=== PATIENT | female | born 1945 | race Caucasian/White ===

== ENCOUNTER 2016-10-15 19:12 | Emergency (ER) | payer MEDICARE, OTHER ==
[2016-10-15 19:29] VITALS: BMI 30.9
[2016-10-15 19:41] LABS: BASOPHIL 0.3 % (0-2.0); EOSINOPHIL 3.5 % (0-4.5); MCHC 33.8 g/dl (32.0-36.0); MEAN CELL VOLUME 85.9 fl (80-96); MEAN PLT VOLUME 9.6 fl (7.5-11.1); NEUTROPHILS 71.2 % (42.8-82.8); PLATELET COUNT 111 K/MM3 (134-434); RDW 13.4 % (11.6-15.6); WHITE BLOOD COUNT 5.4 K/mm3 (4.0-10.0)
[2016-10-15 19:54] LABS: INR 1.05 (0.82-1.09); PROTHROMBIN TIME (PATIENT) 11.6 SEC (9.98-11.88)
[2016-10-15 20:04] LABS: BILIRUBIN,TOTAL 1.1 mg/dL (0.2-1.0); COCKROFT - GAULT 59.585; CREATININE 1.1 mg/dL (0.55-1.02); TOT PROT 6.5 g/dl (6.4-8.2)
[2016-10-15 20:20] LABS: TROPONIN I < 0.02 ng/ml (0.00-0.05)
--- NOTE | 2016-10-15 20:36 | PDOC ---
History of Present Illness - General History Source: Patient Exam Limitations: No Limitations - History of Present Illness Initial Comments: 10/15/16 20:36 The patient is a 71 year old female, BIBA from [facility] with a significant past medical history of Alzheimer's, DM, HTN, hypercholesterolemia, and Parkinsons Disease , who presents to the emergency department s/p mechanical fall occurring today. The patient reports falling while using her walker while in the dining philippe. The fall was unwitnessed by [facility] staff and was found with abrasions on her right forehead by [facility] staff. The patients finger stick was noted to be 45 after her fall, noted by [facility] staff to be hypoglycemic. She denies any LOC. She denies any complaints of pain. She denies recent fevers, chills, headache or dizziness. She denies recent nausea, vomit, diarrhea or constipation. She denies recent dysuria, frequency, urgency or hematuria. She denies recent chest pain or shortness of breath. Allergies: NKA Past surgical history: Appendectomy. Cholecystectomy. Social history: Nonsmoker. Denies EtOH use and recreational drug use. Primary Care Physician: <Dominic Corona - Last Filed: 10/15/16 20:36> <Bea Ramos - Last Filed: 10/15/16 21:15> - General Chief Complaint: Injury Stated Complaint: FALL Time Seen by Provider: 10/15/16 19:14 Past History <Dominic Corona - Last Filed: 10/15/16 20:36> - Past Medical History Anemia: Yes Asthma: No Cancer: Yes (breast nodule benign, CERVIX) Cardiac Disorders: Yes (ID, STENTS - cardac and LLE) 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) COPD: Yes (COPD , CHRONIC BRONCHITIS) CHF: No Dementia: No Diabetes: Yes GI Disorders: Yes (H/O COLON POLYPS,CHRONIC PANCREATITIS -STONES) Disorders: Yes (H/O UTI) HTN: Yes (DX 2002) Hypercholesterolemia: Yes (DX 2002) Liver Disease: No Suicide Attempt (Hx): No Seizures: No Thyroid Disease: No - Surgical History Abdominal Surgery: Yes (EXPLORATORY LAP-1970) Appendectomy: Yes ( CHILD) Cardiac Surgery: Yes (STENTS-2007,BALLOON LLE) Cholecystectomy: Yes (1971 DURING EXPLORATORY LAP) Lung Surgery: No Neurologic Surgery: No Orthopedic Surgery: No - Immunization History Immunization Up to Date: No - Psycho/Social/Smoking Cessation Hx Anxiety: No Suicidal Ideation: No Smoking Status: No Smoking History: Never smoked Have you smoked in the past 12 months: No Number of Cigarettes Smoked Daily: 0 Hx Alcohol Use: No Drug/Substance Use Hx: No Substance Use Type: None Hx Substance Use Treatment: No <Bea Ramos - Last Filed: 10/15/16 21:15> - Past Medical History Allergies/Adverse Reactions: Allergies Allergy/AdvReac Type Severity Reaction Status Date / Time No Known Allergies Allergy Verified 01/29/16 21:46 Home Medications: Ambulatory Orders Alendronate Sodium [Binosto] 70 mg PO WEEKLY 11/08/15 Aspirin [ASA -] 81 mg PO DAILY 11/08/15 Atorvastatin Ca [Lipitor] 20 mg PO HS 11/08/15 Metformin HCl [Glucophage -] 500 mg PO BID 11/08/15 Metoprolol Succinate [Toprol Xl] 50 mg PO DAILY 11/08/15 Ranitidine [Zantac -] 150 mg PO DAILY 11/08/15 Acetaminophen [Tylenol .Regular Strength -] 650 mg PO Q6H PRN #0 tablet Glimepiride [Glimepiride -] 1 mg PO DAILY@0700 tablet 11/12/15 Heparin - 5,000 unit SQ BID vial 11/12/15 Insulin Sliding Scale [Novolog Vial Sliding Scale -] 1 vial SQ ACHS units 11/11 Losartan Potassium [Cozaar -] 50 mg PO DAILY #0 tablet 11/12/15 Quetiapine Fumarate [Seroquel -] 12.5 mg PO DAILY tablet 11/12/15 Quetiapine Fumarate [Seroquel -] 25 mg PO HS tablet 11/12/15 Rivastigmine Tartrate [Exelon (Nf) -] 1.5 mg PO BID capsule 11/12/15 Escitalopram Oxalate [Lexapro -] 10 mg PO DAILY 10/15/16 Furosemide 20 mg PO DAILY 10/15/16 Insulin Glargine,Hum.rec.anlog [Lantus (nf)] 0 units SQ HS 10/15/16 Insulin Lispro [Humalog] 100 unit SQ ASDIR 10/15/16 Lactulose [Cephulac -] 10 gm PO DAILY 10/15/16 Levothyroxine [Synthroid -] 25 mcg PO DAILY@0700 10/15/16 Review of Systems - Review of Systems Able to Perform ROS?: Yes Comments:: 10/15/16 20:36 CONSTITUTIONAL: Absent: fever, chills, diaphoresis, generalized weakness, malaise, loss of appetite HEENT: Absent: rhinorrhea, nasal congestion, throat pain, throat swelling, difficulty swallowing, mouth swelling, ear pain, eye pain, visual Changes CARDIOVASCULAR: Absent: chest pain, syncope, palpitations, irregular heart rate, lightheadedness , peripheral edema RESPIRATORY: Absent: cough, shortness of breath, dyspnea with exertion, orthopnea, wheezing, stridor, hemoptysis GASTROINTESTINAL: Absent: abdominal pain, abdominal distension, nausea, vomiting, diarrhea, constipation, melena, hematochezia GENITOURINARY: Absent: dysuria, frequency, urgency, hesitancy, hematuria, flank pain, genital pain MUSCULOSKELETAL: Absent: myalgia, arthralgia, joint swelling SKIN: Absent: rash, itching, pallor HEMATOLOGIC/IMMUNOLOGIC: Absent: easy bleeding, easy bruising, lymphadenopathy, frequent infections ENDOCRINE: Absent: unexplained weight gain, unexplained weight loss, heat intolerance, cold intolerance NEUROLOGIC: Absent: headache, focal weakness or paresthesias, dizziness, unsteady gait, seizure, mental status changes, bladder or bowel incontinence PSYCHIATRIC: Absent: anxiety, depression, suicidal or homicidal ideation, hallucinations. <Dominic Corona - Last Filed: 10/15/16 20:36> *Physical Exam - Vital Signs Last Vital Signs Temp Pulse Resp BP Pulse Ox 97.9 F 66 20 125/100 99 10/15/16 19:19 10/15/16 19:19 10/15/16 19:19 10/15/16 19:19 10/15/16 19:19 - Physical Exam Comments: 10/15/16 20:37 GENERAL: Well developed, well nourished. Awake and alert and answering simple directions. HEENT: 4cm Hematoma right forehead with abrasion. PERRLA, EOMI. No conjunctival pallor. Sclera are non-icteric. Moist mucous membranes. Oropharynx is clear. NECK: Supple. Full ROM. No JVD. Carotid pulses 2+ and symmetric, without bruits. No thyromegaly. No lymphadenopathy. CARDIOVASCULAR: Regular rate and rhythm. No murmurs, rubs, or gallops. Distal pulses are 2+ and symmetric. PULMONARY: No evidence of respiratory distress. Lungs clear to auscultation bilaterally. No wheezing, rales or rhonchi. ABDOMINAL: Soft. Non-tender. Non-distended. No rebound or guarding. No organomegaly. Normoactive bowel sounds. MUSCULOSKELETAL Normal range of motion at all joints. No bony deformities or tenderness. No CVA tenderness. EXTREMITIES: No cyanosis. No clubbing. No edema. No calf tenderness. SKIN: Warm and dry. Normal capillary refill. No rashes. No jaundice. NEUROLOGICAL: Alert, awake. Cranial nerves 2-12 intact. No deficits to light touch and temperature in face, upper extremities and lower extremities. No motor deficits in the in face, upper extremities and lower extremities. Normoreflexic in the upper and lower extremities. Normal speech. Toes are down-going bilaterally. PSYCHIATRIC: Cooperative. Good eye contact. Appropriate mood and affect. <Dominic Corona - Last Filed: 10/15/16 20:36> - Vital Signs Last Vital Signs Temp Pulse Resp BP Pulse Ox 97.9 F 66 20 125/100 99 10/15/16 19:19 10/15/16 19:19 10/15/16 19:19 10/15/16 19:19 10/15/16 19:19 <Bea Ramos - Last Filed: 10/15/16 21:15> ED Treatment Course - LABORATORY CBC & Chemistry Diagram: 10/15/16 07:30 10/15/16 19:30 - ADDITIONAL ORDERS Additional order review: Laboratory Results 10/15/16 10/15/16 10/15/16 19:42 19:30 07:30 INR 1.05 Sodium 136 Potassium 4.6 Chloride 101 Carbon Dioxide 26 Anion Gap 9 BUN 31 H Creatinine 1.1 H D Creat Clearance w eGFR 48.82 Random Glucose 308 H* Calcium 9.0 Total Bilirubin 1.1 H D AST 28 ALT 26 D Alkaline Phosphatase 68 Creatine Kinase 118 Troponin I < 0.02 Total Protein 6.5 Albumin 4.0 10/15/16 07:30 RBC 3.95 MCV 85.9 MCHC 33.8 RDW 13.4 MPV 9.6 D Neutrophils % 71.2 D Lymphocytes % 17.1 D Monocytes % 7.9 Eosinophils % 3.5 Basophils % 0.3 <Dominic Corona - Last Filed: 10/15/16 20:36> - LABORATORY CBC & Chemistry Diagram: 10/15/16 07:30 10/15/16 19:30 - ADDITIONAL ORDERS Additional order review: Laboratory Results 10/15/16 10/15/16 10/15/16 19:42 19:30 07:30 INR 1.05 Sodium 136 Potassium 4.6 Chloride 101 Carbon Dioxide 26 Anion Gap 9 BUN 31 H Creatinine 1.1 H D Creat Clearance w eGFR 48.82 Random Glucose 308 H* Calcium 9.0 Total Bilirubin 1.1 H D AST 28 ALT 26 D Alkaline Phosphatase 68 Creatine Kinase 118 Troponin I < 0.02 Total Protein 6.5 Albumin 4.0 10/15/16 07:30 RBC 3.95 MCV 85.9 MCHC 33.8 RDW 13.4 MPV 9.6 D Neutrophils % 71.2 D Lymphocytes % 17.1 D Monocytes % 7.9 Eosinophils % 3.5 Basophils % 0.3 - RADIOLOGY Radiology Studies Ordered: Category Date Time Status CERVICAL SPINE CT W/O CONTR [CT] Stat CT Scan 10/15/16 19:[address] WITHOUT CONTRAST [CT] Stat CT Scan 10/15/16 19:30 Taken CHEST X-RAY PORTABLE* [RAD] Stat Radiology 10/15/16 19:30 Taken <Bea Ramos - Last Filed: 10/15/16 21:15> Medical Decision Making - Medical Decision Making 10/15/16 20:56 71-year-old female brought in by ambulance from [facility] for evaluation of head trauma -She was found seated on the dining room floor at the [facility] with a right forehead hematoma. PMH dementia,DM,HTN,Parkinson's ds -A fingerstick was done and she was found to be very hypoglycemic with her BGM at 47, and she received dextrose CAT scan of the head showed no evidence of any acute intracranial process, no intracranial bleed or mass effect. There was some degree of atrophy, no evidence of fracture CAT scans cervical spine was negative for any evidence of fracture or subluxation. Glucoseon the serum was 308 EKG was bradycardia at 53 bpm -Labs found that she did not have a leukocytosis, she wasn't anemic, her platelet count was within normal limits. Chemistries reveal normal electrolytes, some dehydration with bun=31 , and a glucose that was 308 10/15/16 21:10 pt will be discharged back to the [facility] -daughter notified [facility] head trauma,hypoglycemia that resolved w dextrose <Bea Ramos - Last Filed: 10/15/16 21:15> *DC/Admit/Observation/Transfer - Attestations Scribe Attestion: 10/15/16 20:37 Documentation prepared by Dominic Corona, acting as medical and health services manager for Bea Raoms MD. <Dominic Corona - Last Filed: 10/15/16 20:36> <Bea Ramos - Last Filed: 10/15/16 21:15> Diagnosis at time of Disposition: Diabetes Qualifiers: Diabetes mellitus type: type 1 Diabetes mellitus complication status: with hypoglycemia Diabetes mellitus complication detail: without coma Qualified Code( s): E10.649 - Type 1 diabetes mellitus with hypoglycemia without coma Traumatic injury of head Qualifiers: Encounter type: initial encounter Qualified Code(s): S09.90XA - Unspecified injury of head, initial encounter Abrasion of forehead Qualifiers: Encounter type: initial encounter Qualified Code(s): S00.81XA - Abrasion of other part of head, initial encounter Facial hematoma Qualifiers: Encounter type: initial encounter Qualified Code(s): S00.83XA - Contusion of other part of head, initial encounter - Discharge Dispostion Disposition: HOME Condition at time of disposition: Stable - Referrals Referrals: Keith Chávez [Primary Care Provider] - - Patient Instructions Printed Discharge Instructions: DI for Closed Head Injury, DI for Hematoma ( Bruise) Additional Instructions: please watch for any signs of change of mental status or lethargy
[2016-10-15 21:52] VITALS: BP 155/80; PULSE 82; TEMP 98.3
--- NOTE | 2016-10-16 10:30 | EKG ---
Test Reason : Blood Pressure : / mmHG Vent. Rate : 053 BPM Atrial Rate : 053 BPM P-R Int : 000 ms QRS Dur : 072 ms QT Int : 498 ms P-R-T Axes : 059 -33 070 degrees QTc Int : 467 ms SINUS BRADYCARDIA WITH MARKED SINUS ARRHYTHMIA LEFT AXIS DEVIATION ABNORMAL ECG WHEN COMPARED WITH ECG OF 07-NOV-2015 23:36, VENT. RATE HAS DECREASED Confirmed by ELMO LOCO, ANATOLY ([id number]) on 10/16/2016 10:30:09 AM Referred By: Confirmed By:ANATOLY BORREGO MD
== END 2016-10-15 21:59 ==
LOC: JER 19:12
DX: S00.83XA Contusion of other part of head, initial encounter (principal); S00.81XA Abrasion of other part of head, initial encounter; E10.649 Type 1 diabetes mellitus with hypoglycemia without coma; Z79.4 Long term (current) use of insulin; Z79.84 Long term (current) use of oral hypoglycemic drugs; E78.00 Pure hypercholesterolemia, unspecified; J44.9 Chronic obstructive pulmonary disease, unspecified; I25.10 Atherosclerotic heart disease of native coronary artery without angina pectoris; I10 Essential (primary) hypertension; Z95.5 Presence of coronary angioplasty implant and graft; Z86.73 Personal history of transient ischemic attack (TIA), and cerebral infarction without residual deficits; I25.2 Old myocardial infarction; Z87.440 Personal history of urinary (tract) infections; Z99.89 Dependence on other enabling machines and devices; R26.2 Difficulty in walking, not elsewhere classified; Z99.3 Dependence on wheelchair; W18.39XA Other fall on same level, initial encounter; Y93.9 Activity, unspecified; Y92.128 Other place in nursing home as the place of occurrence of the external cause
CPT/HCPCS: 36415; 70450-TC; 71010-TC; 72125-TC; 80053; 82550; 84484; 85025; 85610; 93005; 93010; 99285-25

== ENCOUNTER 2017-10-05 12:53 | Inpatient (IN) | payer OTHER ==
--- NOTE | 2017-10-05 14:14 | PDOC ---
History of Present Illness - General Chief Complaint: Wound Stated Complaint: ADMIT (WOUND CARE SENT) Time Seen by Provider: 10/05/17 14:01 - History of Present Illness Initial Comments: 10/05/17 15:33 The patient is a 72 year old female with a history of HTN, HLD, DM, CAD, Dementia who presents for admission for a right diabetic foot wound. The patient is accompanied by family who assist in providing the history. They report that the patient has had a wound to her right 2nd toe for the past few weeks for which Dr. Oakes in wound clinic has been managing the patient. They note worsening symptoms today prompting their presentation to the ED for admission for further management. ROS is limited due to the patient's advance dementia. Past History - Past Medical History Allergies/Adverse Reactions: Allergies Allergy/AdvReac Type Severity Reaction Status Date / Time No Known Allergies Allergy Verified 10/05/17 12:58 Home Medications: Ambulatory Orders Aspirin [ASA -] 81 mg PO DAILY 11/08/15 Atorvastatin Ca [Lipitor] 20 mg PO HS 11/08/15 Metoprolol Succinate [Toprol Xl] 12.5 mg PO DAILY 11/08/15 Ranitidine [Zantac -] 150 mg PO DAILY 11/08/15 metFORMIN HCL [Glucophage -] 500 mg PO BID 11/08/15 Acetaminophen [Tylenol .Regular Strength -] 650 mg PO Q6H PRN #0 tablet Insulin Sliding Scale [Novolog Vial Sliding Scale -] 1 vial SQ ACHS units 11/11 Escitalopram Oxalate [Lexapro -] 10 mg PO DAILY 10/15/16 Furosemide 20 mg PO DAILY 10/15/16 Insulin Glargine,Hum.rec.anlog [Lantus (nf)] 16 units SQ HS 10/15/16 Lactulose [Cephulac -] 30 ml PO ASDIR 10/15/16 Levothyroxine [Synthroid -] 25 mcg PO DAILY@0700 10/15/16 Amlodipine Besylate 2.5 mg PO DAILY 10/05/17 Ascorbic Acid [Vitamin C -] 500 mg PO BID 10/05/17 Cholecalciferol (Vitamin D3) [Vitamin D3 -] 1,000 unit PO DAILY 10/05/17 Insulin (Novolog) [NovoLOG FLEXPEN] 12 units SQ ASDIR 10/05/17 Insulin Aspart [Novolog] 5 unit SQ AM 10/05/17 Insulin Aspart [Novolog] 9 unit SQ ASDIR 10/05/17 Lactobacillus Acidophilus [Bacid -] 1 each PO DAILY 10/05/17 Lipase/Protease/Amylase [Ava Akers 6,000 Units Capsule] 1 cap PO TIDCM 10/05/17 Multivit with Iron,Minerals [Compete] 1 each PO DAILY 10/05/17 Anemia: Yes Asthma: No Cancer: Yes (breast nodule benign, CERVIX) Cardiac Disorders: Yes (KS, STENTS - cardac and LLE) 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) COPD: Yes (COPD , CHRONIC BRONCHITIS) CHF: No Dementia: No Diabetes: Yes GI Disorders: Yes (H/O COLON POLYPS,CHRONIC PANCREATITIS -STONES) Disorders: Yes (H/O UTI) HTN: Yes (DX 2002) Hypercholesterolemia: Yes (DX 2002) Liver Disease: No Seizures: No Thyroid Disease: No - Surgical History Abdominal Surgery: Yes (EXPLORATORY LAP-1970) Appendectomy: Yes ( CHILD) Cardiac Surgery: Yes (STENTS-2007,BALLOON LLE) Cholecystectomy: Yes (1970 DURING EXPLORATORY LAP) Lung Surgery: No Neurologic Surgery: No Orthopedic Surgery: No - Immunization History Immunization Up to Date: No - Suicide/Smoking/Psychosocial Hx Smoking Status: No Smoking History: Never smoked Have you smoked in the past 12 months: No Number of Cigarettes Smoked Daily: 0 Hx Alcohol Use: No Drug/Substance Use Hx: No Substance Use Type: None Hx Substance Use Treatment: No Review of Systems - Review of Systems Able to Perform ROS?: No (Advance Dementia) *Physical Exam - Vital Signs Last Vital Signs Temp Pulse Resp BP Pulse Ox 97.7 F 78 20 108/63 100 10/05/17 12:59 10/05/17 12:59 10/05/17 12:59 10/05/17 12:59 10/05/17 12:59 - Physical Exam Comments: 10/05/17 15:36 General Appearance: Nourished. No Apparent Distress HEENT: EOMI, ALINE. No Pharyngeal Erythema, Tonsillar Exudate, Tonsillar Erythema Neck: No Cervical Lymphadenopathy Respiratory/Chest: Lungs Clear, Normal Breath Sounds. No Crackles, Rales, Rhonchi, Wheezing Cardiovascular: Regular Rhythm, Regular Rate. No Murmur, Gallops, Rubs Gastrointestinal/Abdominal: Normal Bowel Sounds, Soft. No Guarding, Rebound, Tenderness Musculoskeletal: No CVA Tenderness Extremity: Wound noted to the 2nd right toe with purulent drainage, warmth and erythema. Normal Capillary Refill Integumentary: Normal Color, Dry, Warm Neurologic: Oriented x1, Alert, Normal Mood/Affect, Normal Response, ED Treatment Course - LABORATORY CBC & Chemistry Diagram: 10/05/17 14:50 10/05/17 14:50 Medical Decision Making - Medical Decision Making 10/05/17 15:39 The patient is a 72 year old female with a history of HTN, HLD, DM, CAD, Dementia who presents for admission for a right diabetic foot wound. Differential includes but is not limited to: Diabetic Foot wound, Cellulitis, Osteomylitis, Infectious, Metabolic derangement. Given the patient's physical exam, we will obtain a cbc, cmp, troponin, blood cultures, foot plain film, ekg , chest plain film to evaluate further. We will treat the patient with vancomycin and zosyn here in the ED and continue to monitor and reassess. 10/05/17 17:04 CBC, cmp, troponin, are unremarkable. We discussed the case with Dr. Abraham who request admission to the hospitalist. 10/05/17 17:32 We discussed the case with the hospitalist team who accepted the patient for admission. We will continue to monitor and reassess while here in the ED. *DC/Admit/Observation/Transfer Diagnosis at time of Disposition: Diabetic foot infection - Discharge Dispostion Condition at time of disposition: Stable Admit: Yes - Referrals Referrals: Deon Tarango [Primary Care Provider] - - Patient Instructions - Post Discharge Activity
[2017-10-05] MEDS ORDERED: PIPERACILLIN/TAZOB 4.5 GM 4.5 GM in DEXTROSE 5%-WATER 100 ML IVPB ONE (14:20)
[2017-10-05] MEDS ORDERED: VANCOMYCIN 1,000 MG in DEXTROSE 5%-WATER - 250 ML IVPB ONE (14:20)
--- NOTE | 2017-10-05 14:49 | PDOC ---
Attending Attestation - HPI HPI: 10/05/17 15:40 The patient is a 72 year old female, with a significant PMH of Alzheimers, DM, HTN, hypercholesterolemia, and Parkinsons disease who presents to the emergency department for evaluation of worsening right 2nd toe wound. As per the patients friend present at bedside, the patient was seen by Dr. Oakes at wound care and advised to come to the ED for admission. She denies any recent fevers, chills, nausea, vomiting, diarrhea. She denies any chest pain or shortness of breath. Allergies: NKA - Physicial Exam PE: 10/05/17 16:34 Vitals: Triage vital signs reviewed General Appearance: No acute distress, well nourished, well developed Head: Atraumatic Eyes: Pupils equal reactive round, extraocular movement intact Neck: Supple; No nuchal rigidity Chest Wall: Nontender Cardiac: Regular rate and rhythm, no murmurs, no rubs, no gallops Lungs: Clear to auscultation bilateral, good air movement bilaterally Abdomen: Soft, nondistended, normal bowel sounds, nontender to palpation Rectal: Exam deferred Extremities: +Wet gangrene right 2nd toe. Full range of motion to all extremities. Skin: Warm and dry, no rashes or lesions, no rash, no petechiae Neuro: Cranial Nerves 2-12 grossly intact, Strength intact to all extremities, Sensation intact to all extremities. Psych: Normal mood, normal affect - Medical Decision Making 10/05/17 15:41 The patient is a 72 year old female, with a significant PMH of Alzheimers, DM, HTN, hypercholesterolemia, and Parkinsons disease who presents to the emergency department for evaluation of worsening right 2nd toe wound sent in by Dr. Oakes (Wound Care) for admission. Plan: EKG, Labs, Meds, chest x-ray, right foot x-ray. Documentation prepared by Osei Preciado, acting as medical office technician for Kaushik Hernandez MD. <Osei Preciado - Last Filed: 10/05/17 16:34> - Resident Resident Name: Fabián Rivera - ED Attending Attestation I have performed the following: I have examined & evaluated the patient, The case was reviewed & discussed with the resident, I agree w/resident's findings & plan, Exceptions are as noted - Medical Decision Making Blood cultures sent x-rays ordered we'll admit to medicine for IV antibiotics and further management of right second toe gangrene. <Kaushik Hernandez - Last Filed: 10/05/17 16:48> Heart Score/ECG Review - ECG Impressions Comment:: 10/05/17 16:47 Sinus rhythm 62 bpm NJ 188 QRS 72 QTC [address] elevations or T- wave inversions Interpreted by me. <Kaushik Hernandez - Last Filed: 10/05/17 16:48>
[2017-10-05 15:10] LABS: BASO % 0.2 % (0-2.0); EOS % 2.1 % (0-4.5); HEMATOCRIT 26.1 % (32.4-45.2); HEMOGLOBIN 8.9 GM/dL (10.7-15.3); LYMPH % 16.8 % (8-40); MCHC 34.3 g/dl (32.0-36.0); MEAN CELL VOLUME 84.6 fl (80-96); MEAN PLT VOLUME 8.5 fl (7.5-11.1); MONO % 9.5 % (3.8-10.2); NEUT % 71.4 % (42.8-82.8); PLATELET COUNT 184 K/MM3 (134-434); RBC 3.08 M/mm3 (3.60-5.2); RDW 15.4 % (11.6-15.6); WHITE BLOOD COUNT 6.8 K/mm3 (4.0-10.0)
[2017-10-05 15:23] LABS: INR 1.12 (0.82-1.09); PROTHROMBIN TIME (PATIENT) 12.7 SEC (9.7-13.0)
[2017-10-05] MEDS ORDERED: PIPERACILLIN/TAZOB 4.5 GM 4.5 GM/100 ML BAG IVPB ONE (15:25)
[2017-10-05] MEDS ORDERED: VANCOMYCIN 1 GRAM (PRE-DOCKED) 1,000 MG/250 ML BAG IVPB ONE (15:26)
[2017-10-05] MEDS ORDERED: PICC LINE 8 ML FLUSH PROTOCOL IVPUSH PRN (15:53)
[2017-10-05] MEDS ORDERED: morphine CARPU-JECT 4 MG/1 ML DISP.SYRIN IVPUSH ONE (15:55)
[2017-10-05 16:23] LABS: ALBUMIN 3.5 g/dl (3.4-5.0); ANION GAP 11 (8-16); BLOOD UREA NITROGEN 43 mg/dL (7-18); CALCIUM 8.8 mg/dL (8.5-10.1); CHLORIDE 100 mmol/L (98-107); CO2 23 mmol/L (21-32); CREATININE 1.3 mg/dL (0.55-1.02); GLUCOSE,RANDOM 271 mg/dL (74-106); POTASSIUM 5.1 mmol/L (3.5-5.1); SGOT/AST 25 U/L (15-37); SGPT/ALT 21 U/L (12-78); SODIUM 134 mmol/L (136-145)
[2017-10-05 16:27] LABS: ALK PHOS 87 U/L (45-117); BILIRUBIN,TOTAL 0.6 mg/dL (0.2-1.0); TOT PROT 6.7 g/dl (6.4-8.2)
--- NOTE | 2017-10-05 17:33 | HP ---
CHIEF COMPLAINT: Right foot, worsening second toe wound, PCP: Dr. Asif Ngo MD (moss bleacher) HISTORY OF PRESENT ILLNESS: Patient is a 72 year old female with a significant past medical history of Alzheimers dementia, diabetes mellitus, hypertension, hypothyroidism , hyperlipidemia, TIA, coronary artery disease, s/p PCI and stenting, PAD, and history of organic brain syndrome. She presents to the ED today for further evaluation of her right foot 2nd toe wound. Patient was seen at the wound care clinic today and advised to come to the ED for further workup. Patient is unable to participate in the exam, as she was mildly agitated and restless. Blood and urine cultures are pending. Patient was given Zosyn and Vanco in the ED. She was also given Ativan pushes for agitation. ER course was notable for: (1) hmg/hct 8.9/26.1 (2) NA 134 (3) Creat 1.3 (4) Vanco/Zosyn in ED Recent Travel: PAST MEDICAL HISTORY: Alzheimers dementia, diabetes mellitus, hypertension, hypercholesterolemia, and Parkinsons disease. PAST SURGICAL HISTORY: Social History: Smoking: n/a Alcohol: n/a Drugs: n/a Family History: Allergies No Known Allergies Allergy (Verified 10/05/17 12:58) HOME MEDICATIONS: Home Medications Medication Instructions Recorded Aspirin [ASA -] 81 mg PO DAILY 11/08/15 Atorvastatin Ca [Lipitor] 20 mg PO HS 11/08/15 Metoprolol Succinate [Toprol Xl] 12.5 mg PO DAILY 11/08/15 Ranitidine [Zantac -] 150 mg PO DAILY 11/08/15 metFORMIN HCL [Glucophage -] 500 mg PO BID 11/08/15 Acetaminophen [Tylenol .Regular 650 mg PO Q6H PRN #0 tablet 11/12/15 Strength -] Insulin Sliding Scale [Novolog 1 vial SQ ACHS units 11/12/15 Vial Sliding Scale -] Escitalopram Oxalate [Lexapro -] 10 mg PO DAILY 10/15/16 Furosemide 20 mg PO DAILY 10/15/16 Insulin Glargine,Hum.rec.anlog 16 units SQ HS 10/15/16 [Lantus (nf)] Lactulose [Cephulac -] 30 ml PO ASDIR 10/15/16 Levothyroxine [Synthroid -] 25 mcg PO DAILY@0700 10/15/16 Amlodipine Besylate 2.5 mg PO DAILY 10/05/17 Ascorbic Acid [Vitamin C -] 500 mg PO BID 10/05/17 Cholecalciferol (Vitamin D3) 1,000 unit PO DAILY 10/05/17 [Vitamin D3 -] Insulin (Novolog) [NovoLOG FLEXPEN] 12 units SQ ASDIR 10/05/17 Insulin Aspart [Novolog] 5 unit SQ AM 10/05/17 Insulin Aspart [Novolog] 9 unit SQ ASDIR 10/05/17 Lactobacillus Acidophilus [Bacid -] 1 each PO DAILY 10/05/17 Lipase/Protease/Amylase [Creon Dr 1 cap PO TIDCM 10/05/17 6,000 Units Capsule] Multivit with Iron,Minerals 1 each PO DAILY 10/05/17 [Compete] PHYSICAL EXAMINATION Vital Signs - 24 hr 10/05/17 12:59 Temperature 97.7 F Pulse Rate 78 Respiratory 20 Rate Blood Pressure 108/63 O2 Sat by Pulse 100 Oximetry (%) GENERAL: lethargic, restless, confused HEAD: Normal with no signs of trauma. EYES: unable to assess, pt uncooperative, eyes remained closed LUNGS: anterior lungs sounds clear/diminished HEART: Regular rate and rhythm ABDOMEN: Soft, nontender, not distended, normoactive bowel sounds, no guarding, no rebound, no masses. No hepatomegaly or splenomegaly. MUSCULOSKELETAL: bed bound UPPER EXTREMITIES: No peripheral edema. LOWER EXTREMITIES: Right foot, 2nd toe with worsening of her wound, small ulcer around 2nd toe, toe wet and reddened NEUROLOGICAL: lethargic Laboratory Results - last 24 hr 10/05/17 10/05/17 10/05/17 14:50 14:50 14:50 WBC 6.8 RBC 3.08 L D Hgb 8.9 L D Hct 26.1 L D MCV 84.6 MCH 29.0 MCHC 34.3 RDW 15.4 D Plt Count 184 D MPV 8.5 D Neutrophils % 71.4 Lymphocytes % 16.8 Monocytes % 9.5 Eosinophils % 2.1 Basophils % 0.2 PT with INR 12.70 INR 1.12 Sodium 134 L Potassium 5.1 Chloride 100 Carbon Dioxide 23 Anion Gap 11 BUN 43 H Creatinine 1.3 H Creat Clearance w eGFR 40.15 Random Glucose 271 H Calcium 8.8 Total Bilirubin 0.6 D AST 25 ALT 21 Alkaline Phosphatase 87 Creatine Kinase 172 Troponin I < 0.02 Total Protein 6.7 Albumin 3.5 ASSESSMENT/PLAN: Patient is a 72 year old female with a significant past medical history of Alzheimers dementia, diabetes mellitus, hypertension, hypothyroidism , hyperlipidemia, TIA, coronary artery disease, s/p PCI and stenting, PAD, and history of organic brain syndrome. She presents to the ED today for further evaluation of her right foot 2nd toe wound. Patient was seen at the wound care clinic today and advised to come to the ED for further workup. Patient is unable to participate in the exam, as she was mildly agitated and restless. Blood and urine cultures are pending. Patient was given Zosyn and Vanco in the ED. She was also given Ativan pushes for agitation. ID; Right foot 2nd toe cellulitis, acute on chronic Rule out osteomylitis Foot Xray pending MRI ordered to rule out osteo Wound currently appears reddened and wet, small open areas noted Blood, urine and wound cultures pending Given Zosyn and Vanco in ED ID consulted for continuation of antibiotics CV: Hypertension, chronic continue home meds Monitor BP HLD, chronic Lipid panel in a.m. Endocrinology Diabetes Mellitus Novolog SS, Levemir at bedtime Diabetic diet Hypothyroidism, chronic On Synthroid Renal: EDMAR, acute Creat 1.3, baseline about 0.9 Hydrate overnight Hold Lasix Monitor renal function closely Heme: Anemia, acute hmg/hct low continue to trend Iron studies Neuro: Alzheimers dementia, chronic Monitor mental status F.E.N. Fluids: IVF overnight, NS @ 75 for EDMAR Electrolytes: hyponatremia noted, monitor Nutrition: diabetic diet. Prophy: Heparin BID Prophy: protonix daily Visit type - Emergency Visit Emergency Visit: Yes ED Registration Date: 10/05/17 Care time: The patient presented to the Emergency Department on the above date and was hospitalized for further evaluation of their emergent condition. - New Patient This patient is new to me today: Yes Date on this admission: 10/05/17 - Critical Care Critical Care patient: No Hospitalist Screening - Colonoscopy Questionnaire Colonoscopy Questionnaire: Colonoscopy Questionnaire - Patient: 50 - 75 years old and never had a screening colonoscopy: Unknown History of colon or rectal polyps, or CA: Unknown History of IBD, Crohn's disease or UC: Unknown History of abdominal radiation therapy as a child: Unknown - Relative: 1 with colon or rectal CA, or polyps at age 60 or younger: Unknown Colon or rectal CA diagnosed at age 45 or younger: Unknown Multiple relatives with colon or rectal CA: Unknown - Outcome: Screening Result: Negative Screen
[2017-10-05] MEDS ORDERED: ACETAMINOPHEN 325 MG TABLET (FP) PO PRN (18:18)
[2017-10-05] MEDS: SODIUM CHLORIDE 1,000 ML IV SCH (20:30)
[2017-10-05 20:37] VITALS: BMI 21.7
[2017-10-05] MEDS: ATORVASTATIN CA 20 MG TABLET (FP) PO SCH (21:26)
[2017-10-05] MEDS: ASCORBIC ACID 500 MG TABLET (FP) PO SCH (21:26)
[2017-10-05] MEDS: HEPARIN NA (PORCINE) 5,000 UNITS/ML 1ML VIAL SQ SCH (21:26)
[2017-10-05] MEDS ORDERED: INSULIN (NOVOLOG) ASPART 100 UNITS/ML 10ML VIAL ONE (21:31)
[2017-10-05] MEDS: INSULIN SLIDING SCALE (NOVOLOG) 1 VIAL SQ SCH (21:32)
[2017-10-05] MEDS ORDERED: INSULIN (LEVEMIR) 100 UNITS/ML UNITS SQ SCH (22:00)
[2017-10-05] MEDS: INSULIN (LEVEMIR) 100 UNITS/ML UNITS SQ SCH (23:31)
[2017-10-06] MEDS ORDERED: PIPERACILLIN/TAZOB 2.25 GM 2.25 GM in DEXTROSE 5%-WATER - 50 ML IVPB ONE (05:00)
[2017-10-06] MEDS ORDERED: DEXTROSE 5%-WATER - 50 ML IVPB ONE ×3 (05:16→18:14)
[2017-10-06] MEDS ORDERED: PIPERACILLIN/TAZOBACTAM 2.25 GM VIAL IVPB ONE ×2 (05:16→18:14)
[2017-10-06] MEDS: INSULIN SLIDING SCALE (NOVOLOG) 1 VIAL SQ SCH ×3 (06:12→17:56)
[2017-10-06] MEDS: LEVOTHYROXINE NA 25 MCG TABLET (FP) PO SCH (06:19)
--- NOTE | 2017-10-06 08:14 | CONSULT ---
Consult - text type - Consultation Consultation Note: Patient seen in bed. Asked to evaluate and treat 2nd toe right by Dr. Oakes. VSS Tmax 97.5 +cellulitis 2nd toe right, -drainage, -mal odor, +probing to bone, wbc=6.8, cellulitis 2nd toe right om? MRI pending. Will re-evaluate after MRI done. Santyl dressing change 2nd toe right. Will follow. ESR and HGBA!C ordered.
[2017-10-06] MEDS: LIPASE/PROTEASE/AMYLASE 6,000 UNIT CAPSULE PO SCH ×3 (08:30→18:18)
[2017-10-06] MEDS ORDERED: PT OWN MED DRAWER 7, Y5N ONE ×2 (09:59→20:58)
[2017-10-06] MEDS ORDERED: PATIENT'S OWN MEDICATION (NON-FORMULARY) (Multivit With Iron,Minerals [Compete] 1 EACH) PO SCH (10:00)
[2017-10-06] MEDS ORDERED: FUROSEMIDE 20 MG TABLET (FP) PO SCH (10:00)
[2017-10-06] MEDS: metoPROLOL SUCCINATE 25 MG TAB.SR.24H (FP) PO SCH (10:09)
[2017-10-06] MEDS: ESCITALOPRAM OXALATE 10 MG TABLET (FP) PO SCH (10:09)
[2017-10-06] MEDS: amLODIPine BESYLATE 2.5 MG TABLET (FP) PO SCH (10:09)
[2017-10-06] MEDS: ASCORBIC ACID 500 MG TABLET (FP) PO SCH ×2 (10:09→21:55)
[2017-10-06] MEDS: ASPIRIN 81 MG CHEWABLE TABLETS PO SCH (10:10)
[2017-10-06] MEDS: COLLAGENASE CLOSTRIDIUM HIST. 30 GRAMS TUBE TP SCH (10:10)
[2017-10-06] MEDS: HEPARIN NA (PORCINE) 5,000 UNITS/ML 1ML VIAL SQ SCH ×2 (10:10→22:00)
[2017-10-06] MEDS: MULTIVITAMINS THER W-MINERALS COMBO TABLET (FP) PO SCH (10:11)
[2017-10-06] MEDS: CHOLECALCIFEROL (VITAMIN D3) 1,000 UNIT TABLET (FP) PO SCH (10:12)
--- NOTE | 2017-10-06 11:45 | PN ---
Progress Note, Physician Chief Complaint: pt from [facility] Events noted - Current Medication List Current Medications: Active Medications Acetaminophen (Tylenol -) 650 mg PO Q6H PRN PRN Reason: FEVER Amlodipine Besylate (Norvasc -) 2.5 mg PO DAILY [facility] Last Admin: 10/06/17 10:09 Dose: 2.5 mg Ascorbic Acid (Vitamin C -) 500 mg PO BID [facility] Last Admin: 10/06/17 10:09 Dose: 500 mg Aspirin (Asa -) 81 mg PO DAILY [facility] Last Admin: 10/06/17 10:10 Dose: 81 mg Atorvastatin Calcium (Lipitor -) 20 mg PO HS [facility] Last Admin: 10/05/17 21:26 Dose: 20 mg Cholecalciferol (Vitamin D3 -) 1,000 unit PO DAILY [facility] Last Admin: 10/06/17 10:12 Dose: 1,000 unit Collagenase (Santyl -) 1 applic TP DAILY [facility] Last Admin: 10/06/17 10:10 Dose: 1 applic Escitalopram Oxalate (Lexapro -) 10 mg PO DAILY [facility] Last Admin: 10/06/17 10:09 Dose: 10 mg Heparin Sodium (Porcine) (Heparin -) 5,000 unit SQ BID [facility] Last Admin: 10/06/17 10:10 Dose: 5,000 unit IV Flush (Picc Line Flush) 8 ml IVPUSH PRN PRN PRN Reason: Protocol Sodium Chloride (Normal Saline -) 1,000 mls @ 75 mls/hr IV ASDIR [facility] Last Admin: 10/05/17 20:30 Dose: 75 mls/hr Insulin Aspart (Novolog Vial Sliding Scale -) 1 vial SQ ACHS [facility] PRN Reason: Protocol Last Admin: 10/06/17 06:12 Dose: Not Given Insulin Detemir (Levemir Vial) 10 units SQ HS [facility] Last Admin: 10/05/17 23:31 Dose: 10 units Levothyroxine Sodium (Synthroid -) 25 mcg PO DAILY@0700 [facility] Last Admin: 10/06/17 06:19 Dose: 25 mcg Metoprolol Succinate (Toprol Xl -) 12.5 mg PO DAILY [facility] Last Admin: 10/06/17 10:09 Dose: 12.5 mg Multivitamins/Minerals (Theragran-M) 1 each PO DAILY [facility] Last Admin: 10/06/17 10:11 Dose: 1 each Pancrelipase (Creon Dr 6,000 Units Capsule) 1 cap PO TIDCM [facility] Last Admin: 10/06/17 08:30 Dose: 1 cap - Objective Vital Signs: Vital Signs Temperature 98.6 F 10/06/17 08:30 Pulse Rate 77 10/06/17 08:30 Respiratory Rate 20 10/05/17 21:00 Blood Pressure 135/81 10/06/17 08:30 O2 Sat by Pulse Oximetry (%) 98 10/05/17 21:00 Constitutional: Yes: No Distress Cardiovascular: Yes: Regular Rate and Rhythm Respiratory: Yes: CTA Bilaterally Gastrointestinal: Yes: Normal Bowel Sounds, Soft. No: Tenderness Extremities: Yes: Other (right second toe-- edema, erythema, tender+) Labs: CBC, BMP 10/05/17 14:50 10/05/17 14:50 INR, PTT INR 1.12 (0.82-1.09) 10/05/17 14:50 Problem List - Problems (1) Diabetic foot infection Code(s): E11.628 - TYPE 2 DIABETES MELLITUS WITH OTHER SKIN COMPLICATIONS; L08.9 - LOCAL INFECTION OF THE SKIN AND SUBCUTANEOUS TISSUE, UNSP (2) CAD (coronary artery disease) Code(s): I25.10 - ATHSCL HEART DISEASE OF [place] CORONARY ARTERY W/O ANG PCTRS Qualifiers: Coronary Disease-Associated Artery/Lesion type: [place] artery [place] vs. transplanted heart: [place] heart Associated angina: without angina Qualified Code(s): I25.10 - Atherosclerotic heart disease of [place] coronary artery without angina pectoris (3) Diabetes Code(s): E11.9 - TYPE 2 DIABETES MELLITUS WITHOUT COMPLICATIONS Qualifiers: Diabetes mellitus type: type 1 Diabetes mellitus complication status: with hypoglycemia Diabetes mellitus complication detail: without coma Qualified Code(s): E10.649 - Type 1 diabetes mellitus with hypoglycemia without coma Assessment/Plan PLAN IV antibiotics MRI foot pending iv fluids diabetic control
[2017-10-06 12:10] LABS: HEMATOCRIT 27.1 % (32.4-45.2); HEMOGLOBIN 9.2 GM/dL (10.7-15.3); MCH 28.5 pg (25.7-33.7); MCHC 33.9 g/dl (32.0-36.0); MEAN CELL VOLUME 84.2 fl (80-96); MEAN PLT VOLUME 7.8 fl (7.5-11.1); PLATELET COUNT 188 K/MM3 (134-434); RBC 3.22 M/mm3 (3.60-5.2); RDW 15.2 % (11.6-15.6); WHITE BLOOD COUNT 5.5 K/mm3 (4.0-10.0)
[2017-10-06 12:49] LABS: CHOLESTEROL 89 mg/dL (50-200); HDL CHOLESTEROL 32 mg/dL (40-60); TRIGLYCERIDES 96 mg/dL (35-160)
[2017-10-06 12:50] LABS: ANION GAP 6 (8-16); BLOOD UREA NITROGEN 24 mg/dL (7-18); CALCIUM 8.4 mg/dL (8.5-10.1); CHLORIDE 104 mmol/L (98-107); CO2 27 mmol/L (21-32); CREATININE 0.8 mg/dL (0.55-1.02); GLUCOSE,RANDOM 187 mg/dL (74-106); MAGNESIUM 1.9 mg/dL (1.8-2.4); POTASSIUM 4.8 mmol/L (3.5-5.1); SODIUM 137 mmol/L (136-145)
--- NOTE | 2017-10-06 14:35 | EKG ---
Test Reason : Blood Pressure : / mmHG Vent. Rate : 062 BPM Atrial Rate : 062 BPM P-R Int : 188 ms QRS Dur : 072 ms QT Int : 452 ms P-R-T Axes : 050 -27 051 degrees QTc Int : 458 ms NORMAL SINUS RHYTHM NORMAL ECG WHEN COMPARED WITH ECG OF 15-OCT-2016 19:38, NO SIGNIFICANT CHANGE WAS FOUND Confirmed by MD Worley Daniel ([id number]) on 10/06/2017 2:35:10 PM Referred By: Confirmed By:Fabián Worley MD
[2017-10-06] MEDS ORDERED: PIPERACILLIN/TAZOB 3.375 GM 3.375 GM in DEXTROSE 5%-WATER - 50 ML IVPB ONE (17:00)
[2017-10-06] MEDS ORDERED: PIPERACILLIN/TAZOBACTAM 3.375 GM VIAL IVPB ONE (17:26)
[2017-10-06] MEDS ORDERED: INSULIN (NOVOLOG) ASPART 100 UNITS/ML 10ML VIAL ONE ×2 (17:54→21:59)
[2017-10-06] MEDS ORDERED: PIPERACILLIN/TAZOB 2.25 GM 2.25 GM in DEXTROSE 5%-WATER - 50 ML IVPB SCH (18:00)
[2017-10-06] MEDS: SODIUM CHLORIDE 1,000 ML IV SCH (19:50)
--- NOTE | 2017-10-06 20:40 | PN ---
Progress Note (short form) - Note Progress Note: ID Consult dictated Cellulitis, probable osteomyelitis R 2nd toe DM OBS Empiric zosyn/ vancomycin ? Amputation Discussed with sister at bedside
[2017-10-06] MEDS ORDERED: VANCOMYCIN 1,000 MG in DEXTROSE 5%-WATER - 250 ML IVPB SCH (20:45)
[2017-10-06] MEDS: VANCOMYCIN 1 GM PREMIX - 1 GM/200 ML BAG IVPB SCH (21:52)
[2017-10-06] MEDS: ATORVASTATIN CA 20 MG TABLET (FP) PO SCH (21:55)
[2017-10-06] MEDS ORDERED: INSULIN (LEVEMIR) 100 UNITS/ML UNITS SQ ONE (22:00)
[2017-10-07] MEDS ORDERED: DEXTROSE 5%-WATER - 50 ML IVPB ONE ×3 (01:55→18:09)
[2017-10-07] MEDS ORDERED: PIPERACILLIN/TAZOBACTAM 3.375 GM VIAL IVPB ONE ×3 (01:55→18:09)
[2017-10-07] MEDS: INSULIN (LEVEMIR) 100 UNITS/ML UNITS SQ SCH ×2 (02:20→21:45)
[2017-10-07] MEDS: PIPERACILLIN/TAZOB 3.375 GM 3.375 GM in DEXTROSE 5%-WATER - 50 ML IVPB SCH ×3 (02:22→18:24)
[2017-10-07] MEDS: INSULIN SLIDING SCALE (NOVOLOG) 1 VIAL SQ SCH ×5 (02:23→21:43)
[2017-10-07] MEDS: LEVOTHYROXINE NA 25 MCG TABLET (FP) PO SCH (06:41)
[2017-10-07] MEDS ORDERED: INSULIN (NOVOLOG) ASPART 100 UNITS/ML 10ML VIAL ONE (07:09)
[2017-10-07] MEDS: LIPASE/PROTEASE/AMYLASE 6,000 UNIT CAPSULE PO SCH ×3 (08:10→18:20)
--- NOTE | 2017-10-07 09:37 | CONS ---
DATE OF CONSULTATION: DATE OF DICTATION: 10/06/2017 The patient is a 72-year-old diabetic female with a history of Lewy body dementia evaluated for cellulitis of the right 2nd toe. History was obtained from the chart as well as the patient's sister who is present at the time of the examination. She reports worsening erythema and swelling of the right 2nd toe. She was seen as an outpatient, where the sister reports that purulent drainage was noted from that toe. She was advised hospital admission. She was admitted to the hospital, where cultures were obtained and she was empirically treated with vancomycin and Zosyn for cellulitis of the toe. According to some notes, there was evidence of exposed bone. An MRI was ordered; however, patient was unable to cooperate with the examination secondary to her dementia. She has had low-grade fever. No reports of shaking chills. PAST MEDICAL HISTORY: Positive for Lewy body dementia, diabetes mellitus, hypertension, hyperlipidemia, coronary artery disease, status post coronary artery stents, COPD. No known allergies. MEDICATIONS: Aspirin; Lipitor; Toprol; Zantac; Glucophage; Lexapro; Lasix; lactulose; Synthroid; amlodipine; NovoLog. SOCIAL HISTORY: She resides in a nursing home facility, is demented, totally dependent in activities of daily living. Nonsmoker, nondrinker. SYSTEMS REVIEW; Neurologic: Positive for Lewy body dementia. Cardiac: Negative chest pain or palpitations. Respiratory: Negative cough or sputum production. Gastrointestinal: Negative vomiting or diarrhea. Genitourinary: Negative for urinary tract infection. LABORATORY DATA: White count 5.5, hematocrit 27.1, platelet count 188. Creatinine 0.8. X-RAY: Negative for fracture or dislocation. PHYSICAL EXAMINATION: General: She is demented. She is in no acute distress. Not verbally responsive. Vital Signs: Temperature 99.5, blood pressure 132/86, pulse 71 and regular, respirations 20/min. HEENT: Sclerae anicteric. Heart Sounds: S1, S2. Lungs: Clear. Abdomen: Soft and nontender. Extremities: Negative for examination. On examination of the right 2nd toe, there is diffuse swelling and erythema of the 2nd toe. It is tender to touch. No purulent drainage is noted. IMPRESSION: 1. Cellulitis, probable chronic osteomyelitis of the right 2nd toe. 2. Diabetes mellitus. 3. Dementia. Continue empiric vancomycin and Zosyn. Awaiting cultures. Obtain sedimentation rate and C-reactive protein. Surgical followup. Likely requires amputation of toe. Case discussed with patient's sister present at the time of the examination. Thank you for the kind referral. ANASTASIYA HALL M.D. [id number]
[2017-10-07] MEDS: ESCITALOPRAM OXALATE 10 MG TABLET (FP) PO SCH (10:45)
[2017-10-07] MEDS: ASCORBIC ACID 500 MG TABLET (FP) PO SCH ×2 (10:45→21:39)
[2017-10-07] MEDS: MULTIVITAMINS THER W-MINERALS COMBO TABLET (FP) PO SCH (10:45)
[2017-10-07] MEDS: amLODIPine BESYLATE 2.5 MG TABLET (FP) PO SCH (10:45)
[2017-10-07] MEDS: CHOLECALCIFEROL (VITAMIN D3) 1,000 UNIT TABLET (FP) PO SCH (10:45)
[2017-10-07] MEDS: HEPARIN NA (PORCINE) 5,000 UNITS/ML 1ML VIAL SQ SCH ×2 (10:46→21:38)
[2017-10-07] MEDS: metoPROLOL SUCCINATE 25 MG TAB.SR.24H (FP) PO SCH (10:47)
[2017-10-07] MEDS: ASPIRIN 81 MG CHEWABLE TABLETS PO SCH (10:49)
[2017-10-07] MEDS: COLLAGENASE CLOSTRIDIUM HIST. 30 GRAMS TUBE TP SCH (10:49)
--- NOTE | 2017-10-07 11:30 | PN ---
Progress Note, Physician Chief Complaint: pt from [facility] Events noted no complaints has dementia - Current Medication List Current Medications: Active Medications Acetaminophen (Tylenol -) 650 mg PO Q6H PRN PRN Reason: FEVER Amlodipine Besylate (Norvasc -) 2.5 mg PO DAILY [facility] Last Admin: 10/07/17 10:45 Dose: 2.5 mg Ascorbic Acid (Vitamin C -) 500 mg PO BID [facility] Last Admin: 10/07/17 10:45 Dose: 500 mg Aspirin (Asa -) 81 mg PO DAILY [facility] Last Admin: 10/07/17 10:49 Dose: 81 mg Atorvastatin Calcium (Lipitor -) 20 mg PO HS [facility] Last Admin: 10/06/17 21:55 Dose: 20 mg Cholecalciferol (Vitamin D3 -) 1,000 unit PO DAILY [facility] Last Admin: 10/07/17 10:45 Dose: 1,000 unit Collagenase (Santyl -) 1 applic TP DAILY [facility] Last Admin: 10/07/17 10:49 Dose: 1 applic Escitalopram Oxalate (Lexapro -) 10 mg PO DAILY [facility] Last Admin: 10/07/17 10:45 Dose: 10 mg Heparin Sodium (Porcine) (Heparin -) 5,000 unit SQ BID [facility] Last Admin: 10/07/17 10:46 Dose: 5,000 unit IV Flush (Picc Line Flush) 8 ml IVPUSH PRN PRN PRN Reason: Protocol Sodium Chloride (Normal Saline -) 1,000 mls @ 75 mls/hr IV ASDIR [facility] Last Admin: 10/06/17 19:50 Dose: 75 mls/hr Piperacillin Sod/Tazobactam (Sod 3.375 gm/ Dextrose) 50 mls @ 100 mls/hr IVPB Q8H-IV [facility] PRN Reason: Protocol Last Admin: 10/07/17 10:46 Dose: 100 mls/hr Vancomycin HCl (Vancomycin 1 Gm Premix -) 1 gm in 200 mls @ 150 mls/hr IVPB DAILY@2100 [facility] PRN Reason: Protocol Last Admin: 10/06/17 21:52 Dose: 150 mls/hr Insulin Aspart (Novolog Vial Sliding Scale -) 1 vial SQ ACHS [facility] PRN Reason: Protocol Last Admin: 10/07/17 07:16 Dose: 6 units Insulin Detemir (Levemir Vial) 10 units SQ HS [facility] Last Admin: 10/07/17 02:20 Dose: Not Given Levothyroxine Sodium (Synthroid -) 25 mcg PO DAILY@0700 [facility] Last Admin: 10/07/17 06:41 Dose: 25 mcg Metoprolol Succinate (Toprol Xl -) 12.5 mg PO DAILY [facility] Last Admin: 10/07/17 10:47 Dose: 12.5 mg Multivitamins/Minerals (Theragran-M) 1 each PO DAILY [facility] Last Admin: 10/07/17 10:45 Dose: 1 each Pancrelipase (Creon Dr 6,000 Units Capsule) 1 cap PO TIDCM [facility] Last Admin: 10/07/17 08:10 Dose: 1 cap - Objective Vital Signs: Vital Signs Temperature 98.9 F 10/07/17 08:28 Pulse Rate 70 10/07/17 08:28 Respiratory Rate 18 10/07/17 08:28 Blood Pressure 131/51 10/07/17 08:28 O2 Sat by Pulse Oximetry (%) 97 10/06/17 21:00 Constitutional: Yes: No Distress Cardiovascular: Yes: Regular Rate and Rhythm Respiratory: Yes: Diminished Gastrointestinal: Yes: Normal Bowel Sounds, Soft. No: Tenderness Edema: No Labs: CBC, BMP 10/06/17 11:50 10/06/17 11:50 INR, PTT INR 1.12 (0.82-1.09) 10/05/17 14:50 Problem List - Problems (1) Diabetic foot infection Code(s): E11.628 - TYPE 2 DIABETES MELLITUS WITH OTHER SKIN COMPLICATIONS; L08.9 - LOCAL INFECTION OF THE SKIN AND SUBCUTANEOUS TISSUE, UNSP (2) CAD (coronary artery disease) Code(s): I25.10 - ATHSCL HEART DISEASE OF [place] CORONARY ARTERY W/O ANG PCTRS Qualifiers: Coronary Disease-Associated Artery/Lesion type: [place] artery [place] vs. transplanted heart: [place] heart Associated angina: without angina Qualified Code(s): I25.10 - Atherosclerotic heart disease of [place] coronary artery without angina pectoris (3) Diabetes Code(s): E11.9 - TYPE 2 DIABETES MELLITUS WITHOUT COMPLICATIONS Qualifiers: Diabetes mellitus type: type 1 Diabetes mellitus complication status: with hypoglycemia Diabetes mellitus complication detail: without coma Qualified Code(s): E10.649 - Type 1 diabetes mellitus with hypoglycemia without coma Assessment/Plan PLAN IV antibiotics MRI foot pending iv fluids diabetic control
[2017-10-07] MEDS ORDERED: PT OWN MED DRAWER 7, Y5N ONE (11:33)
--- NOTE | 2017-10-07 13:54 | PN ---
Progress Note, Physician History of Present Illness: Awake, confused No acute distress Afebrile - Current Medication List Current Medications: Active Medications Acetaminophen (Tylenol -) 650 mg PO Q6H PRN PRN Reason: FEVER Amlodipine Besylate (Norvasc -) 2.5 mg PO DAILY [facility] Last Admin: 10/07/17 10:45 Dose: 2.5 mg Ascorbic Acid (Vitamin C -) 500 mg PO BID [facility] Last Admin: 10/07/17 10:45 Dose: 500 mg Aspirin (Asa -) 81 mg PO DAILY [facility] Last Admin: 10/07/17 10:49 Dose: 81 mg Atorvastatin Calcium (Lipitor -) 20 mg PO HS [facility] Last Admin: 10/06/17 21:55 Dose: 20 mg Cholecalciferol (Vitamin D3 -) 1,000 unit PO DAILY [facility] Last Admin: 10/07/17 10:45 Dose: 1,000 unit Collagenase (Santyl -) 1 applic TP DAILY [facility] Last Admin: 10/07/17 10:49 Dose: 1 applic Escitalopram Oxalate (Lexapro -) 10 mg PO DAILY [facility] Last Admin: 10/07/17 10:45 Dose: 10 mg Heparin Sodium (Porcine) (Heparin -) 5,000 unit SQ BID [facility] Last Admin: 10/07/17 10:46 Dose: 5,000 unit IV Flush (Picc Line Flush) 8 ml IVPUSH PRN PRN PRN Reason: Protocol Sodium Chloride (Normal Saline -) 1,000 mls @ 75 mls/hr IV ASDIR [facility] Last Admin: 10/06/17 19:50 Dose: 75 mls/hr Piperacillin Sod/Tazobactam (Sod 3.375 gm/ Dextrose) 50 mls @ 100 mls/hr IVPB Q8H-IV [facility] PRN Reason: Protocol Last Admin: 10/07/17 10:46 Dose: 100 mls/hr Vancomycin HCl (Vancomycin 1 Gm Premix -) 1 gm in 200 mls @ 150 mls/hr IVPB DAILY@2100 [facility] PRN Reason: Protocol Last Admin: 10/06/17 21:52 Dose: 150 mls/hr Insulin Aspart (Novolog Vial Sliding Scale -) 1 vial SQ ACHS [facility] PRN Reason: Protocol Last Admin: 10/07/17 11:32 Dose: Not Given Insulin Detemir (Levemir Vial) 10 units SQ HS [facility] Last Admin: 10/07/17 02:20 Dose: Not Given Levothyroxine Sodium (Synthroid -) 25 mcg PO DAILY@0700 [facility] Last Admin: 10/07/17 06:41 Dose: 25 mcg Lorazepam (Ativan Injection -) 1 mg IVPUSH [employer] [facility] Stop: 10/07/17 16:00 Last Admin: 10/07/17 13:00 Dose: 1 mg Metoprolol Succinate (Toprol Xl -) 12.5 mg PO DAILY [facility] Last Admin: 10/07/17 10:47 Dose: 12.5 mg Multivitamins/Minerals (Theragran-M) 1 each PO DAILY [facility] Last Admin: 10/07/17 10:45 Dose: 1 each Pancrelipase (Creon Dr 6,000 Units Capsule) 1 cap PO TIDCM [facility] Last Admin: 10/07/17 11:36 Dose: 1 cap - Objective Vital Signs: Vital Signs Temperature 98.9 F 10/07/17 08:28 Pulse Rate 70 10/07/17 08:28 Respiratory Rate 18 10/07/17 08:28 Blood Pressure 131/51 10/07/17 08:28 O2 Sat by Pulse Oximetry (%) 97 10/06/17 21:00 Constitutional: Yes: No Distress Eyes: Yes: Conjunctiva Clear Cardiovascular: Yes: Regular Rate and Rhythm, S1, S2 Respiratory: Yes: Diminished, Other (poor inspiratory effort) Gastrointestinal: Yes: Normal Bowel Sounds, Soft. No: Tenderness Extremities: Yes: Other (R 2nd toe swollen, erythematous) Labs: CBC, BMP 10/06/17 11:50 10/06/17 11:50 INR, PTT INR 1.12 (0.82-1.09) 10/05/17 14:50 Assessment/Plan Cellulitis, probable osteomyelitis 2nd toe Diabetes mellitus OBS Continue vancomycin/ zosyn For MRI Surgical follow up
[2017-10-07] MEDS: VANCOMYCIN 1 GM PREMIX - 1 GM/200 ML BAG IVPB SCH (21:35)
[2017-10-07] MEDS: ATORVASTATIN CA 20 MG TABLET (FP) PO SCH (21:39)
[2017-10-08] MEDS: SODIUM CHLORIDE 1,000 ML IV SCH ×2 (02:35→23:41)
[2017-10-08] MEDS ORDERED: PIPERACILLIN/TAZOBACTAM 3.375 GM VIAL IVPB ONE ×3 (02:39→17:24)
[2017-10-08] MEDS ORDERED: DEXTROSE 5%-WATER - 50 ML IVPB ONE ×3 (02:40→17:25)
[2017-10-08] MEDS: PIPERACILLIN/TAZOB 3.375 GM 3.375 GM in DEXTROSE 5%-WATER - 50 ML IVPB SCH ×3 (02:43→17:33)
[2017-10-08] MEDS ORDERED: PT OWN MED DRAWER 7, Y5N ONE (04:18)
[2017-10-08] MEDS: INSULIN SLIDING SCALE (NOVOLOG) 1 VIAL SQ SCH ×4 (06:07→22:26)
[2017-10-08] MEDS: LEVOTHYROXINE NA 25 MCG TABLET (FP) PO SCH (06:08)
[2017-10-08 07:59] LABS: HEMATOCRIT 26.5 % (32.4-45.2); HEMOGLOBIN 9.4 GM/dL (10.7-15.3); MCH 29.8 pg (25.7-33.7); MCHC 35.4 g/dl (32.0-36.0); MEAN CELL VOLUME 84.1 fl (80-96); MEAN PLT VOLUME 7.9 fl (7.5-11.1); PLATELET COUNT 177 K/MM3 (134-434); RBC 3.16 M/mm3 (3.60-5.2); RDW 14.8 % (11.6-15.6); WHITE BLOOD COUNT 5.7 K/mm3 (4.0-10.0)
[2017-10-08 08:29] LABS: ANION GAP 5 (8-16); BLOOD UREA NITROGEN 12 mg/dL (7-18); CALCIUM 7.8 mg/dL (8.5-10.1); CHLORIDE 110 mmol/L (98-107); CO2 25 mmol/L (21-32); CREATININE 0.8 mg/dL (0.55-1.02); GLUCOSE,RANDOM 119 mg/dL (74-106); POTASSIUM 4.6 mmol/L (3.5-5.1); SODIUM 140 mmol/L (136-145)
--- NOTE | 2017-10-08 09:12 | PN ---
Progress Note (short form) - Note Progress Note: Patient seen having breakfast in hallway. Alert however, unaware of her current foot problem, patient is confused. vss. Tmax 98.1 +om on mri 2nd toe, esr=94, wbc=5.7 om 1&2 right cellulitis Will discuss with family member her current care and plan of action. Spoke with her sister Joanne and explained options. Will leave order for consent for debridement of bone and soft tissue and possible amputation toes 1&2. Recommend amputation of 2nd toe and possible debridement of right big toe. I do not believe patient can tolerate HBO tx daily x 5 days a week and proper wound care. Awaiting vascular clearance. Will follow.
[2017-10-08] MEDS: ASPIRIN 81 MG CHEWABLE TABLETS PO SCH (09:40)
[2017-10-08] MEDS: amLODIPine BESYLATE 2.5 MG TABLET (FP) PO SCH (09:40)
[2017-10-08] MEDS: metoPROLOL SUCCINATE 25 MG TAB.SR.24H (FP) PO SCH (09:40)
[2017-10-08] MEDS: HEPARIN NA (PORCINE) 5,000 UNITS/ML 1ML VIAL SQ SCH ×2 (09:41→22:22)
[2017-10-08] MEDS: MULTIVITAMINS THER W-MINERALS COMBO TABLET (FP) PO SCH (09:41)
[2017-10-08] MEDS: ESCITALOPRAM OXALATE 10 MG TABLET (FP) PO SCH (09:41)
[2017-10-08] MEDS: CHOLECALCIFEROL (VITAMIN D3) 1,000 UNIT TABLET (FP) PO SCH (09:41)
[2017-10-08] MEDS: ASCORBIC ACID 500 MG TABLET (FP) PO SCH ×2 (09:41→22:22)
[2017-10-08] MEDS: LIPASE/PROTEASE/AMYLASE 6,000 UNIT CAPSULE PO SCH ×3 (09:48→17:32)
--- NOTE | 2017-10-08 09:55 | PN ---
Progress Note, Physician History of Present Illness: Awake, confused OOB in wheelchair No acute distress Afebrile WBC WNL MRI + osteomyelitis R 1st ,2nd toes - Current Medication List Current Medications: Active Medications Acetaminophen (Tylenol -) 650 mg PO Q6H PRN PRN Reason: FEVER Amlodipine Besylate (Norvasc -) 2.5 mg PO DAILY [facility] Last Admin: 10/08/17 09:40 Dose: 2.5 mg Ascorbic Acid (Vitamin C -) 500 mg PO BID [facility] Last Admin: 10/08/17 09:41 Dose: 500 mg Aspirin (Asa -) 81 mg PO DAILY [facility] Last Admin: 10/08/17 09:40 Dose: 81 mg Atorvastatin Calcium (Lipitor -) 20 mg PO HS [facility] Last Admin: 10/07/17 21:39 Dose: 20 mg Cholecalciferol (Vitamin D3 -) 1,000 unit PO DAILY [facility] Last Admin: 10/08/17 09:41 Dose: 1,000 unit Collagenase (Santyl -) 1 applic TP DAILY [facility] Last Admin: 10/07/17 10:49 Dose: 1 applic Escitalopram Oxalate (Lexapro -) 10 mg PO DAILY [facility] Last Admin: 10/08/17 09:41 Dose: 10 mg Heparin Sodium (Porcine) (Heparin -) 5,000 unit SQ BID [facility] Last Admin: 10/08/17 09:41 Dose: 5,000 unit IV Flush (Picc Line Flush) 8 ml IVPUSH PRN PRN PRN Reason: Protocol Sodium Chloride (Normal Saline -) 1,000 mls @ 75 mls/hr IV ASDIR [facility] Last Admin: 10/08/17 02:35 Dose: 75 mls/hr Piperacillin Sod/Tazobactam (Sod 3.375 gm/ Dextrose) 50 mls @ 100 mls/hr IVPB Q8H-IV [facility] PRN Reason: Protocol Last Admin: 10/08/17 09:39 Dose: 100 mls/hr Vancomycin HCl (Vancomycin 1 Gm Premix -) 1 gm in 200 mls @ 150 mls/hr IVPB DAILY@2100 [facility] PRN Reason: Protocol Last Admin: 10/07/17 21:35 Dose: 150 mls/hr Insulin Aspart (Novolog Vial Sliding Scale -) 1 vial SQ ACHS [facility] PRN Reason: Protocol Last Admin: 10/08/17 06:07 Dose: Not Given Insulin Detemir (Levemir Vial) 10 units SQ HS [facility] Last Admin: 10/07/17 21:45 Dose: 10 units Levothyroxine Sodium (Synthroid -) 25 mcg PO DAILY@0700 [facility] Last Admin: 10/08/17 06:08 Dose: 25 mcg Metoprolol Succinate (Toprol Xl -) 12.5 mg PO DAILY [facility] Last Admin: 10/08/17 09:40 Dose: 12.5 mg Multivitamins/Minerals (Theragran-M) 1 each PO DAILY [facility] Last Admin: 10/08/17 09:41 Dose: 1 each Pancrelipase (Creon Dr 6,000 Units Capsule) 1 cap PO TIDCM [facility] Last Admin: 10/08/17 09:48 Dose: 1 cap - Objective Vital Signs: Vital Signs Temperature 98.1 F 10/08/17 06:00 Pulse Rate 72 10/08/17 06:00 Respiratory Rate 18 10/08/17 06:00 Blood Pressure 140/70 10/08/17 06:00 O2 Sat by Pulse Oximetry (%) 97 10/07/17 20:28 Constitutional: Yes: No Distress Eyes: Yes: Conjunctiva Clear Cardiovascular: Yes: Regular Rate and Rhythm, S1, S2 Respiratory: Yes: CTA Bilaterally Gastrointestinal: Yes: Normal Bowel Sounds, Soft. No: Tenderness Extremities: Yes: Other (R 2nd toe less erythema/ swelling. + dry ulcer tip R great toe.) Labs: CBC, BMP 10/08/17 06:25 10/08/17 06:25 INR, PTT INR 1.12 (0.82-1.09) 10/05/17 14:50 Assessment/Plan Cellulitis / osteomyelitis R 1st/ 2nd toes Diabetes mellitus OBS Continue vancomycin/ zosyn For debridement v. amputation
[2017-10-08] MEDS ORDERED: INSULIN (NOVOLOG) ASPART 100 UNITS/ML 10ML VIAL ONE ×2 (11:38→17:13)
[2017-10-08] MEDS: COLLAGENASE CLOSTRIDIUM HIST. 30 GRAMS TUBE TP SCH (11:41)
--- NOTE | 2017-10-08 11:54 | PN ---
Progress Note (short form) - Note Progress Note: Pt seen/ examined Chart reviewed Was very agitated earlier- given Ativan. Much better now-- calm/ sleeping MRI +ve for osteo. Podiatry f/u noted Vital Signs Temp 98.1 F 10/08/17 06:00 Pulse 72 10/08/17 06:00 Resp 18 10/08/17 06:00 BP 140/70 10/08/17 06:00 Pulse Ox 97 10/07/17 20:28 Intake & Output 10/07/17 10/07/17 10/08/17 11:59 23:59 11:59 Intake Total 789 872 5052 Balance 684 709 4443 Intake: IV 580 700 Normal Saline - 1,000 ml 580 700 @ 75 mls/hr IV ASDIR REPLACED BY [facility] Rx#:[id number] IVPB 300 300 Oral 300 Other: Voiding Method Incontinent Incontinent # Unmeasured Voids Void 2 3 Bowel Movement Yes: small bm No Active Medications Acetaminophen (Tylenol -) 650 mg PO Q6H PRN PRN Reason: FEVER Amlodipine Besylate (Norvasc -) 2.5 mg PO DAILY [facility] Last Admin: 10/08/17 09:40 Dose: 2.5 mg Ascorbic Acid (Vitamin C -) 500 mg PO BID [facility] Last Admin: 10/08/17 09:41 Dose: 500 mg Aspirin (Asa -) 81 mg PO DAILY [facility] Last Admin: 10/08/17 09:40 Dose: 81 mg Atorvastatin Calcium (Lipitor -) 20 mg PO HS [facility] Last Admin: 10/07/17 21:39 Dose: 20 mg Cholecalciferol (Vitamin D3 -) 1,000 unit PO DAILY [facility] Last Admin: 10/08/17 09:41 Dose: 1,000 unit Collagenase (Santyl -) 1 applic TP DAILY [facility] Last Admin: 10/08/17 11:41 Dose: 1 applic Escitalopram Oxalate (Lexapro -) 10 mg PO DAILY [facility] Last Admin: 10/08/17 09:41 Dose: 10 mg Heparin Sodium (Porcine) (Heparin -) 5,000 unit SQ BID [facility] Last Admin: 10/08/17 09:41 Dose: 5,000 unit IV Flush (Picc Line Flush) 8 ml IVPUSH PRN PRN PRN Reason: Protocol Sodium Chloride (Normal Saline -) 1,000 mls @ 75 mls/hr IV ASDIR [facility] Last Admin: 10/08/17 02:35 Dose: 75 mls/hr Piperacillin Sod/Tazobactam (Sod 3.375 gm/ Dextrose) 50 mls @ 100 mls/hr IVPB Q8H-IV [facility] PRN Reason: Protocol Last Admin: 10/08/17 09:39 Dose: 100 mls/hr Vancomycin HCl (Vancomycin 1 Gm Premix -) 1 gm in 200 mls @ 150 mls/hr IVPB DAILY@2100 [facility] PRN Reason: Protocol Last Admin: 10/07/17 21:35 Dose: 150 mls/hr Insulin Aspart (Novolog Vial Sliding Scale -) 1 vial SQ ACHS [facility] PRN Reason: Protocol Last Admin: 10/08/17 11:41 Dose: 6 units Insulin Detemir (Levemir Vial) 10 units SQ [facility] Last Admin: 10/07/17 21:45 Dose: 10 units Levothyroxine Sodium (Synthroid -) 25 mcg PO DAILY@0700 [facility] Last Admin: 10/08/17 06:08 Dose: 25 mcg Lorazepam (Ativan Injection -) 1 mg IVPUSH BID PRN PRN Reason: ANXIETY Last Admin: 10/08/17 10:22 Dose: 1 mg Metoprolol Succinate (Toprol Xl -) 12.5 mg PO DAILY [facility] Last Admin: 10/08/17 09:40 Dose: 12.5 mg Multivitamins/Minerals (Theragran-M) 1 each PO DAILY [facility] Last Admin: 10/08/17 09:41 Dose: 1 each Pancrelipase (Creon Dr 6,000 Units Capsule) 1 cap PO TIDCM [facility]PL[facility] Last Admin: 10/08/17 09:48 Dose: 1 cap Quetiapine Fumarate (Seroquel -) 25 mg PO [facility] CBC, BMP 10/08/17 06:25 10/08/17 06:25 Microbiology 10/05/17 14:55 Blood Culture - Preliminary Blood - Peripheral Venous NO GROWTH OBTAINED AFTER 48 HOURS, INCUBATION TO CONTINUE FOR 3 DAYS. 10/05/17 14:52 Blood Culture - Preliminary Blood - Peripheral Venous NO GROWTH OBTAINED AFTER 48 HOURS, INCUBATION TO CONTINUE FOR 3 DAYS. Physical Exam Constitutional: Yes: No Distress. comfortable Cardiovascular: Yes: Regular Rate and Rhythm Respiratory: Yes: Diminished Gastrointestinal: Yes: Normal Bowel Sounds, Soft. No: Tenderness Edema: No Problem List - Problems (1) Diabetic foot infection Code(s): E11.628 - TYPE 2 DIABETES MELLITUS WITH OTHER SKIN COMPLICATIONS; L08.9 - LOCAL INFECTION OF THE SKIN AND SUBCUTANEOUS TISSUE, UNSP (2) CAD (coronary artery disease) Code(s): I25.10 - ATHSCL HEART DISEASE OF [place] CORONARY ARTERY W/O ANG PCTRS Qualifiers: Coronary Disease-Associated Artery/Lesion type: [place] artery [place] vs. transplanted heart: [place] heart Associated angina: without angina Qualified Code(s): I25.10 - Atherosclerotic heart disease of [place] coronary artery without angina pectoris (3) Diabetes Code(s): E11.9 - TYPE 2 DIABETES MELLITUS WITHOUT COMPLICATIONS Qualifiers: Diabetes mellitus type: type 1 Diabetes mellitus complication status: with hypoglycemia Diabetes mellitus complication detail: without coma Qualified Code(s): E10.649 - Type 1 diabetes mellitus with hypoglycemia without coma Assessment/Plan Wll discuss with Dr. Oakes Continue IV antibiotics MRI foot-- osteo [place] need debrigment - once cleared by vascular Ativan prn Add seroqel at bed time will follow Discussed with nursing staff.
--- NOTE | 2017-10-08 14:50 | PN ---
Progress Note (short form) - Note Progress Note: Vascular Surgery: Pts Sister at bedside to answer questions, the patient has a history of dementia. She had vein procedures done in the past on her right leg. She is ambulatory and has a known history of lower extremity neuropathy for several years. The nursing facility noted her 2nd toe to be swollen/infected and she was sent for evaluation/admission. In the past she had a Right great toe that was acutely infected. Her family states that the computational mathematician are planning a 2nd toe amp with debridement of her right great toe on Sunday. she has been followed in the wound clinic in the past. PMHX: dementia, varicose veins, Right great toe infection PSHX: Right leg varicose vein surgery Vital Signs Period Temp Pulse Resp BP Sys/Romano Pulse Ox Last 24 Hr 97.9 F-98.2 F 67-72 18-18 126-140/54-70 97 GEN: comfortable, lying in bed Right foot: palpable DP/PT confirmed with doppler. 2nd toe swollen/erythematous with drainage to base of toe. No erythema, but positive swelling to foot. Left foot: with no ulcers/foot warm with palpable DP pulse. Both feet warm to touch. Microbiology 10/05/17 14:55 Blood - Peripheral Venous Blood Culture - Preliminary NO GROWTH OBTAINED AFTER 48 HOURS, INCUBATION TO CONTINUE FOR 3 DAYS. 10/05/17 14:52 Blood - Peripheral Venous Blood Culture - Preliminary NO GROWTH OBTAINED AFTER 48 HOURS, INCUBATION TO CONTINUE FOR 3 DAYS. MRI: 10/07-acute osteomyelitis of 1/2nd toe with perifocal soft tissue swelling. 07/16/2017: DUY 1.9 of RLE, with monophasic [employer] waveforms. Problem List - Problems (1) Diabetic foot infection Assessment/Plan: Spoke with Dr. Oakes and agree with with 2nd toe amp/great toe debridment by podiatry this week. Continue IV abx Gylcemic control Pt with palpable pulse/good signal although studies in revealed diminished waveforms. Acutely pt will benefit from podiatry debridement and will monitor wound healing. If wound is not healing well, she may require further diagnotics/ theraptuic studies to asses her arterial blood supply. Code(s): E11.628 - TYPE 2 DIABETES MELLITUS WITH OTHER SKIN COMPLICATIONS; L08.9 - LOCAL INFECTION OF THE SKIN AND SUBCUTANEOUS TISSUE, UNSP
--- NOTE | 2017-10-08 18:56 | PN ---
Progress Note (short form) - Note Progress Note: VAscular Surgery Right 2nd toe infection. Pt with palpable DP pulse. Agree with amputation of 2nd toe. Pt cleared from a vasuclar stand point for podiatry intervention Herve polo DO
[2017-10-08] MEDS: QUEtiapine FUMARATE 25 MG TABLET (FP) PO SCH (22:21)
[2017-10-08] MEDS: ATORVASTATIN CA 20 MG TABLET (FP) PO SCH (22:22)
[2017-10-08] MEDS: INSULIN (LEVEMIR) 100 UNITS/ML UNITS SQ SCH (22:26)
[2017-10-08] MEDS: VANCOMYCIN 1 GM PREMIX - 1 GM/200 ML BAG IVPB SCH (23:41)
[2017-10-09] MEDS ORDERED: DEXTROSE 5%-WATER - 50 ML IVPB ONE ×3 (02:36→16:53)
[2017-10-09] MEDS ORDERED: PIPERACILLIN/TAZOBACTAM 3.375 GM VIAL IVPB ONE ×3 (02:36→16:52)
[2017-10-09] MEDS: PIPERACILLIN/TAZOB 3.375 GM 3.375 GM in DEXTROSE 5%-WATER - 50 ML IVPB SCH ×3 (02:37→16:59)
[2017-10-09] MEDS: INSULIN SLIDING SCALE (NOVOLOG) 1 VIAL SQ SCH ×4 (06:14→21:37)
[2017-10-09] MEDS: LEVOTHYROXINE NA 25 MCG TABLET (FP) PO SCH (06:14)
[2017-10-09] MEDS ORDERED: INSULIN (NOVOLOG) ASPART 100 UNITS/ML 10ML VIAL ONE (06:34)
[2017-10-09] MEDS: LIPASE/PROTEASE/AMYLASE 6,000 UNIT CAPSULE PO SCH ×3 (09:20→17:00)
[2017-10-09] MEDS ORDERED: PT OWN MED DRAWER 7, Y5N ONE ×2 (10:50→21:21)
[2017-10-09] MEDS: metoPROLOL SUCCINATE 25 MG TAB.SR.24H (FP) PO SCH (10:54)
[2017-10-09] MEDS: ESCITALOPRAM OXALATE 10 MG TABLET (FP) PO SCH (10:54)
[2017-10-09] MEDS: MULTIVITAMINS THER W-MINERALS COMBO TABLET (FP) PO SCH (10:54)
[2017-10-09] MEDS: HEPARIN NA (PORCINE) 5,000 UNITS/ML 1ML VIAL SQ SCH ×2 (10:54→21:26)
[2017-10-09] MEDS: ASCORBIC ACID 500 MG TABLET (FP) PO SCH ×2 (10:54→21:27)
[2017-10-09] MEDS: ASPIRIN 81 MG CHEWABLE TABLETS PO SCH (10:54)
[2017-10-09] MEDS: amLODIPine BESYLATE 2.5 MG TABLET (FP) PO SCH (10:54)
[2017-10-09] MEDS: CHOLECALCIFEROL (VITAMIN D3) 1,000 UNIT TABLET (FP) PO SCH (10:54)
[2017-10-09] MEDS: COLLAGENASE CLOSTRIDIUM HIST. 30 GRAMS TUBE TP SCH (10:55)
--- NOTE | 2017-10-09 12:23 | PN ---
Progress Note (short form) - Note Progress Note: FUV right foot. vss. Tmax 97.6 +om on mri 2nd toe, esr=94, wbc=5.7 om 1&2 right cellulitis Patient is scheduled for OR time. I do not believe patient can tolerate HBO tx daily x 5 days a week and proper wound care. Will follow. Patient is stable for surgery and cleared vascular status. Tried calling sister no answer left message for her to call me.
--- NOTE | 2017-10-09 12:39 | PN ---
Progress Note, Physician Chief Complaint: sister at bedside Pt is comfortable no distress confused - Current Medication List Current Medications: Active Medications Acetaminophen (Tylenol -) 650 mg PO Q6H PRN PRN Reason: FEVER Amlodipine Besylate (Norvasc -) 2.5 mg PO DAILY [facility] Last Admin: 10/09/17 10:54 Dose: 2.5 mg Ascorbic Acid (Vitamin C -) 500 mg PO BID [facility] Last Admin: 10/09/17 10:54 Dose: 500 mg Aspirin (Asa -) 81 mg PO DAILY [facility] Last Admin: 10/09/17 10:54 Dose: 81 mg Atorvastatin Calcium (Lipitor -) 20 mg PO HS [facility] Last Admin: 10/08/17 22:22 Dose: 20 mg Cholecalciferol (Vitamin D3 -) 1,000 unit PO DAILY [facility] Last Admin: 10/09/17 10:54 Dose: 1,000 unit Collagenase (Santyl -) 1 applic TP DAILY [facility] Last Admin: 10/09/17 10:55 Dose: 1 applic Escitalopram Oxalate (Lexapro -) 10 mg PO DAILY [facility] Last Admin: 10/09/17 10:54 Dose: 10 mg Heparin Sodium (Porcine) (Heparin -) 5,000 unit SQ BID [facility] Last Admin: 10/09/17 10:54 Dose: 5,000 unit IV Flush (Picc Line Flush) 8 ml IVPUSH PRN PRN PRN Reason: Protocol Sodium Chloride (Normal Saline -) 1,000 mls @ 75 mls/hr IV ASDIR [facility] Last Admin: 10/08/17 23:41 Dose: 75 mls/hr Piperacillin Sod/Tazobactam (Sod 3.375 gm/ Dextrose) 50 mls @ 100 mls/hr IVPB Q8H-IV [facility] PRN Reason: Protocol Last Admin: 10/09/17 10:53 Dose: 100 mls/hr Vancomycin HCl (Vancomycin 1 Gm Premix -) 1 gm in 200 mls @ 150 mls/hr IVPB DAILY@2100 [facility] PRN Reason: Protocol Last Admin: 10/08/17 23:41 Dose: 150 mls/hr Insulin Aspart (Novolog Vial Sliding Scale -) 1 vial SQ ACHS [facility] PRN Reason: Protocol Last Admin: 10/09/17 11:56 Dose: Not Given Insulin Detemir (Levemir Vial) 10 units SQ HS [facility] Last Admin: 10/08/17 22:26 Dose: 10 units Levothyroxine Sodium (Synthroid -) 25 mcg PO DAILY@0700 [facility] Last Admin: 10/09/17 06:14 Dose: 25 mcg Lorazepam (Ativan Injection -) 1 mg IVPUSH BID PRN PRN Reason: ANXIETY Last Admin: 10/08/17 10:22 Dose: 1 mg Metoprolol Succinate (Toprol Xl -) 12.5 mg PO DAILY [facility] Last Admin: 10/09/17 10:54 Dose: 12.5 mg Multivitamins/Minerals (Theragran-M) 1 each PO DAILY [facility] Last Admin: 10/09/17 10:54 Dose: 1 each Pancrelipase (Creon Dr 6,000 Units Capsule) 1 cap PO TIDCM [facility] Last Admin: 10/09/17 11:53 Dose: 1 cap Quetiapine Fumarate (Seroquel -) 25 mg PO HS [facility] Last Admin: 10/08/17 22:21 Dose: 25 mg - Objective Vital Signs: Vital Signs Temperature 97.6 F 10/09/17 08:00 Pulse Rate 64 10/09/17 08:00 Respiratory Rate 18 10/09/17 08:00 Blood Pressure 102/60 10/09/17 08:00 O2 Sat by Pulse Oximetry (%) 97 10/09/17 09:00 Constitutional: Yes: No Distress Cardiovascular: Yes: Regular Rate and Rhythm Respiratory: Yes: CTA Bilaterally Gastrointestinal: Yes: Normal Bowel Sounds, Soft. No: Tenderness Extremities: Yes: Other (left foot dressing in place) Edema: No Labs: CBC, BMP 10/08/17 06:25 10/08/17 06:25 INR, PTT INR 1.12 (0.82-1.09) 10/05/17 14:50 Problem List - Problems (1) Diabetic foot infection Code(s): E11.628 - TYPE 2 DIABETES MELLITUS WITH OTHER SKIN COMPLICATIONS; L08.9 - LOCAL INFECTION OF THE SKIN AND SUBCUTANEOUS TISSUE, UNSP (2) CAD (coronary artery disease) Code(s): I25.10 - ATHSCL HEART DISEASE OF [place] CORONARY ARTERY W/O ANG PCTRS Qualifiers: Coronary Disease-Associated Artery/Lesion type: [place] artery [place] vs. transplanted heart: [place] heart Associated angina: without angina Qualified Code(s): I25.10 - Atherosclerotic heart disease of [place] coronary artery without angina pectoris (3) Diabetes Code(s): E11.9 - TYPE 2 DIABETES MELLITUS WITHOUT COMPLICATIONS Qualifiers: Diabetes mellitus type: type 1 Diabetes mellitus complication status: with hypoglycemia Diabetes mellitus complication detail: without coma Qualified Code(s): E10.649 - Type 1 diabetes mellitus with hypoglycemia without coma Assessment/Plan PLAN IV antibiotics MRI foot - osteomyelitis iv fluids diabetic control pt cleared for amputation Vascular and podiatry follow up noted
[2017-10-09] MEDS: SODIUM CHLORIDE 1,000 ML IV SCH (15:33)
--- NOTE | 2017-10-09 16:27 | PN ---
Progress Note, Physician History of Present Illness: Awake, confused Supine in bed No acute distress Afebrile WBC WNL MRI + osteomyelitis R 1st ,2nd toes - Current Medication List Current Medications: Active Medications Acetaminophen (Tylenol -) 650 mg PO Q6H PRN PRN Reason: FEVER Amlodipine Besylate (Norvasc -) 2.5 mg PO DAILY [facility] Last Admin: 10/09/17 10:54 Dose: 2.5 mg Ascorbic Acid (Vitamin C -) 500 mg PO BID [facility] Last Admin: 10/09/17 10:54 Dose: 500 mg Aspirin (Asa -) 81 mg PO DAILY [facility] Last Admin: 10/09/17 10:54 Dose: 81 mg Atorvastatin Calcium (Lipitor -) 20 mg PO HS [facility] Last Admin: 10/08/17 22:22 Dose: 20 mg Cholecalciferol (Vitamin D3 -) 1,000 unit PO DAILY [facility] Last Admin: 10/09/17 10:54 Dose: 1,000 unit Collagenase (Santyl -) 1 applic TP DAILY [facility] Last Admin: 10/09/17 10:55 Dose: 1 applic Escitalopram Oxalate (Lexapro -) 10 mg PO DAILY [facility] Last Admin: 10/09/17 10:54 Dose: 10 mg Heparin Sodium (Porcine) (Heparin -) 5,000 unit SQ BID [facility] Last Admin: 10/09/17 10:54 Dose: 5,000 unit IV Flush (Picc Line Flush) 8 ml IVPUSH PRN PRN PRN Reason: Protocol Sodium Chloride (Normal Saline -) 1,000 mls @ 75 mls/hr IV ASDIR [facility] Last Admin: 10/09/17 15:33 Dose: 75 mls/hr Piperacillin Sod/Tazobactam (Sod 3.375 gm/ Dextrose) 50 mls @ 100 mls/hr IVPB Q8H-IV [facility] PRN Reason: Protocol Last Admin: 10/09/17 10:53 Dose: 100 mls/hr Vancomycin HCl (Vancomycin 1 Gm Premix -) 1 gm in 200 mls @ 150 mls/hr IVPB DAILY@2100 [facility] PRN Reason: Protocol Last Admin: 10/08/17 23:41 Dose: 150 mls/hr Insulin Aspart (Novolog Vial Sliding Scale -) 1 vial SQ ACHS [facility] PRN Reason: Protocol Last Admin: 10/09/17 11:56 Dose: Not Given Insulin Detemir (Levemir Vial) 10 units SQ [facility] Last Admin: 10/08/17 22:26 Dose: 10 units Levothyroxine Sodium (Synthroid -) 25 mcg PO DAILY@0700 [facility] Last Admin: 10/09/17 06:14 Dose: 25 mcg Lorazepam (Ativan Injection -) 1 mg IVPUSH BID PRN PRN Reason: ANXIETY Last Admin: 10/08/17 10:22 Dose: 1 mg Metoprolol Succinate (Toprol Xl -) 12.5 mg PO DAILY [facility] Last Admin: 10/09/17 10:54 Dose: 12.5 mg Multivitamins/Minerals (Theragran-M) 1 each PO DAILY [facility] Last Admin: 10/09/17 10:54 Dose: 1 each Pancrelipase (Creon Dr 6,000 Units Capsule) 1 cap PO TIDCM [facility] Last Admin: 10/09/17 11:53 Dose: 1 cap Quetiapine Fumarate (Seroquel -) 25 mg PO [facility] Last Admin: 10/08/17 22:21 Dose: 25 mg - Objective Vital Signs: Vital Signs Temperature 97.6 F 10/09/17 08:00 Pulse Rate 64 10/09/17 08:00 Respiratory Rate 18 10/09/17 08:00 Blood Pressure 102/60 10/09/17 08:00 O2 Sat by Pulse Oximetry (%) 97 10/09/17 09:00 Constitutional: Yes: No Distress, Thin Cardiovascular: Yes: Regular Rate and Rhythm, S1, S2 Respiratory: Yes: CTA Bilaterally Gastrointestinal: Yes: Normal Bowel Sounds, Soft. No: Tenderness Extremities: Yes: Other (+ necrotic ulcers, erythema 2nd toe. Dry ulcer, tip of great toe.) Labs: CBC, BMP 10/08/17 06:25 10/08/17 06:25 INR, PTT INR 1.12 (0.82-1.09) 10/05/17 14:50 Assessment/Plan Cellulitis / osteomyelitis R 1st/ 2nd toes Diabetes mellitus OBS Continue vancomycin/ zosyn For debridement v. amputation
[2017-10-09] MEDS: VANCOMYCIN 1 GM PREMIX - 1 GM/200 ML BAG IVPB SCH (21:24)
[2017-10-09] MEDS: QUEtiapine FUMARATE 25 MG TABLET (FP) PO SCH (21:26)
[2017-10-09] MEDS: ATORVASTATIN CA 20 MG TABLET (FP) PO SCH (21:26)
[2017-10-09] MEDS: INSULIN (LEVEMIR) 100 UNITS/ML UNITS SQ SCH (21:26)
[2017-10-10] MEDS ORDERED: DEXTROSE 5%-WATER - 50 ML IVPB ONE ×3 (01:57→17:05)
[2017-10-10] MEDS ORDERED: PIPERACILLIN/TAZOBACTAM 3.375 GM VIAL IVPB ONE ×3 (01:57→17:05)
[2017-10-10] MEDS: PIPERACILLIN/TAZOB 3.375 GM 3.375 GM in DEXTROSE 5%-WATER - 50 ML IVPB SCH ×3 (02:03→17:16)
[2017-10-10] MEDS: INSULIN SLIDING SCALE (NOVOLOG) 1 VIAL SQ SCH ×4 (06:14→21:16)
[2017-10-10] MEDS: LEVOTHYROXINE NA 25 MCG TABLET (FP) PO SCH (06:14)
[2017-10-10] MEDS: LIPASE/PROTEASE/AMYLASE 6,000 UNIT CAPSULE PO SCH ×3 (08:00→17:16)
[2017-10-10] MEDS: SODIUM CHLORIDE 1,000 ML IV SCH (10:38)
[2017-10-10] MEDS: COLLAGENASE CLOSTRIDIUM HIST. 30 GRAMS TUBE TP SCH (11:00)
--- NOTE | 2017-10-10 11:15 | PN ---
Progress Note, Physician Chief Complaint: for amputation tomorrow no distress - Current Medication List Current Medications: Active Medications Acetaminophen (Tylenol -) 650 mg PO Q6H PRN PRN Reason: FEVER Amlodipine Besylate (Norvasc -) 2.5 mg PO DAILY [facility] Last Admin: 10/09/17 10:54 Dose: 2.5 mg Ascorbic Acid (Vitamin C -) 500 mg PO BID [facility] Last Admin: 10/09/17 21:27 Dose: 500 mg Aspirin (Asa -) 81 mg PO DAILY [facility] Last Admin: 10/09/17 10:54 Dose: 81 mg Atorvastatin Calcium (Lipitor -) 20 mg PO HS [facility] Last Admin: 10/09/17 21:26 Dose: 20 mg Cholecalciferol (Vitamin D3 -) 1,000 unit PO DAILY [facility] Last Admin: 10/09/17 10:54 Dose: 1,000 unit Collagenase (Santyl -) 1 applic TP DAILY [facility] Last Admin: 10/09/17 10:55 Dose: 1 applic Escitalopram Oxalate (Lexapro -) 10 mg PO DAILY [facility] Last Admin: 10/09/17 10:54 Dose: 10 mg Heparin Sodium (Porcine) (Heparin -) 5,000 unit SQ BID [facility] Last Admin: 10/09/17 21:26 Dose: 5,000 unit IV Flush (Picc Line Flush) 8 ml IVPUSH PRN PRN PRN Reason: Protocol Sodium Chloride (Normal Saline -) 1,000 mls @ 75 mls/hr IV ASDIR [facility] Last Admin: 10/10/17 10:38 Dose: 75 mls/hr Piperacillin Sod/Tazobactam (Sod 3.375 gm/ Dextrose) 50 mls @ 100 mls/hr IVPB Q8H-IV [facility] PRN Reason: Protocol Last Admin: 10/10/17 02:03 Dose: 100 mls/hr Vancomycin HCl (Vancomycin 1 Gm Premix -) 1 gm in 200 mls @ 150 mls/hr IVPB DAILY@2100 [facility] PRN Reason: Protocol Last Admin: 10/09/17 21:24 Dose: 150 mls/hr Insulin Aspart (Novolog Vial Sliding Scale -) 1 vial SQ ACHS [facility] PRN Reason: Protocol Last Admin: 10/10/17 06:14 Dose: 4 units Insulin Detemir (Levemir Vial) 10 units SQ HS [facility] Last Admin: 10/09/17 21:26 Dose: 10 units Levothyroxine Sodium (Synthroid -) 25 mcg PO DAILY@0700 [facility] Last Admin: 10/10/17 06:14 Dose: 25 mcg Lorazepam (Ativan Injection -) 1 mg IVPUSH BID PRN PRN Reason: ANXIETY Last Admin: 10/09/17 21:27 Dose: 1 mg Metoprolol Succinate (Toprol Xl -) 12.5 mg PO DAILY [facility] Last Admin: 10/09/17 10:54 Dose: 12.5 mg Multivitamins/Minerals (Theragran-M) 1 each PO DAILY [facility] Last Admin: 10/09/17 10:54 Dose: 1 each Pancrelipase (Creon Dr 6,000 Units Capsule) 1 cap PO TIDCM [facility] Last Admin: 10/10/17 08:00 Dose: Not Given Quetiapine Fumarate (Seroquel -) 25 mg PO HS [facility] Last Admin: 10/09/17 21:26 Dose: 25 mg - Objective Vital Signs: Vital Signs Temperature 97.4 F L 10/10/17 05:33 Pulse Rate 60 10/10/17 05:33 Respiratory Rate 18 10/10/17 05:33 Blood Pressure 122/58 10/10/17 05:33 O2 Sat by Pulse Oximetry (%) 97 10/09/17 21:00 Constitutional: Yes: No Distress Cardiovascular: Yes: Regular Rate and Rhythm Respiratory: Yes: CTA Bilaterally Gastrointestinal: Yes: Normal Bowel Sounds, Soft. No: Tenderness Edema: No Labs: CBC, BMP 10/08/17 06:25 10/08/17 06:25 INR, PTT INR 1.12 (0.82-1.09) 10/05/17 14:50 Problem List - Problems (1) Diabetic foot infection Code(s): E11.628 - TYPE 2 DIABETES MELLITUS WITH OTHER SKIN COMPLICATIONS; L08.9 - LOCAL INFECTION OF THE SKIN AND SUBCUTANEOUS TISSUE, UNSP (2) CAD (coronary artery disease) Code(s): I25.10 - ATHSCL HEART DISEASE OF [place] CORONARY ARTERY W/O ANG PCTRS Qualifiers: Coronary Disease-Associated Artery/Lesion type: [place] artery [place] vs. transplanted heart: [place] heart Associated angina: without angina Qualified Code(s): I25.10 - Atherosclerotic heart disease of [place] coronary artery without angina pectoris (3) Diabetes Code(s): E11.9 - TYPE 2 DIABETES MELLITUS WITHOUT COMPLICATIONS Qualifiers: Diabetes mellitus type: type 1 Diabetes mellitus complication status: with hypoglycemia Diabetes mellitus complication detail: without coma Qualified Code(s): E10.649 - Type 1 diabetes mellitus with hypoglycemia without coma Assessment/Plan PLAN IV antibiotics MRI foot - osteomyelitis iv fluids diabetic control pt cleared for amputation Vascular and podiatry follow up noted
[2017-10-10] MEDS ORDERED: INSULIN (NOVOLOG) ASPART 100 UNITS/ML 10ML VIAL ONE (11:25)
[2017-10-10] MEDS: CHOLECALCIFEROL (VITAMIN D3) 1,000 UNIT TABLET (FP) PO SCH (11:37)
[2017-10-10] MEDS: ASCORBIC ACID 500 MG TABLET (FP) PO SCH ×2 (11:37→21:18)
[2017-10-10] MEDS: ESCITALOPRAM OXALATE 10 MG TABLET (FP) PO SCH (11:37)
[2017-10-10] MEDS: ASPIRIN 81 MG CHEWABLE TABLETS PO SCH (11:37)
[2017-10-10] MEDS: amLODIPine BESYLATE 2.5 MG TABLET (FP) PO SCH (11:38)
[2017-10-10] MEDS: MULTIVITAMINS THER W-MINERALS COMBO TABLET (FP) PO SCH (11:38)
[2017-10-10] MEDS: metoPROLOL SUCCINATE 25 MG TAB.SR.24H (FP) PO SCH (11:38)
[2017-10-10] MEDS: HEPARIN NA (PORCINE) 5,000 UNITS/ML 1ML VIAL SQ SCH ×2 (11:38→21:18)
[2017-10-10] MEDS ORDERED: PT OWN MED DRAWER 7, Y5N ONE (13:22)
[2017-10-10] MEDS: INSULIN (LEVEMIR) 100 UNITS/ML UNITS SQ SCH (21:16)
[2017-10-10] MEDS: VANCOMYCIN 1 GM PREMIX - 1 GM/200 ML BAG IVPB SCH (21:18)
[2017-10-10] MEDS: QUEtiapine FUMARATE 25 MG TABLET (FP) PO SCH (21:18)
[2017-10-10] MEDS: ATORVASTATIN CA 20 MG TABLET (FP) PO SCH (21:18)
[2017-10-11] MEDS ORDERED: PIPERACILLIN/TAZOBACTAM 3.375 GM VIAL IVPB ONE ×3 (02:27→17:17)
[2017-10-11] MEDS ORDERED: DEXTROSE 5%-WATER - 50 ML IVPB ONE ×3 (02:28→17:17)
[2017-10-11] MEDS: PIPERACILLIN/TAZOB 3.375 GM 3.375 GM in DEXTROSE 5%-WATER - 50 ML IVPB SCH ×3 (02:41→17:32)
[2017-10-11] MEDS: INSULIN SLIDING SCALE (NOVOLOG) 1 VIAL SQ SCH ×5 (06:32→21:23)
[2017-10-11] MEDS: LEVOTHYROXINE NA 25 MCG TABLET (FP) PO SCH (06:32)
[2017-10-11] MEDS: SODIUM CHLORIDE 1,000 ML IV SCH ×2 (06:35→15:00)
[2017-10-11] MEDS ORDERED: INSULIN (NOVOLOG) ASPART 100 UNITS/ML 10ML VIAL ONE (06:45)
[2017-10-11] MEDS: HEPARIN NA (PORCINE) 5,000 UNITS/ML 1ML VIAL SQ SCH ×2 (10:12→21:21)
[2017-10-11] MEDS: ESCITALOPRAM OXALATE 10 MG TABLET (FP) PO SCH (10:12)
[2017-10-11] MEDS: LIPASE/PROTEASE/AMYLASE 6,000 UNIT CAPSULE PO SCH ×4 (10:12→18:05)
[2017-10-11] MEDS: ASPIRIN 81 MG CHEWABLE TABLETS PO SCH (10:12)
[2017-10-11] MEDS: MULTIVITAMINS THER W-MINERALS COMBO TABLET (FP) PO SCH (10:13)
[2017-10-11] MEDS: COLLAGENASE CLOSTRIDIUM HIST. 30 GRAMS TUBE TP SCH (10:13)
[2017-10-11] MEDS: ASCORBIC ACID 500 MG TABLET (FP) PO SCH ×2 (10:13→21:22)
[2017-10-11] MEDS: amLODIPine BESYLATE 2.5 MG TABLET (FP) PO SCH (10:13)
[2017-10-11] MEDS: CHOLECALCIFEROL (VITAMIN D3) 1,000 UNIT TABLET (FP) PO SCH (10:14)
[2017-10-11] MEDS: metoPROLOL SUCCINATE 25 MG TAB.SR.24H (FP) PO SCH (10:24)
[2017-10-11] MEDS ORDERED: BUPIVACAINE HCL/PF 0.5% (5MG/ML) 10 ML VIAL ONE (12:39)
[2017-10-11] MEDS ORDERED: DEXAMETHASONE SOD PHOSPHATE 4 MG/1 ML VIAL ONE (12:39)
[2017-10-11] MEDS ORDERED: LIDOCAINE HCL 1%, 10 MG/ML (20ML VIAL) ONE (12:39)
--- NOTE | 2017-10-11 12:58 | PN ---
Progress Note, Physician Chief Complaint: for amputation today no distress - Current Medication List Current Medications: Active Medications Acetaminophen (Tylenol -) 650 mg PO Q6H PRN PRN Reason: FEVER Amlodipine Besylate (Norvasc -) 2.5 mg PO DAILY [facility] Last Admin: 10/11/17 10:13 Dose: Not Given Ascorbic Acid (Vitamin C -) 500 mg PO BID [facility] Last Admin: 10/11/17 10:13 Dose: Not Given Aspirin (Asa -) 81 mg PO DAILY [facility] Last Admin: 10/11/17 10:12 Dose: Not Given Atorvastatin Calcium (Lipitor -) 20 mg PO HS [facility] Last Admin: 10/10/17 21:18 Dose: 20 mg Cholecalciferol (Vitamin D3 -) 1,000 unit PO DAILY [facility] Last Admin: 10/11/17 10:14 Dose: Not Given Collagenase (Santyl -) 1 applic TP DAILY [facility] Last Admin: 10/11/17 10:13 Dose: Not Given Escitalopram Oxalate (Lexapro -) 10 mg PO DAILY [facility] Last Admin: 10/11/17 10:12 Dose: Not Given Heparin Sodium (Porcine) (Heparin -) 5,000 unit SQ BID [facility] Last Admin: 10/11/17 10:12 Dose: Not Given IV Flush (Picc Line Flush) 8 ml IVPUSH PRN PRN PRN Reason: Protocol Sodium Chloride (Normal Saline -) 1,000 mls @ 75 mls/hr IV ASDIR [facility] Last Admin: 10/11/17 06:35 Dose: 75 mls/hr Piperacillin Sod/Tazobactam (Sod 3.375 gm/ Dextrose) 50 mls @ 100 mls/hr IVPB Q8H-IV [facility] PRN Reason: Protocol Last Admin: 10/11/17 10:14 Dose: 100 mls/hr Vancomycin HCl (Vancomycin 1 Gm Premix -) 1 gm in 200 mls @ 150 mls/hr IVPB DAILY@2100 [facility] PRN Reason: Protocol Last Admin: 10/10/17 21:18 Dose: 150 mls/hr Insulin Aspart (Novolog Vial Sliding Scale -) 1 vial SQ ACHS [facility] PRN Reason: Protocol Last Admin: 10/11/17 11:51 Dose: Not Given Insulin Detemir (Levemir Vial) 10 units SQ [facility] Last Admin: 10/10/17 21:16 Dose: Not Given Levothyroxine Sodium (Synthroid -) 25 mcg PO DAILY@0700 [facility] Last Admin: 10/11/17 06:32 Dose: Not Given Lorazepam (Ativan Injection -) 1 mg IVPUSH Q4H PRN PRN Reason: ANXIETY Last Admin: 10/11/17 04:06 Dose: 1 mg Metoprolol Succinate (Toprol Xl -) 12.5 mg PO DAILY [facility] Last Admin: 10/11/17 10:24 Dose: 12.5 mg Multivitamins/Minerals (Theragran-M) 1 each PO DAILY [facility] Last Admin: 10/11/17 10:13 Dose: Not Given Pancrelipase (Creon Dr 6,000 Units Capsule) 1 cap PO TIDCM [facility] Last Admin: 10/11/17 10:12 Dose: Not Given Quetiapine Fumarate (Seroquel -) 25 mg PO HS [facility] Last Admin: 10/10/17 21:18 Dose: 25 mg - Objective Vital Signs: Vital Signs Temperature 98 F 10/11/17 10:00 Pulse Rate 72 10/11/17 10:00 Respiratory Rate 20 10/11/17 10:00 Blood Pressure 130/70 10/11/17 10:00 O2 Sat by Pulse Oximetry (%) 97 10/10/17 20:32 Constitutional: Yes: No Distress Cardiovascular: Yes: Regular Rate and Rhythm Respiratory: Yes: Diminished Gastrointestinal: Yes: Normal Bowel Sounds, Soft. No: Tenderness Edema: No Labs: CBC, BMP 10/08/17 06:25 10/08/17 06:25 INR, PTT INR 1.12 (0.82-1.09) 10/05/17 14:50 Problem List - Problems (1) Diabetic foot infection Code(s): E11.628 - TYPE 2 DIABETES MELLITUS WITH OTHER SKIN COMPLICATIONS; L08.9 - LOCAL INFECTION OF THE SKIN AND SUBCUTANEOUS TISSUE, UNSP (2) CAD (coronary artery disease) Code(s): I25.10 - ATHSCL HEART DISEASE OF [place] CORONARY ARTERY W/O ANG PCTRS Qualifiers: Coronary Disease-Associated Artery/Lesion type: [place] artery [place] vs. transplanted heart: [place] heart Associated angina: without angina Qualified Code(s): I25.10 - Atherosclerotic heart disease of [place] coronary artery without angina pectoris (3) Diabetes Code(s): E11.9 - TYPE 2 DIABETES MELLITUS WITHOUT COMPLICATIONS Qualifiers: Diabetes mellitus type: type 1 Diabetes mellitus complication status: with hypoglycemia Diabetes mellitus complication detail: without coma Qualified Code(s): E10.649 - Type 1 diabetes mellitus with hypoglycemia without coma Assessment/Plan PLAN IV antibiotics MRI foot - osteomyelitis iv fluids diabetic control for amputation vest restraints to prevent injury to self and pulling out iv lines
[2017-10-11] MEDS ORDERED: MIDAZOLAM HCL 2 MG/2 ML SINGLE DOSE VIAL ONE (13:08)
[2017-10-11] MEDS ORDERED: PROPOFOL 20 ML ONE ×2 (13:17→13:19)
[2017-10-11] MEDS ORDERED: SUCCINYLCHOLINE CHLORIDE 200 MG/10 ML VIAL ONE (13:17)
[2017-10-11] MEDS ORDERED: ACETAMINOPHEN 325 MG TABLET (FP) PO PRN (14:32)
[2017-10-11] MEDS ORDERED: PICC LINE 8 ML FLUSH PROTOCOL IVPUSH PRN (14:32)
[2017-10-11] MEDS ORDERED: PT OWN MED DRAWER 7, Y5N ONE ×2 (17:17→21:04)
[2017-10-11] MEDS ORDERED: amLODIPine BESYLATE 2.5 MG TABLET (FP) PO SCH (17:35)
[2017-10-11] MEDS: VANCOMYCIN 1,000 MG in DEXTROSE 5%-WATER - 250 ML IVPB SCH (21:19)
[2017-10-11] MEDS: QUEtiapine FUMARATE 25 MG TABLET (FP) PO SCH (21:21)
[2017-10-11] MEDS: ATORVASTATIN CA 20 MG TABLET (FP) PO SCH (21:22)
[2017-10-11] MEDS: INSULIN (LEVEMIR) 100 UNITS/ML UNITS SQ SCH (21:30)
[2017-10-12] MEDS ORDERED: PIPERACILLIN/TAZOBACTAM 3.375 GM VIAL IVPB ONE ×3 (02:28→17:13)
[2017-10-12] MEDS ORDERED: DEXTROSE 5%-WATER - 50 ML IVPB ONE ×3 (02:28→17:13)
[2017-10-12] MEDS: PIPERACILLIN/TAZOB 3.375 GM 3.375 GM in DEXTROSE 5%-WATER - 50 ML IVPB SCH ×3 (02:32→17:30)
[2017-10-12] MEDS: SODIUM CHLORIDE 1,000 ML IV SCH ×2 (05:48→17:33)
[2017-10-12] MEDS: LEVOTHYROXINE NA 25 MCG TABLET (FP) PO SCH (06:20)
[2017-10-12] MEDS: INSULIN SLIDING SCALE (NOVOLOG) 1 VIAL SQ SCH ×4 (06:23→21:06)
[2017-10-12] MEDS ORDERED: INSULIN (NOVOLOG) ASPART 100 UNITS/ML 10ML VIAL ONE (06:40)
[2017-10-12] MEDS ORDERED: amLODIPine BESYLATE 2.5 MG TABLET (FP) PO SCH (10:00)
--- NOTE | 2017-10-12 10:16 | PN ---
Progress Note (short form) - Note Progress Note: Pt seen/examined . Just came from or. awake/ confused Vital Signs Temp 98.1 F 10/12/17 06:00 Pulse 67 10/12/17 06:00 Resp 20 10/11/17 21:13 BP 138/88 10/12/17 06:00 Pulse Ox 97 10/11/17 20:40 Intake & Output 10/11/17 10/11/17 10/12/17 11:59 23:59 11:59 Intake Total 600 912 Output Total 0 Balance 600 912 Intake: IV 600 862 Normal Saline - 1,000 ml 862 @ 75 mls/hr IV ASDIR [facility] Rx#:[id number] IVPB 50 Oral 0 Output: Urine 0 Other: Voiding Method Incontinent Incontinent # Unmeasured Voids Void 2 Bowel Movement Yes Yes # Bowel Movements 0 Active Medications Acetaminophen (Tylenol -) 650 mg PO Q6H PRN PRN Reason: FEVER Amlodipine Besylate (Norvasc -) 2.5 mg PO DAILY [facility] Ascorbic Acid (Vitamin C -) 500 mg PO BID [facility] Last Admin: 10/11/17 21:22 Dose: 500 mg Atorvastatin Calcium (Lipitor -) 20 mg PO HS [facility] Last Admin: 10/11/17 21:22 Dose: 20 mg Cholecalciferol (Vitamin D3 -) 1,000 unit PO DAILY [facility] Heparin Sodium (Porcine) (Heparin -) 5,000 unit SQ BID [facility] Last Admin: 10/11/17 21:21 Dose: 5,000 unit IV Flush (Picc Line Flush) 8 ml IVPUSH PRN PRN PRN Reason: Protocol Sodium Chloride (Normal Saline -) 1,000 mls @ 75 mls/hr IV ASDIR [facility] Last Admin: 10/12/17 05:48 Dose: 75 mls/hr Vancomycin HCl 1,000 mg/ (Dextrose) 250 mls @ 150 mls/hr IVPB DAILY@2100 [facility] PRN Reason: Protocol Last Admin: 10/11/17 21:19 Dose: 150 mls/hr Piperacillin Sod/Tazobactam (Sod 3.375 gm/ Dextrose) 50 mls @ 100 mls/hr IVPB Q8H-IV [facility] PRN Reason: Protocol Last Admin: 10/12/17 02:32 Dose: 100 mls/hr Insulin Aspart (Novolog Vial Sliding Scale -) 1 vial SQ ACHS [facility] PRN Reason: Protocol Last Admin: 10/12/17 06:23 Dose: 2 units Insulin Detemir (Levemir Vial) 10 units SQ [facility] Last Admin: 10/11/17 21:30 Dose: Not Given Levothyroxine Sodium (Synthroid -) 25 mcg PO DAILY@0700 [facility] Last Admin: 10/12/17 06:20 Dose: Not Given Lorazepam (Ativan Injection -) 1 mg IVPUSH Q4H PRN PRN Reason: ANXIETY Last Admin: 10/11/17 21:25 Dose: 1 mg Metoprolol Succinate (Toprol Xl -) 12.5 mg PO DAILY [facility] Multivitamins/Minerals (Theragran-M) 1 each PO DAILY [facility] Pancrelipase (Creon Dr 6,000 Units Capsule) 1 cap PO TIDCM [facility] Last Admin: 10/11/17 18:05 Dose: Not Given Quetiapine Fumarate (Seroquel -) 25 mg PO [facility] Last Admin: 10/11/17 21:21 Dose: 25 mg CBC, BMP 10/08/17 06:25 10/08/17 06:25 Physical Constitutional: Yes: No Distress. confused Cardiovascular: Yes: Regular Rate and Rhythm Respiratory: Yes: Diminished Gastrointestinal: Yes: Normal Bowel Sounds, Soft. No: Tenderness Edema: No Dressing + Problem List - Problems (1) Diabetic foot infection Code(s): E11.628 - TYPE 2 DIABETES MELLITUS WITH OTHER SKIN COMPLICATIONS; L08.9 - LOCAL INFECTION OF THE SKIN AND SUBCUTANEOUS TISSUE, UNSP (2) CAD (coronary artery disease) Code(s): I25.10 - ATHSCL HEART DISEASE OF [place] CORONARY ARTERY W/O ANG PCTRS Qualifiers: Coronary Disease-Associated Artery/Lesion type: [place] artery [place] vs. transplanted heart: [place] heart Associated angina: without angina Qualified Code(s): I25.10 - Atherosclerotic heart disease of [place] coronary artery without angina pectoris (3) Diabetes Code(s): E11.9 - TYPE 2 DIABETES MELLITUS WITHOUT COMPLICATIONS Qualifiers: Diabetes mellitus type: type 1 Diabetes mellitus complication status: with hypoglycemia Diabetes mellitus complication detail: without coma Qualified Code(s): E10.649 - Type 1 diabetes mellitus with hypoglycemia without coma Assessment/Plan Stable IV antibiotics Pain control diabetic control vest restraints to prevent injury to self and pulling out iv lines. Discussed with nursing staff also.
[2017-10-12] MEDS: LIPASE/PROTEASE/AMYLASE 6,000 UNIT CAPSULE PO SCH ×3 (10:51→17:31)
[2017-10-12] MEDS: HEPARIN NA (PORCINE) 5,000 UNITS/ML 1ML VIAL SQ SCH ×2 (10:52→21:07)
[2017-10-12] MEDS: CHOLECALCIFEROL (VITAMIN D3) 1,000 UNIT TABLET (FP) PO SCH (10:53)
[2017-10-12] MEDS: amLODIPine BESYLATE 2.5 MG TABLET (FP) PO SCH (10:53)
[2017-10-12] MEDS: MULTIVITAMINS THER W-MINERALS COMBO TABLET (FP) PO SCH (10:53)
[2017-10-12] MEDS: metoPROLOL SUCCINATE 25 MG TAB.SR.24H (FP) PO SCH (10:54)
[2017-10-12] MEDS: ASCORBIC ACID 500 MG TABLET (FP) PO SCH ×2 (10:55→21:06)
--- NOTE | 2017-10-12 18:04 | PN ---
Progress Note, Physician History of Present Illness: Awake, confused Supine in bed S/P amputation r 2nd toe No acute distress Afebrile WBC WNL MRI + osteomyelitis R 1st ,2nd toes - Current Medication List Current Medications: Active Medications Acetaminophen (Tylenol -) 650 mg PO Q6H PRN PRN Reason: FEVER Amlodipine Besylate (Norvasc -) 2.5 mg PO DAILY [facility] Last Admin: 10/12/17 10:53 Dose: 2.5 mg Ascorbic Acid (Vitamin C -) 500 mg PO BID [facility] Last Admin: 10/12/17 10:55 Dose: 500 mg Atorvastatin Calcium (Lipitor -) 20 mg PO HS [facility] Last Admin: 10/11/17 21:22 Dose: 20 mg Cholecalciferol (Vitamin D3 -) 1,000 unit PO DAILY [facility] Last Admin: 10/12/17 10:53 Dose: 1,000 unit Heparin Sodium (Porcine) (Heparin -) 5,000 unit SQ BID [facility] Last Admin: 10/12/17 10:52 Dose: 5,000 unit IV Flush (Picc Line Flush) 8 ml IVPUSH PRN PRN PRN Reason: Protocol Sodium Chloride (Normal Saline -) 1,000 mls @ 75 mls/hr IV ASDIR [facility] Last Admin: 10/12/17 17:33 Dose: Not Given Vancomycin HCl 1,000 mg/ (Dextrose) 250 mls @ 150 mls/hr IVPB DAILY@2100 [facility] PRN Reason: Protocol Last Admin: 10/11/17 21:19 Dose: 150 mls/hr Piperacillin Sod/Tazobactam (Sod 3.375 gm/ Dextrose) 50 mls @ 100 mls/hr IVPB Q8H-IV [facility] PRN Reason: Protocol Last Admin: 10/12/17 17:30 Dose: 100 mls/hr Insulin Aspart (Novolog Vial Sliding Scale -) 1 vial SQ ACHS [facility] PRN Reason: Protocol Last Admin: 10/12/17 11:36 Dose: 4 units Insulin Detemir (Levemir Vial) 10 units SQ HS [facility] Last Admin: 10/11/17 21:30 Dose: Not Given Levothyroxine Sodium (Synthroid -) 25 mcg PO DAILY@0700 [facility] Last Admin: 10/12/17 06:20 Dose: Not Given Lorazepam (Ativan Injection -) 1 mg IVPUSH Q4H PRN PRN Reason: ANXIETY Last Admin: 10/12/17 17:33 Dose: 1 mg Metoprolol Succinate (Toprol Xl -) 12.5 mg PO DAILY [facility] Last Admin: 10/12/17 10:54 Dose: 12.5 mg Multivitamins/Minerals (Theragran-M) 1 each PO DAILY [facility] Last Admin: 10/12/17 10:53 Dose: 1 each Pancrelipase (Creon Dr 6,000 Units Capsule) 1 cap PO TIDCM [facility] Last Admin: 10/12/17 17:31 Dose: 1 cap Quetiapine Fumarate (Seroquel -) 25 mg PO HS [facility] Last Admin: 10/11/17 21:21 Dose: 25 mg - Objective Vital Signs: Vital Signs Temperature 99.1 F 10/12/17 14:00 Pulse Rate 73 10/12/17 14:00 Respiratory Rate 18 10/12/17 14:00 Blood Pressure 123/86 10/12/17 14:00 O2 Sat by Pulse Oximetry (%) 96 10/12/17 09:00 Eyes: Yes: Conjunctiva Clear Cardiovascular: Yes: Regular Rate and Rhythm, S1, S2 Respiratory: Yes: CTA Bilaterally Gastrointestinal: Yes: Normal Bowel Sounds, Soft. No: Tenderness Extremities: Yes: Other (s/p amputation L 2nd toe. dry ulcer great toe) Labs: CBC, BMP 10/08/17 06:25 10/08/17 06:25 INR, PTT INR 1.12 (0.82-1.09) 10/05/17 14:50 Assessment/Plan Cellulitis / osteomyelitis R 1st/ 2nd toes S/P amputation 2nd toe Diabetes mellitus OBS Continue vancomycin/ zosyn Local wound care
[2017-10-12] MEDS ORDERED: PT OWN MED DRAWER 7, Y5N ONE ×2 (19:09→20:43)
[2017-10-12] MEDS: VANCOMYCIN 1,000 MG in DEXTROSE 5%-WATER - 250 ML IVPB SCH (20:54)
[2017-10-12] MEDS: INSULIN (LEVEMIR) 100 UNITS/ML UNITS SQ SCH (21:05)
[2017-10-12] MEDS: QUEtiapine FUMARATE 25 MG TABLET (FP) PO SCH (21:06)
[2017-10-12] MEDS: ATORVASTATIN CA 20 MG TABLET (FP) PO SCH (21:06)
[2017-10-13] MEDS ORDERED: PIPERACILLIN/TAZOBACTAM 3.375 GM VIAL IVPB ONE ×3 (00:35→19:16)
[2017-10-13] MEDS ORDERED: DEXTROSE 5%-WATER - 50 ML IVPB ONE ×3 (00:35→19:16)
[2017-10-13] MEDS: PIPERACILLIN/TAZOB 3.375 GM 3.375 GM in DEXTROSE 5%-WATER - 50 ML IVPB SCH ×3 (01:24→19:23)
[2017-10-13] MEDS: LEVOTHYROXINE NA 25 MCG TABLET (FP) PO SCH (06:45)
[2017-10-13] MEDS: INSULIN SLIDING SCALE (NOVOLOG) 1 VIAL SQ SCH ×4 (06:45→23:21)
[2017-10-13] MEDS ORDERED: PT OWN MED DRAWER 7, Y5N ONE ×2 (09:59→20:38)
[2017-10-13] MEDS: amLODIPine BESYLATE 2.5 MG TABLET (FP) PO SCH (10:03)
[2017-10-13] MEDS: ASCORBIC ACID 500 MG TABLET (FP) PO SCH ×2 (10:03→21:08)
[2017-10-13] MEDS: metoPROLOL SUCCINATE 25 MG TAB.SR.24H (FP) PO SCH (10:03)
[2017-10-13] MEDS: HEPARIN NA (PORCINE) 5,000 UNITS/ML 1ML VIAL SQ SCH ×2 (10:03→21:08)
[2017-10-13] MEDS: MULTIVITAMINS THER W-MINERALS COMBO TABLET (FP) PO SCH (10:03)
[2017-10-13] MEDS: CHOLECALCIFEROL (VITAMIN D3) 1,000 UNIT TABLET (FP) PO SCH (10:03)
[2017-10-13] MEDS: LIPASE/PROTEASE/AMYLASE 6,000 UNIT CAPSULE PO SCH ×3 (10:04→17:20)
--- NOTE | 2017-10-13 12:18 | PN ---
Progress Note (short form) - Note Progress Note: Pt seen/examined . pod #1 awake/ confused. Vital Signs Temp 98.5 F 10/13/17 10:00 Pulse 64 10/13/17 10:00 Resp 16 10/13/17 10:00 BP 141/61 10/13/17 10:00 Pulse Ox 97 10/12/17 21:00 Intake & Output 10/12/17 10/13/17 10/13/17 23:59 11:59 23:59 Intake Total 1989 950 Balance 1989 950 Intake: IV 900 900 Normal Saline - 1,000 ml 900 900 @ 75 mls/hr IV ASDIR [facility] Rx#:[id number] IVPB 250 50 Oral 580 Oral Supplement 260 Other: Voiding Method Incontinent # Unmeasured Voids Void 3 3 Bowel Movement Yes Yes # Bowel Movements 3 Active Medications Acetaminophen (Tylenol -) 650 mg PO Q6H PRN PRN Reason: FEVER Amlodipine Besylate (Norvasc -) 2.5 mg PO DAILY [facility] Last Admin: 10/13/17 10:03 Dose: 2.5 mg Ascorbic Acid (Vitamin C -) 500 mg PO BID [facility] Last Admin: 10/13/17 10:03 Dose: 500 mg Atorvastatin Calcium (Lipitor -) 20 mg PO HS [facility] Last Admin: 10/12/17 21:06 Dose: 20 mg Cholecalciferol (Vitamin D3 -) 1,000 unit PO DAILY [facility] Last Admin: 10/13/17 10:03 Dose: 1,000 unit Heparin Sodium (Porcine) (Heparin -) 5,000 unit SQ BID [facility] Last Admin: 10/13/17 10:03 Dose: 5,000 unit IV Flush (Picc Line Flush) 8 ml IVPUSH PRN PRN PRN Reason: Protocol Sodium Chloride (Normal Saline -) 1,000 mls @ 75 mls/hr IV ASDIR [facility] Last Admin: 10/12/17 17:33 Dose: Not Given Vancomycin HCl 1,000 mg/ (Dextrose) 250 mls @ 150 mls/hr IVPB DAILY@2100 [facility] PRN Reason: Protocol Last Admin: 10/12/17 20:54 Dose: 150 mls/hr Piperacillin Sod/Tazobactam (Sod 3.375 gm/ Dextrose) 50 mls @ 100 mls/hr IVPB Q8H-IV [facility] PRN Reason: Protocol Last Admin: 10/13/17 10:03 Dose: 100 mls/hr Insulin Aspart (Novolog Vial Sliding Scale -) 1 vial SQ ACHS [facility] PRN Reason: Protocol Last Admin: 10/13/17 11:30 Dose: Not Given Insulin Detemir (Levemir Vial) 5 units SQ [facility] Levothyroxine Sodium (Synthroid -) 25 mcg PO DAILY@0700 [facility] Last Admin: 10/13/17 06:45 Dose: 25 mcg Lorazepam (Ativan Injection -) 1 mg IVPUSH Q4H PRN PRN Reason: ANXIETY Last Admin: 10/12/17 17:33 Dose: 1 mg Metoprolol Succinate (Toprol Xl -) 12.5 mg PO DAILY [facility] Last Admin: 10/13/17 10:03 Dose: 12.5 mg Multivitamins/Minerals (Theragran-M) 1 each PO DAILY [facility] Last Admin: 10/13/17 10:03 Dose: 1 each Pancrelipase (Creon Dr 6,000 Units Capsule) 1 cap PO TIDCM [facility] Last Admin: 10/13/17 10:04 Dose: 1 cap Quetiapine Fumarate (Seroquel -) 25 mg PO HS [facility] Last Admin: 10/12/17 21:06 Dose: 25 mg CBC, BMP 10/08/17 06:25 10/08/17 06:25 Physical Constitutional: Yes: No Distress. confused. comfortable Cardiovascular: Yes: Regular Rate and Rhythm Respiratory: Yes: Diminished . Gastrointestinal: Yes: Normal Bowel Sounds, Soft. No: Tenderness Edema: No Dressing + Problem List - Problems (1) Diabetic foot infection Code(s): E11.628 - TYPE 2 DIABETES MELLITUS WITH OTHER SKIN COMPLICATIONS; L08.9 - LOCAL INFECTION OF THE SKIN AND SUBCUTANEOUS TISSUE, UNSP (2) CAD (coronary artery disease) Code(s): I25.10 - ATHSCL HEART DISEASE OF [place] CORONARY ARTERY W/O ANG PCTRS Qualifiers: Coronary Disease-Associated Artery/Lesion type: [place] artery [place] vs. transplanted heart: [place] heart Associated angina: without angina Qualified Code(s): I25.10 - Atherosclerotic heart disease of [place] coronary artery without angina pectoris (3) Diabetes Code(s): E11.9 - TYPE 2 DIABETES MELLITUS WITHOUT COMPLICATIONS Qualifiers: Diabetes mellitus type: type 1 Diabetes mellitus complication status: with hypoglycemia Diabetes mellitus complication detail: without coma Qualified Code(s): E10.649 - Type 1 diabetes mellitus with hypoglycemia without coma Assessment/Plan Stable pod #1 IV antibiotics Pain control diabetic control decrease dose of levemir--was hypoglycemic this morning vest restraints to prevent injury to self and pulling out iv lines. Discussed with nursing staff also. will follow
--- NOTE | 2017-10-13 13:24 | PN ---
Progress Note (short form) - Note Progress Note: FUV right foot. POD#2 vss. Tmax 98.9 +sutures intact, +packing intact, -drainage, -mal odor, -cellulitis, normal post op Packing pulled. Betadine dressing applied. Will follow till dc. Anticipate DC on Sunday if patient stable and ok with medicine and infectious disease. CBC with dif, ESR.
[2017-10-13] MEDS: SODIUM CHLORIDE 1,000 ML IV SCH ×2 (19:23→19:24)
[2017-10-13] MEDS: ATORVASTATIN CA 20 MG TABLET (FP) PO SCH (21:08)
[2017-10-13] MEDS: VANCOMYCIN 1,000 MG in DEXTROSE 5%-WATER - 250 ML IVPB SCH (21:08)
[2017-10-13] MEDS: INSULIN (LEVEMIR) 100 UNITS/ML UNITS SQ SCH (21:08)
[2017-10-13] MEDS: QUEtiapine FUMARATE 25 MG TABLET (FP) PO SCH (21:08)
[2017-10-14] MEDS ORDERED: DEXTROSE 5%-WATER - 50 ML IVPB ONE ×3 (00:29→17:46)
[2017-10-14] MEDS ORDERED: PIPERACILLIN/TAZOBACTAM 3.375 GM VIAL IVPB ONE ×3 (00:29→17:46)
[2017-10-14] MEDS: PIPERACILLIN/TAZOB 3.375 GM 3.375 GM in DEXTROSE 5%-WATER - 50 ML IVPB SCH ×3 (01:02→17:50)
[2017-10-14] MEDS: INSULIN SLIDING SCALE (NOVOLOG) 1 VIAL SQ SCH ×4 (06:00→21:36)
[2017-10-14] MEDS: LEVOTHYROXINE NA 25 MCG TABLET (FP) PO SCH (06:01)
[2017-10-14 08:39] LABS: BASO % 0.4 % (0-2.0); EOS % 3.3 % (0-4.5); HEMATOCRIT 29.1 % (32.4-45.2); HEMOGLOBIN 10.3 GM/dL (10.7-15.3); LYMPH % 16.6 % (8-40); MCH 29.6 pg (25.7-33.7); MCHC 35.5 g/dl (32.0-36.0); MEAN CELL VOLUME 83.5 fl (80-96); MEAN PLT VOLUME 7.7 fl (7.5-11.1); MONO % 7.8 % (3.8-10.2); NEUT % 71.9 % (42.8-82.8); PLATELET COUNT 193 K/MM3 (134-434); RBC 3.49 M/mm3 (3.60-5.2); RDW 15.3 % (11.6-15.6); WHITE BLOOD COUNT 6.6 K/mm3 (4.0-10.0)
[2017-10-14 09:01] LABS: ALBUMIN 1.5 g/dl (3.4-5.0); ALK PHOS 76 U/L (45-117); ANION GAP 7 (8-16); BILIRUBIN,TOTAL 0.3 mg/dL (0.2-1.0); BLOOD UREA NITROGEN 4 mg/dL (7-18); CHLORIDE 120 mmol/L (98-107); CO2 20 mmol/L (21-32); CREATININE 0.4 mg/dL (0.55-1.02); GLUCOSE,RANDOM 63 mg/dL (74-106); SGOT/AST 17 U/L (15-37); SGPT/ALT 7 U/L (12-78); SODIUM 147 mmol/L (136-145); TOT PROT 5.9 g/dl (6.4-8.2)
[2017-10-14 09:20] LABS: CALCIUM 5.9 mg/dL (8.5-10.1); POTASSIUM 2.8 mmol/L (3.5-5.1)
[2017-10-14 10:05] LABS: MAGNESIUM 1.7 mg/dL (1.8-2.4)
[2017-10-14] MEDS: LIPASE/PROTEASE/AMYLASE 6,000 UNIT CAPSULE PO SCH ×3 (10:05→17:40)
[2017-10-14] MEDS ORDERED: CALCIUM GLUCONATE IVPB SCH (10:15)
[2017-10-14] MEDS ORDERED: POTASSIUM CHLORIDE 30 MEQ in SODIUM CHLORIDE 300 ML IVPB ONE (10:15)
[2017-10-14] MEDS ORDERED: POTASSIUM CHLORIDE TABS 20 MEQ TABLET.ER (FP) PO ONE (10:15)
[2017-10-14] MEDS ORDERED: DEXTROSE 5% IVPB SCH (10:15)
[2017-10-14] MEDS ORDERED: WATER IVPB SCH (10:15)
[2017-10-14] MEDS ORDERED: SODIUM CHLORIDE 0.9%/KCL 20 MEQ/1,000 ML INFUS.BAG IV SCH (10:15)
[2017-10-14] MEDS ORDERED: CALCIUM GLUCONATE IVPB ONE (10:24)
[2017-10-14] MEDS ORDERED: WATER IVPB ONE (10:24)
[2017-10-14] MEDS ORDERED: DEXTROSE 5% IVPB ONE (10:24)
[2017-10-14] MEDS ORDERED: MAGNESIUM SULFATE IN WATER 2 GM/50 ML IVPB IVPB ONE (10:30)
--- NOTE | 2017-10-14 12:03 | PN ---
Progress Note (short form) - Note Progress Note: Pt seen/ examined calm now but periods of confusion/ agitation afebrile Podiatry f/u noted/ appreciated pod #3 Vital Signs Temp 98.4 F 10/14/17 06:00 Pulse 83 10/14/17 06:00 Resp 18 10/14/17 09:00 BP 129/81 10/14/17 06:00 Pulse Ox 97 10/13/17 20:25 Intake & Output 10/13/17 10/14/17 10/14/17 23:59 11:59 23:59 Intake Total 400 1300 Balance 400 1300 Intake: IV 900 Normal Saline - 1,000 ml 900 @ 75 mls/hr IV ASDIR [facility] Rx#:[id number] IVPB 200 200 Tube Feeding 200 200 Other: Voiding Method Incontinent Incontinent # Unmeasured Voids Void 1 1 Bowel Movement Yes Yes Active Medications Acetaminophen (Tylenol -) 650 mg PO Q6H PRN PRN Reason: FEVER Amlodipine Besylate (Norvasc -) 2.5 mg PO DAILY [facility] Last Admin: 10/13/17 10:03 Dose: 2.5 mg Ascorbic Acid (Vitamin C -) 500 mg PO BID [facility] Last Admin: 10/13/17 21:08 Dose: 500 mg Atorvastatin Calcium (Lipitor -) 20 mg PO HS [facility] Last Admin: 10/13/17 21:08 Dose: 20 mg Cholecalciferol (Vitamin D3 -) 1,000 unit PO DAILY [facility] Last Admin: 10/13/17 10:03 Dose: 1,000 unit Heparin Sodium (Porcine) (Heparin -) 5,000 unit SQ BID [facility] Last Admin: 10/13/17 21:08 Dose: 5,000 unit IV Flush (Picc Line Flush) 8 ml IVPUSH PRN PRN PRN Reason: Protocol Vancomycin HCl 1,000 mg/ (Dextrose) 250 mls @ 150 mls/hr IVPB DAILY@2100 [facility] PRN Reason: Protocol Last Admin: 10/13/17 21:08 Dose: 150 mls/hr Piperacillin Sod/Tazobactam (Sod 3.375 gm/ Dextrose) 50 mls @ 100 mls/hr IVPB Q8H-IV [facility] PRN Reason: Protocol Last Admin: 10/14/17 10:29 Dose: 100 mls/hr Potassium Chloride 30 meq/ (Sodium Chloride) 315 mls @ 88.333 mls/hr IVPB ONCE ONE Stop: 10/14/17 13:48 Potassium Chloride/Dextrose/Sod Cl (D5-1/2ns+20 Meq Kcl -) 20 meq in 1,000 mls @ 100 mls/hr IV ASDIR [facility] Insulin Aspart (Novolog Vial Sliding Scale -) 1 vial SQ ACHS [facility] PRN Reason: Protocol Last Admin: 10/14/17 06:00 Dose: Not Given Insulin Detemir (Levemir Vial) 5 units SQ HS [facility] Last Admin: 10/13/17 21:08 Dose: 5 units Levothyroxine Sodium (Synthroid -) 25 mcg PO DAILY@0700 [facility] Last Admin: 10/14/17 06:01 Dose: 25 mcg Lorazepam (Ativan Injection -) 1 mg IVPUSH Q4H PRN PRN Reason: ANXIETY Last Admin: 10/14/17 04:34 Dose: 1 mg Metoprolol Succinate (Toprol Xl -) 12.5 mg PO DAILY [facility] Last Admin: 10/13/17 10:03 Dose: 12.5 mg Multivitamins/Minerals (Theragran-M) 1 each PO DAILY [facility] Last Admin: 10/13/17 10:03 Dose: 1 each Pancrelipase (Creon Dr 6,000 Units Capsule) 1 cap PO TIDCM [facility] Last Admin: 10/14/17 10:05 Dose: Not Given Quetiapine Fumarate (Seroquel -) 25 mg PO BID [facility] CBC, BMP 10/14/17 08:00 10/14/17 08:00 Abnormal Lab Results 10/14/17 10/14/17 10/14/17 08:00 08:00 08:00 RBC 3.49 L Hgb 10.3 L Hct 29.1 L ESR 90 H Sodium 147 H Potassium 2.8 L* Chloride 120 H Carbon Dioxide 20 L Anion Gap 7 L BUN 4 L Creatinine 0.4 L Random Glucose 63 L Calcium 5.9 L* Magnesium 1.7 L ALT 7 L Total Protein 5.9 L Albumin 1.5 L Physical Constitutional: Yes: No Distress. confused. Cardiovascular: Yes: Regular Rate and Rhythm Respiratory: Yes: Diminished . Gastrointestinal: Yes: Normal Bowel Sounds, Soft. No: Tenderness Edema: No Dressing + Problem List - Problems (1) Diabetic foot infection Code(s): E11.628 - TYPE 2 DIABETES MELLITUS WITH OTHER SKIN COMPLICATIONS; L08.9 - LOCAL INFECTION OF THE SKIN AND SUBCUTANEOUS TISSUE, UNSP (2) CAD (coronary artery disease) Code(s): I25.10 - ATHSCL HEART DISEASE OF [place] CORONARY ARTERY W/O ANG PCTRS Qualifiers: Coronary Disease-Associated Artery/Lesion type: [place] artery [place] vs. transplanted heart: [place] heart Associated angina: without angina Qualified Code(s): I25.10 - Atherosclerotic heart disease of [place] coronary artery without angina pectoris (3) Diabetes Code(s): E11.9 - TYPE 2 DIABETES MELLITUS WITHOUT COMPLICATIONS Qualifiers: Diabetes mellitus type: type 1 Diabetes mellitus complication status: with hypoglycemia Diabetes mellitus complication detail: without coma Qualified Code(s): E10.649 - Type 1 diabetes mellitus with hypoglycemia without coma Assessment/Plan Stable pod #3 IV antibiotics Pain under control diabetic control fix electrolytes and monitor vest restraints to prevent injury to self and pulling out iv lines. Discussed with nursing staff also. will follow
--- NOTE | 2017-10-14 12:04 | PN ---
Progress Note (short form) - Note Progress Note: Vital Signs Temp 98.4 F 10/14/17 06:00 Pulse 83 10/14/17 06:00 Resp 18 10/14/17 09:00 BP 129/81 10/14/17 06:00 Pulse Ox 97 10/13/17 20:25 Intake & Output 10/13/17 10/14/17 10/14/17 23:59 11:59 23:59 Intake Total 400 1300 Balance 400 1300 Intake: IV 900 Normal Saline - 1,000 ml 900 @ 75 mls/hr IV ASDIR [facility] Rx#:[id number] IVPB 200 200 Tube Feeding 200 200 Other: Voiding Method Incontinent Incontinent # Unmeasured Voids Void 1 1 Bowel Movement Yes Yes Active Medications Acetaminophen (Tylenol -) 650 mg PO Q6H PRN PRN Reason: FEVER Amlodipine Besylate (Norvasc -) 2.5 mg PO DAILY [facility] Last Admin: 10/13/17 10:03 Dose: 2.5 mg Ascorbic Acid (Vitamin C -) 500 mg PO BID [facility] Last Admin: 10/13/17 21:08 Dose: 500 mg Atorvastatin Calcium (Lipitor -) 20 mg PO HS [facility] Last Admin: 10/13/17 21:08 Dose: 20 mg Cholecalciferol (Vitamin D3 -) 1,000 unit PO DAILY [facility] Last Admin: 10/13/17 10:03 Dose: 1,000 unit Heparin Sodium (Porcine) (Heparin -) 5,000 unit SQ BID [facility] Last Admin: 10/13/17 21:08 Dose: 5,000 unit IV Flush (Picc Line Flush) 8 ml IVPUSH PRN PRN PRN Reason: Protocol Vancomycin HCl 1,000 mg/ (Dextrose) 250 mls @ 150 mls/hr IVPB DAILY@2100 [facility] PRN Reason: Protocol Last Admin: 10/13/17 21:08 Dose: 150 mls/hr Piperacillin Sod/Tazobactam (Sod 3.375 gm/ Dextrose) 50 mls @ 100 mls/hr IVPB Q8H-IV [facility] PRN Reason: Protocol Last Admin: 10/14/17 10:29 Dose: 100 mls/hr Potassium Chloride 30 meq/ (Sodium Chloride) 315 mls @ 88.333 mls/hr IVPB ONCE ONE Stop: 10/14/17 13:48 Potassium Chloride/Dextrose/Sod Cl (D5-1/2ns+20 Meq Kcl -) 20 meq in 1,000 mls @ 100 mls/hr IV ASDIR [facility] Insulin Aspart (Novolog Vial Sliding Scale -) 1 vial SQ ACHS [facility] PRN Reason: Protocol Last Admin: 10/14/17 06:00 Dose: Not Given Insulin Detemir (Levemir Vial) 5 units SQ HS [facility] Last Admin: 10/13/17 21:08 Dose: 5 units Levothyroxine Sodium (Synthroid -) 25 mcg PO DAILY@0700 [facility] Last Admin: 10/14/17 06:01 Dose: 25 mcg Lorazepam (Ativan Injection -) 1 mg IVPUSH Q4H PRN PRN Reason: ANXIETY Last Admin: 10/14/17 04:34 Dose: 1 mg Metoprolol Succinate (Toprol Xl -) 12.5 mg PO DAILY [facility] Last Admin: 10/13/17 10:03 Dose: 12.5 mg Multivitamins/Minerals (Theragran-M) 1 each PO DAILY [facility] Last Admin: 10/13/17 10:03 Dose: 1 each Pancrelipase (Creon Dr 6,000 Units Capsule) 1 cap PO TIDCM [facility] Last Admin: 10/14/17 10:05 Dose: Not Given Quetiapine Fumarate (Seroquel -) 25 mg PO BID JENNIFER CBC, BMP 10/14/17 08:00 10/14/17 08:00
[2017-10-14] MEDS: amLODIPine BESYLATE 2.5 MG TABLET (FP) PO SCH ×2 (12:23→12:52)
[2017-10-14] MEDS: MULTIVITAMINS THER W-MINERALS COMBO TABLET (FP) PO SCH ×2 (12:24→12:52)
[2017-10-14] MEDS: metoPROLOL SUCCINATE 25 MG TAB.SR.24H (FP) PO SCH ×2 (12:24→12:53)
[2017-10-14] MEDS: ASCORBIC ACID 500 MG TABLET (FP) PO SCH ×3 (12:25→21:30)
[2017-10-14] MEDS: CHOLECALCIFEROL (VITAMIN D3) 1,000 UNIT TABLET (FP) PO SCH ×2 (12:26→12:51)
[2017-10-14] MEDS ORDERED: PT OWN MED DRAWER 7, Y5N ONE (12:50)
[2017-10-14] MEDS: HEPARIN NA (PORCINE) 5,000 UNITS/ML 1ML VIAL SQ SCH ×2 (12:51→21:30)
[2017-10-14] MEDS: D5-1/2NS+20 MEQ KCL - 20 MEQ/1,000 ML INFUS.BAG IV SCH (13:04)
[2017-10-14] MEDS: VANCOMYCIN 1,000 MG in DEXTROSE 5%-WATER - 250 ML IVPB SCH (20:10)
[2017-10-14] MEDS: QUEtiapine FUMARATE 25 MG TABLET (FP) PO SCH (21:30)
[2017-10-14] MEDS: ATORVASTATIN CA 20 MG TABLET (FP) PO SCH (21:30)
[2017-10-14] MEDS: INSULIN (LEVEMIR) 100 UNITS/ML UNITS SQ SCH (21:36)
[2017-10-15] MEDS ORDERED: PIPERACILLIN/TAZOBACTAM 3.375 GM VIAL IVPB ONE ×3 (01:13→17:09)
[2017-10-15] MEDS ORDERED: DEXTROSE 5%-WATER - 50 ML IVPB ONE ×2 (01:14→08:57)
[2017-10-15] MEDS: PIPERACILLIN/TAZOB 3.375 GM 3.375 GM in DEXTROSE 5%-WATER - 50 ML IVPB SCH ×3 (01:40→17:11)
[2017-10-15] MEDS: D5-1/2NS+20 MEQ KCL - 20 MEQ/1,000 ML INFUS.BAG IV SCH ×2 (06:06→15:48)
[2017-10-15] MEDS: LEVOTHYROXINE NA 25 MCG TABLET (FP) PO SCH (06:06)
[2017-10-15] MEDS: INSULIN SLIDING SCALE (NOVOLOG) 1 VIAL SQ SCH ×4 (06:21→21:45)
[2017-10-15 07:03] LABS: BASO % 0.5 % (0-2.0); EOS % 4.6 % (0-4.5); HEMATOCRIT 28.9 % (32.4-45.2); LYMPH % 22.8 % (8-40); MCH 29.5 pg (25.7-33.7); MCHC 34.5 g/dl (32.0-36.0); MEAN CELL VOLUME 85.5 fl (80-96); MEAN PLT VOLUME 7.8 fl (7.5-11.1); MONO % 8.3 % (3.8-10.2); NEUT % 63.8 % (42.8-82.8); PLATELET COUNT 165 K/MM3 (134-434); RBC 3.38 M/mm3 (3.60-5.2); WHITE BLOOD COUNT 4.6 K/mm3 (4.0-10.0)
[2017-10-15 07:23] LABS: ALBUMIN 2.6 g/dl (3.4-5.0); ALK PHOS 92 U/L (45-117); ANION GAP 6 (8-16); BILIRUBIN,TOTAL 0.7 mg/dL (0.2-1.0); BLOOD UREA NITROGEN 4 mg/dL (7-18); CALCIUM 8.4 mg/dL (8.5-10.1); CHLORIDE 114 mmol/L (98-107); CO2 23 mmol/L (21-32); CREATININE 0.9 mg/dL (0.55-1.02); GLUCOSE,RANDOM 239 mg/dL (74-106); SGOT/AST 28 U/L (15-37); SGPT/ALT 26 U/L (12-78); SODIUM 143 mmol/L (136-145); TOT PROT 5.5 g/dl (6.4-8.2)
[2017-10-15] MEDS ORDERED: PT OWN MED DRAWER 7, Y5N ONE (08:56)
[2017-10-15] MEDS: metoPROLOL SUCCINATE 25 MG TAB.SR.24H (FP) PO SCH (09:01)
[2017-10-15] MEDS: amLODIPine BESYLATE 2.5 MG TABLET (FP) PO SCH (09:01)
[2017-10-15] MEDS: ASCORBIC ACID 500 MG TABLET (FP) PO SCH ×2 (09:01→21:43)
[2017-10-15] MEDS: MULTIVITAMINS THER W-MINERALS COMBO TABLET (FP) PO SCH (09:01)
[2017-10-15] MEDS: LIPASE/PROTEASE/AMYLASE 6,000 UNIT CAPSULE PO SCH ×3 (09:01→17:08)
[2017-10-15] MEDS: CHOLECALCIFEROL (VITAMIN D3) 1,000 UNIT TABLET (FP) PO SCH (09:01)
[2017-10-15] MEDS: QUEtiapine FUMARATE 25 MG TABLET (FP) PO SCH ×2 (09:02→21:43)
[2017-10-15] MEDS: HEPARIN NA (PORCINE) 5,000 UNITS/ML 1ML VIAL SQ SCH ×2 (09:02→21:44)
[2017-10-15] MEDS ORDERED: INSULIN (NOVOLOG) ASPART 100 UNITS/ML 10ML VIAL ONE (11:42)
--- NOTE | 2017-10-15 17:19 | PN ---
Progress Note (short form) - Note Progress Note: overall condition same afebrile confused Vital Signs Temp 98.6 F 10/15/17 14:46 Pulse 82 10/15/17 14:46 Resp 18 10/15/17 14:46 BP 144/73 10/15/17 14:46 Pulse Ox 96 10/15/17 09:00 Intake & Output 10/14/17 10/15/17 10/15/17 23:59 11:59 23:59 Intake Total 100 910 275 Balance 100 910 275 Intake: IV 860 Normal Saline - 1,000 ml 860 @ 75 mls/hr IV ASDIR [facility] Rx#:[id number] IVPB 50 Oral 100 275 Other: Voiding Method Incontinent Incontinent Incontinent # Unmeasured Voids Void 1 2 2 Bowel Movement Yes Yes Yes # Bowel Movements 1 1 1 Active Medications Acetaminophen (Tylenol -) 650 mg PO Q6H PRN PRN Reason: FEVER Amlodipine Besylate (Norvasc -) 2.5 mg PO DAILY [facility] Last Admin: 10/15/17 09:01 Dose: 2.5 mg Ascorbic Acid (Vitamin C -) 500 mg PO BID [facility] Last Admin: 10/15/17 09:01 Dose: 500 mg Atorvastatin Calcium (Lipitor -) 20 mg PO HS [facility] Last Admin: 10/14/17 21:30 Dose: 20 mg Cholecalciferol (Vitamin D3 -) 1,000 unit PO DAILY [facility] Last Admin: 10/15/17 09:01 Dose: 1,000 unit Heparin Sodium (Porcine) (Heparin -) 5,000 unit SQ BID [facility] Last Admin: 10/15/17 09:02 Dose: 5,000 unit IV Flush (Picc Line Flush) 8 ml IVPUSH PRN PRN PRN Reason: Protocol Vancomycin HCl 1,000 mg/ (Dextrose) 250 mls @ 150 mls/hr IVPB DAILY@2100 JENNIFER PRN Reason: Protocol Last Admin: 10/14/17 20:10 Dose: 150 mls/hr Piperacillin Sod/Tazobactam (Sod 3.375 gm/ Dextrose) 50 mls @ 100 mls/hr IVPB Q8H-IV JENNIFER PRN Reason: Protocol Last Admin: 10/15/17 17:11 Dose: 100 mls/hr Potassium Chloride/Dextrose/Sod Cl (D5-1/2ns+20 Meq Kcl -) 20 meq in 1,000 mls @ 100 mls/hr IV ASDIR [facility] Last Admin: 10/15/17 15:48 Dose: 100 mls/hr Insulin Aspart (Novolog Vial Sliding Scale -) 1 vial SQ ACHS [facility] PRN Reason: Protocol Last Admin: 10/15/17 17:08 Dose: Not Given Insulin Detemir (Levemir Vial) 5 units SQ HS [facility] Last Admin: 10/14/17 21:36 Dose: 5 units Levothyroxine Sodium (Synthroid -) 25 mcg PO DAILY@0700 [facility] Last Admin: 10/15/17 06:06 Dose: 25 mcg Lorazepam (Ativan Injection -) 1 mg IVPUSH Q4H PRN PRN Reason: ANXIETY Last Admin: 10/15/17 15:49 Dose: 1 mg Metoprolol Succinate (Toprol Xl -) 12.5 mg PO DAILY [facility] Last Admin: 10/15/17 09:01 Dose: 12.5 mg Multivitamins/Minerals (Theragran-M) 1 each PO DAILY [facility] Last Admin: 10/15/17 09:01 Dose: 1 each Pancrelipase (Creon Dr 6,000 Units Capsule) 1 cap PO TIDCM [facility] Last Admin: 10/15/17 17:08 Dose: 1 cap Quetiapine Fumarate (Seroquel -) 25 mg PO BID [facility] Last Admin: 10/15/17 09:02 Dose: 25 mg CBC, BMP 10/15/17 06:47 10/15/17 06:47 Physical Constitutional: Yes: No Distress. confused. Cardiovascular: Yes: Regular Rate and Rhythm Respiratory: Yes: Diminished . Gastrointestinal: Yes: Normal Bowel Sounds, Soft. No: Tenderness Edema: No Dressing + Problem List - Problems (1) Diabetic foot infection Code(s): E11.628 - TYPE 2 DIABETES MELLITUS WITH OTHER SKIN COMPLICATIONS; L08.9 - LOCAL INFECTION OF THE SKIN AND SUBCUTANEOUS TISSUE, UNSP (2) CAD (coronary artery disease) Code(s): I25.10 - ATHSCL HEART DISEASE OF [place] CORONARY ARTERY W/O ANG PCTRS Qualifiers: Coronary Disease-Associated Artery/Lesion type: [place] artery [place] vs. transplanted heart: [place] heart Associated angina: without angina Qualified Code(s): I25.10 - Atherosclerotic heart disease of [place] coronary artery without angina pectoris (3) Diabetes Code(s): E11.9 - TYPE 2 DIABETES MELLITUS WITHOUT COMPLICATIONS Qualifiers: Diabetes mellitus type: type 1 Diabetes mellitus complication status: with hypoglycemia Diabetes mellitus complication detail: without coma Qualified Code(s): E10.649 - Type 1 diabetes mellitus with hypoglycemia without coma Assessment/Plan Stable pod #4 IV antibiotics Pain under control diabetic control monitor lytes vest restraints to prevent injury to self and pulling out iv lines. Discussed with nursing staff also. will follow. discharge planning
[2017-10-15] MEDS: ATORVASTATIN CA 20 MG TABLET (FP) PO SCH (21:43)
[2017-10-15] MEDS: INSULIN (LEVEMIR) 100 UNITS/ML UNITS SQ SCH (21:44)
[2017-10-15] MEDS: VANCOMYCIN 1,000 MG in DEXTROSE 5%-WATER - 250 ML IVPB SCH (21:45)
[2017-10-16] MEDS ORDERED: PIPERACILLIN/TAZOBACTAM 3.375 GM VIAL IVPB ONE ×2 (02:18→08:56)
[2017-10-16] MEDS ORDERED: DEXTROSE 5%-WATER - 50 ML IVPB ONE ×2 (02:19→08:56)
[2017-10-16] MEDS: PIPERACILLIN/TAZOB 3.375 GM 3.375 GM in DEXTROSE 5%-WATER - 50 ML IVPB SCH ×2 (02:26→09:03)
[2017-10-16] MEDS: LEVOTHYROXINE NA 25 MCG TABLET (FP) PO SCH (06:26)
[2017-10-16] MEDS: INSULIN SLIDING SCALE (NOVOLOG) 1 VIAL SQ SCH ×2 (06:26→11:32)
[2017-10-16] MEDS ORDERED: PT OWN MED DRAWER 7, Y5N ONE (08:56)
[2017-10-16] MEDS: LIPASE/PROTEASE/AMYLASE 6,000 UNIT CAPSULE PO SCH ×2 (09:02→11:31)
[2017-10-16] MEDS: CHOLECALCIFEROL (VITAMIN D3) 1,000 UNIT TABLET (FP) PO SCH (09:02)
[2017-10-16] MEDS: amLODIPine BESYLATE 2.5 MG TABLET (FP) PO SCH (09:02)
[2017-10-16] MEDS: MULTIVITAMINS THER W-MINERALS COMBO TABLET (FP) PO SCH (09:03)
[2017-10-16] MEDS: ASCORBIC ACID 500 MG TABLET (FP) PO SCH (09:03)
[2017-10-16] MEDS: metoPROLOL SUCCINATE 25 MG TAB.SR.24H (FP) PO SCH (09:03)
[2017-10-16] MEDS: QUEtiapine FUMARATE 25 MG TABLET (FP) PO SCH (09:03)
[2017-10-16] MEDS: HEPARIN NA (PORCINE) 5,000 UNITS/ML 1ML VIAL SQ SCH (09:03)
[2017-10-16] MEDS ORDERED: INSULIN (NOVOLOG) ASPART 100 UNITS/ML 10ML VIAL ONE (10:17)
--- NOTE | 2017-10-16 12:03 | PN ---
Problem List - Problems (1) Diabetic foot infection Code(s): E11.628 - TYPE 2 DIABETES MELLITUS WITH OTHER SKIN COMPLICATIONS; L08.9 - LOCAL INFECTION OF THE SKIN AND SUBCUTANEOUS TISSUE, UNSP (2) CAD (coronary artery disease) Code(s): I25.10 - ATHSCL HEART DISEASE OF [place] CORONARY ARTERY W/O ANG PCTRS Qualifiers: Coronary Disease-Associated Artery/Lesion type: [place] artery [place] vs. transplanted heart: [place] heart Associated angina: without angina Qualified Code(s): I25.10 - Atherosclerotic heart disease of [place] coronary artery without angina pectoris (3) Diabetes Code(s): E11.9 - TYPE 2 DIABETES MELLITUS WITHOUT COMPLICATIONS Qualifiers: Diabetes mellitus type: type 1 Diabetes mellitus complication status: with hypoglycemia Diabetes mellitus complication detail: without coma Qualified Code(s): E10.649 - Type 1 diabetes mellitus with hypoglycemia without coma
--- NOTE | 2017-10-16 12:17 | DS ---
Physical Examination Vital Signs: Vital Signs Temperature 97.8 F 10/16/17 09:00 Pulse Rate 85 10/16/17 09:00 Respiratory Rate 18 10/16/17 09:00 Blood Pressure 148/70 10/16/17 09:00 O2 Sat by Pulse Oximetry (%) 96 10/15/17 21:00 Constitutional: Yes: No Distress, Calm Cardiovascular: Yes: Regular Rate and Rhythm Respiratory: Yes: Diminished Gastrointestinal: Yes: Normal Bowel Sounds, Soft. No: Tenderness Edema: No Labs: CBC, BMP 10/15/17 06:47 10/15/17 06:47 Discharge Summary Reason For Visit: DIABETIC FOOT ULCER Current Active Problems Diabetic foot infection (Acute) Hospital Course: Admitted for foot ulcer-- right foot-- 2nd toe ulcer Seen by Podiatry and ID MRI foot-- osteomyelitis On iv antibiotics -Underwent amputation on 10/11/17- no further antibiotics per ID Clinically stable for dc to NH Condition: Stable - Instructions Referrals: Deon Tarango [Primary Care Provider] - Disposition: LONG TERM FACILITY - Home Medications Comprehensive Discharge Medication List: Ambulatory Orders Aspirin [ASA -] 81 mg PO DAILY 11/08/15 Atorvastatin Ca [Lipitor] 20 mg PO HS 11/08/15 Metoprolol Succinate [Toprol Xl] 12.5 mg PO DAILY 11/08/15 Ranitidine [Zantac -] 150 mg PO DAILY 11/08/15 metFORMIN HCL [Glucophage -] 500 mg PO BID 11/08/15 Acetaminophen [Tylenol .Regular Strength -] 650 mg PO Q6H PRN #0 tablet Insulin Sliding Scale [Novolog Vial Sliding Scale -] 1 vial SQ ACHS units 11/11 Escitalopram Oxalate [Lexapro -] 10 mg PO DAILY 10/15/16 Furosemide 20 mg PO DAILY 10/15/16 Insulin Glargine,Hum.rec.anlog [Lantus (nf)] 16 units SQ HS 10/15/16 Lactulose [Cephulac -] 30 ml PO ASDIR 10/15/16 Levothyroxine [Synthroid -] 25 mcg PO DAILY@0700 10/15/16 Amlodipine Besylate 2.5 mg PO DAILY 10/05/17 Ascorbic Acid [Vitamin C -] 500 mg PO BID 10/05/17 Cholecalciferol (Vitamin D3) [Vitamin D3 -] 1,000 unit PO DAILY 10/05/17 Insulin (Novolog) [NovoLOG FLEXPEN] 12 units SQ ASDIR 10/05/17 Insulin Aspart [Novolog] 5 unit SQ AM 10/05/17 Insulin Aspart [Novolog] 9 unit SQ ASDIR 10/05/17 Lactobacillus Acidophilus [Bacid -] 1 each PO DAILY 10/05/17 Lipase/Protease/Amylase [Creon Dr 6,000 Units Capsule] 1 cap PO TIDCM 10/05/17 Multivit with Iron,Minerals [Compete] 1 each PO DAILY 10/05/17
--- NOTE | 2017-10-16 13:13 | PN ---
Progress Note, Physician History of Present Illness: Sleepy Supine in bed S/P amputation R 2nd toe No acute distress Afebrile WBC WNL - Current Medication List Current Medications: Active Medications Acetaminophen (Tylenol -) 650 mg PO Q6H PRN PRN Reason: FEVER Last Admin: 10/15/17 21:43 Dose: 650 mg Amlodipine Besylate (Norvasc -) 2.5 mg PO DAILY [facility] Last Admin: 10/16/17 09:02 Dose: 2.5 mg Ascorbic Acid (Vitamin C -) 500 mg PO BID [facility] Last Admin: 10/16/17 09:03 Dose: 500 mg Atorvastatin Calcium (Lipitor -) 20 mg PO HS [facility] Last Admin: 10/15/17 21:43 Dose: 20 mg Cholecalciferol (Vitamin D3 -) 1,000 unit PO DAILY [facility] Last Admin: 10/16/17 09:02 Dose: 1,000 unit Heparin Sodium (Porcine) (Heparin -) 5,000 unit SQ BID [facility] Last Admin: 10/16/17 09:03 Dose: 5,000 unit IV Flush (Picc Line Flush) 8 ml IVPUSH PRN PRN PRN Reason: Protocol Vancomycin HCl 1,000 mg/ (Dextrose) 250 mls @ 150 mls/hr IVPB DAILY@2100 JENNIFER PRN Reason: Protocol Last Admin: 10/15/17 21:45 Dose: 150 mls/hr Piperacillin Sod/Tazobactam (Sod 3.375 gm/ Dextrose) 50 mls @ 100 mls/hr IVPB Q8H-IV [facility]ENNIFER PRN Reason: Protocol Last Admin: 10/16/17 09:03 Dose: 100 mls/hr Potassium Chloride/Dextrose/Sod Cl (D5-1/2ns+20 Meq Kcl -) 20 meq in 1,000 mls @ 100 mls/hr IV ASDIR [facility] Last Admin: 10/15/17 15:48 Dose: 100 mls/hr Insulin Aspart (Novolog Vial Sliding Scale -) 1 vial SQ ACHS [facility] PRN Reason: Protocol Last Admin: 10/16/17 11:32 Dose: 2 units Insulin Detemir (Levemir Vial) 5 units SQ HS [facility] Last Admin: 10/15/17 21:44 Dose: 5 units Levothyroxine Sodium (Synthroid -) 25 mcg PO DAILY@0700 [facility] Last Admin: 10/16/17 06:26 Dose: 25 mcg Lorazepam (Ativan Injection -) 1 mg IVPUSH Q4H PRN PRN Reason: ANXIETY Last Admin: 10/16/17 06:51 Dose: 1 mg Metoprolol Succinate (Toprol Xl -) 12.5 mg PO DAILY [facility] Last Admin: 10/16/17 09:03 Dose: 12.5 mg Multivitamins/Minerals (Theragran-M) 1 each PO DAILY [facility] Last Admin: 10/16/17 09:03 Dose: 1 each Pancrelipase (Creon Dr 6,000 Units Capsule) 1 cap PO TIDCM [facility] Last Admin: 10/16/17 11:31 Dose: 1 cap Quetiapine Fumarate (Seroquel -) 25 mg PO BID [facility] Last Admin: 10/16/17 09:03 Dose: 25 mg - Objective Vital Signs: Vital Signs Temperature 97.8 F 10/16/17 09:00 Pulse Rate 85 10/16/17 09:00 Respiratory Rate 18 10/16/17 09:00 Blood Pressure 148/70 10/16/17 09:00 O2 Sat by Pulse Oximetry (%) 96 10/15/17 21:00 Constitutional: Yes: No Distress Eyes: Yes: Conjunctiva Clear Cardiovascular: Yes: Regular Rate and Rhythm, S1, S2 Respiratory: Yes: CTA Bilaterally Gastrointestinal: Yes: Normal Bowel Sounds, Soft. No: Tenderness Extremities: Yes: Other (amputation site healing well without evidence of infection) Labs: CBC, BMP 10/15/17 06:47 10/15/17 06:47 INR, PTT INR 1.12 (0.82-1.09) 10/05/17 14:50 Assessment/Plan Cellulitis / osteomyelitis S/P amputation 2nd toe Diabetes mellitus OBS D/C antibiotics Observe off Local wound care
--- NOTE | 2017-10-16 14:18 | PATH ---
Surgical Pathology Report Patient Name: JAXON BENAVIDES [facility]. Rec. #: [id number] /Age/Gender: 1945 (Age: 72) / F Account: [id number] Location: [address] [place] [address]/[facility] Taken: 10/11/2017 Received: 10/12/2017 Reported: 10/16/2017 Physicians: MATTHEW Roberst M.D. Specimen(s) Received A: RIGHT 2ND TOE B: BASE OF PROXIMAL PHALANX RIGHT 2ND TOE Clinical History Diabetic foot ulcer, gangrene right second toe Final Diagnosis A. SECOND TOE, RIGHT, AMPUTATION: TOE WITH ACUTE AND CHRONIC GANGRENOUS INFLAMMATION AND ULCERATION. UNDERLYING BONE WITH ACUTE OSTEOMYELITIS. SURGICAL MARGINS ARE VIABLE. B. BONE, BASE OF PROXIMAL PHALANX, SECOND TOE, RIGHT, EXCISION: BONE WITHOUT SIGNIFICANT PATHOLOGIC FINDINGS. NO FEATURES OF ACUTE OSTEOMYELITIS IDENTIFIED. Electronically Signed Chantell Vasquez M.D. Gross Description A. Received in formalin labeled "right second toe," is a 3.5 x 2.0 x 1.7 cm toe amputation specimen. There is a 2.0 x 2.0 x 1.7 cm gangrenous lesion involving the distal aspect of the specimen. The lesion extends to 1.0 cm from the skin and soft tissue margin and appears to involve the underlying bone. Branch Sales Manager sections are submitted in 3 cassettes as follows: 1-lesion with underlying bone, following decalcification; 2-bone margin, following decalcification; 3-skin and soft tissue margin. B. Received in formalin labeled "base of proximal phalanx right second toe," is a 1.2 x 1.1 x 0.6 cm unoriented portion of bone. The specimen is bisected and entirely submitted in one cassette, following decalcification. 10/15/201710/15/2017
[2017-10-16 14:38] VITALS: BP 100/65; PULSE 88; TEMP 97.7
== END 2017-10-16 17:33 | DRG 617 ==
LOC: JER 12:53 → JERBED 17:31 → J6S 19:38
PROVIDERS: ADMIT Internal Medicine; ATTEND Internal Medicine
PROC: 0Y6R0Z1 Detachment at Right 2nd Toe, High, Open Approach (ICD-10-PCS; principal; 2017-10-11 12:00)
DX: E11.69 Type 2 diabetes mellitus with other specified complication (principal); E87.1 Hypo-osmolality and hyponatremia; M86.671 Other chronic osteomyelitis, right ankle and foot; E11.621 Type 2 diabetes mellitus with foot ulcer; I10 Essential (primary) hypertension; N17.9 Acute kidney failure, unspecified; L03.031 Cellulitis of right toe; L97.519 Non-pressure chronic ulcer of other part of right foot with unspecified severity; I25.10 Atherosclerotic heart disease of native coronary artery without angina pectoris; Z79.4 Long term (current) use of insulin; E78.5 Hyperlipidemia, unspecified; G30.9 Alzheimer's disease, unspecified; G20 Parkinson's disease; E03.9 Hypothyroidism, unspecified; Z98.61 Coronary angioplasty status; D64.9 Anemia, unspecified; G31.83 Neurocognitive disorder with Lewy bodies; J44.9 Chronic obstructive pulmonary disease, unspecified
CPT/HCPCS: 36415; 71045-TC-FY; 73630-TC-RT-FY; 73718-TC; 80048; 80053; 80061; 82550; 82553; 82962; 83036; 83721; 83735; 84484; 85025; 85027; 85610; 85651; 87040; 87070; 87186; 87205; 88304-TC; 88307-TC; 88311-TC; 93005; 93010; 94760; 99283-25; G0463-25; G0480; J1644; J7030

== ENCOUNTER 2017-10-26 15:25 | Inpatient (IN) | payer OTHER ==
--- NOTE | 2017-10-26 15:39 | PDOC ---
History of Present Illness - General Chief Complaint: Nausea/Vomiting Stated Complaint: Altered Mental Status History Source: Patient Exam Limitations: No Limitations - History of Present Illness Initial Comments: 10/26/17 15:54 72y F hx of htn, HLD, DM, CAD, tia, aphasia, hypothyroidism, gerd, [place] and lewy body dementia from [facility] for evaluation of AMS. The pt is usually minially verbal, but friend bedside state she is more confused today, and the only other thing she noted was she was coughing occasionally and she had a few episodes of vomiting earlier today. Yesterday she was at her baseline. No assoated fevers. no appears of pain or discomfort or localizing chest pain or abd pain. Friend notes some loose stool as well. Pt had a toe amputation a few weeks ago and has been followed up at wound clinic. Past History - Past Medical History Allergies/Adverse Reactions: Allergies Allergy/AdvReac Type Severity Reaction Status Date / Time No Known Allergies Allergy Verified 10/26/17 15:47 Home Medications: Ambulatory Orders Aspirin [ASA -] 81 mg PO DAILY 11/08/15 Atorvastatin Ca [Lipitor] 20 mg PO HS 11/08/15 Metoprolol Succinate [Toprol Xl] 12.5 mg PO DAILY 11/08/15 Ranitidine [Zantac -] 150 mg PO DAILY 11/08/15 Acetaminophen [Tylenol .Regular Strength -] 650 mg PO Q6H PRN #0 tablet Insulin Sliding Scale [Novolog Vial Sliding Scale -] 1 vial SQ ACHS units 11/11 Escitalopram Oxalate [Lexapro -] 10 mg PO DAILY 10/15/16 Levothyroxine [Synthroid -] 25 mcg PO DAILY@0700 10/15/16 Amlodipine Besylate 2.5 mg PO DAILY 10/05/17 Ascorbic Acid [Vitamin C -] 500 mg PO BID 10/05/17 Cholecalciferol (Vitamin D3) [Vitamin D -] 1,000 unit PO DAILY 10/05/17 Lipase/Protease/Amylase [Ava Akers 6,000 Units Capsule] 1 cap PO TIDCM 10/05/17 Multivit with Iron,Minerals [Compete] 1 each PO DAILY 10/05/17 Insulin Glargine,Hum.rec.anlog [Lantus Solostar] 16 unit SQ HS 10/26/17 metFORMIN HCL [Glucophage -] 500 mg PO BID 10/26/17 Anemia: Yes Asthma: No Cancer: Yes (breast nodule benign, CERVIX) Cardiac Disorders: Yes (HI, STENTS - cardac and LLE) 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) COPD: Yes (COPD , CHRONIC BRONCHITIS) CHF: No Dementia: No Diabetes: Yes GI Disorders: Yes (H/O COLON POLYPS,CHRONIC PANCREATITIS -STONES) Disorders: Yes (H/O UTI) HTN: Yes (DX 2002) Hypercholesterolemia: Yes (DX 2002) Liver Disease: No Seizures: No Thyroid Disease: No - Surgical History Abdominal Surgery: Yes (EXPLORATORY LAP-1970) Appendectomy: Yes ( CHILD) Cardiac Surgery: Yes (STENTS-2007,BALLOON LLE) Cholecystectomy: Yes (1970 DURING EXPLORATORY LAP) Lung Surgery: No Neurologic Surgery: No Orthopedic Surgery: No - Immunization History Immunization Up to Date: No - Suicide/Smoking/Psychosocial Hx Smoking Status: No Smoking History: Never smoked Have you smoked in the past 12 months: No Number of Cigarettes Smoked Daily: 0 Hx Alcohol Use: No Drug/Substance Use Hx: No Substance Use Type: None Hx Substance Use Treatment: No Review of Systems - Review of Systems Able to Perform ROS?: No (dementia) *Physical Exam - Physical Exam Comments: 10/26/17 15:58 GENERAL: The patient is awake, confused HEAD: Normocephalic, atraumatic. EYES: extraocular movements intact, sclera anicteric, conjunctiva clear. ENT: Normal voice, Moist mucous membranes. NECK: Normal range of motion, supple LUNGS: distant breath sounds, suspect due to poor inspiration and inability to comply with exam HEART: Regular rate and rhythm, ABDOMEN: Soft, nontender, normoactive bowel sounds. No guarding, no rebound. . No CVA tenderness EXTREMITIES: Normal range of motion, trace edema. R2nd toe - sutures in place but area is clean/dry, no discharge, non erythemadous, not warm to touch NEUROLOGICAL: No facial assymetry, Normal speech, moing all 4 extremities spontnoulsy and symmetrically PSYCH: unabl eto assess SKIN: Warm, Dry, normal turgor, Heart Score/ECG Review - ECG Impressions Comment:: 10/26/17 17:18 Twelve-lead EKG was performed and reviewed by me. There is normal sinus rhythm with a normal rate. Rate of 81 Left axis deviation There is normal R wave progression Nonspecific T wave abnormality ED Treatment Course - LABORATORY CBC & Chemistry Diagram: 10/26/17 16:25 10/26/17 16:25 Medical Decision Making - Medical Decision Making 10/26/17 16:00 72y F presenting w/ ams, cough, episode of nbnb vomiting. ddx includes occult infection, pna, cad, uti, metabolic derangement will ck cbc, cmp, trops, ua, cxr, ekg will reassess 10/26/17 16:40 pt agitated, will give haldol as pt is a danger to self / staff attempted talking her down hoever limited effect due to ehr dementia 10/26/17 18:[address], pt given 1mg of ativan labs reviewed noted for dehydration UA sugestive of infection will admit for further management will notify hospitlist service 10/26/17 18:51 ct head negative cxr noted for basilar atelectasis, will add zithromax for coverage as pt had some coughing per friend 10/26/17 18:[address] fontana agree with admission for further management Case discussed in detail with admitting physician including history, physical exam and ancillary studies. Admitting physician has assumed care for the patient, will follow all pending diagnostics and will complete the evaluation and treatment. *DC/Admit/Observation/Transfer Diagnosis at time of Disposition: Dehydration Urinary tract infection Qualifiers: Urinary tract infection type: site unspecified Hematuria presence: with hematuria Qualified Code(s): N39.0 - Urinary tract infection, site not specified Altered mental status Qualifiers: Altered mental status type: unspecified Qualified Code(s): R41.82 - Altered mental status, unspecified - Discharge Dispostion Condition at time of disposition: Stable Decision to Admit order: Yes - Referrals Referrals: Deon Tarango [Primary Care Provider] - - Patient Instructions - Post Discharge Activity
[2017-10-26] MEDS ORDERED: SODIUM CHLORIDE 500 ML IV STA (16:03)
[2017-10-26 16:32] LABS: BASO % 0.4 % (0-2.0); EOS % 0.1 % (0-4.5); HEMATOCRIT 33.7 % (32.4-45.2); HEMOGLOBIN 10.9 GM/dL (10.7-15.3); MCH 27.9 pg (25.7-33.7); MCHC 32.4 g/dl (32.0-36.0); MEAN CELL VOLUME 86.2 fl (80-96); NEUT % 89.5 % (42.8-82.8); PLATELET COUNT 190 K/MM3 (134-434); RBC 3.91 M/mm3 (3.60-5.2); RDW 16.6 % (11.6-15.6); WHITE BLOOD COUNT 15.3 K/mm3 (4.0-10.0)
[2017-10-26] MEDS ORDERED: HALOPERIDOL LACTATE 5 MG/ML IM ONE (16:39)
[2017-10-26] MEDS ORDERED: HALOPERIDOL LACTATE 5 MG/ML IM PRN (16:39)
[2017-10-26] MEDS ORDERED: HALOPERIDOL LACTATE 5 MG/ML ONE ×2 (16:40→17:25)
[2017-10-26 16:51] LABS: INR 1.15 (0.82-1.09)
[2017-10-26 17:25] LABS: URINE APPEARANCE SLCLOUDY; URINE BILIRUBIN NEGATIVE (<2.0 mg/dL); URINE COLOR YELLOW; URINE GLUCOSE (UA) NEGATIVE (NEGATIVE); URINE KETONE 1+ (NEGATIVE); URINE NITRITE NEGATIVE (NEGATIVE); URINE PROTEIN NEGATIVE (NEGATIVE); URINE UROBILINOGEN NEGATIVE mg/dL (0.2-1.0)
[2017-10-26] MEDS ORDERED: HALOPERIDOL LACTATE 5 MG/ML IVPUSH ONE (17:25)
[2017-10-26 17:27] LABS: URINE LEUK ESTERASE 3+ (NEGATIVE)
[2017-10-26 17:30] LABS: EPI CELLS RARE /HPF (FEW)
[2017-10-26 17:39] LABS: ALBUMIN 3.2 g/dl (3.4-5.0); ANION GAP 13 (8-16); BLOOD UREA NITROGEN 38 mg/dL (7-18); CALCIUM 8.3 mg/dL (8.5-10.1); CHLORIDE 104 mmol/L (98-107); CO2 19 mmol/L (21-32); GLUCOSE,RANDOM 291 mg/dL (74-106); POTASSIUM 5.2 mmol/L (3.5-5.1); SODIUM 136 mmol/L (136-145)
[2017-10-26 17:45] LABS: ALK PHOS 103 U/L (45-117); BILIRUBIN,TOTAL 0.9 mg/dL (0.2-1.0); CREATININE 1.2 mg/dL (0.55-1.02); SGOT/AST 65 U/L (15-37); SGPT/ALT 58 U/L (12-78); TOT PROT 6.5 g/dl (6.4-8.2)
[2017-10-26] MEDS ORDERED: CEFTRIAXONE 1 GM in DEXTROSE 5%-WATER - 50 ML IVPB ONE (18:30)
[2017-10-26] MEDS ORDERED: AZITHROMYCIN IVPB 500 MG in DEXTROSE 5%-WATER - 250 ML IVPB ONE (18:50)
[2017-10-26] MEDS ORDERED: CEFTRIAXONE 1 GM/50 ML BAG ONE (18:52)
[2017-10-26] MEDS ORDERED: AZITHROMYCIN IVPB 250 ML IVPB ONE (18:52)
--- NOTE | 2017-10-26 19:43 | HP ---
CHIEF COMPLAINT: AMS PCP: Dr. Christine Abraham HISTORY OF PRESENT ILLNESS: This is a 72 y/o woman from [facility] PMH: HTN, DM, HLD, CAD, Angina, CVA, Aphasia, Alzheimer's, GERD, UTIs. Who presents to the ED with AMS. Patient is unable to provide HPI due to Alzheimer's/Aphasia. ER course was notable for: (1) UTI- +3 Leukocyte esterase, 125 WBCs (2) WBC 15.3, L- Shift (3) Chest Xray- shallow inspiration, lower lung opacities, which may be atelectasis and/or infiltrates (4) CT Brain- No acute ICH, mass effects or hydrocephalus, moderate microvascular changes, chronic appearing lacunar infarct Recent Travel: None PAST MEDICAL HISTORY: See HPI PAST SURGICAL HISTORY: Social History: Smoking: Never Alcohol: None Drugs: None Resides in SNF Family History: Unable to obtain Allergies No Known Allergies Allergy (Verified 10/26/17 15:47) HOME MEDICATIONS: Home Medications Medication Instructions Recorded Aspirin [ASA -] 81 mg PO DAILY 11/08/15 Atorvastatin Ca [Lipitor] 20 mg PO HS 11/08/15 Metoprolol Succinate [Toprol Xl] 12.5 mg PO DAILY 11/08/15 Ranitidine [Zantac -] 150 mg PO DAILY 11/08/15 Acetaminophen [Tylenol .Regular 650 mg PO Q6H PRN #0 tablet 11/12/15 Strength -] Insulin Sliding Scale [Novolog 1 vial SQ ACHS units 11/12/15 Vial Sliding Scale -] Escitalopram Oxalate [Lexapro -] 10 mg PO DAILY 10/15/16 Levothyroxine [Synthroid -] 25 mcg PO DAILY@0700 10/15/16 Amlodipine Besylate 2.5 mg PO DAILY 10/05/17 Ascorbic Acid [Vitamin C -] 500 mg PO BID 10/05/17 Cholecalciferol (Vitamin D3) 1,000 unit PO DAILY 10/05/17 [Vitamin D -] Lipase/Protease/Amylase [Ava Akers 1 cap PO TIDCM 10/05/17 6,000 Units Capsule] Multivit with Iron,Minerals 1 each PO DAILY 10/05/17 [Compete] Insulin Glargine,Hum.rec.anlog 16 unit SQ HS 10/26/17 [Lantus Solostar] metFORMIN HCL [Glucophage -] 500 mg PO BID 10/26/17 REVIEW OF SYSTEMS Unable to obtain- Alzheimer's/Aphasia CONSTITUTIONAL: Absent: fever, chills, diaphoresis, generalized weakness, malaise, loss of appetite, weight change HEENT: Absent: rhinorrhea, nasal congestion, throat pain, throat swelling, difficulty swallowing, mouth swelling, ear pain, eye pain, visual changes CARDIOVASCULAR: Absent: chest pain, syncope, palpitations, irregular heart rate, lightheadedness , peripheral edema RESPIRATORY: Absent: cough, shortness of breath, dyspnea with exertion, orthopnea, wheezing, stridor, hemoptysis GASTROINTESTINAL: Absent: abdominal pain, abdominal distension, nausea, vomiting, diarrhea, constipation, melena, hematochezia GENITOURINARY: Absent: dysuria, frequency, urgency, hesitancy, hematuria, flank pain, genital pain MUSCULOSKELETAL: Absent: myalgia, arthralgia, joint swelling, back pain, neck pain SKIN: Absent: rash, itching, pallor HEMATOLOGIC/IMMUNOLOGIC: Absent: easy bleeding, easy bruising, lymphadenopathy, frequent infections ENDOCRINE: Absent: unexplained weight gain, unexplained weight loss, heat intolerance, cold intolerance NEUROLOGIC: Absent: headache, focal weakness or paresthesias, dizziness, unsteady gait, seizure, mental status changes, bladder or bowel incontinence PSYCHIATRIC: Absent: anxiety, depression, suicidal or homicidal ideation, hallucinations. PHYSICAL EXAMINATION Vital Signs - 24 hr 10/26/17 10/26/17 15:25 18:13 Temperature 97.9 F Pulse Rate 86 Pulse Rate [ 82 Right Radial] Respiratory 16 17 Rate Blood Pressure 99/70 Blood Pressure 126/89 [Left Arm] O2 Sat by Pulse 100 95 Oximetry (%) GENERAL: Asleep- at baseline, in no acute distress. HEAD: Normal with no signs of trauma. EYES: Pupils equal, round and reactive to light, sclera anicteric, conjunctiva clear. No lid lag. EARS, NOSE, THROAT: Ears normal, nares patent, oropharynx clear without exudates. Dry mucous membranes. NECK: Normal range of motion, supple without lymphadenopathy, JVD, or masses. LUNGS: Breath sounds diminished at bases. No wheezes, and no crackles. No accessory muscle use. HEART: Regular rate and rhythm, normal S1 and S2 without murmur, rub or gallop. ABDOMEN: Soft, nontender, not distended, normoactive bowel sounds, no guarding, no rebound, no masses. No hepatomegaly or splenomegaly. MUSCULOSKELETAL: Normal range of motion at all joints. No bony deformities or tenderness. No CVA tenderness. UPPER EXTREMITIES: 2+ pulses, warm, well-perfused. No cyanosis. No clubbing. No peripheral edema. LOWER EXTREMITIES: 2+ pulses, warm, well-perfused. No calf tenderness. No peripheral edema. NEUROLOGICAL: Cranial nerves II-XII intact. Non-verbal. Gait not observed. PSYCHIATRIC: Alzheimer's- unable to assess. SKIN: Warm, dry, normal turgor, normal capillary refill. Excoriation to bilateral gluteal folds and groin Laboratory Results - last 24 hr 10/26/17 10/26/17 10/26/17 16:25 16:25 16:25 WBC 15.3 H D RBC 3.91 Hgb 10.9 Hct 33.7 D MCV 86.2 MCH 27.9 MCHC 32.4 RDW 16.6 H Plt Count 190 MPV 9.0 D Neutrophils % 89.5 H D Lymphocytes % 5.0 L D Monocytes % 5.0 Eosinophils % 0.1 D Basophils % 0.4 Nucleated RBC % 0 PT with INR 13.00 INR 1.15 H Sodium 136 Potassium 5.2 H Chloride 104 Carbon Dioxide 19 L Anion Gap 13 BUN 38 H Creatinine 1.2 H Creat Clearance w eGFR 44.04 Random Glucose 291 H Calcium 8.3 L Total Bilirubin 0.9 D AST 65 H ALT 58 Alkaline Phosphatase 103 Creatine Kinase 75 Troponin I < 0.02 Total Protein 6.5 Albumin 3.2 L TSH Urine Color Urine Appearance Urine pH Ur Specific [place] Urine Protein Urine Glucose (UA) Urine Ketones Urine Blood Urine Nitrite Urine Bilirubin Urine Urobilinogen Ur Leukocyte Esterase Urine WBC (Auto) Urine RBC (Auto) Ur Epithelial Cells 10/26/17 10/26/17 16:25 17:00 WBC RBC Hgb Hct MCV MCH MCHC RDW Plt Count MPV Neutrophils % Lymphocytes % Monocytes % Eosinophils % Basophils % Nucleated RBC % PT with INR INR Sodium Potassium Chloride Carbon Dioxide Anion Gap BUN Creatinine Creat Clearance w eGFR Random Glucose Calcium Total Bilirubin AST ALT Alkaline Phosphatase Creatine Kinase Troponin I Total Protein Albumin TSH 0.91 Urine Color Yellow Urine Appearance Slcloudy Urine pH 5.0 D Ur Specific [place] 1.014 Urine Protein Negative Urine Glucose (UA) Negative Urine Ketones 1+ H Urine Blood Negative Urine Nitrite Negative Urine Bilirubin Negative Urine Urobilinogen Negative Ur Leukocyte Esterase 3+ H Urine WBC (Auto) 125 Urine RBC (Auto) 1 Ur Epithelial Cells Rare ASSESSMENT/PLAN: 72 y/o woman PMHx of: HTN, HLD, DM, CAD, Angina, CVA/TIA, Aphasia, Alzheimer's, Hypothyroid. Admitted for Altered Mental Status secondary to UTI, Dehydration. Plan: FEN - PO Fluids- thickened - Replete lytes prn - Low Na, Low Cholesterol, Diabetic Pureed Diet DVT ppx - SCDs - Heparin SQ Code Status: DNR/DNI, Molst, HCP Dispo: Requires Inpatient Care Problem List - Problem (1) Dehydration Assessment/Plan: - Likely secondary to poor appetite - NS bolus given in ED - Replete lytes prn - Appreciate RD Consult - Monitor vitals Code(s): E86.0 - DEHYDRATION (2) UTI (urinary tract infection) Assessment/Plan: - Urine Culture-pending - Ceftriaxone given in ED, will continue - Repeat CBC in am - Monitor vitals Code(s): N39.0 - URINARY TRACT INFECTION, SITE NOT SPECIFIED Qualifiers: Urinary tract infection type: site unspecified Hematuria presence: with hematuria Qualified Code(s): N39.0 - Urinary tract infection, site not specified; R31.9 - Hematuria, unspecified (3) Altered mental status Assessment/Plan: - Likely secondary to UTI vs Advanced Alzheimer's - CT Brain- neg ICH - Neurochecks - Repeat CBC, BMP in am - Monitor vitals - Fall Precautions Code(s): R41.82 - ALTERED MENTAL STATUS, UNSPECIFIED Qualifiers: Altered mental status type: unspecified Qualified Code(s): R41.82 - Altered mental status, unspecified (4) CAD (coronary artery disease) Code(s): I25.10 - ATHSCL HEART DISEASE OF [place] CORONARY ARTERY W/O ANG PCTRS Qualifiers: Coronary Disease-Associated Artery/Lesion type: [place] artery [place] vs. transplanted heart: [place] heart Associated angina: without angina Qualified Code(s): I25.10 - Atherosclerotic heart disease of [place] coronary artery without angina pectoris (5) HCD (hypertensive cardiovascular disease) Assessment/Plan: - Monitor BP - Continue home meds, with parameters - Monitor renal function Code(s): I11.9 - HYPERTENSIVE HEART DISEASE WITHOUT HEART FAILURE Qualifiers: Heart failure presence: without heart failure Qualified Code(s): I11.9 - Hypertensive heart disease without heart failure (6) Diabetes Assessment/Plan: - Sub-optimal control - BGMs - ISS - Continue NF Lantus, change- Levemir HS - Monitor renal function Code(s): E11.9 - TYPE 2 DIABETES MELLITUS WITHOUT COMPLICATIONS Qualifiers: Diabetes mellitus type: type 1 Diabetes mellitus complication status: with hypoglycemia Diabetes mellitus complication detail: without coma Qualified Code(s): E10.649 - Type 1 diabetes mellitus with hypoglycemia without coma (7) Hypothyroid Assessment/Plan: - TSH in am - Continue Levothyroxine Code(s): E03.9 - HYPOTHYROIDISM, UNSPECIFIED Visit type - Emergency Visit Emergency Visit: Yes ED Registration Date: 10/26/17 Care time: The patient presented to the Emergency Department on the above date and was hospitalized for further evaluation of their emergent condition. - New Patient This patient is new to me today: Yes Date on this admission: 10/26/17 - Critical Care Critical Care patient: No Hospitalist Screening - Colonoscopy Questionnaire Colonoscopy Questionnaire: Colonoscopy Questionnaire - Patient: 50 - 75 years old and never had a screening colonoscopy: Unknown History of colon or rectal polyps, or CA: Unknown History of IBD, Crohn's disease or UC: Unknown History of abdominal radiation therapy as a child: Unknown - Relative: 1 with colon or rectal CA, or polyps at age 60 or younger: Unknown Colon or rectal CA diagnosed at age 45 or younger: Unknown Multiple relatives with colon or rectal CA: Unknown - Outcome: Screening Result: Negative Screen
[2017-10-26] MEDS: HEPARIN NA (PORCINE) 5,000 UNITS/ML 1ML VIAL SQ SCH (23:34)
[2017-10-27] MEDS: INSULIN SLIDING SCALE (NOVOLOG) 1 VIAL SQ SCH ×4 (06:26→16:39)
[2017-10-27] MEDS: LEVOTHYROXINE NA 25 MCG TABLET (FP) PO SCH (06:27)
[2017-10-27 08:03] LABS: BASO % 0.2 % (0-2.0); EOS % 2.8 % (0-4.5); HEMATOCRIT 29.1 % (32.4-45.2); HEMOGLOBIN 9.7 GM/dL (10.7-15.3); LYMPH % 11.3 % (8-40); MCHC 33.3 g/dl (32.0-36.0); MEAN CELL VOLUME 87.1 fl (80-96); MEAN PLT VOLUME 9.2 fl (7.5-11.1); MONO % 7.4 % (3.8-10.2); NEUT % 78.3 % (42.8-82.8); PLATELET COUNT 132 K/MM3 (134-434); RBC 3.34 M/mm3 (3.60-5.2); RDW 16.5 % (11.6-15.6); WHITE BLOOD COUNT 7.2 K/mm3 (4.0-10.0)
[2017-10-27 08:23] LABS: CHLORIDE 105 mmol/L (98-107); POTASSIUM 4.6 mmol/L (3.5-5.1); SODIUM 139 mmol/L (136-145)
[2017-10-27] MEDS: LIPASE/PROTEASE/AMYLASE 6,000 UNIT CAPSULE PO SCH ×5 (08:28→16:42)
[2017-10-27 08:29] LABS: ANION GAP 8 (8-16); BLOOD UREA NITROGEN 30 mg/dL (7-18); CALCIUM 8.2 mg/dL (8.5-10.1); CO2 26 mmol/L (21-32); GLUCOSE,RANDOM 255 mg/dL (74-106)
--- NOTE | 2017-10-27 08:50 | EKG ---
Test Reason : Blood Pressure : / mmHG Vent. Rate : 081 BPM Atrial Rate : 081 BPM P-R Int : 182 ms QRS Dur : 068 ms QT Int : 424 ms P-R-T Axes : -09 -32 060 degrees QTc Int : 492 ms NORMAL SINUS RHYTHM LEFT AXIS DEVIATION NONSPECIFIC T WAVE ABNORMALITY ABNORMAL ECG WHEN COMPARED WITH ECG OF 05-OCT-2017 15:35, NONSPECIFIC T WAVE ABNORMALITY NOW EVIDENT IN ANTEROLATERAL LEADS Confirmed by FIOR LOCO, ASHLEY ([id number]) on 10/27/2017 8:50:10 AM Referred By: Confirmed By:ASHLEY CHILDRESS MD
[2017-10-27] MEDS ORDERED: cefTRIAXone SODIUM 1 GM VIAL ONE (09:14)
[2017-10-27] MEDS ORDERED: PT OWN MED DRAWER 7, Y5N ONE ×2 (09:14→18:05)
[2017-10-27] MEDS ORDERED: DEXTROSE 5%-WATER - 50 ML IVPB ONE ×3 (09:15→17:29)
--- NOTE | 2017-10-27 09:53 | PN ---
Progress Note (short form) - Note Progress Note: ID consult sent from [place] with increased confusion- history of dementia- recent admission for infected toe, s/p amputation of second toe- 10/05-10/16- d/ryan to [facility] off antibiotics now returns with increased confusion noted to have dehydration and pyuria no fevers amputation site is without erythema or drainage possible UTI zosyn d/c rocephin/zithromax s/p amputation of second toe podiatry f/u Problem List - Problems (1) Altered mental status Code(s): R41.82 - ALTERED MENTAL STATUS, UNSPECIFIED Qualifiers: Altered mental status type: unspecified Qualified Code(s): R41.82 - Altered mental status, unspecified (2) UTI (urinary tract infection) Code(s): N39.0 - URINARY TRACT INFECTION, SITE NOT SPECIFIED Qualifiers: Urinary tract infection type: site unspecified Hematuria presence: with hematuria Qualified Code(s): N39.0 - Urinary tract infection, site not specified; R31.9 - Hematuria, unspecified
[2017-10-27] MEDS ORDERED: CEFTRIAXONE 1 GM in DEXTROSE 5%-WATER - 50 ML IVPB SCH (10:00)
[2017-10-27] MEDS ORDERED: AZITHROMYCIN IVPB 500 MG in DEXTROSE 5%-WATER - 250 ML IVPB SCH (10:00)
[2017-10-27] MEDS: ESCITALOPRAM OXALATE 10 MG TABLET (FP) PO SCH ×2 (10:48→12:35)
[2017-10-27] MEDS: MULTIVITAMINS THER W-MINERALS COMBO TABLET (FP) PO SCH ×2 (10:48→12:36)
[2017-10-27] MEDS: RANITIDINE HCL 150 MG TABLET (FP) PO SCH ×2 (10:48→12:36)
[2017-10-27] MEDS: metoPROLOL SUCCINATE 25 MG TAB.SR.24H (FP) PO SCH ×2 (10:48→12:35)
[2017-10-27] MEDS: ASPIRIN 81 MG CHEWABLE TABLETS PO SCH ×2 (10:48→12:35)
[2017-10-27] MEDS: amLODIPine BESYLATE 2.5 MG TABLET (FP) PO SCH ×2 (10:48→12:36)
[2017-10-27] MEDS: ASCORBIC ACID 500 MG TABLET (FP) PO SCH ×3 (10:48→22:20)
[2017-10-27] MEDS ORDERED: PIPERACILLIN/TAZOBACTAM 3.375 GM VIAL IVPB ONE ×2 (11:10→17:28)
[2017-10-27] MEDS: PIPERACILLIN/TAZOB 3.375 GM 3.375 GM in DEXTROSE 5%-WATER - 50 ML IVPB SCH ×2 (11:14→17:48)
--- NOTE | 2017-10-27 11:14 | CONS ---
INFECTIOUS DISEASE CONSULTATION DATE OF CONSULTATION: DATE OF DICTATION: 10/26/2017 REQUESTED BY: The hospitalist service. HISTORY OF PRESENT ILLNESS: This is a 72-year-old woman. History of dementia. She was recently in the hospital, October 05 through October 16, when she underwent amputation of her 2nd toe for a bone infection. She was seen by Dr. Fuller. [facility] She now returns with increased confusion. She was noted to be dehydrated and have some elevated white count of 15,000 with pyuria. She was given ceftriaxone and Zithromax and admitted for a possible UTI and pneumonia. She is resting comfortably with no complaints. PAST MEDICAL HISTORY: Notable for hypertension, diabetes, hyperlipidemia, coronary artery disease, status post . She has a history of Alzheimer and Lewy body dementia, aphasia, hypothyroidism, and GERD. SURGICAL HISTORY: Notable for the recent toe amputation. SOCIAL HISTORY: [facility] Smoking and substance use history is unavailable. FAMILY HISTORY: Unavailable. ALLERGIES: She has no known drug allergies. MEDICATIONS: Include aspirin, Lipitor, Toprol, Zantac, insulin, Lexapro, Synthroid, amlodipine, vitamin C, vitamin D, Creon, multivitamins, and metformin. REVIEW OF SYSTEMS: Unable to obtain, due to her dementia. PHYSICAL EXAMINATION: General: She is awake and comfortable. Vital signs: She has had no fever since admission. Temperature is 98.9, pulse 82, blood pressure 142/72, respiratory rate is 20. She is saturating 96% on room air. HEENT: She is normocephalic. Her eyes are anicteric. Neck: Supple. Lungs: Clear to auscultation. Heart: Regular rate and rhythm. Abdomen: Soft. Nontender. Extremities: Without edema. On her foot, she has a 2nd toe amputation site without any erythema or drainage with sutures intact. LABORATORIES: Notable on admission white count of 15.3, this morning is 7.2, hemoglobin 9.7, platelets are 132. BUN and creatinine are 30 and , on admission 38 and 1.2. Urinalysis with 3+ leukocyte esterase and 125 white cells. Cultures are pending. IMAGING: Chest x-ray shows bibasilar atelectasis. Head CT is notable for generalized age-related volume loss, no acute changes. In summary, this is an elderly woman with dementia admitted with altered mental status, possible UTI. Would treat her with piperacillin and tazobactam, as she was recently in the hospital. Would discontinue the Rocephin and Zithromax. I doubt she has pneumonia. Status post amputation of 2nd toe, site looks good without any signs of wound infection. Would recommend Podiatry followup. ASHTYN NELSON M.D. [id number]
[2017-10-27] MEDS: HEPARIN NA (PORCINE) 5,000 UNITS/ML 1ML VIAL SQ SCH ×2 (11:15→22:19)
--- NOTE | 2017-10-27 13:47 | PN ---
Progress Note (short form) - Note Progress Note: pt seen/ examined chart reviewed known to me from recent admission now admitted for increased confusion on zosyn for uti i/d eval noted / appreciated calm at present Vital Signs Temp 98.5 F 10/27/17 11:00 Pulse 86 10/27/17 11:00 Resp 20 10/27/17 11:00 BP 157/66 10/27/17 11:00 Pulse Ox 100 10/27/17 09:00 Intake & Output 10/26/17 10/27/17 10/27/17 23:59 11:59 23:59 Intake Total 0 0 Balance 0 0 Weight 113 lb 3.2 oz Intake: Oral 0 0 Other: Voiding Method Incontinent Incontinent Height 5 ft 2 in Body Mass Index (BMI) 20.7 Weight Measurement Method Patient Lift Scale Active Medications Acetaminophen (Tylenol -) 650 mg PO Q6H PRN PRN Reason: FEVER Amlodipine Besylate (Norvasc -) 2.5 mg PO DAILY [facility] Last Admin: 10/27/17 12:36 Dose: 2.5 mg Ascorbic Acid (Vitamin C -) 500 mg PO BID [facility] Last Admin: 10/27/17 12:36 Dose: 500 mg Aspirin (Asa -) 81 mg PO DAILY [facility] Last Admin: 10/27/17 12:35 Dose: 81 mg Atorvastatin Calcium (Lipitor -) 20 mg PO [facility] Escitalopram Oxalate (Lexapro -) 10 mg PO DAILY [facility] Last Admin: 10/27/17 12:35 Dose: 10 mg Heparin Sodium (Porcine) (Heparin -) 5,000 unit SQ BID [facility] Last Admin: 10/27/17 11:15 Dose: 5,000 unit Piperacillin Sod/Tazobactam (Sod 3.375 gm/ Dextrose) 50 mls @ 100 mls/hr IVPB Q8H-IV [facility]; Protocol Last Admin: 10/27/17 11:14 Dose: 100 mls/hr Insulin Aspart (Novolog Vial Sliding Scale -) 1 vial SQ TIDAC [facility]; Protocol Last Admin: 10/27/17 12:32 Dose: 3 unit Insulin Detemir (Levemir Vial) 16 units SQ [facility] Levothyroxine Sodium (Synthroid -) 25 mcg PO DAILY@0700 [facility] Last Admin: 10/27/17 06:27 Dose: 25 mcg Metoprolol Succinate (Toprol Xl -) 12.5 mg PO DAILY [facility] Last Admin: 10/27/17 12:35 Dose: 12.5 mg Multivitamins/Minerals (Theragran-M) 1 each PO DAILY [facility] Last Admin: 10/27/17 12:36 Dose: 1 each Pancrelipase (Creon Dr 6,000 Units Capsule) 1 cap PO TIDCM [facility] Last Admin: 10/27/17 12:42 Dose: 1 cap Ranitidine HCl (Zantac -) 150 mg PO DAILY [facility] Last Admin: 10/27/17 12:36 Dose: 150 mg CBC, BMP 10/27/17 06:26 10/27/17 06:26 Physical Exam comfortable lungs- clear cvs- s1, s2 rrr abd- soft ext- s/p left 2 nd toe amputation Assessment/Plan stable continue present care abx f/u cultures podiatry eval will follow discussed with nursing staff also.
[2017-10-27] MEDS: INSULIN (LEVEMIR) 100 UNITS/ML UNITS SQ SCH (22:20)
[2017-10-27] MEDS: ATORVASTATIN CA 20 MG TABLET (FP) PO SCH (22:20)
[2017-10-27] MEDS: CLOTRIMAZOLE 1% CREAM 15 GM TUBE TP SCH (22:21)
[2017-10-28] MEDS ORDERED: DEXTROSE 5%-WATER - 50 ML IVPB ONE ×3 (02:03→16:57)
[2017-10-28] MEDS ORDERED: PIPERACILLIN/TAZOBACTAM 3.375 GM VIAL IVPB ONE ×3 (02:03→16:57)
[2017-10-28] MEDS: ACETAMINOPHEN 325 MG TABLET (FP) PO PRN (02:23)
[2017-10-28] MEDS: PIPERACILLIN/TAZOB 3.375 GM 3.375 GM in DEXTROSE 5%-WATER - 50 ML IVPB SCH ×3 (02:24→17:00)
[2017-10-28] MEDS: INSULIN SLIDING SCALE (NOVOLOG) 1 VIAL SQ SCH ×3 (06:09→17:03)
[2017-10-28] MEDS: LEVOTHYROXINE NA 25 MCG TABLET (FP) PO SCH (06:09)
[2017-10-28] MEDS ORDERED: PT OWN MED DRAWER 7, Y5N ONE ×4 (07:30→20:29)
[2017-10-28] MEDS ORDERED: INSULIN (NOVOLOG) ASPART 100 UNITS/ML 10ML VIAL ONE (07:30)
[2017-10-28] MEDS ORDERED: INSULIN (LEVEMIR) 100 UNITS/ML UNITS SQ ONE (07:30)
[2017-10-28] MEDS: LIPASE/PROTEASE/AMYLASE 6,000 UNIT CAPSULE PO SCH ×3 (07:54→17:00)
[2017-10-28] MEDS: metoPROLOL SUCCINATE 25 MG TAB.SR.24H (FP) PO SCH (09:50)
[2017-10-28] MEDS: ESCITALOPRAM OXALATE 10 MG TABLET (FP) PO SCH (09:51)
[2017-10-28] MEDS: MULTIVITAMINS THER W-MINERALS COMBO TABLET (FP) PO SCH (09:51)
[2017-10-28] MEDS: ASCORBIC ACID 500 MG TABLET (FP) PO SCH ×2 (09:51→22:56)
[2017-10-28] MEDS: amLODIPine BESYLATE 2.5 MG TABLET (FP) PO SCH (09:51)
[2017-10-28] MEDS: RANITIDINE HCL 150 MG TABLET (FP) PO SCH (09:52)
[2017-10-28] MEDS: ASPIRIN 81 MG CHEWABLE TABLETS PO SCH (09:52)
[2017-10-28] MEDS: CLOTRIMAZOLE 1% CREAM 15 GM TUBE TP SCH ×2 (09:52→22:57)
[2017-10-28] MEDS: HEPARIN NA (PORCINE) 5,000 UNITS/ML 1ML VIAL SQ SCH ×2 (09:52→22:56)
[2017-10-28 13:02] VITALS: BMI 20.6
--- NOTE | 2017-10-28 13:57 | PN ---
Progress Note (short form) - Note Progress Note: awake/ confused trying to get oob - chair afebrile Vital Signs Temp 98.0 F 10/28/17 10:00 Pulse 118 H 10/28/17 10:00 Resp 18 10/28/17 10:00 BP 118/61 10/28/17 10:00 Pulse Ox 98 10/28/17 09:00 Intake & Output 10/27/17 10/28/17 10/28/17 23:59 11:59 23:59 Intake Total 160 110 Balance 160 110 Weight 113 lb Intake: IVPB 100 50 Oral 60 60 Other: Voiding Method Incontinent Incontinent # Unmeasured Voids Void 2 Bowel Movement No Height 5 ft 2 in Body Mass Index (BMI) 20.6 Active Medications Acetaminophen (Tylenol -) 650 mg PO Q6H PRN PRN Reason: FEVER Last Admin: 10/28/17 02:23 Dose: 650 mg Amlodipine Besylate (Norvasc -) 2.5 mg PO DAILY [facility] Last Admin: 10/28/17 09:51 Dose: 2.5 mg Ascorbic Acid (Vitamin C -) 500 mg PO BID [facility] Last Admin: 10/28/17 09:51 Dose: 500 mg Aspirin (Asa -) 81 mg PO DAILY [facility] Last Admin: 10/28/17 09:52 Dose: 81 mg Atorvastatin Calcium (Lipitor -) 20 mg PO [facility] Last Admin: 10/27/17 22:20 Dose: 20 mg Clotrimazole (Lotrimin 1% Cream -) 1 applic TP BID [facility] Last Admin: 10/28/17 09:52 Dose: 1 applic Escitalopram Oxalate (Lexapro -) 10 mg PO DAILY [facility] Last Admin: 10/28/17 09:51 Dose: 10 mg Heparin Sodium (Porcine) (Heparin -) 5,000 unit SQ BID [facility] Last Admin: 10/28/17 09:52 Dose: 5,000 unit Piperacillin Sod/Tazobactam (Sod 3.375 gm/ Dextrose) 50 mls @ 100 mls/hr IVPB Q8H-IV [facility]; Protocol Last Admin: 10/28/17 09:52 Dose: 100 mls/hr Insulin Aspart (Novolog Vial Sliding Scale -) 1 vial SQ TIDAC [facility]; Protocol Last Admin: 10/28/17 11:12 Dose: 1 unit Insulin Detemir (Levemir Vial) 16 units SQ [facility] Last Admin: 10/27/17 22:20 Dose: 16 unit Levothyroxine Sodium (Synthroid -) 25 mcg PO DAILY@0700 [facility] Last Admin: 10/28/17 06:09 Dose: 25 mcg Lorazepam (Ativan Injection -) 2 mg IVPB BID PRN PRN Reason: AGITATION Last Admin: 10/28/17 13:53 Dose: 2 mg Metoprolol Succinate (Toprol Xl -) 12.5 mg PO DAILY [facility] Last Admin: 10/28/17 09:50 Dose: 12.5 mg Multivitamins/Minerals (Theragran-M) 1 each PO DAILY [facility] Last Admin: 10/28/17 09:51 Dose: 1 each Pancrelipase (Creon Dr 6,000 Units Capsule) 1 cap PO TIDCM [facility] Last Admin: 10/28/17 11:12 Dose: 1 cap Quetiapine Fumarate (Seroquel -) 25 mg PO BID [facility] Ranitidine HCl (Zantac -) 150 mg PO DAILY [facility] Last Admin: 10/28/17 09:52 Dose: 150 mg CBC, BMP 10/27/17 06:26 10/27/17 06:26 Microbiology 10/26/17 17:00 Urine Culture - Preliminary Urine - Urine Clean Catch Presumptive Pseudomonas Spec. Non Lactose Fermenting Gnb 10/26/17 16:25 Blood Culture - Preliminary Blood - Peripheral Venous NO GROWTH OBTAINED AFTER 24 HOURS, INCUBATION TO CONTINUE FOR 4 DAYS. 10/26/17 16:25 Blood Culture - Preliminary Blood - Peripheral Venous NO GROWTH OBTAINED AFTER 24 HOURS, INCUBATION TO CONTINUE FOR 4 DAYS. Physical Exam awake, confused lungs- clear cvs- s1, s2 rrr abd- soft ext- s/p right 2 nd toe amputation Assessment/Plan stable continue present care abx f/u cultures podiatry eval add seroquel mittens/ kevin for safety will follow discussed with nursing staff also. Problem List - Problems (1) Altered mental status Code(s): R41.82 - ALTERED MENTAL STATUS, UNSPECIFIED Qualifiers: Altered mental status type: unspecified Qualified Code(s): R41.82 - Altered mental status, unspecified (2) UTI (urinary tract infection) Code(s): N39.0 - URINARY TRACT INFECTION, SITE NOT SPECIFIED Qualifiers: Urinary tract infection type: site unspecified Hematuria presence: with hematuria Qualified Code(s): N39.0 - Urinary tract infection, site not specified; R31.9 - Hematuria, unspecified (3) Diabetes Code(s): E11.9 - TYPE 2 DIABETES MELLITUS WITHOUT COMPLICATIONS Qualifiers: Diabetes mellitus type: type 1 Diabetes mellitus complication status: with hypoglycemia Diabetes mellitus complication detail: without coma Qualified Code(s): E10.649 - Type 1 diabetes mellitus with hypoglycemia without coma
[2017-10-28] MEDS: QUEtiapine FUMARATE 25 MG TABLET (FP) PO SCH (22:56)
[2017-10-28] MEDS: ATORVASTATIN CA 20 MG TABLET (FP) PO SCH (22:56)
[2017-10-28] MEDS: INSULIN (LEVEMIR) 100 UNITS/ML UNITS SQ SCH (22:57)
[2017-10-29] MEDS ORDERED: DEXTROSE 5%-WATER - 50 ML IVPB ONE ×3 (01:31→16:57)
[2017-10-29] MEDS ORDERED: PIPERACILLIN/TAZOBACTAM 3.375 GM VIAL IVPB ONE ×3 (01:31→16:57)
[2017-10-29] MEDS: PIPERACILLIN/TAZOB 3.375 GM 3.375 GM in DEXTROSE 5%-WATER - 50 ML IVPB SCH ×3 (01:35→17:00)
[2017-10-29] MEDS: LEVOTHYROXINE NA 25 MCG TABLET (FP) PO SCH (06:00)
[2017-10-29] MEDS: INSULIN SLIDING SCALE (NOVOLOG) 1 VIAL SQ SCH ×3 (06:00→17:09)
[2017-10-29] MEDS ORDERED: PT OWN MED DRAWER 7, Y5N ONE (07:35)
[2017-10-29] MEDS: LIPASE/PROTEASE/AMYLASE 6,000 UNIT CAPSULE PO SCH ×3 (09:19→16:59)
[2017-10-29] MEDS: metoPROLOL SUCCINATE 25 MG TAB.SR.24H (FP) PO SCH (09:20)
[2017-10-29] MEDS: CLOTRIMAZOLE 1% CREAM 15 GM TUBE TP SCH ×2 (09:21→23:08)
[2017-10-29] MEDS: ASPIRIN 81 MG CHEWABLE TABLETS PO SCH (09:21)
[2017-10-29] MEDS: HEPARIN NA (PORCINE) 5,000 UNITS/ML 1ML VIAL SQ SCH ×2 (09:21→21:11)
[2017-10-29] MEDS: ASCORBIC ACID 500 MG TABLET (FP) PO SCH ×2 (09:21→21:11)
[2017-10-29] MEDS: QUEtiapine FUMARATE 25 MG TABLET (FP) PO SCH ×2 (09:21→21:11)
[2017-10-29] MEDS: MULTIVITAMINS THER W-MINERALS COMBO TABLET (FP) PO SCH (09:21)
[2017-10-29] MEDS: amLODIPine BESYLATE 2.5 MG TABLET (FP) PO SCH (09:21)
[2017-10-29] MEDS: ESCITALOPRAM OXALATE 10 MG TABLET (FP) PO SCH (09:21)
[2017-10-29] MEDS: RANITIDINE HCL 150 MG TABLET (FP) PO SCH (09:21)
[2017-10-29] MEDS ORDERED: INSULIN (NOVOLOG) ASPART 100 UNITS/ML 10ML VIAL ONE (10:56)
--- NOTE | 2017-10-29 11:39 | CONSULT ---
Consult - text type - Consultation Consultation Note: Asked to evaluate patients right foot. s/p amputation earlier this month. Patient is alert but not oriented. +coapted, -dehiscence, -cellulitis, -drainage, +sutures intact, +xerosis b/l feet, xerosis healed operative site Ammonium lactate to lower extremities BID. Heel pads b/l heels to prevent new ulcerations. Will follow. Suture removal to be done tomorrow.
[2017-10-29] MEDS ORDERED: AMMONIUM LACTATE 12% LOTION 225 GM BOTTLE TP PRN (11:40)
--- NOTE | 2017-10-29 12:09 | PN ---
Progress Note (short form) - Note Progress Note: Pt awake/ confused. agitated today Podiatry f/u noted./ appreciated Vital Signs Temp 98.6 F 10/29/17 10:00 Pulse 87 10/29/17 10:00 Resp 20 10/29/17 10:00 BP 115/84 10/29/17 10:00 Pulse Ox 95 10/29/17 09:00 Intake & Output 10/28/17 10/29/17 10/29/17 23:59 11:59 23:59 Intake Total 200 50 Balance 200 50 Weight 113 lb Intake: IVPB 50 Oral 200 Other: Voiding Method Incontinent Incontinent Height 5 ft 2 in Body Mass Index (BMI) 20.6 Active Medications Acetaminophen (Tylenol -) 650 mg PO Q6H PRN PRN Reason: FEVER Last Admin: 10/28/17 02:23 Dose: 650 mg Amlodipine Besylate (Norvasc -) 2.5 mg PO DAILY [facility] Last Admin: 10/29/17 09:21 Dose: 2.5 mg Ascorbic Acid (Vitamin C -) 500 mg PO BID [facility] Last Admin: 10/29/17 09:21 Dose: 500 mg Aspirin (Asa -) 81 mg PO DAILY [facility] Last Admin: 10/29/17 09:21 Dose: 81 mg Atorvastatin Calcium (Lipitor -) 20 mg PO HS [facility] Last Admin: 10/28/17 22:56 Dose: 20 mg Clotrimazole (Lotrimin 1% Cream -) 1 applic TP BID [facility] Last Admin: 10/29/17 09:21 Dose: 1 applic Escitalopram Oxalate (Lexapro -) 10 mg PO DAILY [facility] Last Admin: 10/29/17 09:21 Dose: 10 mg Haloperidol (Haldol Injection (Fast Acting) -) 5 mg IM Q8H PRN PRN Reason: AGITATION Heparin Sodium (Porcine) (Heparin -) 5,000 unit SQ BID [facility] Last Admin: 10/29/17 09:21 Dose: 5,000 unit Piperacillin Sod/Tazobactam (Sod 3.375 gm/ Dextrose) 50 mls @ 100 mls/hr IVPB Q8H-IV [facility]; Protocol Last Admin: 10/29/17 09:20 Dose: 100 mls/hr Insulin Aspart (Novolog Vial Sliding Scale -) 1 vial SQ TIDAC [facility]; Protocol Last Admin: 10/29/17 11:20 Dose: Not Given Insulin Detemir (Levemir Vial) 16 units SQ HS [facility] Last Admin: 10/28/17 22:57 Dose: 16 unit Lactic Acid (Lac-Hydrin 12) 1 applic TP BID PRN PRN Reason: xerosis Levothyroxine Sodium (Synthroid -) 25 mcg PO DAILY@0700 [facility] Last Admin: 10/29/17 06:00 Dose: 25 mcg Lorazepam (Ativan Injection -) 2 mg IVPB BID PRN PRN Reason: AGITATION Last Admin: 10/28/17 13:53 Dose: 2 mg Metoprolol Succinate (Toprol Xl -) 12.5 mg PO DAILY [facility] Last Admin: 10/29/17 09:20 Dose: 12.5 mg Multivitamins/Minerals (Theragran-M) 1 each PO DAILY [facility] Last Admin: 10/29/17 09:21 Dose: 1 each Pancrelipase (Creon Dr 6,000 Units Capsule) 1 cap PO TIDCM [facility] Last Admin: 10/29/17 11:17 Dose: 1 cap Quetiapine Fumarate (Seroquel -) 50 mg PO BID [facility] Ranitidine HCl (Zantac -) 150 mg PO DAILY [facility] Last Admin: 10/29/17 09:21 Dose: 150 mg CBC, BMP 10/27/17 06:26 10/27/17 06:26 Microbiology 10/26/17 17:00 Urine Culture - Final Urine - Urine Clean Catch Pseudomonas Aeruginosa 10/26/17 16:25 Blood Culture - Preliminary Blood - Peripheral Venous NO GROWTH OBTAINED AFTER 48 HOURS, INCUBATION TO CONTINUE FOR 3 DAYS. 10/26/17 16:25 Blood Culture - Preliminary Blood - Peripheral Venous NO GROWTH OBTAINED AFTER 48 HOURS, INCUBATION TO CONTINUE FOR 3 DAYS. Physical Exam awake, confused . agitated lungs- clear cvs- s1, s2 rrr abd- soft ext- s/p right 2 nd toe amputation Assessment/Plan increase seroquel haldol prn continue present care abx per i/d mittens/ kevin for safety sutures to be removed tomorrow will follow discussed with nursing staff also. Problem List - Problems (1) Altered mental status Code(s): R41.82 - ALTERED MENTAL STATUS, UNSPECIFIED Qualifiers: Altered mental status type: unspecified Qualified Code(s): R41.82 - Altered mental status, unspecified (2) UTI (urinary tract infection) Code(s): N39.0 - URINARY TRACT INFECTION, SITE NOT SPECIFIED Qualifiers: Urinary tract infection type: site unspecified Hematuria presence: with hematuria Qualified Code(s): N39.0 - Urinary tract infection, site not specified; R31.9 - Hematuria, unspecified (3) Diabetes Code(s): E11.9 - TYPE 2 DIABETES MELLITUS WITHOUT COMPLICATIONS Qualifiers: Diabetes mellitus type: type 1 Diabetes mellitus complication status: with hypoglycemia Diabetes mellitus complication detail: without coma Qualified Code(s): E10.649 - Type 1 diabetes mellitus with hypoglycemia without coma
[2017-10-29] MEDS: HALOPERIDOL LACTATE 5 MG/ML IM PRN ×2 (12:24→22:27)
[2017-10-29] MEDS: ATORVASTATIN CA 20 MG TABLET (FP) PO SCH (21:11)
[2017-10-29] MEDS: INSULIN (LEVEMIR) 100 UNITS/ML UNITS SQ SCH (21:12)
[2017-10-30] MEDS ORDERED: PIPERACILLIN/TAZOBACTAM 3.375 GM VIAL IVPB ONE ×2 (01:41→10:46)
[2017-10-30] MEDS ORDERED: DEXTROSE 5%-WATER - 50 ML IVPB ONE ×2 (01:41→10:46)
[2017-10-30] MEDS: PIPERACILLIN/TAZOB 3.375 GM 3.375 GM in DEXTROSE 5%-WATER - 50 ML IVPB SCH ×2 (02:10→10:51)
[2017-10-30] MEDS: LEVOTHYROXINE NA 25 MCG TABLET (FP) PO SCH (06:27)
[2017-10-30] MEDS: INSULIN SLIDING SCALE (NOVOLOG) 1 VIAL SQ SCH ×3 (06:31→17:10)
[2017-10-30] MEDS ORDERED: PT OWN MED DRAWER 7, Y5N ONE ×3 (07:46→12:42)
--- NOTE | 2017-10-30 08:51 | PN ---
Progress Note (short form) - Note Progress Note: awake and confused Was very agitated last night Discussed with nursing staff Vital Signs Temp 97.5 F L 10/30/17 05:53 Pulse 72 10/30/17 05:53 Resp 20 10/30/17 05:53 BP 150/77 10/30/17 05:53 Pulse Ox 97 10/29/17 21:00 Intake & Output 10/29/17 10/29/17 10/30/17 11:59 23:59 11:59 Intake Total 50 130 50 Balance 50 130 50 Intake: IVPB 50 100 50 Oral 30 Other: Voiding Method Incontinent Incontinent Incontinent # Unmeasured Voids Void 2 Bowel Movement Yes Yes: 1 small Active Medications Acetaminophen (Tylenol -) 650 mg PO Q6H PRN PRN Reason: FEVER Last Admin: 10/28/17 02:23 Dose: 650 mg Amlodipine Besylate (Norvasc -) 2.5 mg PO DAILY [facility] Last Admin: 10/29/17 09:21 Dose: 2.5 mg Ascorbic Acid (Vitamin C -) 500 mg PO BID [facility] Last Admin: 10/29/17 21:11 Dose: 500 mg Aspirin (Asa -) 81 mg PO DAILY [facility] Last Admin: 10/29/17 09:21 Dose: 81 mg Atorvastatin Calcium (Lipitor -) 20 mg PO HS [facility] Last Admin: 10/29/17 21:11 Dose: 20 mg Clotrimazole (Lotrimin 1% Cream -) 1 applic TP BID [facility] Last Admin: 10/29/17 23:08 Dose: 1 applic Escitalopram Oxalate (Lexapro -) 10 mg PO DAILY [facility] Last Admin: 10/29/17 09:21 Dose: 10 mg Haloperidol (Haldol Injection (Fast Acting) -) 5 mg IM Q8H PRN PRN Reason: AGITATION Last Admin: 10/29/17 22:27 Dose: 5 mg Heparin Sodium (Porcine) (Heparin -) 5,000 unit SQ BID [facility] Last Admin: 10/29/17 21:11 Dose: 5,000 unit Piperacillin Sod/Tazobactam (Sod 3.375 gm/ Dextrose) 50 mls @ 100 mls/hr IVPB Q8H-IV [facility]; Protocol Last Admin: 10/30/17 02:10 Dose: 100 mls/hr Insulin Aspart (Novolog Vial Sliding Scale -) 1 vial SQ TIDAC [facility]; Protocol Last Admin: 10/30/17 06:31 Dose: Not Given Insulin Detemir (Levemir Vial) 16 units SQ HS [facility] Last Admin: 10/29/17 21:12 Dose: 16 unit Lactic Acid (Lac-Hydrin 12) 1 applic TP BID PRN PRN Reason: xerosis Last Admin: 10/29/17 14:45 Dose: 1 applic Levothyroxine Sodium (Synthroid -) 25 mcg PO DAILY@0700 [facility] Last Admin: 10/30/17 06:27 Dose: 25 mcg Lorazepam (Ativan Injection -) 2 mg IVPB BID PRN PRN Reason: AGITATION Last Admin: 10/30/17 00:34 Dose: 2 mg Lorazepam (Ativan Injection -) 1 mg IM Q6H PRN PRN Reason: ANXIETY Metoprolol Succinate (Toprol Xl -) 12.5 mg PO DAILY [facility] Last Admin: 10/29/17 09:20 Dose: 12.5 mg Multivitamins/Minerals (Theragran-M) 1 each PO DAILY [facility] Last Admin: 10/29/17 09:21 Dose: 1 each Pancrelipase (Creon Dr 6,000 Units Capsule) 1 cap PO TIDCM [facility] Last Admin: 10/29/17 16:59 Dose: 1 cap Quetiapine Fumarate (Seroquel -) 50 mg PO BID [facility] Last Admin: 10/29/17 21:11 Dose: 50 mg Ranitidine HCl (Zantac -) 150 mg PO DAILY [facility] Last Admin: 10/29/17 09:21 Dose: 150 mg CBC, BMP 10/27/17 06:26 10/27/17 06:26 Microbiology 10/26/17 16:25 Blood Culture - Preliminary Blood - Peripheral Venous NO GROWTH OBTAINED AFTER 72 HOURS, INCUBATION TO CONTINUE FOR 2 DAYS. 10/26/17 16:25 Blood Culture - Preliminary Blood - Peripheral Venous NO GROWTH OBTAINED AFTER 72 HOURS, INCUBATION TO CONTINUE FOR 2 DAYS. 10/26/17 17:00 Urine Culture - Final Urine - Urine Clean Catch Pseudomonas Aeruginosa Physical Exam awake, confused . agitated. lungs- clear cvs- s1, s2 rrr abd- soft ext- s/p right 2 nd toe amputation Assessment/Plan increased seroquel Yesterday haldol prn continue present care Ativan when necessary abx per i/d changed to by mouth Levaquin? courtney/ kevin for safety sutures to be removed today monitor today will follow discussed with nursing staff also. If stable consider discharge to shelter tomorrow. Problem List - Problems (1) Altered mental status Code(s): R41.82 - ALTERED MENTAL STATUS, UNSPECIFIED Qualifiers: Altered mental status type: unspecified Qualified Code(s): R41.82 - Altered mental status, unspecified (2) UTI (urinary tract infection) Code(s): N39.0 - URINARY TRACT INFECTION, SITE NOT SPECIFIED Qualifiers: Urinary tract infection type: site unspecified Hematuria presence: with hematuria Qualified Code(s): N39.0 - Urinary tract infection, site not specified; R31.9 - Hematuria, unspecified (3) Diabetes Code(s): E11.9 - TYPE 2 DIABETES MELLITUS WITHOUT COMPLICATIONS Qualifiers: Diabetes mellitus type: type 1 Diabetes mellitus complication status: with hypoglycemia Diabetes mellitus complication detail: without coma Qualified Code(s): E10.649 - Type 1 diabetes mellitus with hypoglycemia without coma
[2017-10-30] MEDS: HEPARIN NA (PORCINE) 5,000 UNITS/ML 1ML VIAL SQ SCH ×2 (10:51→23:12)
[2017-10-30] MEDS: CLOTRIMAZOLE 1% CREAM 15 GM TUBE TP SCH ×2 (10:51→23:13)
[2017-10-30] MEDS: MULTIVITAMINS THER W-MINERALS COMBO TABLET (FP) PO SCH (10:52)
[2017-10-30] MEDS: ESCITALOPRAM OXALATE 10 MG TABLET (FP) PO SCH (10:52)
[2017-10-30] MEDS: QUEtiapine FUMARATE 25 MG TABLET (FP) PO SCH ×2 (10:53→23:13)
[2017-10-30] MEDS: ASCORBIC ACID 500 MG TABLET (FP) PO SCH ×2 (10:53→23:12)
[2017-10-30] MEDS: ASPIRIN 81 MG CHEWABLE TABLETS PO SCH (10:53)
[2017-10-30] MEDS: amLODIPine BESYLATE 2.5 MG TABLET (FP) PO SCH (10:53)
[2017-10-30] MEDS: RANITIDINE HCL 150 MG TABLET (FP) PO SCH (10:53)
[2017-10-30] MEDS: metoPROLOL SUCCINATE 25 MG TAB.SR.24H (FP) PO SCH (10:53)
[2017-10-30] MEDS: LIPASE/PROTEASE/AMYLASE 6,000 UNIT CAPSULE PO SCH ×3 (11:15→17:10)
--- NOTE | 2017-10-30 12:51 | PN ---
Progress Note (short form) - Note Progress Note: Patient seen in bed. Non alert or well oriented. vss +coapted, -dehiscence, -cellulitis, +sutures intact, +xerosuis normal post op xerosis Suture removal under aseptic technique. Ammonium lactate BID to feet and legs. Will follow. Betadine dressing change daily.
--- NOTE | 2017-10-30 13:28 | PN ---
Progress Note, Physician History of Present Illness: Awake, confused No acute distress No fever/ chills WBC improved- WNL Cachectic - Current Medication List Current Medications: Active Medications Acetaminophen (Tylenol -) 650 mg PO Q6H PRN PRN Reason: FEVER Last Admin: 10/28/17 02:23 Dose: 650 mg Amlodipine Besylate (Norvasc -) 2.5 mg PO DAILY [facility] Last Admin: 10/30/17 10:53 Dose: 2.5 mg Ascorbic Acid (Vitamin C -) 500 mg PO BID [facility] Last Admin: 10/30/17 10:53 Dose: 500 mg Aspirin (Asa -) 81 mg PO DAILY [facility] Last Admin: 10/30/17 10:53 Dose: 81 mg Atorvastatin Calcium (Lipitor -) 20 mg PO HS [facility] Last Admin: 10/29/17 21:11 Dose: 20 mg Clotrimazole (Lotrimin 1% Cream -) 1 applic TP BID [facility] Last Admin: 10/29/17 23:08 Dose: 1 applic Escitalopram Oxalate (Lexapro -) 10 mg PO DAILY [facility] Last Admin: 10/30/17 10:52 Dose: 10 mg Haloperidol (Haldol Injection (Fast Acting) -) 5 mg IM Q8H PRN PRN Reason: AGITATION Last Admin: 10/29/17 22:27 Dose: 5 mg Heparin Sodium (Porcine) (Heparin -) 5,000 unit SQ BID [facility] Last Admin: 10/29/17 21:11 Dose: 5,000 unit Piperacillin Sod/Tazobactam (Sod 3.375 gm/ Dextrose) 50 mls @ 100 mls/hr IVPB Q8H-IV [facility]; Protocol Last Admin: 10/30/17 10:51 Dose: 100 mls/hr Insulin Aspart (Novolog Vial Sliding Scale -) 1 vial SQ TIDAC [facility]; Protocol Last Admin: 10/30/17 12:41 Dose: Not Given Insulin Detemir (Levemir Vial) 16 units SQ HS [facility] Last Admin: 10/29/17 21:12 Dose: 16 unit Lactic Acid (Lac-Hydrin 12) 1 applic TP BID PRN PRN Reason: xerosis Last Admin: 10/29/17 14:45 Dose: 1 applic Levothyroxine Sodium (Synthroid -) 25 mcg PO DAILY@0700 [facility] Last Admin: 10/30/17 06:27 Dose: 25 mcg Lorazepam (Ativan Injection -) 2 mg IVPB BID PRN PRN Reason: AGITATION Last Admin: 10/30/17 00:34 Dose: 2 mg Lorazepam (Ativan Injection -) 1 mg IVPUSH Q6H PRN PRN Reason: ANXIETY Metoprolol Succinate (Toprol Xl -) 12.5 mg PO DAILY [facility] Last Admin: 10/30/17 10:53 Dose: 12.5 mg Multivitamins/Minerals (Theragran-M) 1 each PO DAILY [facility] Last Admin: 10/30/17 10:52 Dose: 1 each Pancrelipase (Creon Dr 6,000 Units Capsule) 1 cap PO TIDCM [facility] Last Admin: 10/30/17 12:41 Dose: Not Given Quetiapine Fumarate (Seroquel -) 50 mg PO BID [facility] Last Admin: 10/30/17 10:53 Dose: 50 mg Ranitidine HCl (Zantac -) 150 mg PO DAILY [facility] Last Admin: 10/30/17 10:53 Dose: 150 mg - Objective Vital Signs: Vital Signs Temperature 97.9 F 10/30/17 10:00 Pulse Rate 76 10/30/17 10:00 Respiratory Rate 20 10/30/17 10:00 Blood Pressure 151/84 10/30/17 10:00 O2 Sat by Pulse Oximetry (%) 97 10/30/17 09:00 Constitutional: Yes: Cachectic Eyes: Yes: Conjunctiva Clear Cardiovascular: Yes: Regular Rate and Rhythm, S1, S2 Respiratory: Yes: Diminished Gastrointestinal: Yes: Normal Bowel Sounds, Soft. No: Tenderness Extremities: Yes: Other (toe amputation site healing well. No erythema/ drainage) Labs: CBC, BMP 10/27/17 06:26 10/27/17 06:26 INR, PTT INR 1.15 (0.82-1.09) H 10/26/17 16:25 Assessment/Plan UTI Toxic/ metabolic encephalopathy/ OBS Substitute po levaquin 250mg qd x 3d
[2017-10-30] MEDS: ACETAMINOPHEN 325 MG TABLET (FP) PO PRN ×2 (15:43→17:09)
[2017-10-30] MEDS: oxyCODONE HCL 5 MG TABLET PO PRN (17:09)
[2017-10-30] MEDS: INSULIN (LEVEMIR) 100 UNITS/ML UNITS SQ SCH (23:12)
[2017-10-30] MEDS: ATORVASTATIN CA 20 MG TABLET (FP) PO SCH (23:12)
[2017-10-31] MEDS: INSULIN SLIDING SCALE (NOVOLOG) 1 VIAL SQ SCH ×3 (06:23→18:07)
[2017-10-31] MEDS: LEVOTHYROXINE NA 25 MCG TABLET (FP) PO SCH (06:23)
[2017-10-31] MEDS: oxyCODONE HCL 5 MG TABLET PO PRN (08:39)
[2017-10-31] MEDS: ACETAMINOPHEN 325 MG TABLET (FP) PO PRN (08:40)
[2017-10-31] MEDS ORDERED: PT OWN MED DRAWER 7, Y5N ONE ×2 (09:19→18:48)
[2017-10-31] MEDS: metoPROLOL SUCCINATE 25 MG TAB.SR.24H (FP) PO SCH (09:25)
[2017-10-31] MEDS: ESCITALOPRAM OXALATE 10 MG TABLET (FP) PO SCH (09:26)
[2017-10-31] MEDS: ASPIRIN 81 MG CHEWABLE TABLETS PO SCH (09:26)
[2017-10-31] MEDS: RANITIDINE HCL 150 MG TABLET (FP) PO SCH (09:26)
[2017-10-31] MEDS: CLOTRIMAZOLE 1% CREAM 15 GM TUBE TP SCH ×2 (09:26→21:40)
[2017-10-31] MEDS: HEPARIN NA (PORCINE) 5,000 UNITS/ML 1ML VIAL SQ SCH ×2 (09:26→21:38)
[2017-10-31] MEDS: QUEtiapine FUMARATE 25 MG TABLET (FP) PO SCH ×2 (09:26→21:40)
[2017-10-31] MEDS: ASCORBIC ACID 500 MG TABLET (FP) PO SCH ×2 (09:26→21:40)
[2017-10-31] MEDS: LIPASE/PROTEASE/AMYLASE 6,000 UNIT CAPSULE PO SCH ×3 (09:26→18:28)
[2017-10-31] MEDS: MULTIVITAMINS THER W-MINERALS COMBO TABLET (FP) PO SCH (09:26)
[2017-10-31] MEDS: amLODIPine BESYLATE 2.5 MG TABLET (FP) PO SCH (09:26)
--- NOTE | 2017-10-31 10:28 | DS ---
Physical Examination Vital Signs: Vital Signs Temperature 98.2 F 10/31/17 05:37 Pulse Rate 82 10/31/17 05:37 Respiratory Rate 20 10/31/17 05:37 Blood Pressure 139/83 10/31/17 05:37 O2 Sat by Pulse Oximetry (%) 98 10/30/17 21:00 Constitutional: Yes: No Distress Cardiovascular: Yes: Regular Rate and Rhythm Respiratory: Yes: CTA Bilaterally Gastrointestinal: Yes: Normal Bowel Sounds, Soft. No: Tenderness Extremities: Yes: Other (left second toe amputation site-- clean , no cellulitis ) Edema: No Labs: CBC, BMP 10/27/17 06:26 10/27/17 06:26 Discharge Summary Reason For Visit: UTI, DEHYDRATION Current Active Problems Altered mental status (Acute) Dehydration (Acute) UTI (urinary tract infection) (Acute) Hospital Course: Pt admitted for AMS and confusion-- found to have UTI Seen by ID and Podiatry-- sutures removed yesterday Pt is confused-- she has worsening dementia-- CT head no acute pathology ID Note-- sent from [place] with increased confusion- history of dementia- recent admission for infected toe, s/p amputation of second toe- 10/05-10/16- d/ryan to [place] off antibiotics now returns with increased confusion noted to have dehydration and pyuria no fevers amputation site is without erythema or drainage possible UTI zosyn d/c rocephin/zithromax Hospitalization course -- antibiotics - was on Zosyn Followed up by ID yesterday-- changed to PO levaquin x 3 more days She has confusion-- due to worsening dementia, UTI No infection on amputation site WBC normal Afebrile Pt started on Seroquel, Ativan here Needs to be followed up by Psychiatry in [place] stable for dc to [place] Condition: Stable - Instructions Referrals: Deon Tarango [Primary Care Provider] - Disposition: SNF FACILITY - Home Medications Comprehensive Discharge Medication List: Ambulatory Orders Aspirin [ASA -] 81 mg PO DAILY 11/08/15 Atorvastatin Ca [Lipitor] 20 mg PO HS 11/08/15 Metoprolol Succinate [Toprol Xl] 12.5 mg PO DAILY 11/08/15 Ranitidine [Zantac -] 150 mg PO DAILY 11/08/15 Acetaminophen [Tylenol .Regular Strength -] 650 mg PO Q6H PRN #0 tablet Insulin Sliding Scale [Novolog Vial Sliding Scale -] 1 vial SQ ACHS units 11/11 Escitalopram Oxalate [Lexapro -] 10 mg PO DAILY 10/15/16 Levothyroxine [Synthroid -] 25 mcg PO DAILY@0700 10/15/16 Amlodipine Besylate 2.5 mg PO DAILY 10/05/17 Ascorbic Acid [Vitamin C -] 500 mg PO BID 10/05/17 Cholecalciferol (Vitamin D3) [Vitamin D -] 1,000 unit PO DAILY 10/05/17 Lipase/Protease/Amylase [Creon Dr 6,000 Units Capsule] 1 cap PO TIDCM 10/05/17 Multivit with Iron,Minerals [Compete] 1 each PO DAILY 10/05/17 Insulin Glargine,Hum.rec.anlog [Lantus Solostar] 16 unit SQ HS 10/26/17 metFORMIN HCL [Glucophage -] 500 mg PO BID 10/26/17
[2017-10-31] MEDS: MEMANTINE HCL 10 MG TABLET (FP) PO SCH ×2 (12:18→21:40)
[2017-10-31] MEDS: LORazepam 2 MG/ML SDV VIAL IVPUSH PRN (21:23)
[2017-10-31] MEDS: ATORVASTATIN CA 20 MG TABLET (FP) PO SCH (21:39)
[2017-10-31] MEDS: INSULIN (LEVEMIR) 100 UNITS/ML UNITS SQ SCH (21:47)
[2017-11-01] MEDS: oxyCODONE HCL 5 MG TABLET PO PRN (03:13)
[2017-11-01] MEDS: ACETAMINOPHEN 325 MG TABLET (FP) PO PRN (03:14)
[2017-11-01] MEDS: LORazepam 2 MG/ML SDV VIAL IVPUSH PRN (03:40)
[2017-11-01] MEDS: INSULIN SLIDING SCALE (NOVOLOG) 1 VIAL SQ SCH ×2 (06:04→11:01)
[2017-11-01] MEDS: LEVOTHYROXINE NA 25 MCG TABLET (FP) PO SCH (06:04)
[2017-11-01] MEDS ORDERED: PT OWN MED DRAWER 7, Y5N ONE (08:03)
[2017-11-01] MEDS: LIPASE/PROTEASE/AMYLASE 6,000 UNIT CAPSULE PO SCH ×2 (08:20→11:01)
[2017-11-01] MEDS: ASCORBIC ACID 500 MG TABLET (FP) PO SCH (10:36)
[2017-11-01] MEDS: ASPIRIN 81 MG CHEWABLE TABLETS PO SCH (10:36)
[2017-11-01] MEDS: CLOTRIMAZOLE 1% CREAM 15 GM TUBE TP SCH (10:36)
[2017-11-01] MEDS: MULTIVITAMINS THER W-MINERALS COMBO TABLET (FP) PO SCH (10:36)
[2017-11-01] MEDS: HEPARIN NA (PORCINE) 5,000 UNITS/ML 1ML VIAL SQ SCH (10:36)
[2017-11-01] MEDS: QUEtiapine FUMARATE 25 MG TABLET (FP) PO SCH (10:36)
[2017-11-01] MEDS: ESCITALOPRAM OXALATE 10 MG TABLET (FP) PO SCH (10:36)
[2017-11-01] MEDS: MEMANTINE HCL 10 MG TABLET (FP) PO SCH (10:36)
[2017-11-01] MEDS: amLODIPine BESYLATE 2.5 MG TABLET (FP) PO SCH (10:36)
[2017-11-01] MEDS: RANITIDINE HCL 150 MG TABLET (FP) PO SCH (10:36)
[2017-11-01] MEDS: metoPROLOL SUCCINATE 25 MG TAB.SR.24H (FP) PO SCH (10:37)
--- NOTE | 2017-11-01 10:48 | PN ---
Progress Note (short form) - Note Progress Note: off restraints x 24 hours calm no distress not eating much Vital Signs - 24 hr 10/31/17 10/31/17 10/31/17 15:05 18:00 21:00 Temperature 97.2 F L 97.9 F Pulse Rate 82 98 H Respiratory 20 18 18 Rate Blood Pressure 135/68 121/83 O2 Sat by Pulse 98 Oximetry (%) 10/31/17 11/01/17 11/01/17 22:00 09:00 10:00 Temperature 97.3 F L 98.3 F Pulse Rate 92 H 89 Respiratory 18 18 Rate Blood Pressure 148/71 147/58 O2 Sat by Pulse 96 Oximetry (%) Laboratory Results - last 24 hr 10/31/17 10/31/17 11/01/17 17:40 21:46 05:28 POC Glucometer 94 152 123 Current Medications Generic Name Dose Route Start Last Admin Trade Name Freq PRN Reason Stop Dose Admin Acetaminophen 650 mg 10/27/17 04:57 10/30/17 15:43 Tylenol - PO 650 mg Q6H PRN Administration FEVER Acetaminophen 325 mg 10/30/17 16:45 11/01/17 03:14 Tylenol - PO 325 mg Q6H PRN Administration PAIN LEVEL 4 - 6 Amlodipine Besylate 2.5 mg 10/27/17 10:00 11/01/17 10:36 Norvasc - PO 2.5 mg DAILY [facility] Administration Ascorbic Acid 500 mg 10/27/17 10:00 11/01/17 10:36 Vitamin C - PO 500 mg BID [facility] Administration Aspirin 81 mg 10/27/17 10:00 11/01/17 10:36 Asa - PO 81 mg DAILY [facility] Administration Atorvastatin Calcium 20 mg 10/27/17 22:00 10/31/17 21:39 Lipitor - PO 20 mg HS [facility] Administration Clotrimazole 1 applic 10/27/17 22:00 11/01/17 10:36 Lotrimin 1% Cream - TP 1 applic BID [facility] Administration Escitalopram Oxalate 10 mg 10/27/17 10:00 11/01/17 10:36 Lexapro - PO 10 mg DAILY [facility] Administration Haloperidol 5 mg 10/29/17 11:59 10/29/17 22:27 Haldol Injection (Fast Acting) - IM 5 mg Q8H PRN Administration AGITATION Heparin Sodium (Porcine) 5,000 unit 10/26/17 22:00 11/01/17 10:36 Heparin - SQ 5,000 unit BID [facility] Administration Insulin Aspart 1 vial 10/27/17 07:00 11/01/17 06:04 Novolog Vial Sliding Scale - SQ Not Given TIDAC [facility] Protocol Insulin Detemir 16 units 10/27/17 22:00 10/31/17 21:47 Levemir Vial SQ 16 unit HS [facility] Administration Lactic Acid 1 applic 10/29/17 11:40 10/29/17 14:45 Lac-Hydrin 12 TP 1 applic BID PRN Administration xerosis Levothyroxine Sodium 25 mcg 10/27/17 07:00 11/01/17 06:04 Synthroid - PO Not Given DAILY@0700 [facility] Lorazepam 1 mg 10/31/17 18:47 11/01/17 03:40 Ativan Injection - IVPUSH 1 mg Q6H PRN Administration ANXIETY Memantine 10 mg 10/31/17 10:45 11/01/17 10:36 Namenda - PO 10 mg BID [facility] Administration Metoprolol Succinate 12.5 mg 10/27/17 10:00 11/01/17 10:37 Toprol Xl - PO 12.5 mg DAILY [facility] Administration Multivitamins/Minerals 1 each 10/27/17 10:00 11/01/17 10:36 Theragran-M PO 1 each DAILY [facility] Administration Oxycodone HCl 5 mg 10/30/17 16:45 11/01/17 03:13 Roxicodone - PO 5 mg Q6H PRN Administration PAIN LEVEL 4 - 6 Pancrelipase 1 cap 10/27/17 08:00 11/01/17 08:[address] 6,000 Units Capsule PO 1 cap TIDCM [facility] Administration Quetiapine Fumarate 50 mg 10/29/17 11:59 11/01/17 10:36 Seroquel - PO 50 mg BID [facility] Administration Ranitidine HCl 150 mg 10/27/17 10:00 11/01/17 10:36 Zantac - PO 150 mg DAILY [facility] Administration S1 S2 RRR Lungs clear Abd- soft, NT No edema A/p complete antibiotics worsening dementia NH to discuss with family about goals of care stable for dc to NH continue with meds Psych eval at [place] Problem List - Problems (1) Dementia Code(s): F03.90 - UNSPECIFIED DEMENTIA WITHOUT BEHAVIORAL DISTURBANCE (2) Dehydration Code(s): E86.0 - DEHYDRATION (3) UTI (urinary tract infection) Code(s): N39.0 - URINARY TRACT INFECTION, SITE NOT SPECIFIED Qualifiers: Urinary tract infection type: site unspecified Hematuria presence: with hematuria Qualified Code(s): N39.0 - Urinary tract infection, site not specified; R31.9 - Hematuria, unspecified
[2017-11-01 14:12] VITALS: BP 157/85; PULSE 85; TEMP 97.4
== END 2017-11-01 14:22 | DRG 689 ==
LOC: JER 15:25 → JERBED 18:31 → J7W 20:48
PROVIDERS: ADMIT Internal Medicine; ATTEND Internal Medicine
DX: N39.0 Urinary tract infection, site not specified (principal); G92 Toxic encephalopathy; R47.01 Aphasia; J98.11 Atelectasis; R64 Cachexia; E11.9 Type 2 diabetes mellitus without complications; I25.10 Atherosclerotic heart disease of native coronary artery without angina pectoris; Z86.73 Personal history of transient ischemic attack (TIA), and cerebral infarction without residual deficits; E78.5 Hyperlipidemia, unspecified; E03.9 Hypothyroidism, unspecified; G30.9 Alzheimer's disease, unspecified; F02.80 Dementia in other diseases classified elsewhere, unspecified severity, without behavioral disturbance, psychotic disturbance, mood disturbance, and anxiety; G31.83 Neurocognitive disorder with Lewy bodies; K21.9 Gastro-esophageal reflux disease without esophagitis; Z95.5 Presence of coronary angioplasty implant and graft; I10 Essential (primary) hypertension; J44.9 Chronic obstructive pulmonary disease, unspecified; E86.0 Dehydration; Z66 Do not resuscitate; Z79.4 Long term (current) use of insulin; Z89.421 Acquired absence of other right toe(s); L85.3 Xerosis cutis; Z78.1 Physical restraint status
CPT/HCPCS: 36415; 70450-TC; 71045-TC-FY; 80048; 80053; 81003; 81015; 82550; 82962; 83605; 84443; 84484; 85025; 85610; 87040; 87086; 87186; 93005; 93010; 97116-GP; 97161-GP; 99284-25; J1644

== ENCOUNTER 2018-07-29 10:20 | Inpatient (IN) | payer OTHER ==
--- NOTE | 2018-07-29 10:34 | PDOC ---
Attending Attestation - Resident Resident Name: Harvinder Ann - ED Attending Attestation I have performed the following: I have examined & evaluated the patient, The case was reviewed & discussed with the resident, I agree w/resident's findings & plan, Exceptions are as noted - HPI HPI: 07/29/18 10:55 73yo female with hx of dementia presents via ambulance from [facility] for eval of head laceration. Unwitness fall at [facility], altered ms upon arrival, on baby asa. Pt agitated, yelling. Pt holding RLE in short/externally rotated. Pt with R hip and R femur ttp. Pt moving all extremities, but limited to RLE. Aid from [facility] at the bedside, who states the patient normally walks with a walker and is smiling and pleasant. Pt currently agitated, yelling, and in pain. Pt unable to provide any hx. Call placed to [facility] who states unwitnessed fall. Unsure if mechanical fall vs syncope. Pt was awake when found on the floor. Pt with R occipital 2cm wound- no active bleeding. - Physicial Exam PE: 07/29/18 11:00 Gen: awake, agitated, demented, yelling head: R posterior scalp 2cm laceration- no active bleeding, no ttp neck: no midline ttp, no stepoffs or deformities heart: +s1s2 reg Lungs: cta b/l, poor inspiratory effort abd: soft, small ecchymosis - healing to anterior abd wall- no ttp over ecchymosis, nondistended ext: R leg short and externally rotated, s/p R foot 2nd digit amputation, diabetic wound to R big toe- no drainage, r pelvis/r hip/r femur ttp to midshaft femur, pedal pulses intact, no calf ttp, FROM of b/l UE and LLE neuro: demented, agitated, altered - Medical Decision Making 07/29/18 10:34 I, Dr. Kristina Mcdonald, DO, attest that this document has been prepared under my direction and personally reviewed by me in its entirety. I further attest, that it accurately reflects all work, treatment, procedures and medical decision -making performed by me. 07/29/18 11:06 a/p: 73yo female with dementia s/p unwitness fall vs syncope -concern given ams for intracranial bleeding - will send for head and cspine ct -concern given extrenally rotated RLE for R hip/femur fx - will obtain xrays -labs, trop, ekg for unwitness fall vs syncope -pt will most likely need admission -pt is a DNR/I -will give ativan IM for agitation to obtain imaging -morphine for pain -will update tetanus 07/29/18 12:00 head and c spine negative for acute findings djd on c spine R subtrochanteric hip fx resident discussed the case with Dr. Poornima MCGHEE who will see the patient in consult Dr. Deonte Abraham covers for [place] - will place call to Dr. Abraham 07/29/18 12:01 small pleural effusion on R of chest xray, elevated R hemidiaphragm, no rib fx visualized 07/29/18 12:27 resident discussed the case with Dr. Deonte Abraham who accepts pt to hospital call placed to the sister who will be at the hospital in 10 minutes 07/29/18 12:57 sister at the bedside, updated on the results peter placed to the back of the head by the resident wound washed and cleaned 07/29/18 13:14 glu 30 amp d50 given pt on insulin will monitor glucose 07/29/18 13:15 mild EDMAR on labs ivf hydration running dry mm on exam 07/29/18 13:34 pt with UTI on labs hx of ESBL e coli - sensitive to Merrem. Will start iv abx 07/29/18 13:36 sister at the bedside states that every time she is confused it is from a UTI Heart Score/ECG Review - ECG Intrepretation Comment:: 07/29/18 11:07 sinus at 64, baseline artifact, t wave flattening, no acute st changes
[2018-07-29] MEDS ORDERED: LORazepam 2 MG/ML SDV VIAL ONE (10:42)
[2018-07-29] MEDS ORDERED: DIPHTH,PERTUSS(ACELL),TET 0.5 ML DISP.SYRIN IM ONE ×2 (10:51→10:53)
[2018-07-29] MEDS ORDERED: morphine CARPU-JECT 2 MG/1 ML DISP.SYRIN IM ONE (10:55)
--- NOTE | 2018-07-29 10:55 | PDOC ---
History of Present Illness - General Chief Complaint: Injury Stated Complaint: FALL LAC TO BACK OF HEAD Time Seen by Provider: 07/29/18 10:25 History Source: Patient, Care Provider, Penitentiary Records, Old Records Exam Limitations: Clinical Condition, Dementia - History of Present Illness Initial Comments: 73 y/o female BIBEMS to ER after unwitnessed fall at [facility]. Interview is technically limited as pt has Lewy Body Dementia and is disoriented at baseline. Normally walks with walker. EMS reports a bleeding laceration to pts forehead. [facility] aid arrived at bedside and reports pt normally displays friendly affect. This is a different mental state. Unable to provide further details about events of the morning. Past History - Past Medical History Allergies/Adverse Reactions: Allergies Allergy/AdvReac Type Severity Reaction Status Date / Time No Known Allergies Allergy Verified 06/06/18 10:22 Home Medications: Ambulatory Orders Amlodipine Besylate 2.5 mg PO DAILY 07/29/18 Ascorbic Acid [Vitamin C] 500 mg PO DAILY 07/29/18 Aspirin 81 mg PO DAILY 07/29/18 Atorvastatin Ca [Lipitor] 20 mg PO HS 07/29/18 Cholecalciferol (Vitamin D3) [Vitamin D3] 2,000 unit PO DAILY 07/29/18 Escitalopram Oxalate [Lexapro -] 10 mg PO DAILY 07/29/18 Insulin (LOG) Aspart [NovoLOG -] 14 unit SQ DAILY 07/29/18 Insulin Aspart [Novolog] 6 units SQ DAILY 07/29/18 Insulin Aspart [Novolog] 12 unit SQ DAILY 07/29/18 Insulin Glargine,Hum.rec.anlog [Basaglar Kwikpen U-100] 23 unit SQ HS 07/29/18 LORazepam [Ativan] 0.25 mg PO HS 07/29/18 Lactobacillus Acidophilus [Bacid -] 1 tab PO DAILY 07/29/18 Levothyroxine [Synthroid -] 25 mcg PO DAILY 07/29/18 Lipase/Protease/Amylase [Martyon Dr 6,000 Units Capsule] 1 cap PO TIDCM 07/29/18 Loperamide HCl [Loperamide] 2 mg PO PRN 07/29/18 Metoprolol Succinate 12.5 mg PO DAILY 07/29/18 Multivit-Min/Iron Fum/Folic AC [Hotha-Ajskhqk-Bzzkqtzv Tablet] 1 tab PO DAILY Nystatin Cream [Mycostatin] 1 applic TP BID 07/29/18 Ranitidine HCl [Zantac] 150 mg PO DAILY 07/29/18 Anemia: Yes Asthma: No Cancer: Yes (breast nodule benign, CERVIX) Cardiac Disorders: Yes (AZ, STENTS - cardac and LLE) 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) COPD: Yes (COPD , CHRONIC BRONCHITIS) CHF: No Dementia: No Diabetes: Yes GI Disorders: Yes (H/O COLON POLYPS,CHRONIC PANCREATITIS -STONES) Disorders: Yes (H/O UTI) HTN: Yes (DX 2002) Hypercholesterolemia: Yes (DX 2002) Liver Disease: No Seizures: No Thyroid Disease: No - Surgical History Abdominal Surgery: Yes (EXPLORATORY LAP-1970) Appendectomy: Yes ( CHILD) Cardiac Surgery: Yes (STENTS-2007,BALLOON LLE) Cholecystectomy: Yes (1970 DURING EXPLORATORY LAP) Lung Surgery: No Neurologic Surgery: No Orthopedic Surgery: No - Immunization History Immunization Up to Date: No - Suicide/Smoking/Psychosocial Hx Smoking Status: No Smoking History: Never smoked Have you smoked in the past 12 months: No Number of Cigarettes Smoked Daily: 0 Hx Alcohol Use: No Drug/Substance Use Hx: No Substance Use Type: None Hx Substance Use Treatment: No Review of Systems - Review of Systems Able to Perform ROS?: No (Pt condition) *Physical Exam - Vital Signs Last Vital Signs Temp Pulse Resp BP Pulse Ox 97 F L 63 19 157/103 H 100 07/29/18 10:22 07/29/18 10:22 07/29/18 10:22 07/29/18 10:22 07/29/18 10:22 - Physical Exam Comments: Constitutional: Thin elderly female in no acute distress but obvious discomfort. Found semi-fowlers on hospital bed. Alert and but disoriented. Head: Normocephalic. 2cm linear partial thickness laceration with minimal oozing blood to right parietal region. No foreign bodies observed. Neck: Supple, trachea is midline. Pt moving neck spontaneously to R and L without difficulty. No grimace when palpating c-spine. No step off. Cardiovascular / Chest: Irregularly irregular rhythm. No murmur, rubs, clicks, or gallops. Peripheral pulses: radial pulses full. Respiratory: Breathing unlabored. Equal chest rise and fall. Clear to auscultation bilaterally. No stridor, no wheezing, no rhonchi. Gastrointestinal: abdomen is soft, non-tender, non-distended. Post surgical scars noted to top of abdomen. Neuro: Alert and disoriented. Moving all four extremities spontaneously. MSK: Right lower extremity is externally rotated with diffuse tenderness to right hip. 2+ dorsalis pedis pulse. Normal cap refill to distal aspect of R lower extremity. Skin: Warm and dry. Moderate Sedation - Procedure Monitoring Vital Signs: Procedure Monitoring Vital Signs Temperature 97 F L 07/29/18 10:22 Pulse Rate 63 07/29/18 10:22 Respiratory Rate 19 07/29/18 10:22 Blood Pressure 157/103 H 07/29/18 10:22 O2 Sat by Pulse Oximetry (%) 100 07/29/18 10:22 Procedures - Additional Procedures Progress: Laceration Repair Procedure Note INDICATION: 2cm Linear Partial Thickness Laceration to Scalp PROCEDURE HARVEST MANAGER: Harvinder Ann M.D. resident CONSENT: Verbal consent obtained from pt's sister. PROCEDURE SUMMARY: Patient was positioned appropriately. 60cc sterile water was used for irrigation. Wound thoroughly irrigated and explored; no foreign bodies found. Patient was draped with wound exposed. 6x peter were placed with good approximation. Procedure tolerated without complications. Layer closure and hemostasis was achieved. EBL: <5cc. ED Treatment Course - LABORATORY CBC & Chemistry Diagram: 07/29/18 12:20 07/29/18 12:46 - RADIOLOGY Radiology Studies Ordered: Category Date Time Status CERVICAL SPINE CT W/O CONTR [CT] Stat CT Scan 07/29/18 10:[address] WITHOUT CONTRAST [CT] Stat CT Scan 07/29/18 10:26 Ordered HIP & PELVIS-RIGHT [RAD] Stat Radiology 07/29/18 10:27 Ordered HUMERUS-RIGHT [RAD] Stat Radiology 07/29/18 10:27 Ordered PELVIS [RAD] Stat Radiology 07/29/18 10:27 Ordered - Medications Given in the ED: ED Medications Discontinued Medications Generic Name Dose Route Start Last Admin Trade Name Freq PRN Reason Stop Dose Admin Lorazepam 1 mg 07/29/18 10:30 07/29/18 10:45 Ativan Injection - IM 07/29/18 10:31 1 mg ONCE ONE Administration Medical Decision Making - Medical Decision Making *Reviewed vital signs, nursing notes, and prior visit documentation (if available). 73 y/o demented female s/p unwitnessed fall. Afebrile. Vitals unremarkable for hypotension or tachycardia. Physical exam as described above. Suspect possible R hip fracture. Will obtain CT of head and c-spine given injury to head, age, and unwitnessed nature of incident. Will obtain plain films of chest, R hip, pelvis, and R femur. Given unwitnessed nature of events, will treat as possible infectious versus syncopal episode. Will obtain labs, UA, urine culture, blood cultures. Ordered Bostix. Ordered IM ativan and morphine for sedation in order to obtain imaging and pain control. EKG revealed atrial fibrillation. CBC revealed normocytic anemia at historic baseline [facility]. Low suspicion for clinical relevance to acute presentation. CMP revealed hypoglycemia. Pt was reportedly hyperglycemic at the facility this morning and received morning insulin as well as coverage bolus. Administered D50. Repeat POC within normal limits. UA remarkable for borderline pyuria, leukocyte esterase, and nitrites. Given previous wound culture positive for ESBL, ordered meropenem. CT of head and c-spine unremarkable for acute intracranial lesions or bony fractures/dislocations. Plain films revealed displaced subtrochanteric fracture and nondisplaced intertrochanteric fracture to right hip. No skin breaks overlying lesions. Scalp lesion closed with peter. Hemostasis achieved. Telephone consultation with PA covering for Drs. Noguera and Allan. Verbally appraised of the pts HPI, ED course, and current plan of management. States pt can be evaluated at . Will evaluate pt this afternoon. 12:05 Page sent from office staff for Dr. Christine Abraham for admission. Awaiting call back. 12:[address] Christine Abraham. Verbally appraised of the pts HPI, ED course, and current plan of management. Will admit pt to med/surg on inpatient status. Ordered acetaminophen and PRN fentanyl for pain control. *DC/Admit/Observation/Transfer Diagnosis at time of Disposition: Fall in elderly patient, Closed nondisplaced intertrochanteric fracture of right femur with routine healing Closed displaced subtrochanteric fracture of right femur Qualifiers: Encounter type: initial encounter Qualified Code(s): S72.21XA - Displaced subtrochanteric fracture of right femur, initial encounter for closed fracture UTI (urinary tract infection) Qualifiers: Urinary tract infection type: site unspecified Hematuria presence: without hematuria Qualified Code(s): N39.0 - Urinary tract infection, site not specified - Discharge Dispostion Condition at time of disposition: Fair Decision to Admit order: Yes - Referrals - Patient Instructions - Post Discharge Activity
[2018-07-29] MEDS ORDERED: morphine SULFATE 4 MG/ML VIAL ONE (10:58)
[2018-07-29] MEDS ORDERED: oxyCODONE HCL 10 MG SUSTAINED ACTING TABLET PO ONE (12:17)
[2018-07-29] MEDS ORDERED: LACTATED RINGERS SOLUTION 1000 ML INFUS.BAG IV ONE (12:43)
[2018-07-29 12:52] LABS: BASO % 0.3 % (0-2.0); EOS % 2.1 % (0-4.5); HEMATOCRIT 29.9 % (32.4-45.2); HEMOGLOBIN 9.7 GM/dl (10.7-15.3); MCH 29.6 pg (25.7-33.7); MCHC 32.4 g/dl (32.0-36.0); MEAN CELL VOLUME 91.2 fl (80-96); MEAN PLT VOLUME 9.8 fl (7.5-11.1); MONO % 6.9 % (3.8-10.2); NEUT % 76.7 % (42.8-82.8); PLATELET COUNT 140 K/MM3 (134-434); RBC 3.28 M/mm3 (3.60-5.2); RDW 15.1 % (11.6-15.6); WHITE BLOOD COUNT 11.6 K/mm3 (4.0-10.8)
[2018-07-29 12:56] LABS: ACTIVATED PTT 28.1 SECONDS (25.2-36.5)
[2018-07-29 12:59] LABS: ALBUMIN 4.1 g/dl (3.4-5.0); ALK PHOS 79 U/L (45-117); ANION GAP 8 MMOL/L (8-16); BLOOD UREA NITROGEN 54 mg/dl (7-18); CALCIUM 8.9 mg/dl (8.5-10); CHLORIDE 108 mmol/L (98-107); CO2 24 mmol/L (21-32); CREATININE 1.7 mg/dl (0.55-1.3); MAGNESIUM 2.2 mg/dL (1.8-2.4); SGOT/AST 38 U/L (15-37); SGPT/ALT 20 U/L (13-61); SODIUM 140 mmol/L (136-145); TOT PROT 6.5 g/dl (6.4-8.2)
[2018-07-29 13:00] LABS: INR 1.05 (0.82-1.09); PROTHROMBIN TIME (PATIENT) 11.7 SEC (10.2-13.0)
[2018-07-29 13:12] LABS: GLUCOSE,RANDOM 30 mg/dl (74-106)
[2018-07-29] MEDS ORDERED: DEXTROSE 50%-WATER - 25 GM/50 ML VIAL IVPUSH ONE (13:13)
[2018-07-29] MEDS ORDERED: DEXTROSE 50%-WATER 25 GM/50 ML DISP.SYRIN ONE (13:13)
[2018-07-29 13:23] LABS: URINE APPEARANCE Clear; URINE BILIRUBIN Negative (NEGATIVE); URINE COLOR Yellow; URINE GLUCOSE (UA) Negative (NEGATIVE); URINE KETONE Negative (NEGATIVE); URINE LEUK ESTERASE 3+ (NEGATIVE); URINE NITRITE Positive (NEGATIVE); URINE PROTEIN Trace (NEGATIVE); URINE UROBILINOGEN 0.2 (0.2-1.0)
[2018-07-29] MEDS ORDERED: MEROPENEM 1 GM in DEXTROSE 5%-WATER 100 ML IVPB ONE (13:34)
[2018-07-29 13:43] LABS: EPI CELLS FEW /HPF; URINE BACTERIA 2+ /hpf (NEGATIVE); URINE RBC 0-3 /hpf (0-3)
[2018-07-29] MEDS ORDERED: ACETAMINOPHEN INJECTION 100 ML IVPB ONE (13:50)
[2018-07-29] MEDS: ACETAMINOPHEN 1000 MG/100 ML VIAL (NON FORMULARY) IVPB PRN (13:58)
--- NOTE | 2018-07-29 16:17 | CONSULT ---
Consult - text type - Consultation Consultation Note: FULL CONSULT DICTATED IMP: R SUBTROCH FEMUR FX PLAN: --> OR TOMORROW FOR RIGHT GAMMA NAILING, MEDICAL OPTIMIZATION
[2018-07-29] MEDS ORDERED: D5-1/2NS+20 MEQ KCL - 20 MEQ/1,000 ML INFUS.BAG IV SCH (17:30)
--- NOTE | 2018-07-29 17:42 | CONS ---
DATE OF CONSULTATION: 07/29/2018 ORTHOPEDIC CONSULTATION HISTORY OF PRESENT ILLNESS: Patient is a 73-year-old female status post fall injuring her right leg and complaining of a great deal of pain with inability to ambulate. PAST MEDICAL HISTORY: Significant for Lewy body's as well as diabetes. Patient was found to have low glucose, and a UTI in the emergency room as well as x-rays being performed which shows a right subtrochanteric femur fracture. PHYSICAL EXAMINATION: The patient has a shortened, external rotated right lower extremity with a great deal of pain with any motion, knee, ankle, and toes with good passive range of motion there, 2+ pulses, intact sensation. No tenderness in the pubis, ileum, SI joint, sacrum. Mild swelling right side. The x-rays do show a comminuted right subtrochanteric femur fracture. IMPRESSION: Right subtrochanteric femur fracture in a patient with multiple medical problems and found to have a low glucose and a urinary tract infection in the emergency room. Patient was given some glucose, intravenous antibiotics, and hydration. Patient will be optimized and will put her on for a right long gamma nail tomorrow if medically okay. OTTO HERNDON M.D. [id number]
[2018-07-29] MEDS: morphine CARPU-JECT 2 MG/1 ML DISP.SYRIN IVPUSH PRN ×2 (17:51→23:30)
[2018-07-29] MEDS: LIPASE/PROTEASE/AMYLASE 6,000 UNIT CAPSULE PO SCH ×2 (19:18→22:01)
--- NOTE | 2018-07-29 21:16 | HP ---
Admitting History and Physical - Primary Care Physician PCP: Deon Tarango - Admission History of Present Illness: pt seen/ examined on floor chart reviewed case was discussed with er Resident Per er records 73 y/o demented female s/p unwitnessed fall. Afebrile. Vitals unremarkable for hypotension or tachycardia. Physical exam as described above. Suspect possible R hip fracture. Will obtain CT of head and c-spine given injury to head, age, and unwitnessed nature of incident. Will obtain plain films of chest, R hip, pelvis, and R femur. Given unwitnessed nature of events, will treat as possible infectious versus syncopal episode. Will obtain labs, UA, urine culture, blood cultures. Ordered Bostix. Ordered IM ativan and morphine for sedation in order to obtain imaging and pain control. EKG revealed atrial fibrillation. CBC revealed normocytic anemia at historic baseline [facility]. Low suspicion for clinical relevance to acute presentation. CMP revealed hypoglycemia. Pt was reportedly hyperglycemic at the facility this morning and received morning insulin as well as coverage bolus. Administered D50. Repeat POC within normal limits. UA remarkable for borderline pyuria, leukocyte esterase, and nitrites. Given previous wound culture positive for ESBL, ordered meropenem. CT of head and c-spine unremarkable for acute intracranial lesions or bony fractures/dislocations. Plain films revealed displaced subtrochanteric fracture and nondisplaced intertrochanteric fracture to right hip. No skin breaks overlying lesions. Scalp lesion closed with peter. Hemostasis achieved. Pt awake/ confused poor historian History Source: Medical Record Limitations to Obtaining History: Clinical Condition, Dementia - Past Medical History FOREST AIDE: Yes: Dementia, TIA Cardiovascular: Yes: CAD (s/p stent), HTN, Hyperlipdemia, Other (stent in her ) Pulmonary: Yes: COPD Gastrointestinal: Yes: GERD Renal/: Yes: UTI Heme/Onc: Yes: Anemia Endocrine: Yes: Diabetes Mellitus - Past Surgical History Past Surgical History: Yes: Appendectomy, Cholecystectomy - Advance Directives Advance Directives: Yes: DNR - Smoking History Smoking history: Never smoked Have you smoked in the past 12 months: No Aproximately how many cigarettes per day: 0 - Alcohol/Substance Use Hx Alcohol Use: No - Social History ADL: Support Services History of Recent Travel: No Home Medications - Allergies Allergies/Adverse Reactions: Allergies Allergy/AdvReac Type Severity Reaction Status Date / Time No Known Allergies Allergy Verified 06/06/18 10:22 - Home Medications Home Medications: Ambulatory Orders Amlodipine Besylate 2.5 mg PO DAILY 07/29/18 Ascorbic Acid [Vitamin C] 500 mg PO DAILY 07/29/18 Aspirin 81 mg PO DAILY 07/29/18 Atorvastatin Ca [Lipitor] 20 mg PO HS 07/29/18 Cholecalciferol (Vitamin D3) [Vitamin D3] 2,000 unit PO DAILY 07/29/18 Escitalopram Oxalate [Lexapro -] 10 mg PO DAILY 07/29/18 Insulin (LOG) Aspart [NovoLOG -] 14 unit SQ DAILY 07/29/18 Insulin Aspart [Novolog] 6 units SQ DAILY 07/29/18 Insulin Aspart [Novolog] 12 unit SQ DAILY 07/29/18 Insulin Glargine,Hum.rec.anlog [Basaglar Kwikpen U-100] 23 unit SQ HS 07/29/18 LORazepam [Ativan] 0.25 mg PO HS 07/29/18 Lactobacillus Acidophilus [Bacid -] 1 tab PO DAILY 07/29/18 Levothyroxine [Synthroid -] 25 mcg PO DAILY 07/29/18 Lipase/Protease/Amylase [Creon Dr 6,000 Units Capsule] 1 cap PO TIDCM 07/29/18 Loperamide HCl [Loperamide] 2 mg PO PRN 07/29/18 Metoprolol Succinate 12.5 mg PO DAILY 07/29/18 Multivit-Min/Iron Fum/Folic AC [Qeyib-Zcdkfsy-Ofowthct Tablet] 1 tab PO DAILY Nystatin Cream [Mycostatin] 1 applic TP BID 07/29/18 Ranitidine HCl [Zantac] 150 mg PO DAILY 07/29/18 Review of Systems Unable to obtain ROS, reason: clinical condition Physical Examination Vital Signs: Vital Signs Temperature 97.9 F 07/29/18 17:09 Pulse Rate 73 07/29/18 17:09 Respiratory Rate 07/29/18 17:09 Blood Pressure 145/68 07/29/18 17:09 O2 Sat by Pulse Oximetry (%) 100 07/29/18 17:09 Constitutional: Yes: Mild Distress Neck: Yes: Supple Cardiovascular: Yes: Pulse Irregular Respiratory: Yes: Diminished Gastrointestinal: Yes: Soft Extremities: Yes: Other (right great toe-- ischemic / necrotic area -- s/p 2nd toe amputation) Edema: No Neurological: Yes: Alert Labs: CBC, BMP 07/29/18 12:20 07/29/18 12:46 Imaging - Results Chest X-ray: Report Reviewed X-ray: Report Reviewed EKG: Report Reviewed Problem List - Problems (1) Fall Code(s): W19.XXXA - UNSPECIFIED FALL, INITIAL ENCOUNTER (2) Laceration Code(s): [id number] - (3) Closed displaced subtrochanteric fracture of right femur Code(s): S72.21XA - DISPLACED SUBTROCHANTERIC FRACTURE OF RIGHT FEMUR, INIT Qualifiers: Encounter type: initial encounter Qualified Code(s): S72.21XA - Displaced subtrochanteric fracture of right femur, initial encounter for closed fracture (4) Fall in elderly patient Code(s): R29.6 - REPEATED FALLS (5) UTI (urinary tract infection) Code(s): N39.0 - URINARY TRACT INFECTION, SITE NOT SPECIFIED Qualifiers: Urinary tract infection type: site unspecified Hematuria presence: without hematuria Qualified Code(s): N39.0 - Urinary tract infection, site not specified (6) CAD (coronary artery disease) Code(s): I25.10 - ATHSCL HEART DISEASE OF [place] CORONARY ARTERY W/O ANG PCTRS Qualifiers: Coronary Disease-Associated Artery/Lesion type: [place] artery [place] vs. transplanted heart: [place] heart Associated angina: without angina Qualified Code(s): I25.10 - Atherosclerotic heart disease of [place] coronary artery without angina pectoris (7) Diabetes Code(s): E11.9 - TYPE 2 DIABETES MELLITUS WITHOUT COMPLICATIONS Qualifiers: Diabetes mellitus type: type 1 Diabetes mellitus complication status: with hypoglycemia Diabetes mellitus complication detail: without coma Qualified Code(s): E10.649 - Type 1 diabetes mellitus with hypoglycemia without coma (8) Hypoglycemia Code(s): E16.2 - HYPOGLYCEMIA, UNSPECIFIED (9) Atrial fibrillation Code(s): I48.91 - UNSPECIFIED ATRIAL FIBRILLATION Assessment/Plan Pain control monitor bgm Hold long acting insulin abx f/u cultures cardiology consult for or tomorrow cardiology consult pt is dnr/ di will follow. Discussed with nursing staff also
--- NOTE | 2018-07-29 21:29 | EKG ---
Test Reason : Blood Pressure : / mmHG Vent. Rate : 064 BPM Atrial Rate : 058 BPM P-R Int : 000 ms QRS Dur : 072 ms QT Int : 470 ms P-R-T Axes : 000 -15 023 degrees QTc Int : 484 ms SINUS RHYTHM WITH SINUS ARRHYTHMIA NONSPECIFIC T WAVE ABNORMALITY ABNORMAL ECG WHEN COMPARED WITH ECG OF 26-OCT-2017 16:59, SINUS ARRHYTHMIA IS SEEN Confirmed by ELMO LOCO, ANATOLY ([id number]) on 07/29/2018 9:28:35 PM Referred By: BTETIE JACKSON Confirmed By:ANATOLY BORREGO MD
[2018-07-29] MEDS: LORazepam 0.5 MG TABLET PO SCH (21:40)
[2018-07-29] MEDS: ATORVASTATIN CA 20 MG TABLET (FP) PO SCH (21:40)
[2018-07-29] MEDS: NYSTATIN 100,000 UNIT/GM TOPICAL CREAM 15 GM TUBE TP SCH (22:00)
[2018-07-30] MEDS: morphine CARPU-JECT 2 MG/1 ML DISP.SYRIN IVPUSH PRN (05:46)
[2018-07-30] MEDS: LEVOTHYROXINE NA 25 MCG TABLET (FP) PO SCH (06:08)
[2018-07-30] MEDS ORDERED: INSULIN (NOVOLOG) ASPART 100 UNITS/ML 10ML VIAL SQ ONE (06:34)
[2018-07-30] MEDS ORDERED: POTASSIUM CHLORIDE 10 MEQ in SODIUM CHLORIDE 1,000 ML IVPB SCH (06:45)
[2018-07-30] MEDS ORDERED: INSULIN SLIDING SCALE (NOVOLOG) 1 VIAL SQ SCH (07:00)
[2018-07-30 07:47] LABS: INR 1.14 (0.82-1.09); PROTHROMBIN TIME (PATIENT) 12.7 SEC (10.2-13.0)
[2018-07-30 07:49] LABS: BASO % 0.1 % (0-2.0); EOS % 0.4 % (0-4.5); HEMATOCRIT 19.8 % (32.4-45.2); LYMPH % 13.6 % (8-40); MCH 30.7 pg (25.7-33.7); MCHC 33.6 g/dl (32.0-36.0); MEAN CELL VOLUME 91.4 fl (80-96); MEAN PLT VOLUME 9.6 fl (7.5-11.1); MONO % 11.3 % (3.8-10.2); NEUT % 74.6 % (42.8-82.8); PLATELET COUNT 95 K/MM3 (134-434); RBC 2.16 M/mm3 (3.60-5.2); RDW 14.6 % (11.6-15.6); WHITE BLOOD COUNT 3.7 K/mm3 (4.0-10.8)
[2018-07-30 07:57] LABS: ALBUMIN 3.3 g/dl (3.4-5.0); ALK PHOS 68 U/L (45-117); ANION GAP 2 MMOL/L (8-16); BILIRUBIN,TOTAL 1.1 mg/dl (0.2-1); BLOOD UREA NITROGEN 43 mg/dl (7-18); CALCIUM 8.1 mg/dl (8.5-10); CHLORIDE 109 mmol/L (98-107); CO2 24 mmol/L (21-32); CREATININE 1.4 mg/dl (0.55-1.3); POTASSIUM 5.5 mmol/L (3.5-5.1); SGOT/AST 46 U/L (15-37); SGPT/ALT 22 U/L (13-61); SODIUM 135 mmol/L (136-145); TOT PROT 5.4 g/dl (6.4-8.2)
[2018-07-30] MEDS: LIPASE/PROTEASE/AMYLASE 6,000 UNIT CAPSULE PO SCH ×2 (08:00→12:00)
[2018-07-30 08:05] LABS: HEMOGLOBIN 6.6 GM/dl (10.7-15.3)
[2018-07-30 08:08] LABS: GLUCOSE,RANDOM 452 mg/dl (74-106)
[2018-07-30] MEDS: SODIUM CHLORIDE 0.45% 1,000 ML IV SCH (08:45)
[2018-07-30] MEDS ORDERED: PT OWN MED DRAWER 7, Y5N ONE ×2 (08:46→13:58)
[2018-07-30 09:19] LABS: BASO % 0.1 % (0-2.0); EOS % 0.4 % (0-4.5); HEMATOCRIT 19.5 % (32.4-45.2); LYMPH % 16.4 % (8-40); MCH 30.8 pg (25.7-33.7); MCHC 33.8 g/dl (32.0-36.0); MEAN CELL VOLUME 90.9 fl (80-96); MEAN PLT VOLUME 9.4 fl (7.5-11.1); MONO % 13.6 % (3.8-10.2); NEUT % 69.5 % (42.8-82.8); PLATELET COUNT 116 K/MM3 (134-434); RBC 2.14 M/mm3 (3.60-5.2); RDW 15.1 % (11.6-15.6); WHITE BLOOD COUNT 4.6 K/mm3 (4.0-10.8)
[2018-07-30 09:25] LABS: HEMOGLOBIN 6.6 GM/dl (10.7-15.3)
--- NOTE | 2018-07-30 09:35 | PN ---
Progress Note (short form) - Note Progress Note: pt seen/ examined this morning comfortable Decrease in H&H--- no obvious bleeding Reconfirm--- by repeat CBC Poor historian Family at bedside Vital Signs Temp 97.8 F 07/30/18 06:51 Pulse 80 07/30/18 06:51 Resp 18 07/30/18 08:58 BP 158/52 L 07/30/18 06:51 Pulse Ox 99 07/30/18 08:58 Intake & Output 07/29/18 07/29/18 07/30/18 11:59 23:59 11:59 Intake Total 959 996 Output Total 850 1260 Balance 109 -264 Weight 140 lb 133 lb Intake: IV 399 996 D5-1/2NS+20 MEQ KCL - 20 249 996 meq In 1,000 ml @ 83 mls/ hr IV ASDIR JENNIFER Rx#: [id number] saline flush 150 IVPB 200 Oral 360 Output: Urine 850 1260 [place] 850 1260 Other: Voiding Method Indwelling Catheter Toilet Bowel Movement No Height 5 ft 2 in 5 ft 2 in Body Mass Index (BMI) 25.6 24.3 Weight Measurement Method Patient Lift Scale Weight Measurement Method Estimated by Staff Active Medications Acetaminophen (Ofirmev Injection -) 1,000 mg IVPB ONCE PRN PRN Reason: PAIN Last Admin: 07/29/18 13:58 Dose: 1,000 mg Amlodipine Besylate (Norvasc -) 2.5 mg PO DAILY [facility] Atorvastatin Calcium (Lipitor -) 20 mg PO HS [facility] Last Admin: 07/29/18 21:40 Dose: 20 mg Escitalopram Oxalate (Lexapro -) 10 mg PO DAILY [facility] Fentanyl (Sublimaze Injection -) 25 mcg IVPUSH ONCE PRN PRN Reason: PAIN Stop: 07/30/18 13:46 Ceftriaxone Sodium (Ceftriaxone 1 Gm-D5w Bag) 50 mls @ 100 mls/hr IVPB DAILY [facility]; Protocol Sodium Chloride (1/2 Normal Saline) 1,000 mls @ 75 mls/hr IV ASDIR [facility] Insulin Detemir (Levemir Vial) 10 units SQ HS [facility] Lactobacillus Acidophilus (Bacid -) 1 tab PO DAILY [facility] Levothyroxine Sodium (Synthroid -) 25 mcg PO DAILY@0700 [facility] Last Admin: 07/30/18 06:08 Dose: 25 mcg Lorazepam (Ativan -) 0.25 mg PO HS [facility] Last Admin: 07/29/18 21:40 Dose: 0.25 mg Metoprolol Succinate (Toprol Xl -) 12.5 mg PO DAILY [facility] Multivitamins/Minerals/Vitamin C (Tab-A-Vit -) 1 tab PO DAILY [facility] Nystatin (Mycostatin Cream -) 1 applic TP BID [facility] Last Admin: 07/29/18 22:00 Dose: 1 applic Pancrelipase (Creon Dr 6,000 Units Capsule) 1 cap PO TIDCM [facility] Last Admin: 07/29/18 22:01 Dose: 1 cap Ranitidine HCl (Zantac -) 150 mg PO DAILY [facility] CBC, BMP 07/30/18 08:33 07/30/18 07:05 Microbiology 07/29/18 12:55 Urine Culture - Preliminary Urine - Urine - Catheterized Non Lactose Fermenting Gnb Proteus Species Physical Examination Constitutional: Yes: comfortable Neck: Yes: Supple. no bruit. 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 Discussed with nursing staff also. monitor blood sugar We will follow Problem List - Problems (1) Fall Code(s): W19.XXXA - UNSPECIFIED FALL, INITIAL ENCOUNTER (2) Laceration Code(s): [id number] - (3) Closed displaced subtrochanteric fracture of right femur Code(s): S72.21XA - DISPLACED SUBTROCHANTERIC FRACTURE OF RIGHT FEMUR, INIT Qualifiers: Encounter type: initial encounter Qualified Code(s): S72.21XA - Displaced subtrochanteric fracture of right femur, initial encounter for closed fracture (4) Fall in elderly patient Code(s): R29.6 - REPEATED FALLS (5) UTI (urinary tract infection) Code(s): N39.0 - URINARY TRACT INFECTION, SITE NOT SPECIFIED Qualifiers: Urinary tract infection type: site unspecified Hematuria presence: without hematuria Qualified Code(s): N39.0 - Urinary tract infection, site not specified (6) CAD (coronary artery disease) Code(s): I25.10 - ATHSCL HEART DISEASE OF [place] CORONARY ARTERY W/O ANG PCTRS Qualifiers: Coronary Disease-Associated Artery/Lesion type: [place] artery [place] vs. transplanted heart: [place] heart Associated angina: without angina Qualified Code(s): I25.10 - Atherosclerotic heart disease of [place] coronary artery without angina pectoris (7) Diabetes Code(s): E11.9 - TYPE 2 DIABETES MELLITUS WITHOUT COMPLICATIONS Qualifiers: Diabetes mellitus type: type 1 Diabetes mellitus complication status: with hypoglycemia Diabetes mellitus complication detail: without coma Qualified Code(s): E10.649 - Type 1 diabetes mellitus with hypoglycemia without coma (8) Hypoglycemia Code(s): E16.2 - HYPOGLYCEMIA, UNSPECIFIED (9) Atrial fibrillation Code(s): I48.91 - UNSPECIFIED ATRIAL FIBRILLATION
[2018-07-30] MEDS: LACTOBACILLUS ACIDOPHILUS 1 TABLET PO SCH (10:00)
[2018-07-30] MEDS: ESCITALOPRAM OXALATE 10 MG TABLET (FP) PO SCH (10:35)
[2018-07-30] MEDS: NYSTATIN 100,000 UNIT/GM TOPICAL CREAM 15 GM TUBE TP SCH ×2 (10:35→21:48)
[2018-07-30] MEDS: CEFTRIAXONE 1 G/50 ML PREMIX 50 ML IVPB SCH (10:35)
[2018-07-30] MEDS: amLODIPine BESYLATE 2.5 MG TABLET (FP) PO SCH (10:36)
[2018-07-30] MEDS: metoPROLOL SUCCINATE 25 MG TAB.SR.24H (FP) PO SCH (10:36)
[2018-07-30] MEDS: MULTIVITAMINS (DAILY MVI) TABLET (FP) PO SCH (10:36)
[2018-07-30] MEDS: RANITIDINE HCL 150 MG TABLET (FP) PO SCH (10:36)
--- NOTE | 2018-07-30 11:28 | CON.CARD ---
Consult Consult Specialty:: Cardiology Referred by:: Dr. 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 [facility] [place] [facility] [place]. Currently she awaits surgical intervention and cardiology consultation was called for clearance. She appears asymptomatic and comfortable. She does not provide any history and her history was obtained from medical record and the aide bedside. - History Source History Provided By: Medical Record, Caregiver Limitations to Obtaining History: Dementia - Past Medical History COURT DEPUTY: Yes: Dementia, TIA Cardio/Vascular: Yes: CAD (s/p stent), HTN, Hyperlipdemia Pulmonary: Yes: COPD Gastrointestinal: Yes: GERD Renal/: Yes: UTI Endocrine: Yes: Diabetes Mellitus, Hypothyroidism - Past Surgical History Past Surgical History: Yes: Appendectomy, Cholecystectomy - Alcohol/Substance Use Hx Alcohol Use: No - Smoking History Smoking history: Never smoked Have you smoked in the past 12 months: No Aproximately how many cigarettes per day: 0 - Social History Usual Living Arrangement: Longterm ADL: Support Services History of Recent Travel: No Home Medications - Allergies Allergies/Adverse Reactions: Allergies Allergy/AdvReac Type Severity Reaction Status Date / Time No Known Allergies Allergy Verified 06/06/18 10:22 - Home Medications Home Medications: Ambulatory Orders Amlodipine Besylate 2.5 mg PO DAILY 07/29/18 Ascorbic Acid [Vitamin C] 500 mg PO DAILY 07/29/18 Aspirin 81 mg PO DAILY 07/29/18 Atorvastatin Ca [Lipitor] 20 mg PO HS 07/29/18 Cholecalciferol (Vitamin D3) [Vitamin D3] 2,000 unit PO DAILY 07/29/18 Escitalopram Oxalate [Lexapro -] 10 mg PO DAILY 07/29/18 Insulin (LOG) Aspart [NovoLOG -] 14 unit SQ DAILY 07/29/18 Insulin Aspart [Novolog] 6 units SQ DAILY 07/29/18 Insulin Aspart [Novolog] 12 unit SQ DAILY 07/29/18 Insulin Glargine,Hum.rec.anlog [Basaglar Kwikpen U-100] 23 unit SQ HS 07/29/18 LORazepam [Ativan] 0.25 mg PO HS 07/29/18 Lactobacillus Acidophilus [Bacid -] 1 tab PO DAILY 07/29/18 Levothyroxine [Synthroid -] 25 mcg PO DAILY 07/29/18 Lipase/Protease/Amylase [Creon Dr 6,000 Units Capsule] 1 cap PO TIDCM 07/29/18 Loperamide HCl [Loperamide] 2 mg PO PRN 07/29/18 Metoprolol Succinate 12.5 mg PO DAILY 07/29/18 Multivit-Min/Iron Fum/Folic AC [Edxdu-Cmpqkla-Yuoffrjc Tablet] 1 tab PO DAILY Nystatin Cream [Mycostatin] 1 applic TP BID 07/29/18 Ranitidine HCl [Zantac] 150 mg PO DAILY 07/29/18 Review of Systems Unable to obtain ROS, reason: Unable to obtain Vital Signs: Vital Signs Temperature 98.8 F 07/30/18 10:00 Pulse Rate 78 07/30/18 10:00 Respiratory Rate 16 07/30/18 10:00 Blood Pressure 150/74 07/30/18 10:00 O2 Sat by Pulse Oximetry (%) 99 07/30/18 08:58 HENT: Yes: Atraumatic Neck: Yes: Supple Respiratory: Yes: CTA Bilaterally Gastrointestinal: Yes: Normal Bowel Sounds, Soft. No: Tenderness Cardiovascular: Yes: Regular Rate and Rhythm JVD: No PMI: Non-Displaced Heart Sounds: Yes: S1, S2 Edema: No - Other Data Labs, Other Data: CBC, BMP 07/30/18 08:33 07/30/18 07:05 INR, PTT INR 1.14 (0.82-1.09) 07/30/18 07:05 Troponin, BNP 07/29/18 12:46 Troponin I < 0.03 Sinus rhythm with nonspecific T abnormality Imaging - Results Chest X-ray: Report Reviewed (Unremarkable) X-ray: Report Reviewed (Right hip fracture) Cat Scan: Report Reviewed (Head CT noted) EKG: Report Reviewed Problem List - Problems (1) HTN (hypertension) Code(s): I10 - ESSENTIAL (PRIMARY) HYPERTENSION (2) History of percutaneous coronary intervention Code(s): Z98.61 - CORONARY ANGIOPLASTY STATUS (3) S/P percutaneous transluminal angioplasty (ENGINEERING OPERATOR) Code(s): Z98.62 - PERIPHERAL VASCULAR ANGIOPLASTY STATUS (4) PAD (peripheral artery disease) Code(s): I73.9 - PERIPHERAL VASCULAR DISEASE, UNSPECIFIED (5) CVA (cerebral vascular accident) Code(s): I63.9 - CEREBRAL INFARCTION, UNSPECIFIED (6) Closed displaced subtrochanteric fracture of right femur Code(s): S72.21XA - DISPLACED SUBTROCHANTERIC FRACTURE OF RIGHT FEMUR, INIT Qualifiers: Encounter type: initial encounter Qualified Code(s): S72.21XA - Displaced subtrochanteric fracture of right femur, initial encounter for closed fracture (7) Fall Code(s): W19.XXXA - UNSPECIFIED FALL, INITIAL ENCOUNTER (8) UTI (urinary tract infection) Code(s): N39.0 - URINARY TRACT INFECTION, SITE NOT SPECIFIED Qualifiers: Urinary tract infection type: site unspecified Hematuria presence: without hematuria Qualified Code(s): N39.0 - Urinary tract infection, site not specified (9) CAD (coronary artery disease) Code(s): I25.10 - ATHSCL HEART DISEASE OF [place] CORONARY ARTERY W/O ANG PCTRS Qualifiers: Coronary Disease-Associated Artery/Lesion type: [place] artery [place] vs. transplanted heart: [place] heart Associated angina: without angina Qualified Code(s): I25.10 - Atherosclerotic heart disease of [place] coronary artery without angina pectoris (10) Dementia Code(s): F03.90 - UNSPECIFIED DEMENTIA WITHOUT BEHAVIORAL DISTURBANCE (11) Diabetes Code(s): E11.9 - TYPE 2 DIABETES MELLITUS WITHOUT COMPLICATIONS Qualifiers: Diabetes mellitus type: type 1 Diabetes mellitus complication status: with hypoglycemia Diabetes mellitus complication detail: without coma Qualified Code(s): E10.649 - Type 1 diabetes mellitus with hypoglycemia without coma (12) HCD (hypertensive cardiovascular disease) Code(s): I11.9 - HYPERTENSIVE HEART DISEASE WITHOUT HEART FAILURE Qualifiers: Heart failure presence: without heart failure Qualified Code(s): I11.9 - Hypertensive heart disease without heart failure (13) Hypothyroid Code(s): E03.9 - HYPOTHYROIDISM, UNSPECIFIED (14) TIA (transient ischemic attack) Code(s): G45.9 - TRANSIENT CEREBRAL ISCHEMIC ATTACK, UNSPECIFIED Qualifiers: Transient cerebral ischemia type: unspecified Qualified Code(s): G45.9 - Transient cerebral ischemic attack, unspecified Assessment/Plan 1. Post mechanical fall resulting in right hip fracture 2. CAD s/p PCI/stent, angina 3. HTN 4. Hypercholesterolemia 5. DM 6. CVA/TIA currently aphasic 7. Hypothyroidism 8. GERD 9. COPD 10. PAD s/p ENGINEERING OPERATOR 11. Anemia, etiology to be determined 12. UTI PLAN: 1. No absolute contraindication for hip surgery in view of absence of ischemic symptoms, decompensated congestive heart failure or malignant arrhythmia. 2. Continue Toprol XL and Amlodipine as tolerated. ARB also may be considered 3. Statin therapy 4. Empiric antibiotic 5. Transfuse PRBC and follow H/H 6. Eventually start ASA when stable and not contraindicated 7. DVT and GI prophylaxis Further plans are to follow Jose Ngo MD
[2018-07-30] MEDS: ACETAMINOPHEN 1000 MG/100 ML VIAL (NON FORMULARY) IVPB PRN (14:01)
[2018-07-30] MEDS ORDERED: FUROSEMIDE 40 MG/4 ML INJECTABLE VIAL IVPUSH ONE (14:50)
[2018-07-30] MEDS ORDERED: ONDANSETRON 4 MG/2 ML VIAL IVPUSH PRN (14:56)
[2018-07-30] MEDS ORDERED: LACTATED RINGERS SOLUTION 1,000 ML IV SCH (15:00)
[2018-07-30] MEDS ORDERED: PROPOFOL 20 ML ONE (15:06)
[2018-07-30] MEDS ORDERED: SUCCINYLCHOLINE CHLORIDE 200 MG/10 ML VIAL ONE (15:06)
[2018-07-30] MEDS ORDERED: MIDAZOLAM HCL 2 MG/2 ML SINGLE DOSE VIAL ONE (15:07)
[2018-07-30] MEDS ORDERED: LIDOCAINE HCL/PF 2% SDV 5ML VIAL ONE (15:08)
[2018-07-30] MEDS ORDERED: ePHEDrine SULFATE 50 MG/1 ML AMPULE ONE ×2 (15:59→16:31)
[2018-07-30] MEDS ORDERED: SODIUM CHLORIDE 0.9% P/F 10 ML VIAL IJ ONE (16:07)
[2018-07-30] MEDS ORDERED: KETOROLAC TROMETHAMINE 30 MG/1 ML VIAL ONE (16:12)
[2018-07-30] MEDS ORDERED: ONDANSETRON 4 MG/2 ML VIAL ONE (16:12)
[2018-07-30] MEDS ORDERED: DEXAMETHASONE SOD PHOSPHATE 4 MG/1 ML VIAL ONE (16:12)
[2018-07-30] MEDS ORDERED: ACETAMINOPHEN 1000 MG/100 ML VIAL (NON FORMULARY) IVPB ONE (17:09)
--- NOTE | 2018-07-30 21:17 | OP ---
DATE OF OPERATION: 07/30/2018 PREOPERATIVE DIAGNOSIS: Right subtrochanteric hip fracture. POSTOPERATIVE DIAGNOSIS: Right comminuted subtrochanteric/intertrochanteric hip fracture. SURGICAL ATTENDING: Zane Noguera MD BRAND SALES MANAGER: LITZY Gonzales ANESTHESIA: General endotracheal intubation. POSITION: Supine on the fracture table. CLOSURE: A 10 x 340 mm long Gamma nail, 125-degree and the appropriate interlock. Number 1 Vicryl fascia, 0 and 2-0 subcutaneous, and peter for the skin. ESTIMATED BLOOD LOSS: Approximately 100 mL. COMPLICATIONS: None. CONDITION: Recovery in stable condition. DESCRIPTION OF OPERATIVE PROCEDURE: Patient taken to the operating room on July 30, 2018. General anesthesia with endotracheal intubation was administered by the anesthesiologist. IV Kefzol administered prophylactically prior to the case. Patient was fastened to the fracture table with all prominences well padded. The fracture was reduced provisionally using the fracture table and confirmed in the AP and lateral plane as being reduced. The right lateral thigh was prepped and draped in the usual sterile fashion using a shower curtain. A 3-cm longitudinal incision over the tip of the greater trochanter was incised, hemostasis achieved using Bovie cautery. Sharp dissection was carried through the fascia. A guidewire was drilled from the tip of the trochanter into the fracture. Proper placement was confirmed in the AP and lateral plane using the image intensifier. This was overreamed with a proximal reamer. A long beaded guidewire was placed down the intramedullary shaft, all the way down to the knee through the fracture site. This was overreamed to an 11.5 reamer to facilitate a 10-mm mina. The length was measured. A 125-degree, 10 x 340 mm mina was then malleted down into place. Using the outrigger and through a small stab incision laterally, a guidewire was drilled in the femoral aspect of the femur, through the mina, through the neck, into the femoral head centrally. Proper placement of this was confirmed in the AP and lateral planes using image intensifier. This guidewire was depth gauged, triple reamed, and screwed with the appropriate-size lag screw. With the traction reduced, the compression device was used to compress the fracture. Set screw was placed from above in the dynamic fashion. The outrigger was removed. X-rays in the AP and lateral plane revealed excellent position proximally. Two distal interlocks were placed using the free-hand techniques with perfect circles, firsts by drilling, depth gauging, and screwing with the appropriate-size screws. Proper placement of 2 parallel statically-locked screws distally was confirmed in the AP and lateral plane using image intensifier. All incisions were irrigated with copious amounts of irrigation. The fascia was closed in 0 Vicryl, 2-0 for subcutaneous, and peter for the skin. Sterile pressure dressing was applied, patient awakened from anesthesia and transferred to Recovery in stable condition. No complications. Estimated blood loss less than 100 mL. Kylee [id number]
[2018-07-30] MEDS: LORazepam 0.5 MG TABLET PO SCH (21:44)
[2018-07-30] MEDS: ATORVASTATIN CA 20 MG TABLET (FP) PO SCH (21:47)
[2018-07-30] MEDS ORDERED: INSULIN (LEVEMIR) 100 UNITS/ML UNITS SQ SCH (22:00)
[2018-07-30] MEDS: CEFAZOLIN 1 GM/D5W 1 GRAM/50 ML BAG IVPB SCH (23:20)
[2018-07-31] MEDS: ACETAMINOPHEN 325 MG TABLET (FP) PO SCH ×5 (01:00→18:53)
[2018-07-31] MEDS: CEFAZOLIN 1 GM/D5W 1 GRAM/50 ML BAG IVPB SCH (06:41)
[2018-07-31] MEDS: LEVOTHYROXINE NA 25 MCG TABLET (FP) PO SCH (06:42)
[2018-07-31 07:52] LABS: HEMATOCRIT 21.7 % (32.4-45.2); HEMOGLOBIN 7.4 GM/dl (10.7-15.3); MCH 30.1 pg (25.7-33.7); MEAN CELL VOLUME 88.5 fl (80-96); MEAN PLT VOLUME 9.7 fl (7.5-11.1); PLATELET COUNT 88 K/MM3 (134-434); RBC 2.45 M/mm3 (3.60-5.2); RDW 15.6 % (11.6-15.6)
[2018-07-31 07:55] LABS: ANION GAP 9 MMOL/L (8-16); BLOOD UREA NITROGEN 48 mg/dl (7-18); CALCIUM 7.7 mg/dl (8.5-10); CHLORIDE 107 mmol/L (98-107); CO2 21 mmol/L (21-32); CREATININE 1.7 mg/dl (0.55-1.3); POTASSIUM 5.9 mmol/L (3.5-5.1); SODIUM 137 mmol/L (136-145)
[2018-07-31 08:29] LABS: GLUCOSE,RANDOM 423 mg/dl (74-106)
[2018-07-31] MEDS: LIPASE/PROTEASE/AMYLASE 6,000 UNIT CAPSULE PO SCH ×4 (09:00→18:54)
[2018-07-31] MEDS ORDERED: FUROSEMIDE 40 MG/4 ML INJECTABLE VIAL IVPUSH ONE ×2 (09:01→16:00)
--- NOTE | 2018-07-31 09:10 | PN ---
Progress Note (short form) - Note Progress Note: pt seen/examined pod #1 awake comfortable decrease in h/h k elevated sugar high -- Levemir not given last night !! Vital Signs Temp 98.2 F 07/31/18 05:00 Pulse 86 07/31/18 05:00 Resp 18 07/31/18 05:00 BP 136/52 L 07/31/18 05:00 Pulse Ox 100 07/31/18 05:00 Intake & Output 07/30/18 07/30/18 07/31/18 11:59 23:59 11:59 Intake Total 996 1750 Output Total 1260 1650 200 Balance -264 100 -200 Intake: IV 996 1250 1/2 Normal Saline 1,000 450 ml @ 75 mls/hr IV ASDIR [facility] Rx#:[id number] D5-1/2NS+20 MEQ KCL - 20 996 meq In 1,000 ml @ 83 mls/ hr IV ASDIR [facility] Rx#: [id number] IVPB 150 Oral 0 Packed Cells 350 Output: Urine 1260 1650 200 [place] 1260 650 200 Other: Voiding Method Toilet Indwelling Catheter Indwelling Catheter Bowel Movement No Active Medications Acetaminophen (Ofirmev Injection -) 1,000 mg IVPB ONCE PRN PRN Reason: PAIN Last Admin: 07/30/18 14:01 Dose: 1,000 mg Acetaminophen (Tylenol -) 650 mg PO Q6H [facility] Last Admin: 07/31/18 06:42 Dose: 650 mg Amlodipine Besylate (Norvasc -) 2.5 mg PO DAILY [facility] Last Admin: 07/30/18 10:36 Dose: 2.5 mg Atorvastatin Calcium (Lipitor -) 20 mg PO HS [facility] Last Admin: 07/30/18 21:47 Dose: Not Given Enoxaparin Sodium (Lovenox -) 40 mg SQ DAILY [facility] Escitalopram Oxalate (Lexapro -) 10 mg PO DAILY [facility] Last Admin: 07/30/18 10:35 Dose: 10 mg Furosemide (Lasix Injection -) 20 mg IVPUSH ONCE ONE Stop: 07/31/18 09:02 Ceftriaxone Sodium (Ceftriaxone 1 Gm-D5w Bag) 50 mls @ 100 mls/hr IVPB DAILY [facility]; Protocol Last Admin: 07/30/18 10:35 Dose: 100 mls/hr Sodium Chloride (1/2 Normal Saline) 1,000 mls @ 75 mls/hr IV ASDIR [facility] Last Admin: 07/30/18 08:45 Dose: 75 mls/hr Insulin Aspart (Novolog Vial Sliding Scale -) 1 vial SQ ACHS [facility]; Protocol Insulin Detemir (Levemir Vial) 10 units SQ [facility] Last Admin: 07/30/18 21:47 Dose: Not Given Insulin Detemir (Levemir Vial) 12 units SQ ONCE ONE Stop: 07/31/18 09:16 Lactobacillus Acidophilus (Bacid -) 1 tab PO DAILY [facility] Last Admin: 07/30/18 10:00 Dose: 1 tab Levothyroxine Sodium (Synthroid -) 25 mcg PO DAILY@0700 [facility] Last Admin: 07/31/18 06:42 Dose: 25 mcg Lorazepam (Ativan -) 0.25 mg PO HS [facility] Last Admin: 07/30/18 21:44 Dose: Not Given Metoprolol Succinate (Toprol Xl -) 12.5 mg PO DAILY [facility] Last Admin: 07/30/18 10:36 Dose: 12.5 mg Multivitamins/Minerals/Vitamin C (Tab-A-Vit -) 1 tab PO DAILY [facility] Last Admin: 07/30/18 10:36 Dose: 1 tab Nystatin (Mycostatin Cream -) 1 applic TP BID [facility] Last Admin: 07/30/18 21:48 Dose: 1 applic Ondansetron HCl (Zofran Injection) 4 mg IVPUSH Q6H PRN PRN Reason: NAUSEA AND/OR VOMITING Pancrelipase (Creon Dr 6,000 Units Capsule) 1 cap PO TIDCM [facility] Last Admin: 07/30/18 12:00 Dose: 1 cap Ranitidine HCl (Zantac -) 150 mg PO DAILY [facility] Last Admin: 07/30/18 10:36 Dose: 150 mg Sodium Polystyrene Sulfonate (Kayexalate -) 30 gm PO ONCE ONE Stop: 07/31/18 09:16 CBC, BMP 07/31/18 07:10 07/31/18 07:10 Microbiology 07/29/18 12:55 Urine Culture - Final Urine - Urine - Catheterized Providencia Stuartii Proteus Mirabilis 07/29/18 12:46 Blood Culture - Preliminary Blood - Peripheral Venous NO GROWTH OBTAINED AFTER 24 HOURS, INCUBATION TO CONTINUE FOR 4 DAYS. 07/29/18 12:46 Blood Culture - Preliminary Blood - Peripheral Venous NO GROWTH OBTAINED AFTER 24 HOURS, INCUBATION TO CONTINUE FOR 4 DAYS. Physical Examination Constitutional: Yes: awake/ poor historian Neck: Yes: Supple. no bruit. Cardiovascular: Yes: Pulse Irregular Respiratory: Yes: Diminished Gastrointestinal: Yes: Soft Extremities: Yes: Other s/p right hip surgery-- dressing + swelling + Edema: No Neurological: Yes: awake Imaging - Results Chest X-ray: Report Reviewed X-ray: Report Reviewed EKG: Report Reviewed Assessment/Plan pod # 1 monitor bgm---uncontrolled. discussed with DICKSON olivares -- 10 units now monitor d/c fluids kayexalate abx transfuse 2 units of packed RBCs today Lasix in between. check stool for occult blood pt is dnr/ di physical therapy post transfusion cbc monitor platlet will follow. Problem List - Problems (1) Fall Code(s): W19.XXXA - UNSPECIFIED FALL, INITIAL ENCOUNTER (2) Laceration Code(s): GCH5207 - (3) Closed displaced subtrochanteric fracture of right femur Code(s): S72.21XA - DISPLACED SUBTROCHANTERIC FRACTURE OF RIGHT FEMUR, INIT Qualifiers: Encounter type: initial encounter Qualified Code(s): S72.21XA - Displaced subtrochanteric fracture of right femur, initial encounter for closed fracture (4) Fall in elderly patient Code(s): R29.6 - REPEATED FALLS (5) UTI (urinary tract infection) Code(s): N39.0 - URINARY TRACT INFECTION, SITE NOT SPECIFIED Qualifiers: Urinary tract infection type: site unspecified Hematuria presence: without hematuria Qualified Code(s): N39.0 - Urinary tract infection, site not specified (6) CAD (coronary artery disease) Code(s): I25.10 - ATHSCL HEART DISEASE OF [place] CORONARY ARTERY W/O ANG PCTRS Qualifiers: Coronary Disease-Associated Artery/Lesion type: [place] artery [place] vs. transplanted heart: [place] heart Associated angina: without angina Qualified Code(s): I25.10 - Atherosclerotic heart disease of [place] coronary artery without angina pectoris (7) Diabetes Code(s): E11.9 - TYPE 2 DIABETES MELLITUS WITHOUT COMPLICATIONS Qualifiers: Diabetes mellitus type: type 1 Diabetes mellitus complication status: with hypoglycemia Diabetes mellitus complication detail: without coma Qualified Code(s): E10.649 - Type 1 diabetes mellitus with hypoglycemia without coma (8) Hypoglycemia Code(s): E16.2 - HYPOGLYCEMIA, UNSPECIFIED (9) Atrial fibrillation Code(s): I48.91 - UNSPECIFIED ATRIAL FIBRILLATION
[2018-07-31] MEDS ORDERED: SODIUM POLYSTYRENE SULFONATE 15 GM/60 ML BOTTLE PO ONE (09:15)
[2018-07-31] MEDS ORDERED: INSULIN (LEVEMIR) 100 UNITS/ML UNITS SQ ONE (09:15)
[2018-07-31] MEDS ORDERED: PT OWN MED DRAWER 7, Y5N ONE ×3 (09:29→12:05)
--- NOTE | 2018-07-31 09:30 | PN ---
Progress Note (short form) - Note Progress Note: Ortho Pt seen and examined s/p right IM gamma nail pod #1 Selected Entries 07/31/18 05:00 Temperature 98.2 F Pulse Rate 86 Respiratory 18 Rate Blood Pressure 136/52 L Laboratory Tests 07/31/18 07:10 WBC 5.0 Hgb 7.4 L Hct 21.7 L Plt Count 88 L dressing c/d/i, calf soft, nt nvi a/p PT if able WBAT dvt ppx pain control d/c planning
[2018-07-31] MEDS: LACTOBACILLUS ACIDOPHILUS 1 TABLET PO SCH (09:36)
[2018-07-31] MEDS: ESCITALOPRAM OXALATE 10 MG TABLET (FP) PO SCH (09:36)
[2018-07-31] MEDS: NYSTATIN 100,000 UNIT/GM TOPICAL CREAM 15 GM TUBE TP SCH ×2 (09:36→21:59)
[2018-07-31] MEDS: CEFTRIAXONE 1 G/50 ML PREMIX 50 ML IVPB SCH (09:36)
[2018-07-31] MEDS: amLODIPine BESYLATE 2.5 MG TABLET (FP) PO SCH (09:37)
[2018-07-31] MEDS: MULTIVITAMINS (DAILY MVI) TABLET (FP) PO SCH (09:37)
[2018-07-31] MEDS: RANITIDINE HCL 150 MG TABLET (FP) PO SCH (09:37)
[2018-07-31] MEDS: metoPROLOL SUCCINATE 25 MG TAB.SR.24H (FP) PO SCH (09:37)
[2018-07-31] MEDS: SODIUM CHLORIDE 0.45% 1,000 ML IV SCH (09:37)
[2018-07-31] MEDS ORDERED: ENOXAPARIN NA (PORCINE) 40 MG/0.4 ML DISP.SYRIN SQ SCH (10:00)
[2018-07-31] MEDS: INSULIN SLIDING SCALE (NOVOLOG) 1 VIAL SQ SCH ×4 (12:38→21:59)
--- NOTE | 2018-07-31 14:18 | PN ---
Progress Note (short form) - Note Progress Note: ANESTHESIA POSTOP 73 yo female, POD #1 s/p Gamma Nail Resting in bed, interacting with family and friends nonverbal, but does not appear to be in pain tolerating PO VSS, Afebrile Continue current care
--- NOTE | 2018-07-31 17:35 | CONSULT ---
Consultation: REQUESTING PROVIDER: Dr. Abraham CONSULT REQUEST: We have been asked to medically evaluate this patient for ICU admission, postoperative management HISTORY OF PRESENT ILLNESS: Patient is a 73 year old female with history of dementia, insulin dependent diabetes mellitus, hypothyroidism, coronary artery disease, presents after unwitnessed fall at [facility] with resulting right sided subtrochanteric fracture, s/p right sided gamma nail procedure, and 3 units PRBC transfusion at [facility]. Patient is pleasantly demented unable to provide history, and does not participate in physical exam. She is alert, oriented X0. Patient currently does not appear to be in acute distress. REVIEW OF SYSTEMS: As per HPI. Unable to obtain further due to patient's mental status. PHYSICAL EXAMINATION Vital Signs - 24 hr 07/30/18 07/30/18 07/30/18 17:35 17:50 18:05 Temperature 98.5 F 98.5 F 98.5 F Pulse Rate 80 84 82 Respiratory 16 16 16 Rate Blood Pressure 162/58 L 132/61 171/80 H O2 Sat by Pulse 98 98 100 Oximetry (%) 07/30/18 07/30/18 07/30/18 18:20 18:35 18:38 Temperature 98.5 F 98.5 F 98.5 F Pulse Rate 83 84 84 Respiratory 16 16 16 Rate Blood Pressure 159/55 L 150/53 L 150/53 L O2 Sat by Pulse 100 100 Oximetry (%) 07/30/18 07/30/18 07/30/18 19:01 20:41 21:00 Temperature 97.7 F 98.1 F Pulse Rate 65 83 Respiratory 18 18 Rate Blood Pressure 155/58 L 128/64 O2 Sat by Pulse 100 95 100 Oximetry (%) 07/30/18 07/31/18 07/31/18 23:00 02:58 05:00 Temperature 98.0 F 97.9 F 98.2 F Pulse Rate 56 L 88 86 Respiratory 17 17 18 Rate Blood Pressure 111/67 124/92 136/52 L O2 Sat by Pulse 100 Oximetry (%) 07/31/18 07/31/18 07/31/18 09:01 09:18 13:00 Temperature Pulse Rate 97 H Respiratory 16 18 18 Rate Blood Pressure 122/87 O2 Sat by Pulse 98 98 Oximetry (%) 07/31/18 07/31/18 07/31/18 13:14 14:06 16:02 Temperature 98.6 F 98.5 F Pulse Rate 86 77 Respiratory 16 16 Rate Blood Pressure 118/51 L 136/54 L O2 Sat by Pulse 96 96 99 Oximetry (%) GENERAL: Awake, pleasantly demented, in no acute distress. HEAD: Normocephalic. Right posterior head 2cm laceration noted clean, dry. EYES:PERRL, EOMI, sclera anicteric, conjunctiva clear. EARS, NOSE, THROAT: Oropharynx clear without exudates. Dry mucous membranes. NECK: Normal range of motion, supple without lymphadenopathy. LUNGS: Breath sounds equal, clear to auscultation bilaterally. No wheezes, and no crackles. No accessory muscle use. HEART: Regular rate and rhythm, normal S1 and S2 without murmur, rub or gallop. ABDOMEN: Soft,not distended, nontender to light and deep palpation X4 quadrants. No rebound tenderness elicited. Normoactive bowel sounds X4 quadrants. no masses. No hepatomegaly palpated or percussed. Horizontal scar noted over right lower quadrant. RECTAL: Weak anal sphincter tone. No external hemorrhoids visualized. Hard stool palpated within rectal vault. No bonnie blood noted upon gloved finger. MUSCULOSKELETAL: Patient freely moves bilateral upper extremities. Right hip, lower extremity tender to palpation UPPER EXTREMITIES: 2+ radial pulses bilaterally, warm, well-perfused. Cap refill <2 seconds. No peripheral edema. LOWER EXTREMITIES: 1+ dorsalis pedis pulses bilaterally. Right lower extremity erythematous, significantly more swollen than left lower extremity. Right lower extremity tender to palpation. Patient does not appear to freely move bilateral lower extremities, does not follow commands, or participate with physical exam. NEUROLOGICAL: Cranial nerves II-XII grossly intact. Patient non-cooperative with neurological exam. PSYCHIATRIC: Demented, minimally communicative. Laboratory Results - last 24 hr 07/29/18 07/30/18 07/31/18 12:46 17:59 05:14 WBC RBC Hgb Hct MCV MCH MCHC RDW Plt Count MPV Sodium Potassium Chloride Carbon Dioxide Anion Gap BUN Creatinine Creat Clearance w eGFR POC Glucometer 202 364 Random Glucose Calcium Blood Type O POSITIVE Antibody Screen Negative Crossmatch See Detail 07/31/18 07/31/18 07/31/18 07:10 07:10 11:56 WBC 5.0 RBC 2.45 L Hgb 7.4 L Hct 21.7 L MCV 88.5 MCH 30.1 MCHC 34.0 RDW 15.6 Plt Count 88 L MPV 9.7 Sodium 137 Potassium 5.9 H Chloride 107 Carbon Dioxide 21 Anion Gap 9 BUN 48 H Creatinine 1.7 H Creat Clearance w eGFR 29.38 POC Glucometer 425 Random Glucose 423 H* Calcium 7.7 L Blood Type Antibody Screen Crossmatch Active Medications Generic Name Dose Route Start Last Admin Trade Name Freq PRN Reason Stop Dose Admin Acetaminophen 1,000 mg 07/29/18 13:48 07/30/18 14:01 Ofirmev Injection - IVPB 1,000 mg ONCE PRN Administration PAIN Acetaminophen 650 mg 07/30/18 18:30 07/31/18 17:20 Tylenol - PO Not Given Q6H JENNIFER Amlodipine Besylate 2.5 mg 07/30/18 10:00 07/31/18 09:37 Norvasc - PO 2.5 mg DAILY JENNIFER Administration Atorvastatin Calcium 20 mg 07/29/18 22:00 07/30/18 21:47 Lipitor - PO Not Given HS JENNIFER Enoxaparin Sodium 40 mg 07/31/18 10:00 07/31/18 09:36 Lovenox - SQ 40 mg DAILY JENNIFER Administration Escitalopram Oxalate 10 mg 07/30/18 10:00 07/31/18 09:36 Lexapro - PO 10 mg DAILY JENNIFER Administration Ceftriaxone Sodium 50 mls @ 100 mls/hr 07/30/18 10:00 07/31/18 09:36 Ceftriaxone 1 Gm-D5w Bag IVPB 100 mls/hr DAILY [facility] Administration Protocol Sodium Chloride 1,000 mls @ 75 mls/hr 07/30/18 08:45 07/31/18 09:37 1/2 Normal Saline IV Not Given ASDIR JENNIFER Insulin Aspart 1 vial 07/31/18 07:00 07/31/18 17:20 Novolog Vial Sliding Scale - SQ Not Given ACHS [facility] Protocol Insulin Detemir 10 units 07/31/18 22:00 Levemir Vial SQ BID@0700,2200 [facility] Lactobacillus Acidophilus 1 tab 07/30/18 10:00 07/31/18 09:36 Bacid - PO 1 tab DAILY JENNIFER Administration Levothyroxine Sodium 25 mcg 07/30/18 07:00 07/31/18 06:42 Synthroid - PO 25 mcg DAILY@0700 JENNIFER Administration Lorazepam 0.25 mg 07/29/18 22:00 07/30/18 21:44 Ativan - PO Not Given HS JENNIFER Metoprolol Succinate 12.5 mg 07/30/18 10:00 07/31/18 09:37 Toprol Xl - PO 12.5 mg DAILY JENNIFER Administration Multivitamins/Minerals/Vitamin C 1 tab 07/30/18 10:00 07/31/18 09:37 Tab-A-Vit - PO 1 tab DAILY JENNIFER Administration Nystatin 1 applic 07/29/18 22:00 07/31/18 09:36 Mycostatin Cream - TP 1 applic BID JENNIFER Administration Ondansetron HCl 4 mg 07/30/18 14:56 Zofran Injection IVPUSH Q6H PRN NAUSEA AND/OR VOMITING Pancrelipase 1 cap 07/29/18 17:30 07/31/18 17:[address] 6,000 Units Capsule PO Not Given TIDCM JENNIFER Ranitidine HCl 150 mg 07/30/18 10:00 07/31/18 09:37 Zantac - PO 150 mg DAILY JENNIFER Administration ASSESSMENT/PLAN: Patient is a 73 year old female with history of dementia, insulin dependent diabetes mellitus, hypothyroidism, coronary artery disease, presents after unwitnessed fall at [facility] with resulting right sided subtrochanteric fracture, s/p right sided gamma nail procedure, and 3 units PRBC transfusion at [facility]. Admitted to ICU for postoperative monitoring and acute blood loss anemia. Neurological -Patient is awake, demented. Minimally communicative. No acute distress. -Monitor for changes in mental status -Fall precautions Pulmonary -Currently saturating well on room air. -Maintain oxygen saturation greater than 90% Cardiac Coronary artery disease Questionable history of Afib. No documented EKG showing the arrhythmia -Aspirin held due to acute blood loss -Amlodipine 2.5mg PO daily -Metoprolol 12.5mg PO daily -Atorvastatin 20mg PO HS Gastrointestinal -NPO -IV normal saline at 75mL/ hour -Ranitidine 150mg PO daily -Stool for occult blood to evaluate for GI bleeding Musculoskeletal Unwitnessed fall, right hip subtrochanteric fracture -Patient is POD # 1 s/p right sided gamma- nail procedure -Right lower extremity significantly more swollen than left. Tender to palpation -CT head negative for acute intracranial hemorrhage, skull fracture -CT cervical spine shows no gross fracture, subluxation. -Follow CT pelvis, right lower extremity to evaluate for blood collection, hematoma. Hematologic Acute blood loss anemia -Patient is s/p 3 units PRBC -Follow STAT CBC. Transfuse if Hb less than 7. -Maintain Hb greater sutton 7 Renal EDMAR- likely pre-renal in etiology secondary to acute blood loss anemia Hyperkalemia- likely secondary to multiple blood transfusions -Follow repeat CMP, EKG to evaluate for changes secondary to hyperkalemia -IV normal saline at 75mL/ hour -Follow urine output -Follow Cr Endocrine Hypothyroidism Insulin dependent diabetes mellitus -Synthroid 25mcg PO daily -Insulin sliding scale ACHS -Hold home levemir dose due to hypoglycemia. -Fingerstick blood glucose monitoring [facility] Infectious disease -Urine culture positive for Proteus mirabilis, Providencia stuartii -Ceftriaxone 1 gram IV daily (day #3) Psychiatric Dementia -Escitalopram 10mg HS -Ativan 0.25mg PO HS FEN -IV normal saline at 75mL/ hour. -Hyperkalemia, Hyponatremia. Follow CMP, replete as necessary -NPO Prophylaxis -Heparin 5000u subq TID. Consider holding chemical anticoagulation if signs of acute bleeding. Disposition: We will continue to follow the patient. Thank you for this consultative opportunity. Code status: Patient is DNR/ DNI. Signed paperwork in patient's physical chart. Visit type - Emergency Visit Emergency Visit: Yes ED Registration Date: 07/29/18 Care time: The patient presented to the Emergency Department on the above date and was hospitalized for further evaluation of their emergent condition. - New Patient This patient is new to me today: Yes Date on this admission: 08/01/18 - Critical Care Critical Care patient: Yes Total Critical Care Time (in minutes): 37 Critical Care Statement: The care of this patient involved high complexity decision making to prevent further life threatening deterioration of the patient 's condition and/or to evaluate & treat vital organ system(s) failure or risk of failure.
[2018-07-31] MEDS ORDERED: SODIUM CHLORIDE 1,000 ML IV SCH (18:00)
[2018-07-31] MEDS: LORazepam 0.5 MG TABLET PO SCH ×2 (18:54→21:44)
[2018-07-31] MEDS ORDERED: HALOPERIDOL LACTATE 5 MG/ML IM ONE (19:48)
[2018-07-31] MEDS ORDERED: HALOPERIDOL LACTATE 5 MG/ML ONE (19:56)
[2018-07-31 20:48] LABS: BASO % 0.3 % (0-2.0); EOS % 0.8 % (0-4.5); HEMATOCRIT 22.6 % (32.4-45.2); HEMOGLOBIN 7.9 GM/dL (10.7-15.3); LYMPH % 23.7 % (8-40); MCH 30.4 pg (25.7-33.7); MCHC 34.9 g/dl (32.0-36.0); MEAN CELL VOLUME 87.1 fl (80-96); MEAN PLT VOLUME 9.7 fl (7.5-11.1); MONO % 10.9 % (3.8-10.2); NEUT % 64.3 % (42.8-82.8); PLATELET COUNT 87 K/MM3 (134-434); RDW 15.2 % (11.6-15.6); WHITE BLOOD COUNT 5.3 K/mm3 (4.0-10.0)
[2018-07-31] MEDS: DEXTROSE 50%-WATER - 25 GM/50 ML VIAL IVPUSH ONE ×2 (21:59→22:11)
[2018-07-31] MEDS: HEPARIN NA (PORCINE) 5,000 UNITS/ML 1ML VIAL SQ SCH (21:59)
[2018-07-31] MEDS: ATORVASTATIN CA 20 MG TABLET (FP) PO SCH (21:59)
[2018-07-31] MEDS: INSULIN (LEVEMIR) 100 UNITS/ML UNITS SQ SCH (22:03)
[2018-07-31] MEDS: MORPHINE SULFATE 2 MG/ML VIAL IVPUSH PRN (23:02)
[2018-08-01] MEDS: ACETAMINOPHEN 325 MG TABLET (FP) PO SCH ×4 (01:25→17:51)
[2018-08-01] MEDS: DEXTROSE 5%-NORMAL SALINE 1,000 ML IV SCH ×2 (03:00→16:20)
[2018-08-01] MEDS ORDERED: DEXTROSE 50%-WATER 25 GM/50 ML DISP.SYRIN IVPUSH ONE (03:09)
[2018-08-01] MEDS: HEPARIN NA (PORCINE) 5,000 UNITS/ML 1ML VIAL SQ SCH ×3 (06:25→22:39)
[2018-08-01] MEDS: INSULIN (LEVEMIR) 100 UNITS/ML UNITS SQ SCH (06:26)
[2018-08-01] MEDS: INSULIN SLIDING SCALE (NOVOLOG) 1 VIAL SQ SCH ×4 (06:26→22:49)
[2018-08-01] MEDS: LEVOTHYROXINE NA 25 MCG TABLET (FP) PO SCH ×2 (07:08→12:11)
[2018-08-01 07:17] LABS: BASO % 0.3 % (0-2.0); EOS % 2.3 % (0-4.5); HEMOGLOBIN 8.1 GM/dL (10.7-15.3); LYMPH % 22.7 % (8-40); MCH 30.8 pg (25.7-33.7); MCHC 35.1 g/dl (32.0-36.0); MEAN CELL VOLUME 87.8 fl (80-96); MEAN PLT VOLUME 9.5 fl (7.5-11.1); NEUT % 61.7 % (42.8-82.8); PLATELET COUNT 74 K/MM3 (134-434); RBC 2.62 M/mm3 (3.60-5.2); WHITE BLOOD COUNT 4.4 K/mm3 (4.0-10.0)
[2018-08-01 07:49] LABS: ALBUMIN 2.6 g/dl (3.4-5.0); ALK PHOS 56 U/L (45-117); ANION GAP 6 MMOL/L (8-16); BILIRUBIN,TOTAL 0.8 mg/dL (0.2-1); BLOOD UREA NITROGEN 47 mg/dL (7-18); CALCIUM 7.3 mg/dL (8.5-10.1); CHLORIDE 111 mmol/L (98-107); CO2 26 mmol/L (21-32); CREATININE 1.4 mg/dL (0.55-1.3); GLUCOSE,RANDOM 124 mg/dL (74-106); SGOT/AST 50 U/L (15-37); SGPT/ALT 21 U/L (13-61); SODIUM 143 mmol/L (136-145); TOT PROT 4.7 g/dl (6.4-8.2)
--- NOTE | 2018-08-01 08:12 | PN ---
Physical Exam: SUBJECTIVE: Patient seen and examined at bedside this morning. She is sleepy, minimally responsive, in no acute distress. Patient does not endorse acute complaints. OBJECTIVE: Vital Signs Period Temp Pulse Resp BP Sys/Romano Pulse Ox Last 24 Hr 97 F-98.7 F 76-97 16-26 114-163/36-87 96-100 GENERAL: Sleepy, pleasantly demented, in no acute distress. HEAD: Normocephalic. Right posterior head 2cm laceration noted clean, dry. EYES:PERRL, EOMI, sclera anicteric, conjunctiva clear. EARS, NOSE, THROAT: Oropharynx clear without exudates. Dry mucous membranes. NECK: Normal range of motion, supple without lymphadenopathy. LUNGS: Breath sounds equal, clear to auscultation bilaterally. No wheezes, and no crackles. No accessory muscle use. HEART: Regular rate and rhythm, normal S1 and S2 without murmur, rub or gallop. ABDOMEN: Soft, not distended, nontender to light and deep palpation X4 quadrants. No rebound tenderness elicited. Normoactive bowel sounds X4 quadrants. no masses. No hepatomegaly palpated or percussed. Horizontal scar noted over right lower quadrant. MUSCULOSKELETAL: Patient freely moves bilateral upper extremities. Right hip, lower extremity tender to palpation UPPER EXTREMITIES: 2+ radial pulses bilaterally, warm, well-perfused. Cap refill <2 seconds. No peripheral edema. LOWER EXTREMITIES: 1+ dorsalis pedis pulses bilaterally. Right lower extremity erythematous, significantly more swollen than left lower extremity. Right lower extremity tender to palpation. Patient does not appear to freely move bilateral lower extremities, does not follow commands, or participate with physical exam. NEUROLOGICAL: Cranial nerves II-XII grossly intact. Patient non-cooperative with neurological exam. PSYCHIATRIC: Demented, minimally communicative. Laboratory Results - last 24 hr 07/29/18 07/31/18 07/31/18 12:46 07:10 07:10 WBC 5.0 RBC 2.45 L Hgb 7.4 L Hct 21.7 L MCV 88.5 MCH 30.1 MCHC 34.0 RDW 15.6 Plt Count 88 L MPV 9.7 Absolute Neuts (auto) Neutrophils % Lymphocytes % Monocytes % Eosinophils % Basophils % Nucleated RBC % Sodium 137 Potassium 5.9 H Chloride 107 Carbon Dioxide 21 Anion Gap 9 BUN 48 H Creatinine 1.7 H Creat Clearance w eGFR 29.38 POC Glucometer Random Glucose 423 H* Calcium 7.7 L Total Bilirubin AST ALT Alkaline Phosphatase Total Protein Albumin Stool Occult Blood Blood Type O POSITIVE Antibody Screen Negative Crossmatch See Detail 07/31/18 07/31/18 07/31/18 11:56 17:43 18:15 WBC RBC Hgb Hct MCV MCH MCHC RDW Plt Count MPV Absolute Neuts (auto) Neutrophils % Lymphocytes % Monocytes % Eosinophils % Basophils % Nucleated RBC % Sodium Potassium Chloride Carbon Dioxide Anion Gap BUN Creatinine Creat Clearance w eGFR POC Glucometer 425 233 Random Glucose Calcium Total Bilirubin AST ALT Alkaline Phosphatase Total Protein Albumin Stool Occult Blood Negative Blood Type Antibody Screen Crossmatch 07/31/18 07/31/18 07/31/18 20:30 21:49 22:29 WBC 5.3 RBC 2.60 L Hgb 7.9 L Hct 22.6 L D MCV 87.1 MCH 30.4 MCHC 34.9 RDW 15.2 Plt Count 87 L D MPV 9.7 Absolute Neuts (auto) 3.4 Neutrophils % 64.3 Lymphocytes % 23.7 D Monocytes % 10.9 H Eosinophils % 0.8 Basophils % 0.3 Nucleated RBC % 0 Sodium Potassium Chloride Carbon Dioxide Anion Gap BUN Creatinine Creat Clearance w eGFR POC Glucometer 24 119 Random Glucose Calcium Total Bilirubin AST ALT Alkaline Phosphatase Total Protein Albumin Stool Occult Blood Blood Type Antibody Screen Crossmatch 08/01/18 08/01/18 08/01/18 02:52 05:19 05:30 WBC 4.4 RBC 2.62 L Hgb 8.1 L Hct 23.0 L MCV 87.8 MCH 30.8 MCHC 35.1 RDW 15.0 Plt Count 74 L MPV 9.5 Absolute Neuts (auto) 2.7 Neutrophils % 61.7 Lymphocytes % 22.7 Monocytes % 13.0 H Eosinophils % 2.3 D Basophils % 0.3 Nucleated RBC % 0 Sodium Potassium Chloride Carbon Dioxide Anion Gap BUN Creatinine Creat Clearance w eGFR POC Glucometer 57 118 Random Glucose Calcium Total Bilirubin AST ALT Alkaline Phosphatase Total Protein Albumin Stool Occult Blood Blood Type Antibody Screen Crossmatch 08/01/18 05:30 WBC RBC Hgb Hct MCV MCH MCHC RDW Plt Count MPV Absolute Neuts (auto) Neutrophils % Lymphocytes % Monocytes % Eosinophils % Basophils % Nucleated RBC % Sodium 143 Potassium 4.0 Chloride 111 H Carbon Dioxide 26 Anion Gap 6 L BUN 47 H Creatinine 1.4 H Creat Clearance w eGFR 36.76 POC Glucometer Random Glucose 124 H Calcium 7.3 L Total Bilirubin 0.8 AST 50 H ALT 21 Alkaline Phosphatase 56 Total Protein 4.7 L Albumin 2.6 L Stool Occult Blood Blood Type Antibody Screen Crossmatch Active Medications Generic Name Dose Route Start Last Admin Trade Name Freq PRN Reason Stop Dose Admin Acetaminophen 1,000 mg 07/29/18 13:48 07/30/18 14:01 Ofirmev Injection - IVPB 1,000 mg ONCE PRN Administration PAIN Acetaminophen 650 mg 07/30/18 18:30 08/01/18 06:25 Tylenol - PO Not Given Q6H [facility] Amlodipine Besylate 2.5 mg 07/30/18 10:00 07/31/18 09:37 Norvasc - PO 2.5 mg DAILY JENNIFER Administration Atorvastatin Calcium 20 mg 07/29/18 22:00 07/31/18 21:59 Lipitor - PO Not Given HS [facility] Escitalopram Oxalate 10 mg 07/30/18 10:00 07/31/18 09:36 Lexapro - PO 10 mg DAILY [facility] Administration Heparin Sodium (Porcine) 5,000 unit 07/31/18 22:00 08/01/18 06:25 Heparin - SQ 5,000 unit TID JENNIFER Administration Ceftriaxone Sodium 50 mls @ 100 mls/hr 07/30/18 10:00 07/31/18 09:36 Ceftriaxone 1 Gm-D5w Bag IVPB 100 mls/hr DAILY JENN[facility]ER Administration Protocol Dextrose/Sodium Chloride 1,000 mls @ 75 mls/hr 08/01/18 03:00 08/01/18 03:00 D5-Ns - IV 75 mls/hr ASDIR JENNIFER Administration Insulin Aspart 1 vial 07/31/18 07:00 08/01/18 06:26 Novolog Vial Sliding Scale - SQ Not Given ACHS [facility] Protocol Insulin Detemir 10 units 07/31/18 22:00 08/01/18 06:26 Levemir Vial SQ Not Given BID@0700,2200 [facility] Lactobacillus Acidophilus 1 tab 07/30/18 10:00 07/31/18 09:36 Bacid - PO 1 tab DAILY [facility] Administration Levothyroxine Sodium 25 mcg 07/30/18 07:00 08/01/18 07:08 Synthroid - PO Not Given DAILY@0700 JENNIFER Lorazepam 0.25 mg 07/29/18 22:00 07/31/18 21:44 Ativan - PO Not Given HS JENNIFER Metoprolol Succinate 12.5 mg 07/30/18 10:00 07/31/18 09:37 Toprol Xl - PO 12.5 mg DAILY JENNIFER Administration Morphine Sulfate 2 mg 07/31/18 22:58 07/31/18 23:02 Morphine Sulfate IVPUSH 2 mg Q4H PRN Administration PAIN LEVEL 6-10 Multivitamins/Minerals/Vitamin C 1 tab 07/30/18 10:00 07/31/18 09:37 Tab-A-Vit - PO 1 tab DAILY JENNIFER Administration Nystatin 1 applic 07/29/18 22:00 07/31/18 21:59 Mycostatin Cream - TP 1 applic BID JENNIFER Administration Ondansetron HCl 4 mg 07/30/18 14:56 Zofran Injection IVPUSH Q6H PRN NAUSEA AND/OR VOMITING Pancrelipase 1 cap 07/29/18 17:30 07/31/18 18:54 Creon 6,000 Units Capsule PO Not Given TIDCM JENNIFER Ranitidine HCl 150 mg 07/30/18 10:00 07/31/18 09:37 Zantac - PO 150 mg DAILY JENNIFER Administration ASSESSMENT/PLAN: Patient is a 73 year old female with history of dementia, insulin dependent diabetes mellitus, hypothyroidism, coronary artery disease, presents after unwitnessed fall at [facility] with resulting right sided subtrochanteric fracture, s/p right sided gamma nail procedure, and 3 units PRBC transfusion at [facility]. Admitted to ICU for postoperative monitoring and acute blood loss anemia. Neurological -Patient is awake, demented. Minimally communicative. No acute distress. -Monitor for changes in mental status -Fall precautions Pulmonary -Currently saturating well on room air. -Maintain oxygen saturation greater than 90% Cardiac Coronary artery disease Questionable history of Afib. No documented EKG showing the arrhythmia -Aspirin held due to acute blood loss. Resume once hemoglobin stabilized. -Amlodipine 2.5mg PO daily -Metoprolol 12.5mg PO daily -Atorvastatin 20mg PO HS Gastrointestinal -Puree diet -IV normal saline at 75mL/ hour -Ranitidine 150mg PO daily -Stool negative for occult blood Musculoskeletal Unwitnessed fall, right hip subtrochanteric fracture -Patient is POD # 2 s/p right sided gamma- nail procedure -Right lower extremity significantly more swollen than left. -CT head negative for acute intracranial hemorrhage, skull fracture -CT cervical spine shows no gross fracture, subluxation. -CT pelvis, right lower extremity negative for acute blood collection, hematoma. Hematologic Acute blood loss anemia -likely secondary to intra-operative blood loss, and postoperative -Patient is s/p 3 units PRBC -Hb 8.1/ Hct 23, stable -Monitor for signs of acute bleeding. Renal EDMAR- likely pre-renal in etiology secondary to acute blood loss anemia. Improving. Hyperkalemia- likely secondary to multiple blood transfusions. Resolved. -IV normal saline at 75mL/ hour -Follow urine output -Follow Cr Endocrine Hypothyroidism Insulin dependent diabetes mellitus -Synthroid 25mcg PO daily -Insulin sliding scale ACHS -Hold home levemir dose due to hypoglycemia. -Fingerstick blood glucose monitoring [facility] Infectious disease -Urine culture positive for Proteus mirabilis, Providencia stuartii -Ceftriaxone 1 gram IV daily (day #3) Psychiatric Dementia -Escitalopram 10mg HS -Ativan 0.25mg PO HS FEN -IV normal saline at 75mL/ hour. -Hyperkalemia, Hyponatremia. Follow CMP, replete as necessary -Puree diet Prophylaxis -Heparin 5000u subq TID. Consider holding chemical anticoagulation if signs of acute bleeding. Disposition: Patient is medically stable for transfer to medical- surgical floor. Code status: Patient is DNR/ DNI. Signed paperwork in patient's physical chart. Visit type - Emergency Visit Emergency Visit: Yes ED Registration Date: 07/29/18 Care time: The patient presented to the Emergency Department on the above date and was hospitalized for further evaluation of their emergent condition. - New Patient This patient is new to me today: No - Critical Care Critical Care patient: Yes Total Critical Care Time (in minutes): 35 Critical Care Statement: The care of this patient involved high complexity decision making to prevent further life threatening deterioration of the patient 's condition and/or to evaluate & treat vital organ system(s) failure or risk of failure. - Discharge Referral Referred to [facility] Med [facility] No
[2018-08-01] MEDS: ESCITALOPRAM OXALATE 10 MG TABLET (FP) PO SCH (09:16)
[2018-08-01] MEDS: MULTIVITAMINS (DAILY MVI) TABLET (FP) PO SCH (09:16)
[2018-08-01] MEDS: LACTOBACILLUS ACIDOPHILUS 1 TABLET PO SCH (09:16)
[2018-08-01] MEDS: LIPASE/PROTEASE/AMYLASE 6,000 UNIT CAPSULE PO SCH ×3 (09:16→17:52)
[2018-08-01] MEDS: amLODIPine BESYLATE 2.5 MG TABLET (FP) PO SCH ×2 (09:16→10:30)
[2018-08-01] MEDS: metoPROLOL SUCCINATE 25 MG TAB.SR.24H (FP) PO SCH ×2 (09:17→10:30)
[2018-08-01] MEDS: RANITIDINE HCL 150 MG TABLET (FP) PO SCH (09:17)
[2018-08-01] MEDS ORDERED: PT OWN MED DRAWER 7, Y5N ONE ×2 (09:22→17:51)
[2018-08-01] MEDS ORDERED: DEXTROSE 5%-WATER - 50 ML IVPB ONE (10:09)
[2018-08-01] MEDS ORDERED: cefTRIAXone SODIUM 1 GM VIAL ONE (10:09)
[2018-08-01] MEDS: CEFTRIAXONE 1 GM in DEXTROSE 5%-WATER - 50 ML IVPB SCH (10:13)
[2018-08-01] MEDS: NYSTATIN 100,000 UNIT/GM TOPICAL CREAM 15 GM TUBE TP SCH ×2 (10:15→22:39)
[2018-08-01] MEDS: MORPHINE SULFATE 2 MG/ML VIAL IVPUSH PRN ×2 (10:58→16:09)
--- NOTE | 2018-08-01 11:29 | PN ---
Progress Note, Physician History of Present Illness: Transfused 3 u pRBC for post-op bleed, now hemodynamic and Hgb stable. - Current Medication List Current Medications: Active Medications Acetaminophen (Ofirmev Injection -) 1,000 mg IVPB ONCE PRN PRN Reason: PAIN Last Admin: 07/30/18 14:01 Dose: 1,000 mg Acetaminophen (Tylenol -) 650 mg PO Q6H [facility] Last Admin: 08/01/18 06:25 Dose: Not Given Amlodipine Besylate (Norvasc -) 2.5 mg PO DAILY [facility] Last Admin: 08/01/18 10:30 Dose: 2.5 mg Atorvastatin Calcium (Lipitor -) 20 mg PO HS [facility] Last Admin: 07/31/18 21:59 Dose: Not Given Escitalopram Oxalate (Lexapro -) 10 mg PO DAILY [facility] Last Admin: 08/01/18 09:16 Dose: Not Given Heparin Sodium (Porcine) (Heparin -) 5,000 unit SQ TID [facility] Last Admin: 08/01/18 06:25 Dose: 5,000 unit Dextrose/Sodium Chloride (D5-Ns -) 1,000 mls @ 75 mls/hr IV ASDIR [facility] Last Admin: 08/01/18 03:00 Dose: 75 mls/hr Ceftriaxone Sodium 1 gm/ (Dextrose) 50 mls @ 100 mls/hr IVPB DAILY [facility]; Protocol Last Admin: 08/01/18 10:13 Dose: 100 mls/hr Insulin Aspart (Novolog Vial Sliding Scale -) 1 vial SQ ACHS [facility]; Protocol Last Admin: 08/01/18 11:20 Dose: 4 units Insulin Detemir (Levemir Vial) 10 units SQ BID@0700,2200 [facility] Last Admin: 08/01/18 06:26 Dose: Not Given Lactobacillus Acidophilus (Bacid -) 1 tab PO DAILY [facility] Last Admin: 08/01/18 09:16 Dose: Not Given Levothyroxine Sodium (Synthroid -) 25 mcg PO DAILY@0700 [facility] Last Admin: 08/01/18 07:08 Dose: Not Given Lorazepam (Ativan -) 0.25 mg PO HS [facility] Last Admin: 07/31/18 21:44 Dose: Not Given Metoprolol Succinate (Toprol Xl -) 12.5 mg PO DAILY [facility] Last Admin: 08/01/18 10:30 Dose: 12.5 mg Morphine Sulfate (Morphine Sulfate) 2 mg IVPUSH Q4H PRN PRN Reason: PAIN LEVEL 6-10 Last Admin: 08/01/18 10:58 Dose: 2 mg Multivitamins/Minerals/Vitamin C (Tab-A-Vit -) 1 tab PO DAILY [facility] Last Admin: 08/01/18 09:16 Dose: Not Given Nystatin (Mycostatin Cream -) 1 applic TP BID [facility] Last Admin: 08/01/18 10:15 Dose: 1 applic Ondansetron HCl (Zofran Injection) 4 mg IVPUSH Q6H PRN PRN Reason: NAUSEA AND/OR VOMITING Pancrelipase (Creon Dr 6,000 Units Capsule) 1 cap PO TIDCM [facility] Last Admin: 08/01/18 09:16 Dose: Not Given Ranitidine HCl (Zantac -) 150 mg PO DAILY [facility] Last Admin: 08/01/18 09:17 Dose: Not Given - Objective Vital Signs: Vital Signs Temperature 97.6 F 08/01/18 10:00 Pulse Rate 80 08/01/18 10:00 Respiratory Rate 22 H 08/01/18 10:00 Blood Pressure 168/50 L 08/01/18 08:00 O2 Sat by Pulse Oximetry (%) 100 08/01/18 10:00 Constitutional: Yes: No Distress, Calm, Thin Neck: Yes: Supple Cardiovascular: Yes: Regular Rate and Rhythm Respiratory: Yes: Regular, Diminished Gastrointestinal: Yes: Normal Bowel Sounds, Soft Edema: No Labs: CBC, BMP 08/01/18 05:30 08/01/18 05:30 INR, PTT INR 1.14 (0.82-1.09) 07/30/18 07:05 - ....Imaging Cat Scan: Report Reviewed (No discrete hematoma) Problem List - Problems (1) Closed nondisplaced intertrochanteric fracture of right femur with routine healing Code(s): S72.144D - NONDISP INTERTROCH FX R FEMUR, SUBS FOR CLOS FX W ROUTN HEAL (2) Fall in elderly patient Code(s): R29.6 - REPEATED FALLS (3) History of percutaneous coronary intervention Code(s): Z98.61 - CORONARY ANGIOPLASTY STATUS (4) PAD (peripheral artery disease) Code(s): I73.9 - PERIPHERAL VASCULAR DISEASE, UNSPECIFIED (5) S/P percutaneous transluminal angioplasty ([employer]IPPER [employer] BAKER) Code(s): Z98.62 - PERIPHERAL VASCULAR ANGIOPLASTY STATUS (6) CAD (coronary artery disease) Code(s): I25.10 - ATHSCL HEART DISEASE OF [place] CORONARY ARTERY W/O ANG PCTRS Qualifiers: Coronary Disease-Associated Artery/Lesion type: [place] artery [place] vs. transplanted heart: [place] heart Associated angina: without angina Qualified Code(s): I25.10 - Atherosclerotic heart disease of [place] coronary artery without angina pectoris (7) Diabetes Code(s): E11.9 - TYPE 2 DIABETES MELLITUS WITHOUT COMPLICATIONS Qualifiers: Diabetes mellitus type: type 1 Diabetes mellitus complication status: with hypoglycemia Diabetes mellitus complication detail: without coma Qualified Code(s): E10.649 - Type 1 diabetes mellitus with hypoglycemia without coma (8) Hyperlipidemia associated with type 2 diabetes mellitus Code(s): E11.69 - TYPE 2 DIABETES MELLITUS WITH OTHER SPECIFIED COMPLICATION; E78.5 - HYPERLIPIDEMIA, UNSPECIFIED (9) Hypothyroid Code(s): E03.9 - HYPOTHYROIDISM, UNSPECIFIED Assessment/Plan 1. Post mechanical fall resulting in right hip fracture s/p right IM gamma nail pod #2 2. Post-op bleed post pRBC transfusion 3. CAD s/p PCI/stent, angina 4. HTN 5. Hypercholesterolemia 6. DM 7. CVA/TIA currently aphasic 8. Hypothyroidism 9. GERD 10. COPD 11. PAD s/p DIPPER [employer] BAKER 12. CKD 13. UTI P:1. Monitor Hgb post transfusion 2. Continue Toprol XL 12.5 qd, Lipitor 20 qd and Amlodipine 2.5 qd as hemodynamics tolerate 3. Empiric antibiotic course 4. Eventually start ASA when Hgb stable 5. DVT and GI prophylaxis, analgesia as needed
--- NOTE | 2018-08-01 11:51 | PN ---
Progress Note (short form) - Note Progress Note: Events noted Transferred from [facility] here to [facility] ICU S/p rt gamma nailing- POD #2 S/P PRBC x 3 Vitals stable Afebrile confused Vital Signs - 24 hr 07/31/18 07/31/18 07/31/18 13:00 13:14 14:06 Temperature 98.6 F Pulse Rate 86 Respiratory 18 16 Rate Blood Pressure 118/51 L O2 Sat by Pulse 96 96 Oximetry (%) 07/31/18 07/31/18 07/31/18 16:02 18:45 20:00 Temperature 98.5 F 98.7 F Pulse Rate 77 90 Respiratory 16 21 H Rate Blood Pressure 136/54 L 148/36 L O2 Sat by Pulse 99 100 Oximetry (%) 07/31/18 07/31/18 08/01/18 21:00 22:00 00:00 Temperature Pulse Rate 81 86 Respiratory 26 H 16 26 H Rate Blood Pressure 114/43 L 141/48 L O2 Sat by Pulse 100 Oximetry (%) 08/01/18 08/01/18 08/01/18 01:23 02:00 04:00 Temperature 98.6 F Pulse Rate 83 83 Respiratory 22 H 22 H Rate Blood Pressure 146/48 L 163/49 L O2 Sat by Pulse 100 Oximetry (%) 08/01/18 08/01/18 08/01/18 06:28 08:00 09:00 Temperature 97 F L Pulse Rate 76 82 Respiratory 18 22 H Rate Blood Pressure 163/65 168/50 L O2 Sat by Pulse 100 Oximetry (%) 08/01/18 10:00 Temperature 97.6 F Pulse Rate 80 Respiratory 22 H Rate Blood Pressure O2 Sat by Pulse 100 Oximetry (%) Current Medications Generic Name Dose Route Start Last Admin Trade Name Freq PRN Reason Stop Dose Admin Acetaminophen 1,000 mg 07/29/18 13:48 07/30/18 14:01 Ofirmev Injection - IVPB 1,000 mg ONCE PRN Administration PAIN Acetaminophen 650 mg 07/30/18 18:30 08/01/18 06:25 Tylenol - PO Not Given Q6H [facility] Amlodipine Besylate 2.5 mg 07/30/18 10:00 08/01/18 10:30 Norvasc - PO 2.5 mg DAILY [facility] Administration Atorvastatin Calcium 20 mg 07/29/18 22:00 07/31/18 21:59 Lipitor - PO Not Given HS [facility] Escitalopram Oxalate 10 mg 07/30/18 10:00 08/01/18 09:16 Lexapro - PO Not Given DAILY [facility] Heparin Sodium (Porcine) 5,000 unit 07/31/18 22:00 08/01/18 06:25 Heparin - SQ 5,000 unit TID [facility] Administration Dextrose/Sodium Chloride 1,000 mls @ 75 mls/hr 08/01/18 03:00 08/01/18 03:00 D5-Ns - IV 75 mls/hr ASDIR [facility] Administration Ceftriaxone Sodium 1 gm/ 50 mls @ 100 mls/hr 08/01/18 10:00 08/01/18 10:13 Dextrose IVPB 100 mls/hr DAILY [facility] Administration Protocol Insulin Aspart 1 vial 07/31/18 07:00 08/01/18 11:20 Novolog Vial Sliding Scale - SQ 4 units ACHS [facility] Administration Protocol Insulin Detemir 10 units 07/31/18 22:00 08/01/18 06:26 Levemir Vial SQ Not Given BID@0700,2200 [facility] Lactobacillus Acidophilus 1 tab 07/30/18 10:00 08/01/18 09:16 Bacid - PO Not Given DAILY [facility] Levothyroxine Sodium 25 mcg 07/30/18 07:00 08/01/18 07:08 Synthroid - PO Not Given DAILY@0700 [facility] Lorazepam 0.25 mg 07/29/18 22:00 07/31/18 21:44 Ativan - PO Not Given HS [facility] Metoprolol Succinate 12.5 mg 07/30/18 10:00 08/01/18 10:30 Toprol Xl - PO 12.5 mg DAILY [facility] Administration Morphine Sulfate 2 mg 07/31/18 22:58 08/01/18 10:58 Morphine Sulfate IVPUSH 2 mg Q4H PRN Administration PAIN LEVEL 6-10 Multivitamins/Minerals/Vitamin C 1 tab 07/30/18 10:00 08/01/18 09:16 Tab-A-Vit - PO Not Given DAILY [facility] Nystatin 1 applic 07/29/18 22:00 08/01/18 10:15 Mycostatin Cream - TP 1 applic BID [facility] Administration Ondansetron HCl 4 mg 07/30/18 14:56 Zofran Injection IVPUSH Q6H PRN NAUSEA AND/OR VOMITING Pancrelipase 1 cap 07/29/18 17:30 08/01/18 09:16 Ava Akers 6,000 Units Capsule PO Not Given TIDCM [facility] Ranitidine HCl 150 mg 07/30/18 10:00 08/01/18 09:17 Zantac - PO Not Given DAILY [facility] Laboratory Results - last 24 hr 07/29/18 07/31/18 07/31/18 12:46 11:56 17:43 WBC RBC Hgb Hct MCV MCH MCHC RDW Plt Count MPV Absolute Neuts (auto) Neutrophils % Lymphocytes % Monocytes % Eosinophils % Basophils % Nucleated RBC % Sodium Potassium Chloride Carbon Dioxide Anion Gap BUN Creatinine Creat Clearance w eGFR POC Glucometer 425 233 Random Glucose Calcium Total Bilirubin AST ALT Alkaline Phosphatase Total Protein Albumin Stool Occult Blood Blood Type O POSITIVE Antibody Screen Negative Crossmatch See Detail 07/31/18 07/31/18 07/31/18 18:15 20:30 21:49 WBC 5.3 RBC 2.60 L Hgb 7.9 L Hct 22.6 L D MCV 87.1 MCH 30.4 MCHC 34.9 RDW 15.2 Plt Count 87 L D MPV 9.7 Absolute Neuts (auto) 3.4 Neutrophils % 64.3 Lymphocytes % 23.7 D Monocytes % 10.9 H Eosinophils % 0.8 Basophils % 0.3 Nucleated RBC % 0 Sodium Potassium Chloride Carbon Dioxide Anion Gap BUN Creatinine Creat Clearance w eGFR POC Glucometer 24 Random Glucose Calcium Total Bilirubin AST ALT Alkaline Phosphatase Total Protein Albumin Stool Occult Blood Negative Blood Type Antibody Screen Crossmatch 07/31/18 08/01/18 08/01/18 22:29 02:52 05:19 WBC RBC Hgb Hct MCV MCH MCHC RDW Plt Count MPV Absolute Neuts (auto) Neutrophils % Lymphocytes % Monocytes % Eosinophils % Basophils % Nucleated RBC % Sodium Potassium Chloride Carbon Dioxide Anion Gap BUN Creatinine Creat Clearance w eGFR POC Glucometer 119 57 118 Random Glucose Calcium Total Bilirubin AST ALT Alkaline Phosphatase Total Protein Albumin Stool Occult Blood Blood Type Antibody Screen Crossmatch 08/01/18 08/01/18 08/01/18 05:30 05:30 11:18 WBC 4.4 RBC 2.62 L Hgb 8.1 L Hct 23.0 L MCV 87.8 MCH 30.8 MCHC 35.1 RDW 15.0 Plt Count 74 L MPV 9.5 Absolute Neuts (auto) 2.7 Neutrophils % 61.7 Lymphocytes % 22.7 Monocytes % 13.0 H Eosinophils % 2.3 D Basophils % 0.3 Nucleated RBC % 0 Sodium 143 Potassium 4.0 Chloride 111 H Carbon Dioxide 26 Anion Gap 6 L BUN 47 H Creatinine 1.4 H Creat Clearance w eGFR 36.76 POC Glucometer 234 Random Glucose 124 H Calcium 7.3 L Total Bilirubin 0.8 AST 50 H ALT 21 Alkaline Phosphatase 56 Total Protein 4.7 L Albumin 2.6 L Stool Occult Blood Blood Type Antibody Screen Crossmatch No pallor S1 S2 RRR Lungs decreased breath sounds Abd- soft, NT, ND No edema right leg-- dressing in place no edema PLAN Stable HCT transfuse if needed Vitals stable ASA on hold Pelvic and lower extremity CT noted-- no hematoma monitor CBC Cardiology, Ortho follow up PT eval ok to transfer pt to the floors Problem List - Problems (1) Atrial fibrillation Code(s): I48.91 - UNSPECIFIED ATRIAL FIBRILLATION (2) Closed displaced subtrochanteric fracture of right femur Code(s): S72.21XA - DISPLACED SUBTROCHANTERIC FRACTURE OF RIGHT FEMUR, INIT Qualifiers: Encounter type: initial encounter Qualified Code(s): S72.21XA - Displaced subtrochanteric fracture of right femur, initial encounter for closed fracture (3) Fall Code(s): W19.XXXA - UNSPECIFIED FALL, INITIAL ENCOUNTER (4) Fall in elderly patient Code(s): R29.6 - REPEATED FALLS (5) HTN (hypertension) Code(s): I10 - ESSENTIAL (PRIMARY) HYPERTENSION
--- NOTE | 2018-08-01 14:28 | PN ---
Teaching Attending Note Name of Resident: Gilberto Willis ATTENDING PHYSICIAN STATEMENT I saw and evaluated the patient. I reviewed the resident's note and discussed the case with the resident. I agree with the resident's findings and plan as documented. SUBJECTIVE: Patient seen and examined in the ICU. Sleepy but arousbale. Confused. Offers no complaints. No occult bleeding noted. Intake & Output 07/29/18 07/30/18 07/31/18 08/01/18 23:59 23:59 23:59 23:59 Intake Total 959 2746 700 900 Output Total 850 2910 500 900 Balance 109 -164 200 0 Weight 133 lb 128 lb Last Vital Signs Temp Pulse Resp BP Pulse Ox 98.1 F 84 20 168/57 L 99 08/01/18 13:52 08/01/18 13:52 08/01/18 13:52 08/01/18 13:52 08/01/18 14:06 Active Medications Acetaminophen (Ofirmev Injection -) 1,000 mg IVPB ONCE PRN PRN Reason: PAIN Last Admin: 07/30/18 14:01 Dose: 1,000 mg Acetaminophen (Tylenol -) 650 mg PO Q6H [facility]PL[facility] Last Admin: 08/01/18 13:47 Dose: 650 mg Amlodipine Besylate (Norvasc -) 2.5 mg PO DAILY [facility] Last Admin: 08/01/18 10:30 Dose: 2.5 mg Atorvastatin Calcium (Lipitor -) 20 mg PO HS [facility] Last Admin: 07/31/18 21:59 Dose: Not Given Escitalopram Oxalate (Lexapro -) 10 mg PO DAILY [facility] Last Admin: 08/01/18 09:16 Dose: Not Given Heparin Sodium (Porcine) (Heparin -) 5,000 unit SQ TID [facility] Last Admin: 08/01/18 13:48 Dose: 5,000 unit Dextrose/Sodium Chloride (D5-Ns -) 1,000 mls @ 75 mls/hr IV ASDIR [facility] Last Admin: 08/01/18 03:00 Dose: 75 mls/hr Ceftriaxone Sodium 1 gm/ (Dextrose) 50 mls @ 100 mls/hr IVPB DAILY [facility]; Protocol Last Admin: 08/01/18 10:13 Dose: 100 mls/hr Insulin Aspart (Novolog Vial Sliding Scale -) 1 vial SQ ACHS [facility]; Protocol Last Admin: 08/01/18 11:20 Dose: 4 units Insulin Detemir (Levemir Vial) 10 units SQ BID@0700,2200 [facility] Last Admin: 08/01/18 06:26 Dose: Not Given Lactobacillus Acidophilus (Bacid -) 1 tab PO DAILY [facility] Last Admin: 08/01/18 09:16 Dose: Not Given Levothyroxine Sodium (Synthroid -) 25 mcg PO DAILY@0700 [facility] Last Admin: 08/01/18 12:11 Dose: 25 mcg Lorazepam (Ativan -) 0.25 mg PO HS [facility] Last Admin: 07/31/18 21:44 Dose: Not Given Metoprolol Succinate (Toprol Xl -) 12.5 mg PO DAILY [facility] Last Admin: 08/01/18 10:30 Dose: 12.5 mg Morphine Sulfate (Morphine Sulfate) 2 mg IVPUSH Q4H PRN PRN Reason: PAIN LEVEL 6-10 Last Admin: 08/01/18 10:58 Dose: 2 mg Multivitamins/Minerals/Vitamin C (Tab-A-Vit -) 1 tab PO DAILY [facility] Last Admin: 08/01/18 09:16 Dose: Not Given Nystatin (Mycostatin Cream -) 1 applic TP BID [facility] Last Admin: 08/01/18 10:15 Dose: 1 applic Ondansetron HCl (Zofran Injection) 4 mg IVPUSH Q6H PRN PRN Reason: NAUSEA AND/OR VOMITING Pancrelipase (Creon Dr 6,000 Units Capsule) 1 cap PO TIDCM REPL[facility] Last Admin: 08/01/18 12:08 Dose: Not Given Ranitidine HCl (Zantac -) 150 mg PO DAILY [facility] Last Admin: 08/01/18 09:17 Dose: Not Given GENERAL: confused, no acute distress. HEAD: Normocephalic. EYES:PERRL, EOMI, sclera anicteric, conjunctiva clear. EARS, NOSE, THROAT: Oropharynx clear without exudates. Dry mucous membranes. NECK: Normal range of motion, supple without lymphadenopathy. LUNGS: Breath sounds equal, clear to auscultation bilaterally. No wheezes, and no crackles. No accessory muscle use. HEART: Regular rate and rhythm, normal S1 and S2 without murmur, rub or gallop. ABDOMEN: Soft, NT, ND, MUSCULOSKELETAL: moves all extremities UPPER EXTREMITIES: 2+ radial pulses bilaterally, warm, well-perfused. Cap refill <2 seconds. No peripheral edema. LOWER EXTREMITIES: 1+ dorsalis pedis pulses bilaterally. Right thigh swollen NEUROLOGICAL: non-focal, confused PSYCHIATRIC: Demented, minimally communicative. Laboratory Results - last 24 hr 07/29/18 07/31/18 07/31/18 12:46 17:43 18:15 WBC RBC Hgb Hct MCV MCH MCHC RDW Plt Count MPV Absolute Neuts (auto) Neutrophils % Lymphocytes % Monocytes % Eosinophils % Basophils % Nucleated RBC % Sodium Potassium Chloride Carbon Dioxide Anion Gap BUN Creatinine Creat Clearance w eGFR POC Glucometer 233 Random Glucose Calcium Total Bilirubin AST ALT Alkaline Phosphatase Total Protein Albumin Stool Occult Blood Negative Crossmatch See Detail 07/31/18 07/31/18 07/31/18 20:30 21:49 22:29 WBC 5.3 RBC 2.60 L Hgb 7.9 L Hct 22.6 L D MCV 87.1 MCH 30.4 MCHC 34.9 RDW 15.2 Plt Count 87 L D MPV 9.7 Absolute Neuts (auto) 3.4 Neutrophils % 64.3 Lymphocytes % 23.7 D Monocytes % 10.9 H Eosinophils % 0.8 Basophils % 0.3 Nucleated RBC % 0 Sodium Potassium Chloride Carbon Dioxide Anion Gap BUN Creatinine Creat Clearance w eGFR POC Glucometer 24 119 Random Glucose Calcium Total Bilirubin AST ALT Alkaline Phosphatase Total Protein Albumin Stool Occult Blood Crossmatch 08/01/18 08/01/18 08/01/18 02:52 05:19 05:30 WBC 4.4 RBC 2.62 L Hgb 8.1 L Hct 23.0 L MCV 87.8 MCH 30.8 MCHC 35.1 RDW 15.0 Plt Count 74 L MPV 9.5 Absolute Neuts (auto) 2.7 Neutrophils % 61.7 Lymphocytes % 22.7 Monocytes % 13.0 H Eosinophils % 2.3 D Basophils % 0.3 Nucleated RBC % 0 Sodium Potassium Chloride Carbon Dioxide Anion Gap BUN Creatinine Creat Clearance w eGFR POC Glucometer 57 118 Random Glucose Calcium Total Bilirubin AST ALT Alkaline Phosphatase Total Protein Albumin Stool Occult Blood Crossmatch 08/01/18 08/01/18 05:30 11:18 WBC RBC Hgb Hct MCV MCH MCHC RDW Plt Count MPV Absolute Neuts (auto) Neutrophils % Lymphocytes % Monocytes % Eosinophils % Basophils % Nucleated RBC % Sodium 143 Potassium 4.0 Chloride 111 H Carbon Dioxide 26 Anion Gap 6 L BUN 47 H Creatinine 1.4 H Creat Clearance w eGFR 36.76 POC Glucometer 234 Random Glucose 124 H Calcium 7.3 L Total Bilirubin 0.8 AST 50 H ALT 21 Alkaline Phosphatase 56 Total Protein 4.7 L Albumin 2.6 L Stool Occult Blood Crossmatch ASSESSMENT/PLAN: Symptomatic anemia Right Hip ORIF / Gamma nail S/P fall Dementia Insulin dependent diabetes mellitus Hypothyroidism Coronary artery disease (?) AFib UTI Normal transfusion threshold O2 as needed VTE prophylaxis GI evaluation ABX coverage Strict I & O PT as tolerated IVF Glycemic control Floor Dr Menjivar
[2018-08-01 14:38] VITALS: BMI 23.3
[2018-08-01] MEDS: LORazepam 0.5 MG TABLET PO SCH (22:39)
[2018-08-01] MEDS: ATORVASTATIN CA 20 MG TABLET (FP) PO SCH (22:39)
[2018-08-02] MEDS: ACETAMINOPHEN 325 MG TABLET (FP) PO SCH ×5 (01:00→23:57)
[2018-08-02] MEDS: HEPARIN NA (PORCINE) 5,000 UNITS/ML 1ML VIAL SQ SCH ×3 (05:38→23:56)
[2018-08-02] MEDS: DEXTROSE 5%-NORMAL SALINE 1,000 ML IV SCH (05:38)
[2018-08-02] MEDS: INSULIN SLIDING SCALE (NOVOLOG) 1 VIAL SQ SCH ×4 (06:05→23:56)
[2018-08-02] MEDS: LEVOTHYROXINE NA 25 MCG TABLET (FP) PO SCH (06:05)
[2018-08-02 08:08] LABS: HEMATOCRIT 21.2 % (32.4-45.2); HEMOGLOBIN 7.3 GM/dL (10.7-15.3); MCH 30.4 pg (25.7-33.7); MCHC 34.5 g/dl (32.0-36.0); MEAN CELL VOLUME 88.2 fl (80-96); MEAN PLT VOLUME 9.2 fl (7.5-11.1); PLATELET COUNT 87 K/MM3 (134-434); RDW 14.9 % (11.6-15.6); WHITE BLOOD COUNT 3.4 K/mm3 (4.0-10.0)
[2018-08-02] MEDS ORDERED: PT OWN MED DRAWER 7, Y5N ONE (08:33)
[2018-08-02] MEDS ORDERED: cefTRIAXone SODIUM 1 GM VIAL ONE (08:33)
[2018-08-02] MEDS ORDERED: DEXTROSE 5%-WATER - 50 ML IVPB ONE (08:33)
[2018-08-02] MEDS: LIPASE/PROTEASE/AMYLASE 6,000 UNIT CAPSULE PO SCH ×3 (08:47→18:44)
[2018-08-02 09:01] LABS: ALBUMIN 2.4 g/dl (3.4-5.0); ALK PHOS 65 U/L (45-117); ANION GAP 7 MMOL/L (8-16); BILIRUBIN,TOTAL 1.1 mg/dL (0.2-1); BLOOD UREA NITROGEN 31 mg/dL (7-18); CALCIUM 7.5 mg/dL (8.5-10.1); CHLORIDE 114 mmol/L (98-107); CO2 22 mmol/L (21-32); CREATININE 1.2 mg/dL (0.55-1.3); GLUCOSE,RANDOM 289 mg/dL (74-106); MAGNESIUM 2.1 mg/dL (1.8-2.4); PHOSPHOROUS 1.9 mg/dL (2.5-4.9); POTASSIUM 3.6 mmol/L (3.5-5.1); SGOT/AST 36 U/L (15-37); SGPT/ALT 20 U/L (13-61); SODIUM 143 mmol/L (136-145); TOT PROT 4.6 g/dl (6.4-8.2)
[2018-08-02] MEDS: CEFTRIAXONE 1 GM in DEXTROSE 5%-WATER - 50 ML IVPB SCH (10:19)
[2018-08-02] MEDS: MULTIVITAMINS (DAILY MVI) TABLET (FP) PO SCH (10:20)
[2018-08-02] MEDS: RANITIDINE HCL 150 MG TABLET (FP) PO SCH (10:20)
[2018-08-02] MEDS: NYSTATIN 100,000 UNIT/GM TOPICAL CREAM 15 GM TUBE TP SCH ×2 (10:20→23:56)
[2018-08-02] MEDS: LACTOBACILLUS ACIDOPHILUS 1 TABLET PO SCH (10:20)
[2018-08-02] MEDS: ESCITALOPRAM OXALATE 10 MG TABLET (FP) PO SCH (10:20)
[2018-08-02] MEDS: metoPROLOL SUCCINATE 25 MG TAB.SR.24H (FP) PO SCH (10:21)
[2018-08-02] MEDS: amLODIPine BESYLATE 2.5 MG TABLET (FP) PO SCH (10:22)
[2018-08-02] MEDS ORDERED: FUROSEMIDE 40 MG/4 ML INJECTABLE VIAL IVPUSH ONE (12:05)
--- NOTE | 2018-08-02 12:10 | PN ---
Progress Note (short form) - Note Progress Note: pt seen/ examined chart reviewed awake/ comfortable poor historian. friend at bedside Vital Signs Temp 98.9 F 08/02/18 10:31 Pulse 88 08/02/18 10:31 Resp 18 08/02/18 10:31 BP 136/70 08/02/18 10:31 Pulse Ox 100 08/01/18 21:00 Intake & Output 08/01/18 08/02/18 08/02/18 23:59 11:59 23:59 Intake Total 1250 150 Output Total 450 300 Balance 800 -150 Weight 128 lb Intake: IV 1200 D5-Ns - 1,000 ml @ 75 mls 1200 /hr IV ASDIR [facility] Rx#: [id number] IVPB 50 Oral 150 Output: Urine 450 300 Antunez 450 300 Other: Voiding Method Indwelling Catheter Indwelling Catheter Bowel Movement No Height 5 ft 2 in Body Mass Index (BMI) 23.3 Active Medications Acetaminophen (Ofirmev Injection -) 1,000 mg IVPB ONCE PRN PRN Reason: PAIN Last Admin: 07/30/18 14:01 Dose: 1,000 mg Acetaminophen (Tylenol -) 650 mg PO Q6H [facility] Last Admin: 08/02/18 05:38 Dose: 650 mg Amlodipine Besylate (Norvasc -) 2.5 mg PO DAILY [facility] Last Admin: 08/02/18 10:22 Dose: 2.5 mg Atorvastatin Calcium (Lipitor -) 20 mg PO HS [facility] Last Admin: 08/01/18 22:39 Dose: 20 mg Escitalopram Oxalate (Lexapro -) 10 mg PO DAILY [facility] Last Admin: 08/02/18 10:20 Dose: 10 mg Furosemide (Lasix Injection -) 20 mg IVPUSH ONCE ONE Stop: 08/02/18 12:06 Heparin Sodium (Porcine) (Heparin -) 5,000 unit SQ TID [facility] Last Admin: 08/02/18 05:38 Dose: 5,000 unit Ceftriaxone Sodium 1 gm/ (Dextrose) 50 mls @ 100 mls/hr IVPB DAILY [facility]; Protocol Last Admin: 08/02/18 10:19 Dose: 100 mls/hr Insulin Aspart (Novolog Vial Sliding Scale -) 1 vial SQ ACHS [facility]; Protocol Last Admin: 08/02/18 06:05 Dose: 6 units Insulin Detemir (Levemir Vial) 10 units SQ BID@0700,2200 [facility] Last Admin: 08/01/18 06:26 Dose: Not Given Lactobacillus Acidophilus (Bacid -) 1 tab PO DAILY [facility] Last Admin: 08/02/18 10:20 Dose: 1 tab Levothyroxine Sodium (Synthroid -) 25 mcg PO DAILY@0700 [facility] Last Admin: 08/02/18 06:05 Dose: 25 mcg Lorazepam (Ativan -) 0.25 mg PO HS [facility] Last Admin: 08/01/18 22:39 Dose: 0.25 mg Metoprolol Succinate (Toprol Xl -) 12.5 mg PO DAILY [facility] Last Admin: 08/02/18 10:21 Dose: 12.5 mg Morphine Sulfate (Morphine Sulfate) 2 mg IVPUSH Q4H PRN PRN Reason: PAIN LEVEL 6-10 Last Admin: 08/01/18 16:09 Dose: 2 mg Multivitamins/Minerals/Vitamin C (Tab-A-Vit -) 1 tab PO DAILY [facility] Last Admin: 08/02/18 10:20 Dose: 1 tab Nystatin (Mycostatin Cream -) 1 applic TP BID [facility] Last Admin: 08/02/18 10:20 Dose: 1 applic Ondansetron HCl (Zofran Injection) 4 mg IVPUSH Q6H PRN PRN Reason: NAUSEA AND/OR VOMITING Pancrelipase (Creon Dr 6,000 Units Capsule) 1 cap PO TIDCM [facility] Last Admin: 08/02/18 08:47 Dose: 1 cap Ranitidine HCl (Zantac -) 150 mg PO DAILY [facility] Last Admin: 08/02/18 10:20 Dose: 150 mg CBC, BMP 08/02/18 07:16 08/02/18 07:16 Physical Exam awake. no distress S1 S2 RRR Lungs decreased breath sounds Abd- soft, right leg-- dressing in place a/p pod # 4 stable decrease in h/h Transfuse no obvious bleeding D/C Fluids Monitor labs PT monitor bgm maintain antunez Restarin for safety scd will follow Problem List - Problems (1) Fall Code(s): W19.XXXA - UNSPECIFIED FALL, INITIAL ENCOUNTER (2) Laceration Code(s): JSA4756 - (3) Closed displaced subtrochanteric fracture of right femur Code(s): S72.21XA - DISPLACED SUBTROCHANTERIC FRACTURE OF RIGHT FEMUR, INIT Qualifiers: Encounter type: initial encounter Qualified Code(s): S72.21XA - Displaced subtrochanteric fracture of right femur, initial encounter for closed fracture (4) Fall in elderly patient Code(s): R29.6 - REPEATED FALLS (5) UTI (urinary tract infection) Code(s): N39.0 - URINARY TRACT INFECTION, SITE NOT SPECIFIED Qualifiers: Urinary tract infection type: site unspecified Hematuria presence: without hematuria Qualified Code(s): N39.0 - Urinary tract infection, site not specified (6) CAD (coronary artery disease) Code(s): I25.10 - ATHSCL HEART DISEASE OF [place] CORONARY ARTERY W/O ANG PCTRS Qualifiers: Coronary Disease-Associated Artery/Lesion type: [place] artery [place] vs. transplanted heart: [place] heart Associated angina: without angina Qualified Code(s): I25.10 - Atherosclerotic heart disease of [place] coronary artery without angina pectoris (7) Diabetes Code(s): E11.9 - TYPE 2 DIABETES MELLITUS WITHOUT COMPLICATIONS Qualifiers: Diabetes mellitus type: type 1 Diabetes mellitus complication status: with hypoglycemia Diabetes mellitus complication detail: without coma Qualified Code(s): E10.649 - Type 1 diabetes mellitus with hypoglycemia without coma (8) Hypoglycemia Code(s): E16.2 - HYPOGLYCEMIA, UNSPECIFIED (9) Atrial fibrillation Code(s): I48.91 - UNSPECIFIED ATRIAL FIBRILLATION
--- NOTE | 2018-08-02 12:11 | PN ---
Progress Note (short form) - Note Progress Note: Ortho Pt seen and examined s/p right IM gamma nail Selected Entries 08/02/18 10:31 Temperature 98.9 F Pulse Rate 88 Respiratory 18 Rate Blood Pressure 136/70 Laboratory Tests 08/02/18 07:16 WBC 3.4 L Hgb 7.3 L Hct 21.2 L Plt Count 87 L dressing c/d/i, calf soft, nt nvi a/p PT if able WBAT monitor h/h dvt ppx pain control d/c planning
--- NOTE | 2018-08-02 14:48 | PN ---
Progress Note, Physician History of Present Illness: Transfused for post-op bleed, Hgb dropped again, hemodynamics stable. - Current Medication List Current Medications: Active Medications Acetaminophen (Ofirmev Injection -) 1,000 mg IVPB ONCE PRN PRN Reason: PAIN Last Admin: 07/30/18 14:01 Dose: 1,000 mg Acetaminophen (Tylenol -) 650 mg PO Q6H [facility] Last Admin: 08/02/18 12:20 Dose: 650 mg Amlodipine Besylate (Norvasc -) 2.5 mg PO DAILY [facility] Last Admin: 08/02/18 10:22 Dose: 2.5 mg Atorvastatin Calcium (Lipitor -) 20 mg PO HS [facility] Last Admin: 08/01/18 22:39 Dose: 20 mg Escitalopram Oxalate (Lexapro -) 10 mg PO DAILY [facility] Last Admin: 08/02/18 10:20 Dose: 10 mg Furosemide (Lasix Injection -) 20 mg IVPUSH ONCE ONE Stop: 08/02/18 12:06 Heparin Sodium (Porcine) (Heparin -) 5,000 unit SQ TID [facility] Last Admin: 08/02/18 14:03 Dose: 5,000 unit Ceftriaxone Sodium 1 gm/ (Dextrose) 50 mls @ 100 mls/hr IVPB DAILY [facility]; Protocol Last Admin: 08/02/18 10:19 Dose: 100 mls/hr Insulin Aspart (Novolog Vial Sliding Scale -) 1 vial SQ ACHS [facility]; Protocol Last Admin: 08/02/18 12:17 Dose: 10 units Insulin Detemir (Levemir Vial) 10 units SQ BID@0700,2200 [facility] Last Admin: 08/01/18 06:26 Dose: Not Given Lactobacillus Acidophilus (Bacid -) 1 tab PO DAILY [facility] Last Admin: 08/02/18 10:20 Dose: 1 tab Levothyroxine Sodium (Synthroid -) 25 mcg PO DAILY@0700 [facility] Last Admin: 08/02/18 06:05 Dose: 25 mcg Lorazepam (Ativan -) 0.25 mg PO HS [facility] Last Admin: 08/01/18 22:39 Dose: 0.25 mg Metoprolol Succinate (Toprol Xl -) 12.5 mg PO DAILY [facility] Last Admin: 08/02/18 10:21 Dose: 12.5 mg Morphine Sulfate (Morphine Sulfate) 2 mg IVPUSH Q4H PRN PRN Reason: PAIN LEVEL 6-10 Last Admin: 08/01/18 16:09 Dose: 2 mg Multivitamins/Minerals/Vitamin C (Tab-A-Vit -) 1 tab PO DAILY [facility] Last Admin: 08/02/18 10:20 Dose: 1 tab Nystatin (Mycostatin Cream -) 1 applic TP BID [facility] Last Admin: 08/02/18 10:20 Dose: 1 applic Ondansetron HCl (Zofran Injection) 4 mg IVPUSH Q6H PRN PRN Reason: NAUSEA AND/OR VOMITING Pancrelipase (Creon Dr 6,000 Units Capsule) 1 cap PO TIDCM [facility] Last Admin: 08/02/18 12:17 Dose: 1 cap Ranitidine HCl (Zantac -) 150 mg PO DAILY [facility] Last Admin: 08/02/18 10:20 Dose: 150 mg - Objective Vital Signs: Vital Signs Temperature 97.8 F 08/02/18 13:49 Pulse Rate 101 H 08/02/18 13:49 Respiratory Rate 18 08/02/18 13:49 Blood Pressure 116/60 08/02/18 13:49 O2 Sat by Pulse Oximetry (%) 100 08/02/18 09:00 Constitutional: Yes: No Distress, Calm, Thin Neck: Yes: Supple Cardiovascular: Yes: Regular Rate and Rhythm Respiratory: Yes: Regular, CTA Bilaterally Gastrointestinal: Yes: Normal Bowel Sounds, Soft Edema: No Labs: CBC, BMP 08/02/18 07:16 08/02/18 07:16 INR, PTT INR 1.14 (0.82-1.09) 07/30/18 07:05 Problem List - Problems (1) Closed nondisplaced intertrochanteric fracture of right femur with routine healing Code(s): S72.144D - NONDISP INTERTROCH FX R FEMUR, SUBS FOR CLOS FX W ROUTN HEAL (2) Fall in elderly patient Code(s): R29.6 - REPEATED FALLS (3) History of percutaneous coronary intervention Code(s): Z98.61 - CORONARY ANGIOPLASTY STATUS (4) PAD (peripheral artery disease) Code(s): I73.9 - PERIPHERAL VASCULAR DISEASE, UNSPECIFIED (5) S/P percutaneous transluminal angioplasty (AGRICULTURAL EXTENSION AGENT) Code(s): Z98.62 - PERIPHERAL VASCULAR ANGIOPLASTY STATUS (6) CAD (coronary artery disease) Code(s): I25.10 - ATHSCL HEART DISEASE OF [place] CORONARY ARTERY W/O ANG PCTRS Qualifiers: Coronary Disease-Associated Artery/Lesion type: [place] artery [place] vs. transplanted heart: [place] heart Associated angina: without angina Qualified Code(s): I25.10 - Atherosclerotic heart disease of [place] coronary artery without angina pectoris (7) Diabetes Code(s): E11.9 - TYPE 2 DIABETES MELLITUS WITHOUT COMPLICATIONS Qualifiers: Diabetes mellitus type: type 1 Diabetes mellitus complication status: with hypoglycemia Diabetes mellitus complication detail: without coma Qualified Code(s): E10.649 - Type 1 diabetes mellitus with hypoglycemia without coma (8) Hyperlipidemia associated with type 2 diabetes mellitus Code(s): E11.69 - TYPE 2 DIABETES MELLITUS WITH OTHER SPECIFIED COMPLICATION; E78.5 - HYPERLIPIDEMIA, UNSPECIFIED (9) Hypothyroid Code(s): E03.9 - HYPOTHYROIDISM, UNSPECIFIED Assessment/Plan 1. Post mechanical fall resulting in right hip fracture s/p right IM gamma nail pod #3 2. Post-op bleed post pRBC transfusion 3. CAD s/p PCI/stent, angina 4. HTN 5. Hypercholesterolemia 6. DM 7. CVA/TIA 8. Hypothyroidism 9. GERD 10. COPD 11. PAD s/p AGRICULTURAL EXTENSION AGENT 12. CKD 13. UTI P:1. Monitor Hgb post transfusion and transfuse to maintain Hgb>8.0 2. Continue Toprol XL 12.5 qd, Lipitor 20 qd and Amlodipine 2.5 qd as hemodynamics tolerate 3. Empiric antibiotic course 4. Eventually start ASA when Hgb stable 5. DVT and GI prophylaxis, analgesia as needed
[2018-08-02] MEDS ORDERED: MORPHINE SULFATE 2 MG/ML VIAL IVPUSH PRN (21:16)
[2018-08-02] MEDS ORDERED: ONDANSETRON 4 MG/2 ML VIAL IVPUSH PRN (21:16)
[2018-08-02] MEDS ORDERED: ACETAMINOPHEN 1000 MG/100 ML VIAL (NON FORMULARY) IVPB ONE (21:16)
[2018-08-02] MEDS: LORazepam 0.5 MG TABLET PO SCH (23:56)
[2018-08-02] MEDS: ATORVASTATIN CA 20 MG TABLET (FP) PO SCH (23:56)
[2018-08-03] MEDS: HEPARIN NA (PORCINE) 5,000 UNITS/ML 1ML VIAL SQ SCH ×3 (06:13→22:00)
[2018-08-03] MEDS: LEVOTHYROXINE NA 25 MCG TABLET (FP) PO SCH (06:13)
[2018-08-03] MEDS: ACETAMINOPHEN 325 MG TABLET (FP) PO SCH ×3 (06:13→18:00)
[2018-08-03] MEDS: INSULIN SLIDING SCALE (NOVOLOG) 1 VIAL SQ SCH ×4 (06:13→22:00)
[2018-08-03] MEDS ORDERED: PT OWN MED DRAWER 7, Y5N ONE ×2 (08:16→08:42)
[2018-08-03 08:33] LABS: BASO % 0.2 % (0-2.0); EOS % 1.5 % (0-4.5); HEMATOCRIT 21.3 % (32.4-45.2); HEMOGLOBIN 7.3 GM/dL (10.7-15.3); LYMPH % 15.9 % (8-40); MCH 30.4 pg (25.7-33.7); MCHC 34.1 g/dl (32.0-36.0); MEAN CELL VOLUME 89.2 fl (80-96); MEAN PLT VOLUME 9.3 fl (7.5-11.1); MONO % 8.7 % (3.8-10.2); NEUT % 73.7 % (42.8-82.8); PLATELET COUNT 99 K/MM3 (134-434); RBC 2.39 M/mm3 (3.60-5.2); RDW 14.8 % (11.6-15.6); WHITE BLOOD COUNT 4.4 K/mm3 (4.0-10.0)
[2018-08-03] MEDS ORDERED: DEXTROSE 5%-WATER - 50 ML IVPB ONE (08:42)
[2018-08-03] MEDS ORDERED: cefTRIAXone SODIUM 1 GM VIAL ONE (08:42)
[2018-08-03] MEDS: LIPASE/PROTEASE/AMYLASE 6,000 UNIT CAPSULE PO SCH ×3 (08:50→17:21)
[2018-08-03] MEDS: LACTOBACILLUS ACIDOPHILUS 1 TABLET PO SCH (09:16)
[2018-08-03] MEDS: MULTIVITAMINS (DAILY MVI) TABLET (FP) PO SCH (09:16)
[2018-08-03] MEDS: metoPROLOL SUCCINATE 25 MG TAB.SR.24H (FP) PO SCH (09:16)
[2018-08-03] MEDS: amLODIPine BESYLATE 2.5 MG TABLET (FP) PO SCH (09:16)
[2018-08-03] MEDS: ESCITALOPRAM OXALATE 10 MG TABLET (FP) PO SCH (09:17)
[2018-08-03] MEDS: RANITIDINE HCL 150 MG TABLET (FP) PO SCH (09:17)
[2018-08-03] MEDS: NYSTATIN 100,000 UNIT/GM TOPICAL CREAM 15 GM TUBE TP SCH ×3 (09:18→22:00)
[2018-08-03 09:20] LABS: ALBUMIN 2.6 g/dl (3.4-5.0); ALK PHOS 70 U/L (45-117); ANION GAP 8 MMOL/L (8-16); BILIRUBIN,TOTAL 1.7 mg/dL (0.2-1); BLOOD UREA NITROGEN 27 mg/dL (7-18); CALCIUM 8.1 mg/dL (8.5-10.1); CHLORIDE 114 mmol/L (98-107); CO2 23 mmol/L (21-32); CREATININE 1.2 mg/dL (0.55-1.3); GLUCOSE,RANDOM 199 mg/dL (74-106); POTASSIUM 3.5 mmol/L (3.5-5.1); SGOT/AST 39 U/L (15-37); SGPT/ALT 25 U/L (13-61); SODIUM 145 mmol/L (136-145)
[2018-08-03] MEDS ORDERED: CEFTRIAXONE 1 GM in DEXTROSE 5%-WATER - 50 ML IVPB SCH (10:00)
--- NOTE | 2018-08-03 10:45 | PN ---
Progress Note (short form) - Note Progress Note: pt seen/ examined awake/ comfortable low grade temp overall comfortable Vital Signs Temp 99.8 F H 08/03/18 10:00 Pulse 92 H 08/03/18 10:00 Resp 20 08/03/18 10:00 BP 142/68 08/03/18 10:00 Pulse Ox 100 08/02/18 21:00 Intake & Output 08/02/18 08/02/18 08/03/18 11:59 23:59 11:59 Intake Total 150 240 250 Output Total 300 1000 400 Balance -150 -760 -150 Intake: Oral 150 240 250 Output: Urine 300 1000 400 Antunez 300 1000 400 Other: Voiding Method Indwelling Catheter Indwelling Catheter Indwelling Catheter Bowel Movement Yes Yes # Bowel Movements 3 2 Active Medications Acetaminophen (Tylenol -) 650 mg PO Q6H [facility] Last Admin: 08/03/18 06:13 Dose: 650 mg Amlodipine Besylate (Norvasc -) 2.5 mg PO DAILY [facility] Last Admin: 08/03/18 09:16 Dose: 2.5 mg Atorvastatin Calcium (Lipitor -) 20 mg PO [facility] Last Admin: 08/02/18 23:56 Dose: 20 mg Escitalopram Oxalate (Lexapro -) 10 mg PO DAILY [facility] Last Admin: 08/03/18 09:17 Dose: 10 mg Furosemide (Lasix Injection -) 20 mg IVPUSH [employer] [facility] Stop: 08/04/18 12:04 Heparin Sodium (Porcine) (Heparin -) 5,000 unit SQ TID [facility] Last Admin: 08/03/18 06:13 Dose: 5,000 unit Insulin Aspart (Novolog Vial Sliding Scale -) 1 vial SQ [facility]; Protocol Last Admin: 08/03/18 06:13 Dose: 2 units Lactobacillus Acidophilus (Bacid -) 1 tab PO DAILY [facility] Last Admin: 08/03/18 09:16 Dose: 1 tab Levothyroxine Sodium (Synthroid -) 25 mcg PO DAILY@0700 [facility] Last Admin: 08/03/18 06:13 Dose: 25 mcg Lorazepam (Ativan -) 0.25 mg PO HS [facility] Last Admin: 08/02/18 23:56 Dose: 0.25 mg Metoprolol Succinate (Toprol Xl -) 12.5 mg PO DAILY [facility] Last Admin: 08/03/18 09:16 Dose: 12.5 mg Morphine Sulfate (Morphine Sulfate) 2 mg IVPUSH Q4H PRN PRN Reason: PAIN LEVEL 6-10 Last Admin: 08/03/18 09:14 Dose: 2 mg Multivitamins/Minerals/Vitamin C (Tab-A-Vit -) 1 tab PO DAILY [facility] Last Admin: 08/03/18 09:16 Dose: 1 tab Nystatin (Mycostatin Cream -) 1 applic TP BID [facility] Last Admin: 08/03/18 09:18 Dose: 1 applic Ondansetron HCl (Zofran Injection) 4 mg IVPUSH Q6H PRN PRN Reason: NAUSEA AND/OR VOMITING Pancrelipase (Creon Dr 6,000 Units Capsule) 1 cap PO TIDCM [facility] Last Admin: 08/03/18 08:50 Dose: 1 cap Ranitidine HCl (Zantac -) 150 mg PO DAILY [facility] Last Admin: 08/03/18 09:17 Dose: 150 mg CBC, BMP 08/03/18 07:30 08/03/18 07:30 Microbiology 07/29/18 12:46 Blood Culture - Preliminary Blood - Peripheral Venous NO GROWTH OBTAINED AFTER 96 HOURS, INCUBATION TO CONTINUE FOR 1 DAYS. 07/29/18 12:46 Blood Culture - Preliminary Blood - Peripheral Venous NO GROWTH OBTAINED AFTER 96 HOURS, INCUBATION TO CONTINUE FOR 1 DAYS. Physical Exam awake. no distress S1 S2 RRR Lungs decreased breath sounds Abd- soft, right leg-- dressing in place a/p pod # 5 stable Transfuse today no obvious bleeding Monitor labs PT monitor bgm d/c antunez Restarin for safety scd will follow d/c abx Problem List - Problems (1) Fall Code(s): W19.XXXA - UNSPECIFIED FALL, INITIAL ENCOUNTER (2) Laceration Code(s): [id number] - (3) Closed displaced subtrochanteric fracture of right femur Code(s): S72.21XA - DISPLACED SUBTROCHANTERIC FRACTURE OF RIGHT FEMUR, INIT Qualifiers: Encounter type: initial encounter Qualified Code(s): S72.21XA - Displaced subtrochanteric fracture of right femur, initial encounter for closed fracture (4) Fall in elderly patient Code(s): R29.6 - REPEATED FALLS (5) UTI (urinary tract infection) Code(s): N39.0 - URINARY TRACT INFECTION, SITE NOT SPECIFIED Qualifiers: Urinary tract infection type: site unspecified Hematuria presence: without hematuria Qualified Code(s): N39.0 - Urinary tract infection, site not specified (6) CAD (coronary artery disease) Code(s): I25.10 - ATHSCL HEART DISEASE OF [place] CORONARY ARTERY W/O ANG PCTRS Qualifiers: Coronary Disease-Associated Artery/Lesion type: [place] artery [place] vs. transplanted heart: [place] heart Associated angina: without angina Qualified Code(s): I25.10 - Atherosclerotic heart disease of [place] coronary artery without angina pectoris (7) Diabetes Code(s): E11.9 - TYPE 2 DIABETES MELLITUS WITHOUT COMPLICATIONS Qualifiers: Diabetes mellitus type: type 1 Diabetes mellitus complication status: with hypoglycemia Diabetes mellitus complication detail: without coma Qualified Code(s): E10.649 - Type 1 diabetes mellitus with hypoglycemia without coma (8) Hypoglycemia Code(s): E16.2 - HYPOGLYCEMIA, UNSPECIFIED (9) Atrial fibrillation Code(s): I48.91 - UNSPECIFIED ATRIAL FIBRILLATION
[2018-08-03] MEDS ORDERED: FUROSEMIDE 40 MG/4 ML INJECTABLE VIAL IVPUSH SCH (12:05)
--- NOTE | 2018-08-03 18:47 | PN ---
Progress Note (short form) - Note Progress Note: Chief Complaint: Events noted, notes reviewed, non verbal no distress History of Present Illness: Seen and examined. 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 [facility] Stop: 08/04/18 12:04 Last Admin: 08/03/18 17:20 Dose: 20 mg Heparin Sodium (Porcine) (Heparin -) 5,000 unit SQ TID [facility] Last Admin: 08/03/18 13:11 Dose: 5,000 unit Insulin Aspart (Novolog Vial Sliding Scale -) 1 vial SQ [facility]; Protocol Last Admin: 08/03/18 17:21 Dose: 10 units Lactobacillus Acidophilus (Bacid -) 1 tab PO DAILY [facility] Last Admin: 08/03/18 09:16 Dose: 1 tab Levothyroxine Sodium (Synthroid -) 25 mcg PO DAILY@0700 [facility] Last Admin: 08/03/18 06:13 Dose: 25 mcg Lorazepam (Ativan -) 0.25 mg PO [facility] Last Admin: 08/02/18 23:56 Dose: 0.25 mg Metoprolol Succinate (Toprol Xl -) 12.5 mg PO DAILY [facility] Last Admin: 08/03/18 09:16 Dose: 12.5 mg Morphine Sulfate (Morphine Sulfate) 2 mg IVPUSH Q4H PRN PRN Reason: PAIN LEVEL 6-10 Last Admin: 08/03/18 09:14 Dose: 2 mg Multivitamins/Minerals/Vitamin C (Tab-A-Vit -) 1 tab PO DAILY [facility] Last Admin: 08/03/18 09:16 Dose: 1 tab Nystatin (Mycostatin Cream -) 1 applic TP BID [facility] Last Admin: 08/03/18 09:18 Dose: 1 applic Ondansetron HCl (Zofran Injection) 4 mg IVPUSH Q6H PRN PRN Reason: NAUSEA AND/OR VOMITING Pancrelipase ([place] Dr 6,000 Units Capsule) 1 cap PO TIDCM [facility] Last Admin: 08/03/18 17:21 Dose: 1 cap Ranitidine HCl (Zantac -) 150 mg PO DAILY [facility] Last Admin: 08/03/18 09:17 Dose: 150 mg - Objective Vital Signs: Last Vital Signs Temp Pulse Resp BP Pulse Ox 98.4 F 87 18 135/70 100 08/03/18 13:28 08/03/18 13:28 08/03/18 13:28 08/03/18 13:28 08/03/18 09:00 Intake & Output 07/31/18 08/01/18 08/02/18 08/03/18 23:59 23:59 23:59 23:59 Intake Total 700 2150 390 700 Output Total 500 1350 1300 700 Balance 200 800 -910 0 Weight 128 lb Constitutional: No Distress, Calm Neck: Supple Negative JVD Cardiovascular: S1 S2 Regular Rate Rhythm Respiratory: Diminished Breath Sounds at the Bases Bilaterally Gastrointestinal: Soft Benign Normal Bowel Sounds Ext: No Edema Labs: CBC, BMP 08/03/18 07:30 08/03/18 07:30 Hepatic Panel Total Bilirubin 1.7 mg/dL (0.2-1) H 08/03/18 07:30 AST 39 U/L (15-37) H 08/03/18 07:30 ALT 25 U/L (13-61) 08/03/18 07:30 Alkaline Phosphatase 70 U/L (45-117) 08/03/18 07:30 Albumin 2.6 g/dl (3.4-5.0) L 08/03/18 07:30 INR, PTT INR 1.14 (0.82-1.09) 07/30/18 07:05 Assessment/Plan ASSESSMENT: 1. Post mechanical fall resulting in right hip fracture post right IM gamma nail POD #4 2. Post-operative bleed post transfusion 3. CAD post PCI/stent angina pectoris 4. Diastolic LV dysfunction with clinical class 0 NYHA classification LV failure 5. HTN 6. DM 7. Hypercholesterolemia 8. CVA/TIA 9. 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 Hypothyroidism 11. COPD 12. GERD 13. CKD PLAN: 1. Monitor Hgb and transfuse to maintain Hgb > 8.0 2. Continue Toprol XL, hemodynamics permitting 3. Continue Norvasc, hemodynamics permitting 4. Continue Lipitor Surjit Reyes MD
[2018-08-03] MEDS ORDERED: INSULIN (NOVOLOG) ASPART 100 UNITS/ML 10ML VIAL ONE (21:16)
[2018-08-03] MEDS: ATORVASTATIN CA 20 MG TABLET (FP) PO SCH (22:00)
[2018-08-03] MEDS: LORazepam 0.5 MG TABLET PO SCH (22:00)
[2018-08-04] MEDS: ACETAMINOPHEN 325 MG TABLET (FP) PO SCH ×5 (00:01→23:54)
[2018-08-04] MEDS: HEPARIN NA (PORCINE) 5,000 UNITS/ML 1ML VIAL SQ SCH ×3 (05:57→22:44)
[2018-08-04] MEDS: LEVOTHYROXINE NA 25 MCG TABLET (FP) PO SCH (06:07)
[2018-08-04] MEDS: INSULIN SLIDING SCALE (NOVOLOG) 1 VIAL SQ SCH ×4 (06:07→22:45)
[2018-08-04 07:56] LABS: BASO % 0.2 % (0-2.0); EOS % 3.7 % (0-4.5); HEMOGLOBIN 12.3 GM/dL (10.7-15.3); LYMPH % 23.6 % (8-40); MCH 30.3 pg (25.7-33.7); MCHC 34.2 g/dl (32.0-36.0); MEAN CELL VOLUME 88.8 fl (80-96); MEAN PLT VOLUME 9.4 fl (7.5-11.1); MONO % 7.3 % (3.8-10.2); NEUT % 65.2 % (42.8-82.8); PLATELET COUNT 118 K/MM3 (134-434); RBC 4.05 M/mm3 (3.60-5.2); RDW 17.9 % (11.6-15.6); WHITE BLOOD COUNT 6.5 K/mm3 (4.0-10.0)
[2018-08-04] MEDS ORDERED: PT OWN MED DRAWER 7, Y5N ONE ×3 (08:18→15:25)
[2018-08-04] MEDS: RANITIDINE HCL 150 MG TABLET (FP) PO SCH (09:20)
[2018-08-04] MEDS: ESCITALOPRAM OXALATE 10 MG TABLET (FP) PO SCH (09:20)
[2018-08-04] MEDS: LACTOBACILLUS ACIDOPHILUS 1 TABLET PO SCH (09:20)
[2018-08-04] MEDS: MULTIVITAMINS (DAILY MVI) TABLET (FP) PO SCH (09:20)
[2018-08-04] MEDS: amLODIPine BESYLATE 2.5 MG TABLET (FP) PO SCH (09:20)
[2018-08-04] MEDS: NYSTATIN 100,000 UNIT/GM TOPICAL CREAM 15 GM TUBE TP SCH ×2 (09:20→22:45)
[2018-08-04] MEDS: metoPROLOL SUCCINATE 25 MG TAB.SR.24H (FP) PO SCH (09:20)
[2018-08-04] MEDS: LIPASE/PROTEASE/AMYLASE 6,000 UNIT CAPSULE PO SCH ×3 (09:20→17:25)
--- NOTE | 2018-08-04 10:29 | PN ---
Progress Note (short form) - Note Progress Note: pt seen/ examined. comfortable Vital Signs Temp 97.9 F 08/03/18 22:00 Pulse 78 08/03/18 22:00 Resp 18 08/03/18 22:00 BP 148/64 08/03/18 22:00 Pulse Ox 97 08/03/18 21:00 Intake & Output 08/03/18 08/03/18 08/04/18 11:59 23:59 11:59 Intake Total 250 1150 0 Output Total 400 1200 Balance -150 -50 0 Intake: IV 0 0 saline flush 0 0 IVPB 200 Oral 250 250 [place] 700 Output: Urine 400 1200 [place] 400 1200 Other: Voiding Method Indwelling Catheter Incontinent Diaper Bowel Movement Yes Yes Yes: 1 # Bowel Movements 2 Active Medications Acetaminophen (Tylenol -) 650 mg PO Q6H [facility] Last Admin: 08/04/18 05:57 Dose: 650 mg Amlodipine Besylate (Norvasc -) 2.5 mg PO DAILY [facility] Last Admin: 08/04/18 09:20 Dose: 2.5 mg Atorvastatin Calcium (Lipitor -) [address] [facility] Last Admin: 08/03/18 22:00 Dose: 20 mg Escitalopram Oxalate (Lexapro -) 10 mg PO DAILY [facility] Last Admin: 08/04/18 09:20 Dose: 10 mg Furosemide (Lasix Injection -) 20 mg IVPUSH [employer] [facility] Stop: 08/04/18 12:04 Last Admin: 08/03/18 17:20 Dose: 20 mg Heparin Sodium (Porcine) (Heparin -) 5,000 unit SQ TID [facility] Last Admin: 08/04/18 05:57 Dose: 5,000 unit Insulin Aspart (Novolog Vial Sliding Scale -) 1 vial SQ ACHS [facility]; Protocol Last Admin: 08/04/18 06:07 Dose: Not Given Lactobacillus Acidophilus (Bacid -) 1 tab PO DAILY [facility] Last Admin: 08/04/18 09:20 Dose: 1 tab Levothyroxine Sodium (Synthroid -) 25 mcg PO DAILY@0700 [facility] Last Admin: 08/04/18 06:07 Dose: 25 mcg Lorazepam (Ativan -) 0.[address] [facility] Last Admin: 08/03/18 22:00 Dose: 0.25 mg Metoprolol Succinate (Toprol Xl -) 12.5 mg PO DAILY [facility] Last Admin: 08/04/18 09:20 Dose: 12.5 mg Morphine Sulfate (Morphine Sulfate) 2 mg IVPUSH Q4H PRN PRN Reason: PAIN LEVEL 6-10 Last Admin: 08/03/18 09:14 Dose: 2 mg Multivitamins/Minerals/Vitamin C (Tab-A-Vit -) 1 tab PO DAILY [facility] Last Admin: 08/04/18 09:20 Dose: 1 tab Nystatin (Mycostatin Cream -) 1 applic TP BID [facility] Last Admin: 08/04/18 09:20 Dose: 1 applic Ondansetron HCl (Zofran Injection) 4 mg IVPUSH Q6H PRN PRN Reason: NAUSEA AND/OR VOMITING Pancrelipase (Creon Dr 6,000 Units Capsule) 1 cap PO TIDCM [facility] Last Admin: 08/04/18 09:20 Dose: 1 cap Ranitidine HCl (Zantac -) 150 mg PO DAILY [facility] Last Admin: 08/04/18 09:20 Dose: 150 mg CBC, BMP 08/04/18 06:45 08/03/18 07:30 Microbiology 07/29/18 12:46 Blood Culture - Final Blood - Peripheral Venous NO GROWTH AFTER 5 DAYS INCUBATION 07/29/18 12:46 Blood Culture - Final Blood - Peripheral Venous NO GROWTH AFTER 5 DAYS INCUBATION Physical Exam awake. no distress S1 S2 RRR Lungs decreased breath sounds Abd- soft, right leg-- dressing in place a/p pod # 6 stable no obvious bleeding Monitor labs PT monitor bgm Restarin for safety scd d/c planning-- if stable -- d/c in am ortho f/u pending will follow Problem List - Problems (1) Fall Code(s): W19.XXXA - UNSPECIFIED FALL, INITIAL ENCOUNTER (2) Laceration Code(s): [id number] - (3) Closed displaced subtrochanteric fracture of right femur Code(s): S72.21XA - DISPLACED SUBTROCHANTERIC FRACTURE OF RIGHT FEMUR, INIT Qualifiers: Encounter type: initial encounter Qualified Code(s): S72.21XA - Displaced subtrochanteric fracture of right femur, initial encounter for closed fracture (4) Fall in elderly patient Code(s): R29.6 - REPEATED FALLS (5) UTI (urinary tract infection) Code(s): N39.0 - URINARY TRACT INFECTION, SITE NOT SPECIFIED Qualifiers: Urinary tract infection type: site unspecified Hematuria presence: without hematuria Qualified Code(s): N39.0 - Urinary tract infection, site not specified (6) CAD (coronary artery disease) Code(s): I25.10 - ATHSCL HEART DISEASE OF [place] CORONARY ARTERY W/O ANG PCTRS Qualifiers: Coronary Disease-Associated Artery/Lesion type: [place] artery [place] vs. transplanted heart: [place] heart Associated angina: without angina Qualified Code(s): I25.10 - Atherosclerotic heart disease of [place] coronary artery without angina pectoris (7) Diabetes Code(s): E11.9 - TYPE 2 DIABETES MELLITUS WITHOUT COMPLICATIONS Qualifiers: Diabetes mellitus type: type 1 Diabetes mellitus complication status: with hypoglycemia Diabetes mellitus complication detail: without coma Qualified Code(s): E10.649 - Type 1 diabetes mellitus with hypoglycemia without coma (8) Hypoglycemia Code(s): E16.2 - HYPOGLYCEMIA, UNSPECIFIED (9) Atrial fibrillation Code(s): I48.91 - UNSPECIFIED ATRIAL FIBRILLATION
[2018-08-04 10:37] LABS: BASO % 0.3 % (0-2.0); HEMATOCRIT 27.4 % (32.4-45.2); HEMOGLOBIN 9.4 GM/dL (10.7-15.3); LYMPH % 13.7 % (8-40); MCH 29.3 pg (25.7-33.7); MCHC 34.4 g/dl (32.0-36.0); MEAN CELL VOLUME 85.2 fl (80-96); MEAN PLT VOLUME 8.6 fl (7.5-11.1); MONO % 7.4 % (3.8-10.2); NEUT % 76.6 % (42.8-82.8); PLATELET COUNT 120 K/MM3 (134-434); RBC 3.21 M/mm3 (3.60-5.2); RDW 17.1 % (11.6-15.6); WHITE BLOOD COUNT 5.8 K/mm3 (4.0-10.0)
[2018-08-04 11:34] LABS: ANISOCYTOSIS 1+; MACROCYTOSIS 0; PLATELET ESTIMATE DECREASED
--- NOTE | 2018-08-04 15:18 | PN ---
Progress Note (short form) - Note Progress Note: Chief Complaint: Events noted, notes reviewed, non verbal no distress History of Present Illness: Seen and examined. Events noted, notes reviewed, non verbal no distress - Current Medication List Current Medications Acetaminophen (Tylenol -) 650 mg PO Q6H [facility] Last Admin: 08/04/18 13:58 Dose: 650 mg Amlodipine Besylate (Norvasc -) 2.5 mg PO DAILY [facility] Last Admin: 08/04/18 09:20 Dose: 2.5 mg Atorvastatin Calcium (Lipitor -) 20 mg PO HS [facility] Last Admin: 08/03/18 22:00 Dose: 20 mg Escitalopram Oxalate (Lexapro -) 10 mg PO DAILY [facility] Last Admin: 08/04/18 09:20 Dose: 10 mg Heparin Sodium (Porcine) (Heparin -) 5,000 unit SQ TID [facility] Last Admin: 08/04/18 13:59 Dose: 5,000 unit Insulin Aspart (Novolog Vial Sliding Scale -) 1 vial SQ [facility]; Protocol Last Admin: 08/04/18 12:18 Dose: 12 units Lactobacillus Acidophilus (Bacid -) 1 tab PO DAILY [facility] Last Admin: 08/04/18 09:20 Dose: 1 tab Levothyroxine Sodium (Synthroid -) 25 mcg PO DAILY@0700 [facility] Last Admin: 08/04/18 06:07 Dose: 25 mcg Lorazepam (Ativan -) 0.25 mg PO [facility] Last Admin: 08/03/18 22:00 Dose: 0.25 mg Metoprolol Succinate (Toprol Xl -) 12.5 mg PO DAILY [facility] Last Admin: 08/04/18 09:20 Dose: 12.5 mg Morphine Sulfate (Morphine Sulfate) 2 mg IVPUSH Q4H PRN PRN Reason: PAIN LEVEL 6-10 Last Admin: 08/03/18 09:14 Dose: 2 mg Multivitamins/Minerals/Vitamin C (Tab-A-Vit -) 1 tab PO DAILY [facility] Last Admin: 08/04/18 09:20 Dose: 1 tab Nystatin (Mycostatin Cream -) 1 applic TP BID [facility] Last Admin: 08/04/18 09:20 Dose: 1 applic Ondansetron HCl (Zofran Injection) 4 mg IVPUSH Q6H PRN PRN Reason: NAUSEA AND/OR VOMITING Pancrelipase (Creon Dr 6,000 Units Capsule) 1 cap PO TIDCM [facility] Last Admin: 08/04/18 12:19 Dose: 1 cap Ranitidine HCl (Zantac -) 150 mg PO DAILY [facility] Last Admin: 08/04/18 09:20 Dose: 150 mg - Objective Vital Signs: Last Vital Signs Temp Pulse Resp BP Pulse Ox 98.6 F 88 18 147/69 98 08/04/18 14:41 08/04/18 14:41 08/04/18 14:41 08/04/18 14:41 08/04/18 09:00 Intake & Output 08/01/18 08/02/18 08/03/18 08/04/18 23:59 23:59 23:59 23:59 Intake Total 2150 390 1400 0 Output Total 1350 1300 1600 Balance 800 -910 -200 0 Weight 128 lb Constitutional: No Distress, Calm Neck: Supple Negative JVD Cardiovascular: S1 S2 Regular Rate Rhythm Respiratory: Diminished Breath Sounds at the Bases Bilaterally Gastrointestinal: Soft Benign Normal Bowel Sounds Ext: No Edema Labs: CBC, BMP 08/04/18 10:32 08/04/18 11:50 INR, PTT INR 1.14 (0.82-1.09) 07/30/18 07:05 Assessment/Plan ASSESSMENT: 1. Post mechanical fall resulting in right hip fracture post right IM gamma nail POD #5 2. Post-operative bleed post transfusion 3. CAD post PCI/stent angina pectoris 4. Diastolic LV dysfunction with clinical class 0 NYHA classification LV failure 5. HTN 6. DM 7. Hypercholesterolemia 8. CVA/TIA 9. PAD post OUTDOOR GUIDE 10. Hypothyroidism 11. COPD 12. GERD 13. CKD PLAN: 1. Monitor Hgb and transfuse to maintain Hgb > 8.0 2. Continue Toprol XL, hemodynamics permitting 3. Continue Norvasc, hemodynamics permitting 4. Continue Lipitor Surjit Reyes MD
[2018-08-04] MEDS ORDERED: INSULIN (NOVOLOG) ASPART 100 UNITS/ML 10ML VIAL ONE (20:48)
[2018-08-04] MEDS: LORazepam 0.5 MG TABLET PO SCH (22:45)
[2018-08-04] MEDS: ATORVASTATIN CA 20 MG TABLET (FP) PO SCH (22:45)
[2018-08-05] MEDS: LEVOTHYROXINE NA 25 MCG TABLET (FP) PO SCH (06:35)
[2018-08-05] MEDS: HEPARIN NA (PORCINE) 5,000 UNITS/ML 1ML VIAL SQ SCH ×3 (06:35→22:17)
[2018-08-05] MEDS: INSULIN SLIDING SCALE (NOVOLOG) 1 VIAL SQ SCH ×4 (06:35→22:21)
[2018-08-05] MEDS: ACETAMINOPHEN 325 MG TABLET (FP) PO SCH ×3 (06:35→17:34)
[2018-08-05 08:19] LABS: BASO % 0.3 % (0-2.0); EOS % 3.9 % (0-4.5); HEMATOCRIT 28.1 % (32.4-45.2); HEMOGLOBIN 9.6 GM/dL (10.7-15.3); LYMPH % 17.3 % (8-40); MCH 29.1 pg (25.7-33.7); MCHC 34.3 g/dl (32.0-36.0); MONO % 9.6 % (3.8-10.2); NEUT % 68.9 % (42.8-82.8); PLATELET COUNT 114 K/MM3 (134-434); RBC 3.31 M/mm3 (3.60-5.2); RDW 16.9 % (11.6-15.6); WHITE BLOOD COUNT 4.8 K/mm3 (4.0-10.0)
[2018-08-05 08:50] LABS: ALBUMIN 2.6 g/dl (3.4-5.0); ALK PHOS 80 U/L (45-117); ANION GAP 7 MMOL/L (8-16); BILIRUBIN,TOTAL 1.8 mg/dL (0.2-1); BLOOD UREA NITROGEN 33 mg/dL (7-18); CALCIUM 8.1 mg/dL (8.5-10.1); CHLORIDE 106 mmol/L (98-107); CO2 28 mmol/L (21-32); CREATININE 1.1 mg/dL (0.55-1.3); GLUCOSE,RANDOM 278 mg/dL (74-106); POTASSIUM 3.9 mmol/L (3.5-5.1); SGOT/AST 32 U/L (15-37); SGPT/ALT 29 U/L (13-61); SODIUM 141 mmol/L (136-145); TOT PROT 4.9 g/dl (6.4-8.2)
[2018-08-05] MEDS: LACTOBACILLUS ACIDOPHILUS 1 TABLET PO SCH (09:17)
[2018-08-05] MEDS: amLODIPine BESYLATE 2.5 MG TABLET (FP) PO SCH (09:17)
[2018-08-05] MEDS: metoPROLOL SUCCINATE 25 MG TAB.SR.24H (FP) PO SCH (09:17)
[2018-08-05] MEDS: RANITIDINE HCL 150 MG TABLET (FP) PO SCH (09:17)
[2018-08-05] MEDS: MULTIVITAMINS (DAILY MVI) TABLET (FP) PO SCH (09:17)
[2018-08-05] MEDS: ESCITALOPRAM OXALATE 10 MG TABLET (FP) PO SCH (09:17)
[2018-08-05] MEDS: LIPASE/PROTEASE/AMYLASE 6,000 UNIT CAPSULE PO SCH ×3 (09:18→17:10)
[2018-08-05] MEDS: NYSTATIN 100,000 UNIT/GM TOPICAL CREAM 15 GM TUBE TP SCH ×2 (09:18→22:18)
[2018-08-05 10:42] LABS: ANISOCYTOSIS 1+; MACROCYTOSIS 0; PLATELET ESTIMATE DECREASED; TEAR DROP CELLS 1+
--- NOTE | 2018-08-05 10:45 | DS ---
Physical Examination Vital Signs: Vital Signs Temperature 98.1 F 08/05/18 08:57 Pulse Rate 81 08/05/18 08:57 Respiratory Rate 18 08/05/18 08:57 Blood Pressure 146/65 08/05/18 08:57 O2 Sat by Pulse Oximetry (%) 99 08/04/18 21:00 Findings/Remarks: comfortable no distress afebrile Constitutional: Yes: No Distress, Calm Eyes: Yes: Conjunctiva Clear Neck: Yes: Supple Cardiovascular: Yes: Regular Rate and Rhythm Respiratory: Yes: CTA Bilaterally Gastrointestinal: Yes: Soft Edema: No Neurological: Yes: Alert Psychiatric: No: Alert Labs: CBC, BMP 08/05/18 06:40 08/05/18 06:40 Discharge Summary Reason For Visit: CLOSED DISPLACED SUBTROCHANTERIC FRACTURE OF RIGHT Current Active Problems Atrial fibrillation (Acute) CVA (cerebral vascular accident) (Acute) Closed displaced subtrochanteric fracture of right femur (Acute) Closed nondisplaced intertrochanteric fracture of right femur with routine healing (Acute) Fall (Acute) Fall in elderly patient (Acute) HTN (hypertension) (Acute) History of percutaneous coronary intervention (Acute) Hypoglycemia (Acute) Laceration (Acute) PAD (peripheral artery disease) (Acute) S/P percutaneous transluminal angioplasty (CLINICAL REHAB LIAISON) (Acute) UTI (urinary tract infection) (Acute) Hospital Course: s/p gamma nailing stable Treated with abx also for uti Stable for d/c to retirement' meds reconcilled discussed with nursing staff also Condition: Fair - Instructions Disposition: [facility]ILITY - Home Medications Comprehensive Discharge Medication List: Ambulatory Orders Amlodipine Besylate 2.5 mg PO DAILY 07/29/18 Aspirin 81 mg PO DAILY 07/29/18 Atorvastatin Ca [Lipitor] 20 mg PO HS 07/29/18 Cholecalciferol (Vitamin D3) [Vitamin D3] 2,000 unit PO DAILY 07/29/18 Escitalopram Oxalate [Lexapro -] 10 mg PO DAILY 07/29/18 Insulin Aspart [Novolog] 6 units SQ DAILY 07/29/18 Insulin Aspart [Novolog] 12 unit SQ DAILY 07/29/18 Insulin Glargine,Hum.rec.anlog [Basaglar Kwikpen U-100] 23 unit SQ HS 07/29/18 LORazepam [Ativan] 0.25 mg PO HS 07/29/18 Lactobacillus Acidophilus [Bacid -] 1 tab PO DAILY 07/29/18 Levothyroxine [Synthroid -] 25 mcg PO DAILY 07/29/18 Lipase/Protease/Amylase [Creon Dr 6,000 Units Capsule] 1 cap PO TIDCM 07/29/18 Metoprolol Succinate 12.5 mg PO DAILY 07/29/18 Multivit-Min/Iron Fum/Folic AC [Vlxre-Reakvow-Yfzriwsq Tablet] 1 tab PO DAILY Nystatin Cream [Mycostatin Cream -] 1 applic TP BID 07/29/18 Ranitidine HCl [Zantac] 150 mg PO DAILY 07/29/18 Acetaminophen [Tylenol .Regular Strength -] 650 mg PO Q6H tablet 08/05/18
--- NOTE | 2018-08-05 11:26 | PN ---
Progress Note, Physician History of Present Illness: Hgb stable post-transfusion, hemodynamics stable, confused. - Current Medication List Current Medications: Active Medications Acetaminophen (Tylenol -) 650 mg PO Q6H [facility] Last Admin: 08/05/18 06:35 Dose: 650 mg Amlodipine Besylate (Norvasc -) 2.5 mg PO DAILY [facility] Last Admin: 08/05/18 09:17 Dose: 2.5 mg Atorvastatin Calcium (Lipitor -) 20 mg PO HS [facility] Last Admin: 08/04/18 22:45 Dose: 20 mg Escitalopram Oxalate (Lexapro -) 10 mg PO DAILY [facility] Last Admin: 08/05/18 09:17 Dose: 10 mg Heparin Sodium (Porcine) (Heparin -) 5,000 unit SQ TID [facility] Last Admin: 08/05/18 06:35 Dose: 5,000 unit Insulin Aspart (Novolog Vial Sliding Scale -) 1 vial SQ ACHS [facility]; Protocol Last Admin: 08/05/18 06:35 Dose: 6 units Lactobacillus Acidophilus (Bacid -) 1 tab PO DAILY [facility] Last Admin: 08/05/18 09:17 Dose: 1 tab Levothyroxine Sodium (Synthroid -) 25 mcg PO DAILY@0700 [facility] Last Admin: 08/05/18 06:35 Dose: 25 mcg Lorazepam (Ativan -) 0.25 mg PO HS [facility] Last Admin: 08/04/18 22:45 Dose: 0.25 mg Metoprolol Succinate (Toprol Xl -) 12.5 mg PO DAILY [facility] Last Admin: 08/05/18 09:17 Dose: 12.5 mg Morphine Sulfate (Morphine Sulfate) 2 mg IVPUSH Q4H PRN PRN Reason: PAIN LEVEL 6-10 Last Admin: 08/03/18 09:14 Dose: 2 mg Multivitamins/Minerals/Vitamin C (Tab-A-Vit -) 1 tab PO DAILY [facility] Last Admin: 08/05/18 09:17 Dose: 1 tab Nystatin (Mycostatin Cream -) 1 applic TP BID [facility] Last Admin: 08/05/18 09:18 Dose: 1 applic Ondansetron HCl (Zofran Injection) 4 mg IVPUSH Q6H PRN PRN Reason: NAUSEA AND/OR VOMITING Pancrelipase (Creon Dr 6,000 Units Capsule) 1 cap PO TIDCM [facility] Last Admin: 08/05/18 09:18 Dose: 1 cap Ranitidine HCl (Zantac -) 150 mg PO DAILY [facility] Last Admin: 08/05/18 09:17 Dose: 150 mg - Objective Vital Signs: Vital Signs Temperature 98.1 F 08/05/18 08:57 Pulse Rate 81 08/05/18 08:57 Respiratory Rate 18 08/05/18 08:57 Blood Pressure 146/65 08/05/18 08:57 O2 Sat by Pulse Oximetry (%) 99 08/04/18 21:00 Constitutional: Yes: No Distress, Calm, Thin Neck: Yes: Supple Cardiovascular: Yes: Regular Rate and Rhythm Respiratory: Yes: Regular, CTA Bilaterally Gastrointestinal: Yes: Normal Bowel Sounds, Soft Edema: No Labs: CBC, BMP 08/05/18 06:40 08/05/18 06:40 INR, PTT INR 1.14 (0.82-1.09) 07/30/18 07:05 Problem List - Problems (1) Closed nondisplaced intertrochanteric fracture of right femur with routine healing Code(s): S72.144D - NONDISP INTERTROCH FX R FEMUR, SUBS FOR CLOS FX W ROUTN HEAL (2) Fall in elderly patient Code(s): R29.6 - REPEATED FALLS (3) History of percutaneous coronary intervention Code(s): Z98.61 - CORONARY ANGIOPLASTY STATUS (4) PAD (peripheral artery disease) Code(s): I73.9 - PERIPHERAL VASCULAR DISEASE, UNSPECIFIED (5) S/P percutaneous transluminal angioplasty (PLASTIC JOINT MAKER) Code(s): Z98.62 - PERIPHERAL VASCULAR ANGIOPLASTY STATUS (6) CAD (coronary artery disease) Code(s): I25.10 - ATHSCL HEART DISEASE OF [place] CORONARY ARTERY W/O ANG PCTRS Qualifiers: Coronary Disease-Associated Artery/Lesion type: [place] artery [place] vs. transplanted heart: [place] heart Associated angina: without angina Qualified Code(s): I25.10 - Atherosclerotic heart disease of [place] coronary artery without angina pectoris (7) Diabetes Code(s): E11.9 - TYPE 2 DIABETES MELLITUS WITHOUT COMPLICATIONS Qualifiers: Diabetes mellitus type: type 1 Diabetes mellitus complication status: with hypoglycemia Diabetes mellitus complication detail: without coma Qualified Code(s): E10.649 - Type 1 diabetes mellitus with hypoglycemia without coma (8) Hyperlipidemia associated with type 2 diabetes mellitus Code(s): E11.69 - TYPE 2 DIABETES MELLITUS WITH OTHER SPECIFIED COMPLICATION; E78.5 - HYPERLIPIDEMIA, UNSPECIFIED (9) Hypothyroid Code(s): E03.9 - HYPOTHYROIDISM, UNSPECIFIED Assessment/Plan 1. Post mechanical fall resulting in right hip fracture s/p right IM gamma nail pod #6 2. Post-op bleed post pRBC transfusion 3. CAD s/p PCI/stent, angina 4. HTN 5. Hypercholesterolemia 6. DM 7. CVA/TIA 8. Hypothyroidism 9. GERD 10. COPD 11. PAD s/p PLASTIC JOINT MAKER 12. CKD 13. UTI P:1. Monitor Hgb post transfusion and transfuse to maintain Hgb>8.0 2. Continue Toprol XL 12.5 qd, Lipitor 20 qd and Amlodipine 2.5 qd as hemodynamics tolerate 3. Completed empiric antibiotic course 4. Resumed ASA 81 qd as Hgb stable 5. DVT and GI prophylaxis, analgesia as needed
[2018-08-05] MEDS ORDERED: PT OWN MED DRAWER 7, Y5N ONE (22:06)
[2018-08-05] MEDS: ATORVASTATIN CA 20 MG TABLET (FP) PO SCH (22:18)
[2018-08-05] MEDS: LORazepam 0.5 MG TABLET PO SCH (22:18)
[2018-08-06] MEDS: ACETAMINOPHEN 325 MG TABLET (FP) PO SCH ×2 (01:29→05:50)
[2018-08-06] MEDS: HEPARIN NA (PORCINE) 5,000 UNITS/ML 1ML VIAL SQ SCH (05:50)
[2018-08-06] MEDS: INSULIN SLIDING SCALE (NOVOLOG) 1 VIAL SQ SCH ×2 (06:09→11:16)
[2018-08-06] MEDS: LEVOTHYROXINE NA 25 MCG TABLET (FP) PO SCH (07:17)
[2018-08-06 08:22] VITALS: BP 158/89; PULSE 82; TEMP 98.7
[2018-08-06] MEDS: amLODIPine BESYLATE 2.5 MG TABLET (FP) PO SCH (09:12)
[2018-08-06] MEDS: ESCITALOPRAM OXALATE 10 MG TABLET (FP) PO SCH (09:12)
[2018-08-06] MEDS: MULTIVITAMINS (DAILY MVI) TABLET (FP) PO SCH (09:12)
[2018-08-06] MEDS: LIPASE/PROTEASE/AMYLASE 6,000 UNIT CAPSULE PO SCH ×2 (09:12→11:17)
[2018-08-06] MEDS: RANITIDINE HCL 150 MG TABLET (FP) PO SCH (09:12)
[2018-08-06] MEDS: LACTOBACILLUS ACIDOPHILUS 1 TABLET PO SCH (09:12)
[2018-08-06] MEDS: metoPROLOL SUCCINATE 25 MG TAB.SR.24H (FP) PO SCH (09:13)
[2018-08-06] MEDS: NYSTATIN 100,000 UNIT/GM TOPICAL CREAM 15 GM TUBE TP SCH (09:15)
[2018-08-06] MEDS ORDERED: INSULIN (NOVOLOG) ASPART 100 UNITS/ML 10ML VIAL ONE (09:58)
[2018-08-06] MEDS ORDERED: ASPIRIN 81 MG CHEWABLE TABLETS PO SCH (10:00)
== END 2018-08-06 11:49 | DRG 481 ==
LOC: FER 10:20 → FM/S 12:20 → JERBED 07-31 16:54 → JICU 07-31 16:59 → J7W 08-01 20:10
PROVIDERS: ADMIT Internal Medicine; ATTEND Internal Medicine
PROC: 30233N1 Transfusion of Nonautologous Red Blood Cells into Peripheral Vein, Percutaneous Approach (ICD-10-PCS; 2018-07-30)
PROC: 0QS604Z Reposition Right Upper Femur with Internal Fixation Device, Open Approach (ICD-10-PCS; principal; 2018-07-30 16:07)
DX: S72.144A Nondisplaced intertrochanteric fracture of right femur, initial encounter for closed fracture (principal); N17.9 Acute kidney failure, unspecified; N39.0 Urinary tract infection, site not specified; D62 Acute posthemorrhagic anemia; E87.1 Hypo-osmolality and hyponatremia; S72.21XA Displaced subtrochanteric fracture of right femur, initial encounter for closed fracture; F03.90 Unspecified dementia, unspecified severity, without behavioral disturbance, psychotic disturbance, mood disturbance, and anxiety; Z66 Do not resuscitate; G31.83 Neurocognitive disorder with Lewy bodies; F02.80 Dementia in other diseases classified elsewhere, unspecified severity, without behavioral disturbance, psychotic disturbance, mood disturbance, and anxiety; J44.9 Chronic obstructive pulmonary disease, unspecified; E87.5 Hyperkalemia; Z79.4 Long term (current) use of insulin; I69.320 Aphasia following cerebral infarction; E11.22 Type 2 diabetes mellitus with diabetic chronic kidney disease; I12.9 Hypertensive chronic kidney disease with stage 1 through stage 4 chronic kidney disease, or unspecified chronic kidney disease; N18.9 Chronic kidney disease, unspecified; E11.51 Type 2 diabetes mellitus with diabetic peripheral angiopathy without gangrene; E03.9 Hypothyroidism, unspecified; W19.XXXA Unspecified fall, initial encounter; Y93.89 Activity, other specified; Y92.128 Other place in nursing home as the place of occurrence of the external cause; Y99.8 Other external cause status; I25.10 Atherosclerotic heart disease of native coronary artery without angina pectoris; E11.649 Type 2 diabetes mellitus with hypoglycemia without coma; I48.91 Unspecified atrial fibrillation; E78.00 Pure hypercholesterolemia, unspecified; K21.9 Gastro-esophageal reflux disease without esophagitis; B96.4 Proteus (mirabilis) (morganii) as the cause of diseases classified elsewhere
CPT/HCPCS: 36415; 36430; 70450-TC; 71045-TC-FY; 72125-TC; 72192-TC; 73502-TC-RT-FY; 73523-TC-FY; 73700-TC-RT; 76000-TC-FY; 80048; 80053; 81003; 81015; 82272; 82550; 82553; 82947; 82962; 83036; 83735; 84100; 84443; 84484; 85025; 85027; 85610; 85730; 86850; 86900; 86901; 86922; 87040; 87086; 87186; 90715; 93005; 94760; 97116-GP; 97162-GP; 99285-25; J0131; J1644; J7030; P9038; P9058

== ENCOUNTER 2019-11-13 13:12 | Inpatient (IN) | payer OTHER ==
[2019-11-13 13:21] VITALS: BMI 29.0
--- NOTE | 2019-11-13 14:30 | PDOC ---
History of Present Illness - General Chief Complaint: Revisit, Lab Variance Stated Complaint: Revisit, Lab Variance Time Seen by Provider: 11/13/19 13:44 - History of Present Illness Initial Comments: 11/13/19 14:18 HPI: 74 y/o F with hx of HTN, HLD, DM, CAD, Lewy body dementia, Afib, CVA, PVD, nonverbal and non-ambulatory at baseline BIBEMS from [facility] for Cr 5.7 and BUN 140s. According to [facility] staff, Cr began uptrending last week with Cr 2.4 and had decreased PO intake and was started on 1/2 NS 100cc/hr for the past few days. She also appeared more lethargic than normal. Today it was noticed that she had decreased UOP. PMHx: as noted above ROS: as noted SHx: Denies tobacco use; no alcohol use; no rec drugs Allergies: NKDA ROS: unable to obtain 2/2 mental status PE: GENERAL: Arousable to stimulus, nonverbal HEAD: No signs of trauma, normocephalic, atraumatic EYES: EOMI, sclera anicteric, conjunctiva clear ENT: Auricles normal inspection, hearing grossly normal, nares patent, oropharynx clear without exudates. Moist mucosa NECK: Normal ROM, no lymphadenopathy LUNGS: No increased work of breathing, symmetrical chest rise, clear to auscultation bilaterally, no wheezes, crackles or rhonchi HEART: Regular rate, regular rhythm, normal S1 and S2, no murmur, peripheral pulses 2+ and equal bilaterally. ABDOMEN: Soft, nondistended, diffuse ttp with guarding No masses. No CVAT MUSCULOSKELETAL: FROM NEUROLOGICAL: limited 2/2 mental status SKIN: Warm, Dry, normal turgor, no rashes or lesions noted Past History - Past Medical History Allergies/Adverse Reactions: Allergies Allergy/AdvReac Type Severity Reaction Status Date / Time No Known Allergies Allergy Verified 06/06/18 10:22 Home Medications: Ambulatory Orders Amlodipine Besylate 2.5 mg PO DAILY 07/29/18 Aspirin 81 mg PO DAILY 07/29/18 Atorvastatin Ca [Lipitor] 20 mg PO HS 07/29/18 Cholecalciferol (Vitamin D3) [Vitamin D3] 2,000 unit PO DAILY 07/29/18 Escitalopram Oxalate [Lexapro -] 10 mg PO DAILY 07/29/18 Insulin Aspart [Novolog] 6 units SQ DAILY 07/29/18 Insulin Aspart [Novolog] 12 unit SQ DAILY 07/29/18 Insulin Glargine,Hum.rec.anlog [Basaglar Kwikpen U-100] 23 unit SQ HS 07/29/18 LORazepam [Ativan] 0.25 mg PO HS 07/29/18 Lactobacillus Acidophilus [Bacid -] 1 tab PO DAILY 07/29/18 Levothyroxine [Synthroid -] 25 mcg PO DAILY 07/29/18 Lipase/Protease/Amylase [Creon Dr 6,000 Units Capsule] 1 cap PO TIDCM 07/29/18 Metoprolol Succinate 12.5 mg PO DAILY 07/29/18 Multivit-Min/Iron Fum/Folic AC [Ysvrm-Rxapzjk-Fduicpdm Tablet] 1 tab PO DAILY 07/29/18 Nystatin Cream [Mycostatin Cream -] 1 applic TP BID 07/29/18 Ranitidine HCl [Zantac] 150 mg PO DAILY 07/29/18 Acetaminophen [Tylenol .Regular Strength -] 650 mg PO Q6H tablet 08/05/18 Anemia: Yes Asthma: No Cancer: Yes (breast nodule benign, CERVIX) Cardiac Disorders: Yes ([place], STENTS - cardac and LLE) 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) COPD: Yes (COPD , CHRONIC BRONCHITIS) CHF: No Dementia: No Diabetes: Yes GI Disorders: Yes (H/O COLON POLYPS,CHRONIC PANCREATITIS -STONES) Disorders: Yes (H/O UTI) HTN: Yes (DX 2002) Hypercholesterolemia: Yes (DX 2002) Liver Disease: No Seizures: No Thyroid Disease: No - Surgical History Abdominal Surgery: Yes (EXPLORATORY LAP-1970) Appendectomy: Yes ( CHILD) Cardiac Surgery: Yes (STENTS-2007,BALLOON LLE) Cholecystectomy: Yes (1970 DURING EXPLORATORY LAP) Lung Surgery: No Neurologic Surgery: No Orthopedic Surgery: No - Immunization History Immunization Up to Date: No - Psycho Social/Smoking Cessation Hx Smoking Status: No Smoking History: Never smoked Have you smoked in the past 12 months: No Number of Cigarettes Smoked Daily: 0 Information on smoking cessation initiated: No Hx Alcohol Use: No Drug/Substance Use Hx: No Substance Use Type: None Hx Substance Use Treatment: No *Physical Exam - Vital Signs Last Vital Signs Temp Pulse Resp BP Pulse Ox 98.9 F 89 16 140/76 98 11/13/19 13:18 11/13/19 13:18 11/13/19 13:18 11/13/19 13:18 11/13/19 13:18 ED Treatment Course - LABORATORY CBC & Chemistry Diagram: 11/13/19 14:30 11/13/19 14:30 Medical Decision Making - Medical Decision Making 11/13/19 16:06 74 y/o F with hx of HTN, HLD, DM, CAD, Lewy body dementia, Afib, CVA, PVD, nonverbal and non-ambulatory at baseline BIBEMS from [facility] for Cr 5.7 and BUN 140s. VSS, AF. PE with diffuse abd ttp. -cbc, cmp, lactate, card prof, ua, ucx, ekg, cxr, bcx -ct abd/pel 11/13/19 16:07 UA consistent with uti; will treat with ceftriaxone CR 5.7 and BUN 128; consulted Dr lou with renal; recommending NS 100cc/hr after 1L bolus admitted to Dr Frias Discharge - Discharge Information Problems reviewed: Yes Clinical Impression/Diagnosis: UTI (urinary tract infection), EDMAR (acute kidney injury), Abdominal pain Condition: Stable - Admission Yes - Follow up/Referral Referrals: Antonio Ross MD [Primary Care Provider] - - Patient Discharge Instructions - Post Discharge Activity
[2019-11-13 15:11] LABS: BASO % 0.3 % (0-2.0); EOS % 0.5 % (0-4.5); HEMATOCRIT 27.6 % (32.4-45.2); HEMOGLOBIN 9.1 GM/dL (10.7-15.3); LYMPH % 5.1 % (8-40); MCHC 32.8 g/dl (32.0-36.0); MEAN CELL VOLUME 88.4 fl (80-96); MEAN PLT VOLUME 9.5 fl (7.5-11.1); MONO % 3.1 % (3.8-10.2); PLATELET COUNT 238 K/MM3 (134-434); RBC 3.12 M/mm3 (3.60-5.2); RDW 13.9 % (11.6-15.6); WHITE BLOOD COUNT 17.3 K/mm3 (4.0-10.0)
[2019-11-13 15:17] LABS: EPI CELLS >36 /uL (0-25.1); HYALINE CASTS 182 /uL (0-3.1); URINE APPEARANCE TURBID; URINE BACTERIA 8929 /uL (0-1359); URINE BILIRUBIN NEGATIVE (NEGATIVE); URINE COLOR YELLOW; URINE GLUCOSE (UA) NEGATIVE (NEGATIVE); URINE KETONE NEGATIVE (NEGATIVE); URINE LEUK ESTERASE 3+ (NEGATIVE); URINE NITRITE NEGATIVE (NEGATIVE); URINE PROTEIN 2+ (NEGATIVE); URINE UROBILINOGEN 0.2 mg/dL (0.2-1.0); URINE WBC 37366 /uL (0-25.8)
[2019-11-13 15:19] LABS: INR 1.09 (0.83-1.09); PROTHROMBIN TIME (PATIENT) 12.9 SEC (9.7-13.0)
[2019-11-13 15:22] LABS: ACTIVATED PTT 27.9 SECONDS (25.2-36.5)
[2019-11-13 15:42] LABS: ALBUMIN 2.2 g/dl (3.4-5.0); ALK PHOS 158 U/L (45-117); ANION GAP 13 MMOL/L (8-16); BILIRUBIN,TOTAL 0.4 mg/dL (0.2-1); CALCIUM 7.6 mg/dL (8.5-10.1); CHLORIDE 100 mmol/L (98-107); CO2 18 mmol/L (21-32); CREATININE 5.7 mg/dL (0.55-1.3); GLUCOSE,RANDOM 81 mg/dL (74-106); SGOT/AST 40 U/L (15-37); SGPT/ALT 39 U/L (13-61); SODIUM 130 mmol/L (136-145); TOT PROT 5.7 g/dl (6.4-8.2)
[2019-11-13 15:43] LABS: BLOOD UREA NITROGEN 128.5 mg/dL (7-18)
[2019-11-13 15:46] LABS: URINE RBC 691.6 /uL (0-23.9); YEAST NONE SEEN (NEGATIVE)
[2019-11-13] MEDS ORDERED: CEFTRIAXONE 1 GM in DEXTROSE 5%-WATER - 100 ML IVPB ONE (15:49)
[2019-11-13] MEDS ORDERED: CEFTRIAXONE 1 GM/50 ML BAG ONE (16:06)
[2019-11-13] MEDS ORDERED: SODIUM CHLORIDE 1,000 ML IV STA (16:08)
--- NOTE | 2019-11-13 16:11 | PDOC ---
Documentation entered by Reagan Thomas SCRIBE, acting as scribe for Kaushik Hernandez MD. Kaushik Hernandez MD: This documentation has been prepared by the William moss Angel, SCRIBE, under my direction and personally reviewed by me in its entirety. I confirm that the documentation accurately reflects all work, treatment, procedures, and medical decision making performed by me. Attending Attestation - Resident Resident Name: AneeshOnofre - ED Attending Attestation I have performed the following: I have examined & evaluated the patient, The case was reviewed & discussed with the resident, I agree w/resident's findings & plan, Exceptions are as noted - HPI HPI: 11/13/19 16:17 74 y/o F with hx of HTN, HLD, DM, CAD, Lewy body dementia, Afib, CVA, PVD, nonverbal and non-ambulatory at baseline BIBEMS from [facility] for Cr 5.7 and BUN 140s. According to [facility] staff, Cr began uptrending last week with Cr 2.4 and had decreased PO intake - Physicial Exam PE: 11/13/19 16:17 Vitals: Triage Vital signs reviewed General Appearance: Lethargic Head: Atraumatic, Cardiac: Regular rate and rhythym, no murmurs, no rubs, no gallops, Lungs: Clear to auscultation bilateral, good air movement bilaterally, Abdomen: Soft, non distended, normal bowel sounds, non tender to palpation Extremities: Full range of motion to all extremities, no cyanosis, clubbing, or edema Skin: Warm and dry, no rashes or lesions, no rash, no petechiae Neuro: Moving all extremities - Medical Decision Making 11/13/19 16:18 74 results in for worsening creatinine and lethargy Elevated white blood cell count urinalysis grossly infected We will hydrate renal consultation CAT scan abdomen pelvis to rule out obstruction or other acute pathology and admit for further management. EKG performed at 1526 demonstrates normal sinus rhythm left axis deviation no ST elevations or T wave inversions Interpreted by me. Discharge - Discharge Information Problems reviewed: Yes Clinical Impression/Diagnosis: EDMAR (acute kidney injury) UTI (urinary tract infection) Qualifiers: Urinary tract infection type: site unspecified Hematuria presence: without hematuria Qualified Code(s): N39.0 - Urinary tract infection, site not specified Abdominal pain Qualifiers: Abdominal location: unspecified location Qualified Code(s): R10.9 - Unspecified abdominal pain Condition: Stable - Follow up/Referral - Patient Discharge Instructions - Post Discharge Activity
--- NOTE | 2019-11-13 16:52 | HP ---
CHIEF COMPLAINT: Altered mentation PCP: Dr Ross HISTORY OF PRESENT ILLNESS: 74 year old female with advanced Lewy Body dementia, nonverbal, nonambulatory, DM 2, hypertension, TIA, CAD, hyperlipidemia, Atrial fibrillation not on AC, CVA, right femur fracture, PAD, osteomyelitis, diabetic foot infection, hypothyroidism, UTI, who was brought in by ambulance to the ED for altered mentation. At the ED was found to be in acute renal failure. Apparently last week renal function checked at the [place] with renal insufficiency showing creat of 2.4. Recent Travel: none PAST MEDICAL HISTORY: as above PAST SURGICAL HISTORY: unable to obtain Social History: Smoking: unable to obtain Alcohol: unable to obtain Drugs: unable to obtain Family history: Unable to obtain Allergies No Known Allergies Allergy (Verified 06/06/18 10:22) HOME MEDICATIONS: Home Medications Medication Instructions Recorded Amlodipine Besylate 2.5 mg PO DAILY 07/29/18 Aspirin 81 mg PO DAILY 07/29/18 Atorvastatin Ca [Lipitor] 20 mg PO HS 07/29/18 Cholecalciferol (Vitamin D3) 2,000 unit PO DAILY 07/29/18 [Vitamin D3] Escitalopram Oxalate [Lexapro -] 10 mg PO DAILY 07/29/18 Insulin Aspart [Novolog] 6 units SQ DAILY 07/29/18 Insulin Aspart [Novolog] 12 unit SQ DAILY 07/29/18 Insulin Glargine,Hum.rec.anlog 23 unit SQ HS 07/29/18 [Basaglar Kwikpen U-100] LORazepam [Ativan] 0.25 mg PO HS 07/29/18 Lactobacillus Acidophilus [Bacid -] 1 tab PO DAILY 07/29/18 Levothyroxine [Synthroid -] 25 mcg PO DAILY 07/29/18 Lipase/Protease/Amylase [Creon Dr 1 cap PO TIDCM 07/29/18 6,000 Units Capsule] Metoprolol Succinate 12.5 mg PO DAILY 07/29/18 Multivit-Min/Iron Fum/Folic AC 1 tab PO DAILY 07/29/18 [Oxkkn-Xjaiqwk-Dwhpoooe Tablet] Nystatin Cream [Mycostatin Cream -] 1 applic TP BID 07/29/18 Ranitidine HCl [Zantac] 150 mg PO DAILY 07/29/18 Acetaminophen [Tylenol .Regular 650 mg PO Q6H tablet 08/05/18 Strength -] REVIEW OF SYSTEMS Unable to obtain PHYSICAL EXAMINATION Vital Signs - 24 hr 11/13/19 11/13/19 13:18 13:58 Temperature 98.9 F Pulse Rate 89 Respiratory 16 Rate Blood Pressure 140/76 O2 Sat by Pulse 98 100 Oximetry (%) GENERAL: 74 year old female who appears much older than stated age; nonverbal, not in any distress. HEAD: Normal with no signs of trauma. EYES: With right corneal implant, left pupil reactive to light, extraocular movements intact, sclera anicteric, conjunctiva clear. No lid lag. EARS, NOSE, THROAT:oropharynx clear without exudates; edentulous; Moist mucous membranes. NECK: Range of motion is diminished, without lymphadenopathy, JVD, or masses. LUNGS: Fair air movement, with faint crackles at the bases, No accessory muscle use. HEART: Regular rate and rhythm, normal S1 and S2 without murmur, rub or gallop. ABDOMEN: Soft, nontender, not distended, normoactive bowel sounds, no guarding, no rebound, no masses. No hepatomegaly or splenomegaly. MUSCULOSKELETAL: Limited range of motion motion at all joint and bilateral upper arms are contracted. No CVA tenderness. UPPER EXTREMITIES: 2+ pulses, warm, well-perfused. No cyanosis. No clubbing. No peripheral edema. LOWER EXTREMITIES: 2+ pulses, warm, well-perfused. No calf tenderness. No peripheral edema. NEUROLOGICAL: nonverbal, does not follow commands. Her upper extremities are contracted. Lower extremities strength about 3/5 SKIN: Warm, dry, normal turgor, no rashes or lesions noted, normal capillary refill. Laboratory Results - last 24 hr 11/13/19 11/13/19 11/13/19 14:30 14:30 14:30 WBC 17.3 H RBC 3.12 L Hgb 9.1 L Hct 27.6 L MCV 88.4 MCH 29.0 MCHC 32.8 RDW 13.9 D Plt Count 238 D MPV 9.5 Absolute Neuts (auto) 15.8 H Neutrophils % 91.0 H D Lymphocytes % 5.1 L D Monocytes % 3.1 L Eosinophils % 0.5 D Basophils % 0.3 Nucleated RBC % 0 PT with INR 12.90 INR 1.09 PTT (Actin FS) 27.9 Sodium Potassium Chloride Carbon Dioxide Anion Gap BUN Creatinine Est GFR (CKD-EPI)AfAm Est GFR (CKD-EPI)NonAf Random Glucose Lactic Acid Calcium Total Bilirubin AST ALT Alkaline Phosphatase Creatine Kinase Troponin I Total Protein Albumin Urine Color Yellow Urine Appearance Turbid Urine pH 5.0 Ur Specific Campbell 1.011 Urine Protein 2+ H Urine Glucose (UA) Negative Urine Ketones Negative Urine Blood 3+ H Urine Nitrite Negative Urine Bilirubin Negative Urine Urobilinogen 0.2 Ur Leukocyte Esterase 3+ H Urine WBC (Auto) 47464 Urine RBC (Auto) 691.6 Urine Casts (Auto) 182 U Pathogenic Cast Auto None seen U Epithel Cells (Auto) >36 Urine Bacteria (Auto) 8929 Urine Yeast (Auto) None seen 11/13/19 11/13/19 14:30 14:30 WBC RBC Hgb Hct MCV MCH MCHC RDW Plt Count MPV Absolute Neuts (auto) Neutrophils % Lymphocytes % Monocytes % Eosinophils % Basophils % Nucleated RBC % PT with INR INR PTT (Actin FS) Sodium 130 L Potassium 5.0 Chloride 100 Carbon Dioxide 18 L Anion Gap 13 BUN 128.5 H* Creatinine 5.7 H Est GFR (CKD-EPI)AfAm 7.78 Est GFR (CKD-EPI)NonAf 6.72 Random Glucose 81 Lactic Acid 1.3 Calcium 7.6 L Total Bilirubin 0.4 AST 40 H ALT 39 Alkaline Phosphatase 158 H Creatine Kinase 46 Troponin I < 0.02 Total Protein 5.7 L Albumin 2.2 L Urine Color Urine Appearance Urine pH Ur Specific Campbell Urine Protein Urine Glucose (UA) Urine Ketones Urine Blood Urine Nitrite Urine Bilirubin Urine Urobilinogen Ur Leukocyte Esterase Urine WBC (Auto) Urine RBC (Auto) Urine Casts (Auto) U Pathogenic Cast Auto U Epithel Cells (Auto) Urine Bacteria (Auto) Urine Yeast (Auto) ASSESSMENT/PLAN: 1. AMS secondary to EDMAR - meeting SIRS criteria (leukocytosis, tachycardia) - patient with UA suggestive of UTI (working impression) - ddx include uncontrolled DM (hyper- or hypo), metabolic derangements, medication induced, cardiac etiologies - ceftriaxone now and daily - follow blood and urine cultures - Dr Soto (ID) consulted - will CT chest (no contrast) as CXR with some abnormal findings - fluid hydration 2. Acute renal failure - appears hypovolemic and component of infection likely (UTI) as aggravating factor - Dr Laureano of nephrology already consulted by ED - renal ultrasound - fluid hydration 3. SSI, accuchecks for DM 2 4. DVT prophylaxis - heparin SQ Visit type - Emergency Visit Emergency Visit: Yes ED Registration Date: 11/13/19 Care time: The patient presented to the Emergency Department on the above date and was hospitalized for further evaluation of their emergent condition. - New Patient This patient is new to me today: Yes Date on this admission: 11/14/19 - Critical Care Critical Care patient: No
[2019-11-13] MEDS: SODIUM CHLORIDE 1,000 ML IV SCH (17:09)
--- NOTE | 2019-11-13 17:59 | CONSULT ---
Consult Consult Specialty:: Nephrology Reason for Consultation:: EDMAR - History of Present Illness Chief Complaint: sent in for altered mental status History of Present Illness: Pt is a 74 year old female with pmhx of Lewy Body dementia, dm, htn, a-fib, cva, and PAD who presents for altered mental status. She is unable to give history. SHe has had decreased po intake. I was called to evaluate her for EDMAR. She has had progressively worsening renal failure over the last week. She is making urine. Per records she has has had poor PO intake. 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, TIA Cardio/Vascular: Yes: CAD (s/p stent), HTN, Hyperlipdemia Pulmonary: Yes: COPD Gastrointestinal: Yes: GERD Renal/: Yes: UTI Endocrine: Yes: Diabetes Mellitus, Hypothyroidism - Past Surgical History Past Surgical History: Yes: Appendectomy, Cholecystectomy - Alcohol/Substance Use Hx Alcohol Use: No - Smoking History Smoking history: Never smoked Have you smoked in the past 12 months: No Aproximately how many cigarettes per day: 0 - Social History Usual Living Arrangement: Senior Living ADL: Support Services History of Recent Travel: No Home Medications - Allergies Allergies/Adverse Reactions: Allergies Allergy/AdvReac Type Severity Reaction Status Date / Time No Known Allergies Allergy Verified 06/06/18 10:22 - Home Medications Home Medications: Ambulatory Orders Amlodipine Besylate 2.5 mg PO DAILY 07/29/18 Aspirin 81 mg PO DAILY 07/29/18 Atorvastatin Ca [Lipitor] 20 mg PO HS 07/29/18 Cholecalciferol (Vitamin D3) [Vitamin D3] 2,000 unit PO DAILY 07/29/18 Escitalopram Oxalate [Lexapro -] 10 mg PO DAILY 07/29/18 Insulin Aspart [Novolog] 6 units SQ DAILY 07/29/18 Insulin Aspart [Novolog] 12 unit SQ DAILY 07/29/18 Insulin Glargine,Hum.rec.anlog [Basaglar Kwikpen U-100] 23 unit SQ HS 07/29/18 LORazepam [Ativan] 0.25 mg PO HS 07/29/18 Lactobacillus Acidophilus [Bacid -] 1 tab PO DAILY 07/29/18 Levothyroxine [Synthroid -] 25 mcg PO DAILY 07/29/18 Lipase/Protease/Amylase [Creon Dr 6,000 Units Capsule] 1 cap PO TIDCM 07/29/18 Metoprolol Succinate 12.5 mg PO DAILY 07/29/18 Multivit-Min/Iron Fum/Folic AC [Gybgo-Mkstpyj-Fluopctk Tablet] 1 tab PO DAILY 07/29/18 Nystatin Cream [Mycostatin Cream -] 1 applic TP BID 07/29/18 Ranitidine HCl [Zantac] 150 mg PO DAILY 07/29/18 Acetaminophen [Tylenol .Regular Strength -] 650 mg PO Q6H tablet 08/05/18 Family Medical History Family History: Unable to Obtain Review of Systems Unable to obtain ROS, reason: lethragy Physical Exam Vital Signs: Vital Signs Temperature 98.9 F 11/13/19 13:18 Pulse Rate 89 11/13/19 13:18 Respiratory Rate 16 11/13/19 13:18 Blood Pressure 140/76 11/13/19 13:18 O2 Sat by Pulse Oximetry (%) 100 11/13/19 13:58 Constitutional: Yes: Calm Eyes: Yes: Conjunctiva Clear HENT: Yes: Atraumatic Cardiovascular: Yes: S1, S2 Respiratory: Yes: CTA Bilaterally Gastrointestinal: Yes: Soft Renal/: Yes: [place] Present Musculoskeletal: Yes: Muscle Weakness Edema: No Neurological: Yes: Confusion Labs: CBC, BMP 11/13/19 14:30 11/13/19 14:30 Imaging - Results Cat Scan: Report Reviewed Assessment/Plan Current Medications Generic Name Dose Route Start Last Admin Trade Name Freq PRN Reason Stop Dose Admin Heparin Sodium (Porcine) 5,000 unit 11/13/19 22:00 Heparin - SQ BID JENNIFER Sodium Chloride 1,000 mls @ 100 mls/hr 11/13/19 16:00 11/13/19 17:09 Normal Saline - IV 100 mls/hr ASDIR JENNIFER Administration Ceftriaxone Sodium 1,000 mg/ 50 mls @ 100 mls/hr 11/13/19 17:00 Dextrose IVPB ONCE JENNIFER Impression 1. EDMAR 2. Lewy Body Dementia 3. sepsis 4. leukocytosis 5. DM 6. htn 7. anemia Plan - start fluids - monitor response to fluids challenge - send blood and urine cultures - check renal ultrasound - check ua and urine lytes - discussed with ER team - will give bicarb - will need to discuss overall GOC with family
[2019-11-13 18:37] LABS: EPI CELLS 19 /uL (0-25.1); HYALINE CASTS 5 /uL (0-3.1); PH,URINE 5.5 (5.0-8.0); URINE APPEARANCE TURBID; URINE BACTERIA 625 /uL (0-1359); URINE BILIRUBIN NEGATIVE (NEGATIVE); URINE COLOR YELLOW; URINE GLUCOSE (UA) NEGATIVE (NEGATIVE); URINE KETONE NEGATIVE (NEGATIVE); URINE LEUK ESTERASE 3+ (NEGATIVE); URINE NITRITE NEGATIVE (NEGATIVE); URINE PROTEIN 1+ (NEGATIVE); URINE RBC 32 /uL (0-23.9); URINE UROBILINOGEN 0.2 mg/dL (0.2-1.0); URINE WBC 2332 /uL (0-25.8)
[2019-11-13] MEDS: HEPARIN NA (PORCINE) 5,000 UNITS/ML 1ML VIAL SQ SCH (22:20)
[2019-11-13] MEDS: SODIUM BICARBONATE 8.4% 50 MEQ/50 ML VIAL IV SCH (22:20)
[2019-11-14] MEDS: SODIUM CHLORIDE 1,000 ML IV SCH (03:26)
[2019-11-14] MEDS ORDERED: SODIUM BICARBONATE 8.4% 50 MEQ/50 ML VIAL IV SCH (04:30)
[2019-11-14 08:30] LABS: ALBUMIN 1.8 g/dl (3.4-5.0); BILIRUBIN,TOTAL 0.4 mg/dL (0.2-1); CALCIUM 7.1 mg/dL (8.5-10.1); CREATININE 5.3 mg/dL (0.55-1.3); POTASSIUM 5.3 mmol/L (3.5-5.1); TOT PROT 4.7 g/dl (6.4-8.2)
[2019-11-14 08:40] LABS: BLOOD UREA NITROGEN 119.9 mg/dL (7-18)
[2019-11-14] MEDS ORDERED: SODIUM BICARBONATE 8.4% 50 MEQ/50 ML VIAL IV ONE ×2 (10:00→14:50)
[2019-11-14] MEDS: CEFTRIAXONE 1 GM in DEXTROSE 5%-WATER - 50 ML IVPB SCH (10:35)
[2019-11-14] MEDS: HEPARIN NA (PORCINE) 5,000 UNITS/ML 1ML VIAL SQ SCH ×2 (10:35→21:46)
--- NOTE | 2019-11-14 11:30 | EKG ---
Test Reason : Blood Pressure : / mmHG Vent. Rate : 084 BPM Atrial Rate : 084 BPM P-R Int : 172 ms QRS Dur : 072 ms QT Int : 352 ms P-R-T Axes : 054 -39 057 degrees QTc Int : 415 ms NORMAL SINUS RHYTHM LEFT AXIS DEVIATION MODERATE VOLTAGE CRITERIA FOR LVH, MAY BE NORMAL VARIANT ABNORMAL ECG WHEN COMPARED WITH ECG OF 29-JUL-2018 11:04, SINUS RHYTHM HAS REPLACED ATRIAL FIBRILLATION NONSPECIFIC T WAVE ABNORMALITY, IMPROVED IN ANTERIOR LEADS QT HAS SHORTENED Confirmed by CORINNA KU MD ([id number]) on 11/14/2019 11:30:02 AM Referred By: Confirmed By:CORINNA KU MD
--- NOTE | 2019-11-14 12:03 | PN ---
Progress Note, Physician History of Present Illness: Pt seen and examined at bedside. She is awake but confused. - Current Medication List Current Medications: Active Medications Heparin Sodium (Porcine) (Heparin -) 5,000 unit SQ BID JENNIFER Last Admin: 11/14/19 10:35 Dose: 5,000 unit Documented by: Ceftriaxone Sodium 1 gm/ (Dextrose) 50 mls @ 100 mls/hr IVPB DAILY JENNIFER Last Admin: 11/14/19 10:35 Dose: 100 mls/hr Documented by: Sodium Bicarbonate 150 meq/ (Dextrose) 1,150 mls @ 100 mls/hr IV Q11H JENNIFER - Objective Vital Signs: Vital Signs Temperature 98.8 F 11/14/19 10:00 Pulse Rate 103 H 11/14/19 10:00 Respiratory Rate 18 11/14/19 10:00 Blood Pressure 137/68 11/14/19 10:00 O2 Sat by Pulse Oximetry (%) 100 11/13/19 23:17 Constitutional: Yes: Calm Eyes: Yes: Conjunctiva Clear HENT: Yes: Atraumatic Cardiovascular: Yes: S1, S2 Respiratory: Yes: CTA Bilaterally Gastrointestinal: Yes: Soft Genitourinary: Yes: Laughlin Present Musculoskeletal: Yes: Muscle Weakness Edema: Yes Edema: LLE: Trace, RLE: Trace Neurological: Yes: Confusion Labs: CBC, BMP 11/13/19 14:30 11/14/19 07:25 INR, PTT INR 1.09 (0.83-1.09) 11/13/19 14:30 Assessment/Plan Current Medications Generic Name Dose Route Start Last Admin Trade Name Freq PRN Reason Stop Dose Admin Heparin Sodium (Porcine) 5,000 unit 11/13/19 22:00 11/14/19 10:35 Heparin - SQ 5,000 unit BID JENNIFER Administration Ceftriaxone Sodium 1 gm/ 50 mls @ 100 mls/hr 11/14/19 10:00 11/14/19 10:35 Dextrose IVPB 100 mls/hr DAILY JENNIFER Administration Sodium Bicarbonate 150 meq/ 1,150 mls @ 100 mls/hr 11/14/19 10:00 Dextrose IV Q11H JENNIFER Impression 1. EDMAR 2. Lewy Body Dementia 3. sepsis 4. leukocytosis 5. DM 6. htn 7. anemia 8. met acidosis Plan - called and discussed care with her sister Joanne. Family does not want HD therapy in the future. - renal function improving - will start bicarb drip for now - monitor urine output - fluids should help drive down the potassium - will give a dose of lokelma - monitor lytes - medical management without hd for renal failure per family wishes
[2019-11-14] MEDS ORDERED: SODIUM ZIRCONIUM CYCLOSILICATE (LOKELMA) 10 GM PACKET PO ONE (13:00)
--- NOTE | 2019-11-14 13:02 | CON.ID ---
Consult Consult Specialty:: infectious diseases Referred by:: Dr Frank Reason for Consultation:: ams,weakness - History of Present Illness Chief Complaint: ams History of Present Illness: because of her mental condition patient cannot give ay history which is obtained from the charts 74 year old female with advanced Lewy Body dementia, nonverbal, nonambulatory, DM 2, hypertension, TIA, CAD, hyperlipidemia, Atrial fibrillation not on AC, CVA, right femur fracture, PAD, osteomyelitis, diabetic foot infection, hypothyroidism, UTI, who was brought in by ambulance to the ED for altered mentation. At the ED was found to be in acute renal failure. Apparently last week renal function checked at the [place] with renal insufficiency showing creat of 2.4. 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 Cardio/Vascular: Yes: CAD (s/p stent), HTN, Hyperlipdemia Pulmonary: Yes: COPD Gastrointestinal: Yes: GERD Renal/: Yes: UTI Endocrine: Yes: Diabetes Mellitus, Hypothyroidism - Past Surgical History Past Surgical History: Yes: Appendectomy, Cholecystectomy - Alcohol/Substance Use Hx Alcohol Use: No - Smoking History Smoking history: Never smoked Have you smoked in the past 12 months: No Aproximately how many cigarettes per day: 0 - Social History Usual Living Arrangement: [facility] ADL: Support Services History of Recent Travel: No Home Medications - Allergies Allergies/Adverse Reactions: Allergies Allergy/AdvReac Type Severity Reaction Status Date / Time No Known Allergies Allergy Verified 06/06/18 10:22 - Home Medications Home Medications: Ambulatory Orders RX: Amlodipine Besylate 2.5 mg PO DAILY 07/29/18 RX: Aspirin 81 mg PO DAILY 07/29/18 RX: Atorvastatin Ca [Lipitor] 20 mg PO HS 07/29/18 RX: Cholecalciferol (Vitamin D3) [Vitamin D3] 2,000 unit PO DAILY 07/29/18 RX: Escitalopram Oxalate [Lexapro -] 10 mg PO DAILY 07/29/18 RX: Insulin Aspart [Novolog] 6 units SQ DAILY 07/29/18 RX: Insulin Aspart [Novolog] 12 unit SQ DAILY 07/29/18 RX: Insulin Glargine,Hum.rec.anlog [Basaglar Kwikpen U-100] 23 unit SQ HS 07/29/18 RX: LORazepam [Ativan] 0.25 mg PO HS 07/29/18 RX: Lactobacillus Acidophilus [Bacid -] 1 tab PO DAILY 07/29/18 RX: Levothyroxine [Synthroid -] 25 mcg PO DAILY 07/29/18 RX: Lipase/Protease/Amylase [Creon Dr 6,000 Units Capsule] 1 cap PO TIDCM 07/29/18 RX: Metoprolol Succinate 12.5 mg PO DAILY 07/29/18 RX: Multivit-Min/Iron Fum/Folic AC [Sfukf-Arfcmey-Vbhmvcei Tablet] 1 tab PO DAILY 07/29/18 RX: Nystatin Cream [Mycostatin Cream -] 1 applic TP BID 07/29/18 RX: Ranitidine HCl [Zantac] 150 mg PO DAILY 07/29/18 RX: Acetaminophen [Tylenol .Regular Strength -] 650 mg PO Q6H tablet 08/05/18 Review of Systems Unable to obtain ROS, reason: unable to obtain Physical Exam Vital Signs: Vital Signs Temperature 98.8 F 11/14/19 10:00 Pulse Rate 103 H 11/14/19 10:00 Respiratory Rate 18 11/14/19 10:00 Blood Pressure 137/68 11/14/19 10:00 O2 Sat by Pulse Oximetry (%) 100 11/13/19 23:17 Constitutional: Yes: No Distress, Calm, Other (laughs and cries) Eyes: Yes: Conjunctiva Clear HENT: Yes: Atraumatic, Normocephalic Neck: Yes: Supple, Trachea Midline Cardiovascular: Yes: Regular Rate and Rhythm Respiratory: Yes: Regular, CTA Bilaterally Gastrointestinal: Yes: Normal Bowel Sounds, Soft Musculoskeletal: Yes: WNL Extremities: Yes: WNL Neurological: Yes: Other Psychiatric: Yes: Other Labs: CBC, BMP 11/13/19 14:30 11/14/19 07:25 Imaging - Results Chest X-ray: Report Reviewed, Image Reviewed Cat Scan: Report Reviewed, Image Reviewed Assessment/Plan Problem List - Problems (1) EDMAR (acute kidney injury) Code(s): N17.9 - ACUTE KIDNEY FAILURE, UNSPECIFIED (2) UTI (urinary tract infection) Code(s): N39.0 - URINARY TRACT INFECTION, SITE NOT SPECIFIED Qualifiers: (3) CAD (coronary artery disease) Code(s): I25.10 - ATHSCL HEART DISEASE OF [place] CORONARY ARTERY W/O ANG PCTRS Qualifiers: Coronary Disease-Associated Artery/Lesion type: [place] artery [place] vs. transplanted heart: [place] heart Associated angina: without angina Qualified Code(s): I25.10 - Atherosclerotic heart disease of [place] coronary artery without angina pectoris (4) Dementia Code(s): F03.90 - UNSPECIFIED DEMENTIA WITHOUT BEHAVIORAL DISTURBANCE (5) Diabetes Code(s): E11.9 - TYPE 2 DIABETES MELLITUS WITHOUT COMPLICATIONS Qualifiers: Diabetes mellitus type: type 1 Diabetes mellitus complication status: with hypoglycemia Diabetes mellitus complication detail: without coma Qualified Code(s): E10.649 - Type 1 diabetes mellit plan continue abx await for all results close watch nutrition rest as per the team
--- NOTE | 2019-11-14 13:36 | PN ---
Physical Exam: SUBJECTIVE: Patient seen and examined. She is awake, appears comfortable. Nonverbal. OBJECTIVE: Vital Signs Period Temp Pulse Resp BP Sys/Romano Pulse Ox Last 24 Hr 98.4 F-99.2 F 99-103 18-20 118-137/48-68 100-100 GENERAL: seen laying comfortably HEAD: Normal with no signs of trauma. EYES: PERRL, extraocular movements intact, sclera anicteric, conjunctiva clear. No ptosis. ENT: edentulous, oropharynx clear without exudates, moist mucous membranes. NECK: Trachea midline, full range of motion, supple. LUNGS: Breath sounds equal, clear to auscultation bilaterally, no wheezes, no crackles, no accessory muscle use. HEART: Regular rate and rhythm, S1, S2 without murmur, rub or gallop. ABDOMEN: Soft, nontender, nondistended, normoactive bowel sounds, no guarding, no rebound, no hepatosplenomegaly, no masses. EXTREMITIES: 2+ pulses, warm, well-perfused, no edema. NEUROLOGICAL: she is awake but nonverbal. Not able to follow directions. Moving upper and lower extremities away from noxious stimulus SKIN: Warm, dry, normal turgor, no rashes or lesions noted Laboratory Results - last 24 hr 11/13/19 11/13/19 11/13/19 14:30 14:30 14:30 WBC 17.3 H RBC 3.12 L Hgb 9.1 L Hct 27.6 L MCV 88.4 MCH 29.0 MCHC 32.8 RDW 13.9 D Plt Count 238 D MPV 9.5 Absolute Neuts (auto) 15.8 H Neutrophils % 91.0 H D Neutrophils % (Manual) 85.0 H Band Neutrophils % 0.0 Lymphocytes % 5.1 L D Lymphocytes % (Manual) 4.0 L D Monocytes % 3.1 L Monocytes % (Manual) 10 Eosinophils % 0.5 D Eosinophils % (Manual) 0.0 D Basophils % 0.3 Basophils % (Manual) 0.0 Myelocytes % (Man) 0 Promyelocytes % (Man) 0 Blast Cells % (Manual) 0 Nucleated RBC % 0 Metamyelocytes 1 D PT with INR 12.90 INR 1.09 PTT (Actin FS) 27.9 Sodium Potassium Chloride Carbon Dioxide Anion Gap BUN Creatinine Est GFR (CKD-EPI)AfAm Est GFR (CKD-EPI)NonAf Random Glucose Lactic Acid Calcium Total Bilirubin AST ALT Alkaline Phosphatase Creatine Kinase Troponin I Total Protein Albumin Urine Color Yellow Urine Appearance Turbid Urine pH 5.0 Ur Specific [place] 1.011 Urine Protein 2+ H Urine Glucose (UA) Negative Urine Ketones Negative Urine Blood 3+ H Urine Nitrite Negative Urine Bilirubin Negative Urine Urobilinogen 0.2 Ur Leukocyte Esterase 3+ H Urine WBC (Auto) 27580 Urine RBC (Auto) 691.6 Urine Casts (Auto) 182 U Pathogenic Cast Auto None seen U Epithel Cells (Auto) >36 Urine Bacteria (Auto) 8929 Urine Yeast (Auto) None seen Ur Random Creatinine Ur Random Sodium Ur Random Potassium Ur Random Chloride 11/13/19 11/13/19 11/13/19 14:30 14:30 18:25 WBC RBC Hgb Hct MCV MCH MCHC RDW Plt Count MPV Absolute Neuts (auto) Neutrophils % Neutrophils % (Manual) Band Neutrophils % Lymphocytes % Lymphocytes % (Manual) Monocytes % Monocytes % (Manual) Eosinophils % Eosinophils % (Manual) Basophils % Basophils % (Manual) Myelocytes % (Man) Promyelocytes % (Man) Blast Cells % (Manual) Nucleated RBC % Metamyelocytes PT with INR INR PTT (Actin FS) Sodium 130 L Potassium 5.0 Chloride 100 Carbon Dioxide 18 L Anion Gap 13 BUN 128.5 H* Creatinine 5.7 H Est GFR (CKD-EPI)AfAm 7.78 Est GFR (CKD-EPI)NonAf 6.72 Random Glucose 81 Lactic Acid 1.3 Calcium 7.6 L Total Bilirubin 0.4 AST 40 H ALT 39 Alkaline Phosphatase 158 H Creatine Kinase 46 Troponin I < 0.02 Total Protein 5.7 L Albumin 2.2 L Urine Color Yellow Urine Appearance Turbid Urine pH 5.5 Ur Specific [place] 1.010 Urine Protein 1+ H Urine Glucose (UA) Negative Urine Ketones Negative Urine Blood 3+ H Urine Nitrite Negative Urine Bilirubin Negative Urine Urobilinogen 0.2 Ur Leukocyte Esterase 3+ H Urine WBC (Auto) 2332 Urine RBC (Auto) 32 Urine Casts (Auto) 5 U Pathogenic Cast Auto Negative U Epithel Cells (Auto) 19 Urine Bacteria (Auto) 625 Urine Yeast (Auto) Ur Random Creatinine Ur Random Sodium Ur Random Potassium Ur Random Chloride 11/13/19 11/14/19 18:25 07:25 WBC RBC Hgb Hct MCV MCH MCHC RDW Plt Count MPV Absolute Neuts (auto) Neutrophils % Neutrophils % (Manual) Band Neutrophils % Lymphocytes % Lymphocytes % (Manual) Monocytes % Monocytes % (Manual) Eosinophils % Eosinophils % (Manual) Basophils % Basophils % (Manual) Myelocytes % (Man) Promyelocytes % (Man) Blast Cells % (Manual) Nucleated RBC % Metamyelocytes PT with INR INR PTT (Actin FS) Sodium 133 L Potassium 5.3 H Chloride 105 Carbon Dioxide 12 L Anion Gap 17 H BUN 119.9 H* Creatinine 5.3 H Est GFR (CKD-EPI)AfAm 8.50 Est GFR (CKD-EPI)NonAf 7.33 Random Glucose 174 H Lactic Acid Calcium 7.1 L Total Bilirubin 0.4 AST 25 ALT 28 Alkaline Phosphatase 120 H Creatine Kinase Troponin I Total Protein 4.7 L Albumin 1.8 L Urine Color Urine Appearance Urine pH Ur Specific [place] Urine Protein Urine Glucose (UA) Urine Ketones Urine Blood Urine Nitrite Urine Bilirubin Urine Urobilinogen Ur Leukocyte Esterase Urine WBC (Auto) Urine RBC (Auto) Urine Casts (Auto) U Pathogenic Cast Auto U Epithel Cells (Auto) Urine Bacteria (Auto) Urine Yeast (Auto) Ur Random Creatinine 38.0 Ur Random Sodium 31 L Ur Random Potassium 11.0 L Ur Random Chloride 19 L Active Medications Generic Name Dose Route Start Last Admin Trade Name Freq PRN Reason Stop Dose Admin Heparin Sodium (Porcine) 5,000 unit 11/13/19 22:00 11/14/19 10:35 Heparin - SQ 5,000 unit BID JENNIFER Administration Ceftriaxone Sodium 1 gm/ 50 mls @ 100 mls/hr 11/14/19 10:00 11/14/19 10:35 Dextrose IVPB 100 mls/hr DAILY JENNIFER Administration Sodium Bicarbonate 150 meq/ 1,150 mls @ 100 mls/hr 11/14/19 10:00 Dextrose IV Q11H EJNNIFER ASSESSMENT/PLAN: 1. Gram neg UTI - appreciate input by Dr Soto - cont ceftriaxone 2. EDMAR secondary to gram neg UTI and dehydration with metab acidosis - with indwelling catheter for output monitoring - appreciate input by Dr Laureano. Family does not wish to get HD in the future - cont close monitoring of UO, volume status. repeat BMP 3. Abnormal CT scan/ CXR in a patient with AMS - though she is nonverbal, her actions/demeanor indicate that she can recognize a person is attending to her and she is responding with smiles and warm gestures which is encouraging - covid 19 testing given pandemic and presentation 4. SSI, accuchecks for DM 2 - start puree diet 5. DVT prophylaxis - heparin SQ 6. PT evaluation requested in am Visit type - Emergency Visit Emergency Visit: Yes ED Registration Date: 11/13/19 Care time: The patient presented to the Emergency Department on the above date and was hospitalized for further evaluation of their emergent condition. - New Patient This patient is new to me today: No - Critical Care Critical Care patient: No - Discharge Referral Referred to [facility] No
[2019-11-14] MEDS: SODIUM BICARBONATE 8.4% - 150 MEQ in DEXTROSE 5%-WATER - 1,000 ML IV SCH (14:26)
[2019-11-14 14:30] LABS: CALCIUM 7.4 mg/dL (8.5-10.1); CREATININE 5.2 mg/dL (0.55-1.3); POTASSIUM 5.3 mmol/L (3.5-5.1)
[2019-11-14 14:46] LABS: BLOOD UREA NITROGEN 122.1 mg/dL (7-18)
[2019-11-15] MEDS: SODIUM BICARBONATE 8.4% - 150 MEQ in DEXTROSE 5%-WATER - 1,000 ML IV SCH ×4 (01:40→19:39)
[2019-11-15 07:49] LABS: BASO % 0.1 % (0-2.0); EOS % 0.3 % (0-4.5); HEMATOCRIT 25.1 % (32.4-45.2); HEMOGLOBIN 8.2 GM/dL (10.7-15.3); LYMPH % 5.2 % (8-40); MCH 29.6 pg (25.7-33.7); MCHC 32.7 g/dl (32.0-36.0); MEAN CELL VOLUME 90.7 fl (80-96); MEAN PLT VOLUME 8.7 fl (7.5-11.1); NEUT % 89.4 % (42.8-82.8); PLATELET COUNT 283 K/MM3 (134-434); RBC 2.77 M/mm3 (3.60-5.2); RDW 14.4 % (11.6-15.6); WHITE BLOOD COUNT 11.7 K/mm3 (4.0-10.0)
[2019-11-15 08:09] LABS: ALBUMIN 1.9 g/dl (3.4-5.0); BILIRUBIN,TOTAL 0.4 mg/dL (0.2-1); CALCIUM 7.3 mg/dL (8.5-10.1); CREATININE 5.4 mg/dL (0.55-1.3); POTASSIUM 5.2 mmol/L (3.5-5.1); TOT PROT 4.9 g/dl (6.4-8.2)
[2019-11-15] MEDS: CEFTRIAXONE 1 GM in DEXTROSE 5%-WATER - 50 ML IVPB SCH (09:57)
[2019-11-15] MEDS: HEPARIN NA (PORCINE) 5,000 UNITS/ML 1ML VIAL SQ SCH ×2 (09:58→21:13)
[2019-11-15] MEDS: SODIUM BICARBONATE 8.4% 50 MEQ/50 ML VIAL IV SCH (09:59)
[2019-11-15] MEDS ORDERED: INSULIN (NOVOLOG) ASPART 100 UNITS/ML 10ML VIAL SQ ONE (10:15)
[2019-11-15 11:23] LABS: ANISOCYTOSIS 1+; MACROCYTOSIS 0; OVALOCYTE 1+; PLATELET ESTIMATE NORMAL; TEAR DROP CELLS 1+
--- NOTE | 2019-11-15 11:50 | PN ---
Progress Note, Physician Chief Complaint: AMS History of Present Illness: Seen and examined at the bedside awake but not verbal on IVF making urine via antunez blood sugars are elevated - Current Medication List Current Medications: Active Medications Heparin Sodium (Porcine) (Heparin -) 5,000 unit SQ BID [facility] Last Admin: 11/15/19 09:58 Dose: 5,000 unit Documented by: Ceftriaxone Sodium 1 gm/ (Dextrose) 50 mls @ 100 mls/hr IVPB DAILY [facility] Last Admin: 11/15/19 09:57 Dose: 100 mls/hr Documented by: Sodium Bicarbonate 150 meq/ (Dextrose) 1,150 mls @ 100 mls/hr IV Q11H [facility] Last Admin: 11/15/19 09:58 Dose: Not Given Documented by: - Objective Vital Signs: Vital Signs Temperature 97.7 F 11/15/19 10:00 Pulse Rate 100 H 11/15/19 10:00 Respiratory Rate 11/15/19 10:00 Blood Pressure 148/64 11/15/19 10:00 O2 Sat by Pulse Oximetry (%) 100 11/14/19 21:00 Constitutional: Yes: No Distress HENT: Yes: Atraumatic Neck: Yes: Supple Cardiovascular: Yes: Regular Rate and Rhythm Respiratory: Yes: Regular Gastrointestinal: Yes: Soft Extremities: No: Cold, Cool, Cyanosis Neurological: Yes: Alert Labs: CBC, BMP 11/15/19 06:20 11/15/19 06:20 INR, PTT INR 1.09 (0.83-1.09) 11/13/19 14:30 Assessment/Plan Impression 1. EDMAR 2. Lewy Body Dementia 3. sepsis 4. leukocytosis 5. DM 6. htn 7. anemia 8. met acidosis Plan Renal function unchanged. 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 Acidosis is improved with bicarb gtt Continue D5 with bicarb for now Lokelma daily until K < 5 renal diet if tolerated continue antibiotics as per primary team Spoke to sister over the phone and updated clinical status Ramakrishna Ch DO
[2019-11-15] MEDS ORDERED: SODIUM ZIRCONIUM CYCLOSILICATE (LOKELMA) 5 GM PACKET PO ONE (11:51)
--- NOTE | 2019-11-15 12:15 | PN ---
Progress Note, Physician History of Present Illness: pt seen/ examined chart is reviewed drowsy/ arousable poor historian no distress sugar running high- reading confirmed-- d/w RN also. - Current Medication List Current Medications: Active Medications Heparin Sodium (Porcine) (Heparin -) 5,000 unit SQ BID [facility] Last Admin: 11/15/19 09:58 Dose: 5,000 unit Documented by: Ceftriaxone Sodium 1 gm/ (Dextrose) 50 mls @ 100 mls/hr IVPB DAILY [facility] Last Admin: 11/15/19 09:57 Dose: 100 mls/hr Documented by: Sodium Bicarbonate 150 meq/ (Dextrose) 1,150 mls @ 100 mls/hr IV Q11H [facility] Last Admin: 11/15/19 09:58 Dose: Not Given Documented by: Insulin Aspart (Novolog Vial Sliding Scale -) 1 vial SQ TIDAC [facility]; Protocol Insulin Detemir (Levemir Vial) 5 units SQ HS [facility] - Objective Vital Signs: Vital Signs Temperature 97.7 F 11/15/19 10:00 Pulse Rate 100 H 11/15/19 10:00 Respiratory Rate 11/15/19 10:00 Blood Pressure 148/64 11/15/19 10:00 O2 Sat by Pulse Oximetry (%) 100 11/14/19 21:00 Constitutional: Yes: No Distress Eyes: Yes: Conjunctiva Clear Neck: Yes: Supple Cardiovascular: Yes: Regular Rate and Rhythm Respiratory: Yes: CTA Bilaterally Gastrointestinal: Yes: Soft Edema: No Neurological: No: Alert Labs: CBC, BMP 11/15/19 06:20 11/15/19 06:20 INR, PTT INR 1.09 (0.83-1.09) 11/13/19 14:30 - ....Imaging Cat Scan: Report Reviewed Problem List - Problems (1) EDMAR (acute kidney injury) Code(s): N17.9 - ACUTE KIDNEY FAILURE, UNSPECIFIED (2) UTI (urinary tract infection) Code(s): N39.0 - URINARY TRACT INFECTION, SITE NOT SPECIFIED Qualifiers: (3) CAD (coronary artery disease) Code(s): I25.10 - ATHSCL HEART DISEASE OF [place] CORONARY ARTERY W/O ANG PCTRS Qualifiers: Coronary Disease-Associated Artery/Lesion type: [place] artery [place] vs. transplanted heart: [place] heart Associated angina: without angina Qualified Code(s): I25.10 - Atherosclerotic heart disease of [place] coronary artery without angina pectoris (4) Dementia Code(s): F03.90 - UNSPECIFIED DEMENTIA WITHOUT BEHAVIORAL DISTURBANCE (5) Diabetes Code(s): E11.9 - TYPE 2 DIABETES MELLITUS WITHOUT COMPLICATIONS Qualifiers: Diabetes mellitus type: type 1 Diabetes mellitus complication status: with hypoglycemia Diabetes mellitus complication detail: without coma Qualified Code(s): E10.649 - Type 1 diabetes mellitus with hypoglycemia without coma Assessment/Plan Discussed Continue present care Added basal insulin insert harmony avitia f/u labs condition gaurded pt is dnr/di will follow
[2019-11-15] MEDS: INSULIN SLIDING SCALE (NOVOLOG) 1 VIAL SQ SCH (17:01)
[2019-11-15] MEDS ORDERED: INSULIN (LEVEMIR) 100 UNITS/ML UNITS SQ SCH (22:00)
[2019-11-16] MEDS: SODIUM BICARBONATE 8.4% - 150 MEQ in DEXTROSE 5%-WATER - 1,000 ML IV SCH ×2 (03:29→05:45)
[2019-11-16] MEDS: INSULIN SLIDING SCALE (NOVOLOG) 1 VIAL SQ SCH ×3 (06:23→16:20)
[2019-11-16 08:01] LABS: BASO % 0.2 % (0-2.0); EOS % 0.1 % (0-4.5); HEMATOCRIT 28.9 % (32.4-45.2); HEMOGLOBIN 9.7 GM/dL (10.7-15.3); LYMPH % 5.1 % (8-40); MCH 29.8 pg (25.7-33.7); MCHC 33.6 g/dl (32.0-36.0); MEAN CELL VOLUME 88.7 fl (80-96); MONO % 2.7 % (3.8-10.2); NEUT % 91.9 % (42.8-82.8); PLATELET COUNT 311 K/MM3 (134-434); RBC 3.26 M/mm3 (3.60-5.2); RDW 14.2 % (11.6-15.6); WHITE BLOOD COUNT 9.2 K/mm3 (4.0-10.0)
[2019-11-16 08:30] LABS: ALBUMIN 2.1 g/dl (3.4-5.0); BILIRUBIN,TOTAL 0.3 mg/dL (0.2-1); BLOOD UREA NITROGEN 97.1 mg/dL (7-18); CALCIUM 7.6 mg/dL (8.5-10.1); CREATININE 5.4 mg/dL (0.55-1.3); MAGNESIUM 2.4 mg/dL (1.8-2.4); PHOSPHOROUS 6.1 mg/dL (2.5-4.9); POTASSIUM 4.1 mmol/L (3.5-5.1); TOT PROT 5.9 g/dl (6.4-8.2)
[2019-11-16] MEDS: HEPARIN NA (PORCINE) 5,000 UNITS/ML 1ML VIAL SQ SCH ×2 (09:52→21:41)
[2019-11-16] MEDS: CEFTRIAXONE 1 GM in DEXTROSE 5%-WATER - 50 ML IVPB SCH ×2 (09:52→11:11)
--- NOTE | 2019-11-16 10:11 | PN ---
Progress Note, Physician History of Present Illness: stable not spiking fevers awaiting for identification of the organism wbc has normalized - Current Medication List Current Medications: Active Medications Heparin Sodium (Porcine) (Heparin -) 5,000 unit SQ BID [facility] Last Admin: 11/16/19 09:52 Dose: 5,000 unit Documented by: Sodium Bicarbonate 150 meq/ (Dextrose) 1,150 mls @ 100 mls/hr IV Q11H [facility] Last Admin: 11/16/19 05:45 Dose: Not Given Documented by: Piperacillin Sod/Tazobactam (Sod 2.25 gm/ Dextrose) 50 mls @ 100 mls/hr IVPB Q8H-IV [facility]; Protocol Insulin Aspart (Novolog Vial Sliding Scale -) 1 vial SQ TIDAC [facility]; Protocol Last Admin: 11/16/19 06:23 Dose: 12 units Documented by: Insulin Detemir (Levemir Vial) 5 units SQ HS [facility] Last Admin: 11/15/19 21:14 Dose: 5 units Documented by: - Objective Vital Signs: Vital Signs Temperature 97.6 F 11/16/19 09:02 Pulse Rate 105 H 11/16/19 09:02 Respiratory Rate 19 11/16/19 09:02 Blood Pressure 150/71 11/16/19 09:02 O2 Sat by Pulse Oximetry (%) 100 11/15/19 21:00 Constitutional: Yes: No Distress, Calm Cardiovascular: Yes: S1, S2 Respiratory: Yes: Regular, CTA Bilaterally Gastrointestinal: Yes: Normal Bowel Sounds, Soft Musculoskeletal: Yes: WNL Extremities: Yes: WNL Neurological: Yes: Alert, Other Psychiatric: Yes: Other Labs: CBC, BMP 11/16/19 07:05 11/16/19 06:00 INR, PTT INR 1.09 (0.83-1.09) 11/13/19 14:30 Assessment/Plan Problem List - Problems (1) EDMAR (acute kidney injury) Code(s): N17.9 - ACUTE KIDNEY FAILURE, UNSPECIFIED (2) UTI (urinary tract infection) Code(s): N39.0 - URINARY TRACT INFECTION, SITE NOT SPECIFIED Qualifiers: (3) CAD (coronary artery disease) Code(s): I25.10 - ATHSCL HEART DISEASE OF [place] CORONARY ARTERY W/O ANG PCTRS Qualifiers: Coronary Disease-Associated Artery/Lesion type: [place] artery [place] vs. transplanted heart: [place] heart Associated angina: without angina Qualified Code(s): I25.10 - Atherosclerotic heart disease of [place] coronary artery without angina pectoris (4) Dementia Code(s): F03.90 - UNSPECIFIED DEMENTIA WITHOUT BEHAVIORAL DISTURBANCE (5) Diabetes Code(s): E11.9 - TYPE 2 DIABETES MELLITUS WITHOUT COMPLICATIONS Qualifiers: Diabetes mellitus type: type 1 Diabetes mellitus complication status: with hypoglycemia Diabetes mellitus complication detail: without coma Qualified Code(s): E10.649 - Type 1 diabetes mellit plan awaiting identification of the organism continue current mgmt abx wbc has normalized close watch rest as per the team
[2019-11-16] MEDS ORDERED: PIPERACILLIN/TAZOB 2.25 GM 2.25 GM in DEXTROSE 5%-WATER - 50 ML IVPB SCH (10:15)
[2019-11-16 11:05] LABS: ANISOCYTOSIS 1+; MACROCYTOSIS 0; OVALOCYTE 1+; PLATELET ESTIMATE NORMAL; TEAR DROP CELLS 1+
--- NOTE | 2019-11-16 11:16 | PN ---
Progress Note, Physician Chief Complaint: AMS History of Present Illness: Seen and examined at the bedside awake but not verbal on IVF making urine via antunez no overnight events as per nurse - Current Medication List Current Medications: Active Medications Heparin Sodium (Porcine) (Heparin -) 5,000 unit SQ BID [facility] Last Admin: 11/16/19 09:52 Dose: 5,000 unit Documented by: Ceftriaxone Sodium 1 gm/ (Dextrose) 50 mls @ 100 mls/hr IVPB DAILY [facility]; Protocol Last Admin: 11/16/19 11:11 Dose: Not Given Documented by: Insulin Aspart (Novolog Vial Sliding Scale -) 1 vial SQ TIDAC [facility]; Protocol Last Admin: 11/16/19 06:23 Dose: 12 units Documented by: Insulin Detemir (Levemir Vial) 10 units SQ HS [facility] - Objective Vital Signs: Vital Signs Temperature 97.6 F 11/16/19 09:02 Pulse Rate 105 H 11/16/19 09:02 Respiratory Rate 19 11/16/19 09:02 Blood Pressure 150/71 11/16/19 09:02 O2 Sat by Pulse Oximetry (%) 100 11/15/19 21:00 Constitutional: Yes: No Distress HENT: Yes: Atraumatic Respiratory: Yes: Regular Genitourinary: Yes: Antunez Present Extremities: No: Cyanosis Edema: No Labs: CBC, BMP 11/16/19 07:05 11/16/19 06:00 INR, PTT INR 1.09 (0.83-1.09) 11/13/19 14:30 Assessment/Plan Impression 1. EDMAR 2. Lewy Body Dementia 3. sepsis 4. leukocytosis 5. DM 6. htn 7. anemia 8. met acidosis Plan Renal function unchanged. BUN improving No emergent indication for [employer]. Can stop bicarb gtt today as serum bicarb is > 30 start LR at 83cc per hour Continue D5 with bicarb for now Stop Lokelma as K < 5 renal diet if tolerated continue antibiotics as per primary team Ramakrishna Ch DO
[2019-11-16] MEDS: LACTATED RINGERS SOLUTION 1,000 ML/1,000 ML INFUS.BAG IV SCH (11:46)
--- NOTE | 2019-11-16 12:19 | PN ---
Progress Note (short form) - Note Progress Note: Comfortable no distress. Vital Signs Temp 97.6 F 11/16/19 09:02 Pulse 105 H 11/16/19 09:02 Resp 19 11/16/19 09:02 BP 150/71 11/16/19 09:02 Pulse Ox 100 11/15/19 21:00 Intake & Output 11/15/19 11/16/19 11/16/19 23:59 11:59 23:59 Intake Total 1500 600 Output Total 1200 400 Balance 300 200 Intake: IV 1200 600 ivf 1200 600 IVPB 50 Oral 250 0 Output: Urine 1200 400 Laughlin 1200 400 Other: Voiding Method Indwelling Catheter Indwelling Catheter Bowel Movement No Yes: large loose # Bowel Movements 1 1 Active Medications Heparin Sodium (Porcine) (Heparin -) 5,000 unit SQ BID [facility] Last Admin: 11/16/19 09:52 Dose: 5,000 unit Documented by: Ceftriaxone Sodium 1 gm/ (Dextrose) 50 mls @ 100 mls/hr IVPB DAILY [facility]; Protocol Last Admin: 11/16/19 11:11 Dose: Not Given Documented by: Lactated Ringer's (Lactated Ringers Solution) 1,000 ml in 1,000 mls @ 83 mls/hr IV ASDIR [facility] Last Admin: 11/16/19 11:46 Dose: 83 mls/hr Documented by: Insulin Aspart (Novolog Vial Sliding Scale -) 1 vial SQ TIDAC [facility]; Protocol Last Admin: 11/16/19 11:52 Dose: 12 units Documented by: Insulin Detemir (Levemir Vial) 10 units SQ [facility] CBC, BMP 11/16/19 07:05 11/16/19 06:00 Microbiology 11/13/19 14:30 Urine Culture - Final Urine - Urine - Catheterized Escherichia Coli Escherichia Coli#2 11/13/19 14:30 Blood Culture - Preliminary Blood - Peripheral Venous NO GROWTH OBTAINED AFTER 48 HOURS, INCUBATION TO CONTINUE FOR 3 DAYS. 11/13/19 14:30 Blood Culture - Preliminary Blood - Peripheral Venous NO GROWTH OBTAINED AFTER 48 HOURS, INCUBATION TO CONTINUE FOR 3 DAYS. Physical Exam. Constitutional: Yes: No Distress. Eyes: Yes: Conjunctiva Clear Neck: Yes: Supple Cardiovascular: Yes: Regular Rate and Rhythm Respiratory: Yes: CTA Bilaterally Gastrointestinal: Yes: Soft Edema: No Neurological: No: Alert Assessment/Plan Continue present care Added basal insulin-- increased for today abx f/u labs condition gaurded pt is dnr/di will follow. Problem List - Problems (1) EDMAR (acute kidney injury) Code(s): N17.9 - ACUTE KIDNEY FAILURE, UNSPECIFIED (2) UTI (urinary tract infection) Code(s): N39.0 - URINARY TRACT INFECTION, SITE NOT SPECIFIED Qualifiers: (3) CAD (coronary artery disease) Code(s): I25.10 - ATHSCL HEART DISEASE OF [place] CORONARY ARTERY W/O ANG PCTRS Qualifiers: Coronary Disease-Associated Artery/Lesion type: [place] artery [place] vs. transplanted heart: [place] heart Associated angina: without angina Qualified Code(s): I25.10 - Atherosclerotic heart disease of [place] coronary artery without angina pectoris (4) Dementia Code(s): F03.90 - UNSPECIFIED DEMENTIA WITHOUT BEHAVIORAL DISTURBANCE (5) Diabetes Code(s): E11.9 - TYPE 2 DIABETES MELLITUS WITHOUT COMPLICATIONS Qualifiers: Diabetes mellitus type: type 1 Diabetes mellitus complication status: with hypoglycemia Diabetes mellitus complication detail: without coma Qualified Code(s): E10.649 - Type 1 diabetes mellitus with hypoglycemia without coma
[2019-11-16] MEDS ORDERED: INSULIN SLIDING SCALE (NOVOLOG) 1 VIAL SQ ONE (19:14)
[2019-11-16] MEDS: INSULIN (LEVEMIR) 100 UNITS/ML UNITS SQ SCH (21:42)
[2019-11-17] MEDS: LACTATED RINGERS SOLUTION 1,000 ML/1,000 ML INFUS.BAG IV SCH ×2 (02:50→13:52)
[2019-11-17] MEDS: INSULIN SLIDING SCALE (NOVOLOG) 1 VIAL SQ SCH ×3 (07:14→17:19)
[2019-11-17 08:26] LABS: BLOOD UREA NITROGEN 85.3 mg/dL (7-18); CALCIUM 7.4 mg/dL (8.5-10.1); CREATININE 4.9 mg/dL (0.55-1.3); MAGNESIUM 2.2 mg/dL (1.8-2.4); PHOSPHOROUS 5.8 mg/dL (2.5-4.9); POTASSIUM 3.6 mmol/L (3.5-5.1)
--- NOTE | 2019-11-17 09:52 | PN ---
Progress Note, Physician History of Present Illness: stable comfortable 2 different ecoli noted - Current Medication List Current Medications: Active Medications Heparin Sodium (Porcine) (Heparin -) 5,000 unit SQ BID [facility] Last Admin: 11/16/19 21:41 Dose: 5,000 unit Documented by: Ceftriaxone Sodium 1 gm/ (Dextrose) 50 mls @ 100 mls/hr IVPB DAILY [facility]; Protocol Last Admin: 11/16/19 11:11 Dose: Not Given Documented by: Lactated Ringer's (Lactated Ringers Solution) 1,000 ml in 1,000 mls @ 83 mls/hr IV ASDIR [facility] Last Admin: 11/17/19 02:50 Dose: 83 mls/hr Documented by: Insulin Aspart (Novolog Vial Sliding Scale -) 1 vial SQ TIDAC [facility]; Protocol Last Admin: 11/17/19 07:14 Dose: Not Given Documented by: Insulin Detemir (Levemir Vial) 10 units SQ HS [facility] Last Admin: 11/16/19 21:42 Dose: 10 units Documented by: - Objective Vital Signs: Vital Signs Temperature 98.8 F 11/17/19 07:27 Pulse Rate 121 H 11/17/19 07:27 Respiratory Rate 11/17/19 07:27 Blood Pressure 157/53 L 11/17/19 07:27 O2 Sat by Pulse Oximetry (%) 98 11/16/19 21:00 Constitutional: Yes: No Distress, Calm Cardiovascular: Yes: S1, S2 Respiratory: Yes: Regular Gastrointestinal: Yes: Normal Bowel Sounds, Soft Musculoskeletal: Yes: WNL Extremities: Yes: WNL Neurological: Yes: Other Psychiatric: Yes: Other Labs: CBC, BMP 11/16/19 07:05 11/17/19 06:30 INR, PTT INR 1.09 (0.83-1.09) 11/13/19 14:30 Assessment/Plan Problem List - Problems (1) EDMAR (acute kidney injury) Code(s): N17.9 - ACUTE KIDNEY FAILURE, UNSPECIFIED (2) UTI (urinary tract infection) Code(s): N39.0 - URINARY TRACT INFECTION, SITE NOT SPECIFIED Qualifiers: (3) CAD (coronary artery disease) Code(s): I25.10 - ATHSCL HEART DISEASE OF [place] CORONARY ARTERY W/O ANG PCTRS Qualifiers: Coronary Disease-Associated Artery/Lesion type: [place] artery [place] vs. transplanted heart: [place] heart Associated angina: without angina Qualified Code(s): I25.10 - Atherosclerotic heart disease of [place] coronary artery without angina pectoris (4) Dementia Code(s): F03.90 - UNSPECIFIED DEMENTIA WITHOUT BEHAVIORAL DISTURBANCE (5) Diabetes Code(s): E11.9 - TYPE 2 DIABETES MELLITUS WITHOUT COMPLICATIONS Qualifiers: Diabetes mellitus type: type 1 Diabetes mellitus complication status: with hypoglycemia Diabetes mellitus complication detail: without coma Qualified Code(s): E10.649 - Type 1 diabetes mellit plan continue abx continue current mgmt
[2019-11-17] MEDS: HEPARIN NA (PORCINE) 5,000 UNITS/ML 1ML VIAL SQ SCH ×2 (10:17→21:47)
[2019-11-17] MEDS: CEFTRIAXONE 1 GM in DEXTROSE 5%-WATER - 50 ML IVPB SCH (10:18)
--- NOTE | 2019-11-17 13:40 | PN ---
Progress Note, Physician History of Present Illness: Pt seen and examined at bedside. She is awake but confused. - Current Medication List Current Medications: Active Medications Heparin Sodium (Porcine) (Heparin -) 5,000 unit SQ BID [facility] Last Admin: 11/17/19 10:17 Dose: 5,000 unit Documented by: Ceftriaxone Sodium 1 gm/ (Dextrose) 50 mls @ 100 mls/hr IVPB DAILY [facility]; Protocol Last Admin: 11/17/19 10:18 Dose: 100 mls/hr Documented by: Lactated Ringer's (Lactated Ringers Solution) 1,000 ml in 1,000 mls @ 83 mls/hr IV ASDIR [facility] Last Admin: 11/17/19 02:50 Dose: 83 mls/hr Documented by: Insulin Aspart (Novolog Vial Sliding Scale -) 1 vial SQ TIDAC [facility]; Protocol Last Admin: 11/17/19 12:00 Dose: 3 units Documented by: Insulin Detemir (Levemir Vial) 10 units SQ HS [facility] Last Admin: 11/16/19 21:42 Dose: 10 units Documented by: - Objective Vital Signs: Vital Signs Temperature 98.6 F 11/17/19 08:40 Pulse Rate 95 H 11/17/19 08:40 Respiratory Rate 18 11/17/19 08:40 Blood Pressure 157/81 11/17/19 08:40 O2 Sat by Pulse Oximetry (%) 98 11/16/19 21:00 Constitutional: Yes: Calm Eyes: Yes: Conjunctiva Clear HENT: Yes: Atraumatic Neck: Yes: Supple Cardiovascular: Yes: S1, S2 Respiratory: Yes: CTA Bilaterally Gastrointestinal: Yes: Soft Genitourinary: Yes: L[place] Present Musculoskeletal: Yes: Muscle Weakness Edema: No Integumentary: Yes: WNL Neurological: Yes: Confusion Labs: CBC, BMP 11/16/19 07:05 11/17/19 06:30 INR, PTT INR 1.09 (0.83-1.09) 11/13/19 14:30 Problem List - Problems (1) EDMAR (acute kidney injury) Code(s): N17.9 - ACUTE KIDNEY FAILURE, UNSPECIFIED Assessment/Plan Current Medications Generic Name Dose Route Start Last Admin Trade Name Freq PRN Reason Stop Dose Admin Heparin Sodium (Porcine) 5,000 unit 11/13/19 22:00 11/17/19 10:17 Heparin - SQ 5,000 unit BID [facility] Administration Ceftriaxone Sodium 1 gm/ 50 mls @ 100 mls/hr 11/16/19 10:30 11/17/19 10:18 Dextrose IVPB 100 mls/hr DAILY [facility] Administration Protocol Lactated Ringer's 1,000 ml in 1,000 mls @ 83 mls/hr 11/16/19 11:30 11/17/19 02:50 Lactated Ringers Solution IV 83 mls/hr ASDIR [facility] Administration Insulin Aspart 1 vial 11/15/19 16:30 11/17/19 12:00 Novolog Vial Sliding Scale - SQ 3 units TIDAC [facility] Administration Protocol Insulin Detemir 10 units 11/16/19 10:31 11/16/19 21:42 Levemir Vial SQ 10 units HS [facility] Administration Impression 1. EDMAR 2. Lewy Body Dementia 3. sepsis 4. leukocytosis 5. DM 6. htn 7. anemia 8. met acidosis Plan - cont with LR - renal function is improving - repeat labs in am - potassium improved, no need for lokelma - no indication for HD as she is improving
--- NOTE | 2019-11-17 14:10 | PN ---
Progress Note (short form) - Note Progress Note: Comfortable no distress covid -ve not eating Vital Signs Temp 98.6 F 11/17/19 08:40 Pulse 95 H 11/17/19 08:40 Resp 18 11/17/19 08:40 BP 157/81 11/17/19 08:40 Pulse Ox 98 11/16/19 21:00 Intake & Output 11/16/19 11/17/19 11/17/19 23:59 11:59 23:59 Intake Total 982 498 Output Total 800 250 Balance 182 248 Intake: IV 932 498 LACTATED RINGERS SOLUTION 332 498 1,000 ml In 1,000 ml @ 83 mls/hr IV ASDIR [facility] Rx #:[id number] ivf 600 IVPB 50 Oral 0 Output: Urine 800 250 Laughlin 800 250 Other: Voiding Method Indwelling Catheter Indwelling Catheter Bowel Movement Yes: loose, scant Yes: loose # Bowel Movements 1 1 Active Medications Heparin Sodium (Porcine) (Heparin -) 5,000 unit SQ BID [facility] Last Admin: 11/17/19 10:17 Dose: 5,000 unit Documented by: Ceftriaxone Sodium 1 gm/ (Dextrose) 50 mls @ 100 mls/hr IVPB DAILY [facility]; Protocol Last Admin: 11/17/19 10:18 Dose: 100 mls/hr Documented by: Lactated Ringer's (Lactated Ringers Solution) 1,000 ml in 1,000 mls @ 83 mls/hr IV ASDIR [facility] Last Admin: 11/17/19 13:52 Dose: 83 mls/hr Documented by: Insulin Aspart (Novolog Vial Sliding Scale -) 1 vial SQ TIDAC [facility]; Protocol Last Admin: 11/17/19 12:00 Dose: 3 units Documented by: Insulin Detemir (Levemir Vial) 10 units SQ HS [facility] Last Admin: 11/16/19 21:42 Dose: 10 units Documented by: CBC, BMP 11/16/19 07:05 11/17/19 06:30 Microbiology 11/13/19 14:30 Blood Culture - Preliminary Blood - Peripheral Venous NO GROWTH OBTAINED AFTER 72 HOURS, INCUBATION TO CONTINUE FOR 2 DAYS. 11/13/19 14:30 Blood Culture - Preliminary Blood - Peripheral Venous NO GROWTH OBTAINED AFTER 72 HOURS, INCUBATION TO CONTINUE FOR 2 DAYS. 11/13/19 14:30 Urine Culture - Final Urine - Urine - Catheterized Escherichia Coli Escherichia Coli#2 Physical Exam. Constitutional: Yes: No Distress. Eyes: Yes: Conjunctiva Clear Neck: Yes: Supple Cardiovascular: Yes: Regular Rate and Rhythm Respiratory: Yes: CTA Bilaterally Gastrointestinal: Yes: Soft Edema: No Neurological: No: awake . Assessment/Plan Continue present care Sugar better abx culture noted condition gaurded pt is dnr/di If stable - consider d/c to senior care in am will follow. Problem List - Problems (1) EDMAR (acute kidney injury) Code(s): N17.9 - ACUTE KIDNEY FAILURE, UNSPECIFIED (2) UTI (urinary tract infection) Code(s): N39.0 - URINARY TRACT INFECTION, SITE NOT SPECIFIED Qualifiers: (3) CAD (coronary artery disease) Code(s): I25.10 - ATHSCL HEART DISEASE OF [place] CORONARY ARTERY W/O ANG PCTRS Qualifiers: Coronary Disease-Associated Artery/Lesion type: [place] artery [place] vs. transplanted heart: [place] heart Associated angina: without angina Qualified Code(s): I25.10 - Atherosclerotic heart disease of [place] coronary artery without angina pectoris (4) Dementia Code(s): F03.90 - UNSPECIFIED DEMENTIA WITHOUT BEHAVIORAL DISTURBANCE (5) Diabetes Code(s): E11.9 - TYPE 2 DIABETES MELLITUS WITHOUT COMPLICATIONS Qualifiers: Diabetes mellitus type: type 1 Diabetes mellitus complication status: with hypoglycemia Diabetes mellitus complication detail: without coma Qualified Code(s): E10.649 - Type 1 diabetes mellitus with hypoglycemia without coma Problem List - Problems (1) EDMAR (acute kidney injury) Code(s): N17.9 - ACUTE KIDNEY FAILURE, UNSPECIFIED (2) UTI (urinary tract infection) Code(s): N39.0 - URINARY TRACT INFECTION, SITE NOT SPECIFIED Qualifiers: (3) CAD (coronary artery disease) Code(s): I25.10 - ATHSCL HEART DISEASE OF [place] CORONARY ARTERY W/O ANG PCTRS Qualifiers: Coronary Disease-Associated Artery/Lesion type: [place] artery [place] vs. transplanted heart: [place] heart Associated angina: without angina Qualified Code(s): I25.10 - Atherosclerotic heart disease of [place] coronary artery without angina pectoris (4) Dementia Code(s): F03.90 - UNSPECIFIED DEMENTIA WITHOUT BEHAVIORAL DISTURBANCE (5) Diabetes Code(s): E11.9 - TYPE 2 DIABETES MELLITUS WITHOUT COMPLICATIONS Qualifiers: Diabetes mellitus type: type 1 Diabetes mellitus complication status: with hypoglycemia Diabetes mellitus complication detail: without coma Qualified Code(s): E10.649 - Type 1 diabetes mellitus with hypoglycemia without coma
[2019-11-17] MEDS: INSULIN (LEVEMIR) 100 UNITS/ML UNITS SQ SCH (21:44)
[2019-11-18] MEDS: LACTATED RINGERS SOLUTION 1,000 ML/1,000 ML INFUS.BAG IV SCH ×2 (02:52→16:07)
[2019-11-18] MEDS: INSULIN SLIDING SCALE (NOVOLOG) 1 VIAL SQ SCH ×3 (06:26→17:19)
[2019-11-18] MEDS ORDERED: cefTRIAXone SODIUM 1 GM VIAL ONE (09:07)
[2019-11-18] MEDS ORDERED: DEXTROSE 5%-WATER - 50 ML IVPB ONE (09:07)
[2019-11-18] MEDS: CEFTRIAXONE 1 GM in DEXTROSE 5%-WATER - 50 ML IVPB SCH (09:44)
[2019-11-18] MEDS: HEPARIN NA (PORCINE) 5,000 UNITS/ML 1ML VIAL SQ SCH ×2 (09:44→21:29)
--- NOTE | 2019-11-18 13:44 | PN ---
Progress Note (short form) - Note Progress Note: no distress laughing quite Vital Signs - 24 hr 11/17/19 11/17/19 11/18/19 21:00 22:00 06:00 Temperature 98.1 F 98.2 F Pulse Rate 100 H 98 H Respiratory 18 18 18 Rate Blood Pressure 158/68 118/75 O2 Sat by Pulse 99 Oximetry (%) 11/18/19 11/18/19 11/18/19 09:40 10:05 14:00 Temperature 97.7 F 979 F H Pulse Rate 106 H 102 H Respiratory 20 20 Rate Blood Pressure 157/76 141/87 O2 Sat by Pulse 98 Oximetry (%) 11/18/19 18:00 Temperature 97.1 F L Pulse Rate 102 H Respiratory 20 Rate Blood Pressure 148/75 O2 Sat by Pulse Oximetry (%) Current Medications Generic Name Dose Route Start Last Admin Trade Name Freq PRN Reason Stop Dose Admin Heparin Sodium (Porcine) 5,000 unit 11/13/19 22:00 11/18/19 09:44 Heparin - SQ 5,000 unit BID [facility] Administration Ceftriaxone Sodium 1 gm/ 50 mls @ 100 mls/hr 11/16/19 10:30 11/18/19 09:44 Dextrose IVPB 100 mls/hr DAILY [facility] Administration Protocol Lactated Ringer's 1,000 ml in 1,000 mls @ 75 mls/hr 11/18/19 14:47 11/18/19 16:07 Lactated Ringers Solution IV 75 mls/hr ASDIR [facility] Administration Insulin Aspart 1 vial 11/15/19 16:30 11/18/19 17:19 Novolog Vial Sliding Scale - SQ 3 units TIDAC [facility] Administration Protocol Insulin Detemir 10 units 11/16/19 10:31 11/17/19 21:44 Levemir Vial SQ 10 units HS [facility] Administration Laboratory Results - last 24 hr 11/17/19 11/18/19 11/18/19 20:58 05:49 11:41 POC Glucometer 137 118 136 11/18/19 17:18 POC Glucometer 186 S1 S2 RRR Lungs decreased Abd- soft, NT No edema left big toe-- tip slight erythema-- no tenderness A/P iv antibiotics iv fluids check labs in AM possible dc Problem List - Problems (1) EDMAR (acute kidney injury) Code(s): N17.9 - ACUTE KIDNEY FAILURE, UNSPECIFIED (2) Abdominal pain Code(s): R10.9 - UNSPECIFIED ABDOMINAL PAIN (3) UTI (urinary tract infection) Code(s): N39.0 - URINARY TRACT INFECTION, SITE NOT SPECIFIED Qualifiers: (4) Altered mental status Code(s): R41.82 - ALTERED MENTAL STATUS, UNSPECIFIED Qualifiers: Altered mental status type: unspecified Qualified Code(s): R41.82 - Altered mental status, unspecified (5) Atrial fibrillation Code(s): I48.91 - UNSPECIFIED ATRIAL FIBRILLATION
--- NOTE | 2019-11-18 14:47 | PN ---
Progress Note, Physician History of Present Illness: Pt seen and examined at bedside. She appears comfortable. - Current Medication List Current Medications: Active Medications Heparin Sodium (Porcine) (Heparin -) 5,000 unit SQ BID [facility] Last Admin: 11/18/19 09:44 Dose: 5,000 unit Documented by: Ceftriaxone Sodium 1 gm/ (Dextrose) 50 mls @ 100 mls/hr IVPB DAILY [facility]; Protocol Last Admin: 11/18/19 09:44 Dose: 100 mls/hr Documented by: Lactated Ringer's (Lactated Ringers Solution) 1,000 ml in 1,000 mls @ 83 mls/hr IV ASDIR [facility] Last Admin: 11/18/19 02:52 Dose: 83 mls/hr Documented by: Insulin Aspart (Novolog Vial Sliding Scale -) 1 vial SQ TIDAC [facility]; Protocol Last Admin: 11/18/19 11:44 Dose: Not Given Documented by: Insulin Detemir (Levemir Vial) 10 units SQ HS [facility] Last Admin: 11/17/19 21:44 Dose: 10 units Documented by: - Objective Vital Signs: Vital Signs Temperature 97.7 F 11/18/19 09:40 Pulse Rate 106 H 11/18/19 09:40 Respiratory Rate 20 11/18/19 09:40 Blood Pressure 157/76 11/18/19 09:40 O2 Sat by Pulse Oximetry (%) 99 11/17/19 21:00 Constitutional: Yes: Calm Eyes: Yes: Conjunctiva Clear HENT: Yes: Atraumatic Neck: Yes: Supple Cardiovascular: Yes: S1, S2 Respiratory: Yes: CTA Bilaterally Gastrointestinal: Yes: Normal Bowel Sounds, Soft Genitourinary: Yes: Incontinence Musculoskeletal: Yes: Muscle Weakness Edema: No Neurological: Yes: Confusion Labs: CBC, BMP 11/16/19 07:05 11/17/19 06:30 INR, PTT INR 1.09 (0.83-1.09) 11/13/19 14:30 Problem List - Problems (1) EDMAR (acute kidney injury) Code(s): N17.9 - ACUTE KIDNEY FAILURE, UNSPECIFIED Assessment/Plan Current Medications Generic Name Dose Route Start Last Admin Trade Name Freq PRN Reason Stop Dose Admin Heparin Sodium (Porcine) 5,000 unit 11/13/19 22:00 11/18/19 09:44 Heparin - SQ 5,000 unit BID [facility] Administration Ceftriaxone Sodium 1 gm/ 50 mls @ 100 mls/hr 11/16/19 10:30 11/18/19 09:44 Dextrose IVPB 100 mls/hr DAILY [facility] Administration Protocol Lactated Ringer's 1,000 ml in 1,000 mls @ 83 mls/hr 11/16/19 11:30 11/18/19 02:52 Lactated Ringers Solution IV 83 mls/hr ASDIR [facility] Administration Insulin Aspart 1 vial 11/15/19 16:30 11/18/19 11:44 Novolog Vial Sliding Scale - SQ Not Given TIDAC [facility] Protocol Insulin Detemir 10 units 11/16/19 10:31 11/17/19 21:44 Levemir Vial SQ 10 units HS [facility] Administration Impression 1. EDMAR 2. Lewy Body Dementia 3. sepsis 4. leukocytosis 5. DM 6. htn 7. anemia 8. met acidosis Plan - check labs - cont fluids - encourage po intake - potassium stabilized - no indication for HD as she is improving
--- NOTE | 2019-11-18 15:08 | PN ---
Progress Note, Physician History of Present Illness: Pt alert, without distress. Remains afebrile. - Current Medication List Current Medications: Active Medications Heparin Sodium (Porcine) (Heparin -) 5,000 unit SQ BID [facility] Last Admin: 11/18/19 09:44 Dose: 5,000 unit Documented by: Ceftriaxone Sodium 1 gm/ (Dextrose) 50 mls @ 100 mls/hr IVPB DAILY [facility]; Protocol Last Admin: 11/18/19 09:44 Dose: 100 mls/hr Documented by: Lactated Ringer's (Lactated Ringers Solution) 1,000 ml in 1,000 mls @ 75 mls/hr IV ASDIR JENNIFER Insulin Aspart (Novolog Vial Sliding Scale -) 1 vial SQ TIDAC [facility]; Protocol Last Admin: 11/18/19 11:44 Dose: Not Given Documented by: Insulin Detemir (Levemir Vial) 10 units SQ HS [facility] Last Admin: 11/17/19 21:44 Dose: 10 units Documented by: - Objective Vital Signs: Vital Signs Temperature 97.7 F 11/18/19 09:40 Pulse Rate 106 H 11/18/19 09:40 Respiratory Rate 11/18/19 09:40 Blood Pressure 157/76 11/18/19 09:40 O2 Sat by Pulse Oximetry (%) 98 11/18/19 10:05 Constitutional: Yes: No Distress, Calm Cardiovascular: Yes: Regular Rate and Rhythm Respiratory: Yes: Regular Gastrointestinal: Yes: Normal Bowel Sounds, Soft Genitourinary: Yes: WNL Extremities: Yes: WNL Neurological: Yes: Alert, Confusion (demented) Labs: CBC, BMP 11/16/19 07:05 11/17/19 06:30 INR, PTT INR 1.09 (0.83-1.09) 11/13/19 14:30 Microbiology 11/13/19 14:30 Blood - Peripheral Venous Blood Culture - Final NO GROWTH AFTER 5 DAYS INCUBATION 11/13/19 14:30 Blood - Peripheral Venous Blood Culture - Final NO GROWTH AFTER 5 DAYS INCUBATION 11/13/19 14:30 Urine - Urine - Catheterized Urine Culture - Final Escherichia Coli Escherichia Coli#2 Problem List - Problems (1) EDMAR (acute kidney injury) Code(s): N17.9 - ACUTE KIDNEY FAILURE, UNSPECIFIED (2) UTI (urinary tract infection) Code(s): N39.0 - URINARY TRACT INFECTION, SITE NOT SPECIFIED Qualifiers: (3) Altered mental status Code(s): R41.82 - ALTERED MENTAL STATUS, UNSPECIFIED Qualifiers: Altered mental status type: unspecified Qualified Code(s): R41.82 - Altered mental status, unspecified (4) Atrial fibrillation Code(s): I48.91 - UNSPECIFIED ATRIAL FIBRILLATION (5) CAD (coronary artery disease) Code(s): I25.10 - ATHSCL HEART DISEASE OF [place] CORONARY ARTERY W/O ANG PCTRS Qualifiers: Coronary Disease-Associated Artery/Lesion type: [place] artery [place] vs. transplanted heart: [place] heart Associated angina: without angina Qualified Code(s): I25.10 - Atherosclerotic heart disease of [place] coronary artery without angina pectoris (6) CVA (cerebral vascular accident) Code(s): I63.9 - CEREBRAL INFARCTION, UNSPECIFIED (7) HTN (hypertension) Code(s): I10 - ESSENTIAL (PRIMARY) HYPERTENSION Assessment/Plan Pt afebrile, alert, leukoycytosis resolved d/c antibiotics tomorrow
[2019-11-18] MEDS: INSULIN (LEVEMIR) 100 UNITS/ML UNITS SQ SCH (21:29)
[2019-11-19] MEDS: LACTATED RINGERS SOLUTION 1,000 ML/1,000 ML INFUS.BAG IV SCH (04:31)
[2019-11-19] MEDS: INSULIN SLIDING SCALE (NOVOLOG) 1 VIAL SQ SCH ×3 (06:14→17:27)
[2019-11-19 08:04] LABS: BASO % 0.3 % (0-2.0); EOS % 0.8 % (0-4.5); HEMOGLOBIN 8.6 GM/dL (10.7-15.3); LYMPH % 11.2 % (8-40); MCH 29.5 pg (25.7-33.7); MCHC 33.2 g/dl (32.0-36.0); MEAN CELL VOLUME 88.9 fl (80-96); MEAN PLT VOLUME 7.5 fl (7.5-11.1); MONO % 4.2 % (3.8-10.2); NEUT % 83.5 % (42.8-82.8); PLATELET COUNT 223 K/MM3 (134-434); RBC 2.93 M/mm3 (3.60-5.2); RDW 14.1 % (11.6-15.6); WHITE BLOOD COUNT 10.9 K/mm3 (4.0-10.0)
[2019-11-19 08:24] LABS: BILIRUBIN,TOTAL 0.5 mg/dL (0.2-1); BLOOD UREA NITROGEN 66.6 mg/dL (7-18); CALCIUM 7.9 mg/dL (8.5-10.1); CREATININE 4.3 mg/dL (0.55-1.3); POTASSIUM 3.1 mmol/L (3.5-5.1); TOT PROT 4.9 g/dl (6.4-8.2)
[2019-11-19] MEDS ORDERED: POTASSIUM CHLORIDE 10 MEQ in SODIUM CHLORIDE 0.45% 1,000 ML IVPB SCH (08:45)
[2019-11-19] MEDS ORDERED: KCL 10 MEQ IVPB 10 MEQ/100 ML INFUS.BAG IVPB SCH (09:00)
[2019-11-19] MEDS ORDERED: POTASSIUM CHLORIDE ORAL LIQUID 20 MEQ/15 ML PO ONE (09:00)
[2019-11-19] MEDS ORDERED: DEXTROSE 5%-WATER - 50 ML IVPB ONE (09:03)
[2019-11-19] MEDS ORDERED: cefTRIAXone SODIUM 1 GM VIAL ONE (09:03)
[2019-11-19] MEDS: HEPARIN NA (PORCINE) 5,000 UNITS/ML 1ML VIAL SQ SCH ×2 (10:41→21:34)
[2019-11-19] MEDS: CEFTRIAXONE 1 GM in DEXTROSE 5%-WATER - 50 ML IVPB SCH (11:55)
--- NOTE | 2019-11-19 12:59 | PN ---
Progress Note, Physician History of Present Illness: Pt seen and examined at bedside. She is awake but confused. Her PO intake is poor. - Current Medication List Current Medications: Active Medications Heparin Sodium (Porcine) (Heparin -) 5,000 unit SQ BID [facility] Last Admin: 11/19/19 10:41 Dose: 5,000 unit Documented by: Ceftriaxone Sodium 1 gm/ (Dextrose) 50 mls @ 100 mls/hr IVPB DAILY [facility]; Kristy col Last Admin: 11/19/19 11:55 Dose: 100 mls/hr Documented by: Potassium Chloride (Potassium Chloride 10 Meq Premix Ivpb -) 10 meq in 100 mls @ 100 mls/hr IVPB Q60M [facility]ENN[facility] Stop: 11/19/19 15:59 Insulin Aspart (Novolog Vial Sliding Scale -) 1 vial SQ TIDAC [facility]; Protocol Last Admin: 11/19/19 12:00 Dose: Not Given Documented by: Insulin Detemir (Levemir Vial) 10 units SQ HS [facility] Last Admin: 11/18/19 21:29 Dose: 10 units Documented by: - Objective Vital Signs: Vital Signs Temperature 98.6 F 11/19/19 06:00 Pulse Rate 102 H 11/19/19 06:00 Respiratory Rate 11/19/19 06:00 Blood Pressure 158/82 11/19/19 06:00 O2 Sat by Pulse Oximetry (%) 98 11/18/19 21:00 Constitutional: Yes: Calm Eyes: Yes: Conjunctiva Clear HENT: Yes: Atraumatic Neck: Yes: Supple Cardiovascular: Yes: S1, S2 Respiratory: Yes: CTA Bilaterally Gastrointestinal: Yes: Soft Genitourinary: Yes: [place] Present Musculoskeletal: Yes: Muscle Weakness Edema: No Neurological: Yes: Confusion Labs: CBC, BMP 11/19/19 07:25 11/19/19 07:25 INR, PTT INR 1.09 (0.83-1.09) 11/13/19 14:30 Problem List - Problems (1) EDMAR (acute kidney injury) Code(s): N17.9 - ACUTE KIDNEY FAILURE, UNSPECIFIED Assessment/Plan Current Medications Generic Name Dose Route Start Last Admin Trade Name Freq PRN Reason Stop Dose Admin Heparin Sodium (Porcine) 5,000 unit 11/13/19 22:00 11/19/19 10:41 Heparin - SQ 5,000 unit BID [facility]ENN[facility] Administration Ceftriaxone Sodium 1 gm/ 50 mls @ 100 mls/hr 11/16/19 10:30 11/19/19 11:55 Dextrose IVPB 100 mls/hr DAILY [facility] Administration Protocol Potassium Chloride 10 meq in 100 mls @ 100 mls/hr 11/19/19 13:00 Potassium Chloride 10 Meq Premix Ivpb - IVPB 11/19/19 15:59 Q60M [facility] Potassium Chloride 20 meq/ 1,010 mls @ 75 mls/hr 11/19/19 13:00 Amino Acids IVPB Q12H [facility]ENN[facility] Insulin Aspart 1 vial 11/15/19 16:30 11/19/19 12:00 Novolog Vial Sliding Scale - SQ Not Given TIDAC [facility] Protocol Insulin Detemir 10 units 11/16/19 10:31 11/18/19 21:29 Levemir Vial SQ 10 units HS [facility]ENN[facility] Administration Impression 1. EDMAR 2. Lewy Body Dementia 3. sepsis 4. leukocytosis 5. DM 6. htn 7. anemia 8. met acidosis Plan - replace potassium - discussed with dietary, pt has poor po intake, will start clinimix trial - called and discussed with family, sister is considering GOC - renal function improving - monitor lytes
--- NOTE | 2019-11-19 12:59 | PN ---
Progress Note, Physician History of Present Illness: stable no new issues - Current Medication List Current Medications: Active Medications Heparin Sodium (Porcine) (Heparin -) 5,000 unit SQ BID [facility] Last Admin: 11/19/19 10:41 Dose: 5,000 unit Documented by: Ceftriaxone Sodium 1 gm/ (Dextrose) 50 mls @ 100 mls/hr IVPB DAILY [facility]; Protocol Last Admin: 11/19/19 11:55 Dose: 100 mls/hr Documented by: Potassium Chloride (Potassium Chloride 10 Meq Premix Ivpb -) 10 meq in 100 mls @ 100 mls/hr IVPB Q60M [facility] Stop: 11/19/19 15:59 Potassium Chloride 20 meq/ (Amino Acids) 1,010 mls @ 75 mls/hr IVPB Q12H [facility] Insulin Aspart (Novolog Vial Sliding Scale -) 1 vial SQ TIDAC [facility]; Protocol Last Admin: 11/19/19 12:00 Dose: Not Given Documented by: Insulin Detemir (Levemir Vial) 10 units SQ HS [facility] Last Admin: 11/18/19 21:29 Dose: 10 units Documented by: - Objective Vital Signs: Vital Signs Temperature 98.6 F 11/19/19 06:00 Pulse Rate 102 H 11/19/19 06:00 Respiratory Rate 20 11/19/19 06:00 Blood Pressure 158/82 11/19/19 06:00 O2 Sat by Pulse Oximetry (%) 98 11/18/19 21:00 Constitutional: Yes: No Distress, Calm Cardiovascular: Yes: S1, S2 Respiratory: Yes: Regular, CTA Bilaterally Gastrointestinal: Yes: Normal Bowel Sounds, Soft Neurological: Yes: Alert, Other Labs: CBC, BMP 11/19/19 07:25 11/19/19 07:25 INR, PTT INR 1.09 (0.83-1.09) 11/13/19 14:30 Assessment/Plan Problem List - Problems (1) EDMAR (acute kidney injury) Code(s): N17.9 - ACUTE KIDNEY FAILURE, UNSPECIFIED (2) UTI (urinary tract infection) Code(s): N39.0 - URINARY TRACT INFECTION, SITE NOT SPECIFIED Qualifiers: (3) CAD (coronary artery disease) Code(s): I25.10 - ATHSCL HEART DISEASE OF [place] CORONARY ARTERY W/O ANG PCTRS Qualifiers: Coronary Disease-Associated Artery/Lesion type: [place] artery [place] vs. transplanted heart: [place] heart Associated angina: without angina Qualified Code(s): I25.10 - Atherosclerotic heart disease of [place] coronary artery without angina pectoris (4) Dementia Code(s): F03.90 - UNSPECIFIED DEMENTIA WITHOUT BEHAVIORAL DISTURBANCE (5) Diabetes Code(s): E11.9 - TYPE 2 DIABETES MELLITUS WITHOUT COMPLICATIONS Qualifiers: Diabetes mellitus type: type 1 Diabetes mellitus complication status: with hypoglycemia Diabetes mellitus complication detail: without coma Qualified Code(s): E10.649 - Type 1 diabetes mellit plan nutrition rest as per the team abx
--- NOTE | 2019-11-19 13:27 | PN ---
Progress Note (short form) - Note Progress Note: no distress laughing quite not eating at all today per RN Vital Signs - 24 hr 11/18/19 11/18/19 11/18/19 18:00 21:00 22:00 Temperature 97.1 F L 98.8 F Pulse Rate 102 H 97 H Respiratory 20 20 20 Rate Blood Pressure 148/75 152/76 O2 Sat by Pulse 98 Oximetry (%) 11/19/19 11/19/19 11/19/19 06:00 10:30 10:50 Temperature 98.6 F 97 F L Pulse Rate 102 H 100 H Respiratory 20 20 Rate Blood Pressure 158/82 152/81 O2 Sat by Pulse 97 Oximetry (%) Current Medications Generic Name Dose Route Start Last Admin Trade Name Freq PRN Reason Stop Dose Admin Heparin Sodium (Porcine) 5,000 unit 11/13/19 22:00 11/19/19 10:41 Heparin - SQ 5,000 unit BID [facility] Administration Ceftriaxone Sodium 1 gm/ 50 mls @ 100 mls/hr 11/16/19 10:30 11/19/19 11:55 Dextrose IVPB 100 mls/hr DAILY [facility] Administration Protocol Potassium Chloride 10 meq in 100 mls @ 100 mls/hr 11/19/19 13:00 Potassium Chloride 10 Meq Premix Ivpb - IVPB 11/19/19 15:59 Q60M [facility] Potassium Chloride 20 meq/ 1,010 mls @ 75 mls/hr 11/19/19 13:00 Amino Acids IVPB Q12H JENN[facility] Insulin Aspart 1 vial 11/15/19 16:30 11/19/19 12:00 Novolog Vial Sliding Scale - SQ Not Given TIDAC [facility] Protocol Insulin Detemir 10 units 11/16/19 10:31 11/18/19 21:29 Levemir Vial SQ 10 units HS JENN[facility]ER Administration Laboratory Results - last 24 hr 11/18/19 11/18/19 11/19/19 17:18 20:59 05:50 WBC RBC Hgb Hct MCV MCH MCHC RDW Plt Count MPV Absolute Neuts (auto) Neutrophils % Lymphocytes % Monocytes % Eosinophils % Basophils % Nucleated RBC % Sodium Potassium Chloride Carbon Dioxide Anion Gap BUN Creatinine Est GFR (CKD-EPI)AfAm Est GFR (CKD-EPI)NonAf POC Glucometer 186 154 88 Random Glucose Calcium Total Bilirubin AST ALT Alkaline Phosphatase Total Protein Albumin 11/19/19 11/19/19 11/19/19 07:25 07:25 11:57 WBC 10.9 H RBC 2.93 L Hgb 8.6 L Hct 26.0 L MCV 88.9 MCH 29.5 MCHC 33.2 RDW 14.1 Plt Count 223 D MPV 7.5 Absolute Neuts (auto) 9.1 H Neutrophils % 83.5 H Lymphocytes % 11.2 D Monocytes % 4.2 Eosinophils % 0.8 D Basophils % 0.3 Nucleated RBC % 0 Sodium 149 H Potassium 3.1 L Chloride 109 H Carbon Dioxide 32 Anion Gap 8 BUN 66.6 H Creatinine 4.3 H Est GFR (CKD-EPI)AfAm 10.94 Est GFR (CKD-EPI)NonAf 9.44 POC Glucometer 116 Random Glucose 89 Calcium 7.9 L Total Bilirubin 0.5 AST 24 ALT 21 Alkaline Phosphatase 110 Total Protein 4.9 L Albumin 2.0 L S1 S2 RRR Lungs decreased Abd- soft, NT No edema left big toe-- tip slight erythema-- no tenderness A/P iv antibiotics iv fluids check labs in AM palliative care -->pt is not eating , will opt for comfort care at this time-- sister wishes the pt to be comfortable replace potassium Problem List - Problems (1) EDMAR (acute kidney injury) Code(s): N17.9 - ACUTE KIDNEY FAILURE, UNSPECIFIED (2) Abdominal pain Code(s): R10.9 - UNSPECIFIED ABDOMINAL PAIN (3) UTI (urinary tract infection) Code(s): N39.0 - URINARY TRACT INFECTION, SITE NOT SPECIFIED Qualifiers: (4) Altered mental status Code(s): R41.82 - ALTERED MENTAL STATUS, UNSPECIFIED Qualifiers: Altered mental status type: unspecified Qualified Code(s): R41.82 - Altered mental status, unspecified (5) Atrial fibrillation Code(s): I48.91 - UNSPECIFIED ATRIAL FIBRILLATION (6) Sepsis Assessment/Plan: due to UTI Code(s): A41.9 - SEPSIS, UNSPECIFIED ORGANISM (7) Toxic metabolic encephalopathy Code(s): G92 - TOXIC ENCEPHALOPATHY
[2019-11-19] MEDS: KCL 10 MEQ IVPB 10 MEQ/100 ML INFUS.BAG IVPB SCH ×3 (14:26→20:35)
[2019-11-19] MEDS: POTASSIUM CHLORIDE 20 MEQ in AMINO ACIDS 4.25%/D5W 1,000 ML IVPB SCH (17:00)
[2019-11-19] MEDS: INSULIN (LEVEMIR) 100 UNITS/ML UNITS SQ SCH (21:34)
[2019-11-20] MEDS: POTASSIUM CHLORIDE 20 MEQ in AMINO ACIDS 4.25%/D5W 1,000 ML IVPB SCH ×2 (04:36→15:39)
[2019-11-20] MEDS: INSULIN SLIDING SCALE (NOVOLOG) 1 VIAL SQ SCH ×3 (06:15→16:35)
[2019-11-20 08:07] LABS: ALBUMIN 2.1 g/dl (3.4-5.0); BILIRUBIN,TOTAL 0.4 mg/dL (0.2-1); BLOOD UREA NITROGEN 74.7 mg/dL (7-18); CALCIUM 7.7 mg/dL (8.5-10.1); CREATININE 4.4 mg/dL (0.55-1.3); MAGNESIUM 2.1 mg/dL (1.8-2.4); PHOSPHOROUS 3.8 mg/dL (2.5-4.9)
[2019-11-20] MEDS ORDERED: cefTRIAXone SODIUM 1 GM VIAL ONE (09:15)
[2019-11-20] MEDS ORDERED: DEXTROSE 5%-WATER - 50 ML IVPB ONE (09:16)
[2019-11-20] MEDS: HEPARIN NA (PORCINE) 5,000 UNITS/ML 1ML VIAL SQ SCH ×2 (09:20→21:52)
[2019-11-20] MEDS: CEFTRIAXONE 1 GM in DEXTROSE 5%-WATER - 50 ML IVPB SCH (09:20)
--- NOTE | 2019-11-20 12:07 | PN ---
Progress Note (short form) - Note Progress Note: no distress laughing quite poor po intake Vital Signs - 24 hr 11/19/19 11/19/19 11/19/19 15:00 18:00 20:38 Temperature 97.6 F 97.5 F L 99.2 F Pulse Rate 101 H 105 H 98 H Respiratory 20 20 20 Rate Blood Pressure 149/68 160/72 166/81 O2 Sat by Pulse Oximetry (%) 11/19/19 11/20/19 11/20/19 21:00 01:04 06:00 Temperature 98.1 F 97.5 F L Pulse Rate 97 H 97 H Respiratory 18 18 Rate Blood Pressure 167/70 141/66 O2 Sat by Pulse 99 Oximetry (%) 11/20/19 11/20/19 09:00 09:51 Temperature 97 F L Pulse Rate 97 H Respiratory 18 18 Rate Blood Pressure 131/68 O2 Sat by Pulse 97 Oximetry (%) Current Medications Generic Name Dose Route Start Last Admin Trade Name Freq PRN Reason Stop Dose Admin Heparin Sodium (Porcine) 5,000 unit 11/13/19 22:00 11/20/19 09:20 Heparin - SQ 5,000 unit BID [facility] Administration Ceftriaxone Sodium 1 gm/ 50 mls @ 100 mls/hr 11/16/19 10:30 11/20/19 09:20 Dextrose IVPB 100 mls/hr DAILY [facility] Administration Protocol Potassium Chloride 20 meq/ 1,010 mls @ 75 mls/hr 11/19/19 13:00 11/20/19 04:36 Amino Acids IVPB Not Given Q12H [facility] Insulin Aspart 1 vial 11/15/19 16:30 11/20/19 11:56 Novolog Vial Sliding Scale - SQ 3 units TIDAC [facility] Administration Protocol Insulin Detemir 10 units 11/16/19 10:31 11/19/19 21:34 Levemir Vial SQ 10 units HS [facility] Administration Laboratory Results - last 24 hr 11/19/19 11/19/19 11/20/19 17:24 21:40 05:10 Sodium Potassium Chloride Carbon Dioxide Anion Gap BUN Creatinine Est GFR (CKD-EPI)AfAm Est GFR (CKD-EPI)NonAf POC Glucometer 172 160 257 Random Glucose Calcium Phosphorus Magnesium Total Bilirubin AST ALT Alkaline Phosphatase Total Protein Albumin 11/20/19 11/20/19 07:16 11:32 Sodium 146 H Potassium 4.0 Chloride 110 H Carbon Dioxide 30 Anion Gap 7 L BUN 74.7 H Creatinine 4.4 H Est GFR (CKD-EPI)AfAm 10.64 Est GFR (CKD-EPI)NonAf 9.18 POC Glucometer 188 Random Glucose 220 H Calcium 7.7 L Phosphorus 3.8 Magnesium 2.1 Total Bilirubin 0.4 AST 24 ALT 20 Alkaline Phosphatase 105 Total Protein 5.0 L Albumin 2.1 L S1 S2 RRR Lungs decreased Abd- soft, NT No edema left big toe-- tip slight erythema-- no tenderness A/P iv antibiotics iv fluids check labs in AM palliative care -->pt is not eating , will opt for comfort care at this time-- sister wishes the pt to be comfortable tried calling sister today who is also a resident at [facility] spoke with Renal-- continue iv fluids-- unlikely that her renal function may reach baseline palliative care Problem List - Problems (1) EDMAR (acute kidney injury) Code(s): N17.9 - ACUTE KIDNEY FAILURE, UNSPECIFIED (2) Abdominal pain Code(s): R10.9 - UNSPECIFIED ABDOMINAL PAIN (3) UTI (urinary tract infection) Code(s): N39.0 - URINARY TRACT INFECTION, SITE NOT SPECIFIED Qualifiers: (4) Altered mental status Code(s): R41.82 - ALTERED MENTAL STATUS, UNSPECIFIED Qualifiers: Altered mental status type: unspecified Qualified Code(s): R41.82 - Altered mental status, unspecified (5) Atrial fibrillation Code(s): I48.91 - UNSPECIFIED ATRIAL FIBRILLATION (6) Sepsis Code(s): A41.9 - SEPSIS, UNSPECIFIED ORGANISM (7) Toxic metabolic encephalopathy Code(s): G92 - TOXIC ENCEPHALOPATHY
--- NOTE | 2019-11-20 13:31 | PN ---
Progress Note, Physician History of Present Illness: Pt seen and examined at bedside. She is awake but confused. - Current Medication List Current Medications: Active Medications Heparin Sodium (Porcine) (Heparin -) 5,000 unit SQ BID [facility] Last Admin: 11/20/19 09:20 Dose: 5,000 unit Documented by: Ceftriaxone Sodium 1 gm/ (Dextrose) 50 mls @ 100 mls/hr IVPB DAILY [facility]; Protocol Last Admin: 11/20/19 09:20 Dose: 100 mls/hr Documented by: Potassium Chloride 20 meq/ (Amino Acids) 1,010 mls @ 75 mls/hr IVPB Q12H [facility] Last Admin: 11/20/19 04:36 Dose: Not Given Documented by: Insulin Aspart (Novolog Vial Sliding Scale -) 1 vial SQ TIDAC [facility]; Protocol Last Admin: 11/20/19 11:56 Dose: 3 units Documented by: Insulin Detemir (Levemir Vial) 10 units SQ HS [facility] Last Admin: 11/19/19 21:34 Dose: 10 units Documented by: - Objective Vital Signs: Vital Signs Temperature 97 F L 11/20/19 09:51 Pulse Rate 97 H 11/20/19 09:51 Respiratory Rate 18 11/20/19 09:51 Blood Pressure 131/68 11/20/19 09:51 O2 Sat by Pulse Oximetry (%) 97 11/20/19 09:00 Constitutional: Yes: Calm Eyes: Yes: Conjunctiva Clear HENT: Yes: Atraumatic Neck: Yes: Supple Cardiovascular: Yes: S1, S2 Respiratory: Yes: CTA Bilaterally Gastrointestinal: Yes: Soft Genitourinary: Yes: Incontinence Musculoskeletal: Yes: Muscle Weakness Edema: No Neurological: Yes: Confusion Labs: CBC, BMP 11/19/19 07:25 11/20/19 07:16 INR, PTT INR 1.09 (0.83-1.09) 11/13/19 14:30 Problem List - Problems (1) EDMAR (acute kidney injury) Code(s): N17.9 - ACUTE KIDNEY FAILURE, UNSPECIFIED Assessment/Plan Current Medications Generic Name Dose Route Start Last Admin Trade Name Freq PRN Reason Stop Dose Admin Heparin Sodium (Porcine) 5,000 unit 11/13/19 22:00 11/20/19 09:20 Heparin - SQ 5,000 unit BID [facility] Administration Ceftriaxone Sodium 1 gm/ 50 mls @ 100 mls/hr 11/16/19 10:30 11/20/19 09:20 Dextrose IVPB 100 mls/hr DAILY [facility] Administration Protocol Potassium Chloride 20 meq/ 1,010 mls @ 75 mls/hr 11/19/19 13:00 11/20/19 04:36 Amino Acids IVPB Not Given Q12H [facility] Insulin Aspart 1 vial 11/15/19 16:30 11/20/19 11:56 Novolog Vial Sliding Scale - SQ 3 units TIDAC [facility] Administration Protocol Insulin Detemir 10 units 11/16/19 10:31 11/19/19 21:34 Levemir Vial SQ 10 units HS [facility] Administration Impression 1. EDMAR 2. Lewy Body Dementia 3. sepsis 4. leukocytosis 5. DM 6. htn 7. anemia 8. met acidosis Plan - cont clinimix - monitor renal function - discuss GOC with family - will repeat labs in am - encourage po intake
--- NOTE | 2019-11-20 15:39 | PN ---
Progress Note, Physician History of Present Illness: stable no new issues - Current Medication List Current Medications: Active Medications Heparin Sodium (Porcine) (Heparin -) 5,000 unit SQ BID [facility] Last Admin: 11/20/19 09:20 Dose: 5,000 unit Documented by: Ceftriaxone Sodium 1 gm/ (Dextrose) 50 mls @ 100 mls/hr IVPB DAILY [facility]; Protocol Last Admin: 11/20/19 09:20 Dose: 100 mls/hr Documented by: Potassium Chloride 20 meq/ (Amino Acids) 1,010 mls @ 75 mls/hr IVPB Q12H [facility] Last Admin: 11/20/19 04:36 Dose: Not Given Documented by: Insulin Aspart (Novolog Vial Sliding Scale -) 1 vial SQ TIDAC [facility]; Protocol Last Admin: 11/20/19 11:56 Dose: 3 units Documented by: Insulin Detemir (Levemir Vial) 10 units SQ HS [facility] Last Admin: 11/19/19 21:34 Dose: 10 units Documented by: - Objective Vital Signs: Vital Signs Temperature 97.4 F L 11/20/19 14:18 Pulse Rate 90 11/20/19 14:18 Respiratory Rate 18 11/20/19 14:18 Blood Pressure 154/74 11/20/19 14:18 O2 Sat by Pulse Oximetry (%) 97 11/20/19 09:00 Constitutional: Yes: No Distress, Calm Cardiovascular: Yes: S1, S2 Respiratory: Yes: Regular, CTA Bilaterally Gastrointestinal: Yes: Normal Bowel Sounds, Soft Musculoskeletal: Yes: WNL Extremities: Yes: WNL Neurological: Yes: Alert, Other Psychiatric: Yes: Other Labs: CBC, BMP 11/19/19 07:25 11/20/19 07:16 INR, PTT INR 1.09 (0.83-1.09) 11/13/19 14:30 Assessment/Plan Problem List - Problems (1) EDMAR (acute kidney injury) Code(s): N17.9 - ACUTE KIDNEY FAILURE, UNSPECIFIED (2) UTI (urinary tract infection) Code(s): N39.0 - URINARY TRACT INFECTION, SITE NOT SPECIFIED Qualifiers: (3) CAD (coronary artery disease) Code(s): I25.10 - ATHSCL HEART DISEASE OF [place] CORONARY ARTERY W/O ANG PCTRS Qualifiers: Coronary Disease-Associated Artery/Lesion type: [place] artery [place] vs. transplanted heart: [place] heart Associated angina: without angina Qualified Code(s): I25.10 - Atherosclerotic heart disease of [place] coronary artery without angina pectoris (4) Dementia Code(s): F03.90 - UNSPECIFIED DEMENTIA WITHOUT BEHAVIORAL DISTURBANCE (5) Diabetes Code(s): E11.9 - TYPE 2 DIABETES MELLITUS WITHOUT COMPLICATIONS Qualifiers: Diabetes mellitus type: type 1 Diabetes mellitus complication status: with hypoglycemia Diabetes mellitus complication detail: without coma Qualified Code(s): E10.649 - Type 1 diabetes mellit plan will stop abx nutrition rest as per the team
[2019-11-20] MEDS: INSULIN (LEVEMIR) 100 UNITS/ML UNITS SQ SCH (21:52)
[2019-11-20] MEDS ORDERED: amLODIPine BESYLATE 2.5 MG TABLET (FP) PO ONE (21:53)
[2019-11-21] MEDS: POTASSIUM CHLORIDE 20 MEQ in AMINO ACIDS 4.25%/D5W 1,000 ML IVPB SCH ×2 (03:48→13:00)
[2019-11-21] MEDS: INSULIN SLIDING SCALE (NOVOLOG) 1 VIAL SQ SCH ×3 (06:08→17:14)
[2019-11-21 08:27] LABS: BILIRUBIN,TOTAL 0.4 mg/dL (0.2-1); CALCIUM 7.6 mg/dL (8.5-10.1); CREATININE 4.1 mg/dL (0.55-1.3); MAGNESIUM 1.9 mg/dL (1.8-2.4); PHOSPHOROUS 3.3 mg/dL (2.5-4.9); POTASSIUM 3.9 mmol/L (3.5-5.1); TOT PROT 4.8 g/dl (6.4-8.2)
[2019-11-21] MEDS: HEPARIN NA (PORCINE) 5,000 UNITS/ML 1ML VIAL SQ SCH ×2 (09:01→21:49)
--- NOTE | 2019-11-21 11:25 | PN ---
Progress Note (short form) - Note Progress Note: Pt seen/ examined Chart reviewed Comfortable no distress covid -ve Eating little better- ate about 25 percent D/W Torch Brazer also. Kidney function same Vital Signs Temp 98.6 F 11/17/19 08:40 Pulse 95 H 11/17/19 08:40 Resp 18 11/17/19 08:40 BP 157/81 11/17/19 08:40 Pulse Ox 98 11/16/19 21:00 Intake & Output 11/16/19 11/17/19 11/17/19 23:59 11:59 23:59 Intake Total 982 498 Output Total 800 250 Balance 182 248 Intake: IV 932 498 LACTATED RINGERS SOLUTION 332 498 1,000 ml In 1,000 ml @ 83 mls/hr IV ASDIR JENNIFER Rx #:[id number] ivf 600 IVPB 50 Oral 0 Output: Urine 800 250 [place] 800 250 Other: Voiding Method Indwelling Catheter Indwelling Catheter Bowel Movement Yes: loose, scant Yes: loose # Bowel Movements 1 1 Active Medications Heparin Sodium (Porcine) (Heparin -) 5,000 unit SQ BID [facility]ENN[facility]ER Last Admin: 11/17/19 10:17 Dose: 5,000 unit Documented by: Ceftriaxone Sodium 1 gm/ (Dextrose) 50 mls @ 100 mls/hr IVPB [facility]ILY [facility]; Protocol Last Admin: 11/17/19 10:18 Dose: 100 mls/hr Documented by: Lactated Ringer's (Lactated Ringers Solution) 1,000 ml in 1,000 mls @ 83 mls/hr IV ASDIR JENNIFER Last Admin: 11/17/19 13:52 Dose: 83 mls/hr Documented by: Insulin Aspart (Novolog Vial Sliding Scale -) 1 vial SQ TIDAC [facility]; Protocol Last Admin: 11/17/19 12:00 Dose: 3 units Documented by: Insulin Detemir (Levemir Vial) 10 units SQ HS [facility] Last Admin: 11/16/19 21:42 Dose: 10 units Documented by: CBC, BMP 11/16/19 07:05 11/17/19 06:30 Microbiology 11/13/19 14:30 Blood Culture - Preliminary Blood - Peripheral Venous NO GROWTH OBTAINED AFTER 72 HOURS, INCUBATION TO CONTINUE FOR 2 DAYS. 11/13/19 14:30 Blood Culture - Preliminary Blood - Peripheral Venous NO GROWTH OBTAINED AFTER 72 HOURS, INCUBATION TO CONTINUE FOR 2 DAYS. 11/13/19 14:30 Urine Culture - Final Urine - Urine - Catheterized Escherichia Coli Escherichia Coli#2 Physical Exam. Constitutional: Yes: No Distress. Eyes: Yes: Conjunctiva Clear Neck: Yes: Supple Cardiovascular: Yes: Regular Rate and Rhythm Respiratory: Yes: CTA Bilaterally Gastrointestinal: Yes: Soft Edema: No Neurological: No: awake . Assessment/Plan Continue present care abx-- discontinued condition gaurded pt is dnr/di continue fluids for now will follow. Problem List - Problems (1) EDMAR (acute kidney injury) Code(s): N17.9 - ACUTE KIDNEY FAILURE, UNSPECIFIED (2) UTI (urinary tract infection) Code(s): N39.0 - URINARY TRACT INFECTION, SITE NOT SPECIFIED Qualifiers: (3) CAD (coronary artery disease) Code(s): I25.10 - ATHSCL HEART DISEASE OF [place] CORONARY ARTERY W/O ANG PCTRS Qualifiers: Coronary Disease-Associated Artery/Lesion type: [place] artery [place] vs. transplanted heart: [place] heart Associated angina: without angina Qualified Code(s): I25.10 - Atherosclerotic heart disease of [place] coronary artery without angina pectoris (4) Dementia Code(s): F03.90 - UNSPECIFIED DEMENTIA WITHOUT BEHAVIORAL DISTURBANCE (5) Diabetes Code(s): E11.9 - TYPE 2 DIABETES MELLITUS WITHOUT COMPLICATIONS Qualifiers: Diabetes mellitus type: type 1 Diabetes mellitus complication status: with hypoglycemia Diabetes mellitus complication detail: without coma Qualified Code(s): E10.649 - Type 1 diabetes mellitus with hypoglycemia without coma
[2019-11-21] MEDS ORDERED: INSULIN (LEVEMIR) 100 UNITS/ML UNITS SQ SCH (11:26)
[2019-11-21] MEDS: METOPROLOL TARTRATE 25 MG TABLET (FP) PO SCH ×2 (12:04→21:49)
--- NOTE | 2019-11-21 12:11 | PN ---
Progress Note, Physician History of Present Illness: stable no new issues - Current Medication List Current Medications: Active Medications Heparin Sodium (Porcine) (Heparin -) 5,000 unit SQ BID [facility] Last Admin: 11/21/19 09:01 Dose: 5,000 unit Documented by: Potassium Chloride 20 meq/ (Amino Acids) 1,010 mls @ 75 mls/hr IVPB Q12H [facility] Last Admin: 11/21/19 03:48 Dose: 75 mls/hr Documented by: Insulin Aspart (Novolog Vial Sliding Scale -) 1 vial SQ TIDAC [facility]; Protocol Last Admin: 11/21/19 11:34 Dose: 7 units Documented by: Insulin Detemir (Levemir Vial) 14 units SQ [facility] Metoprolol Tartrate (Lopressor -) 25 mg PO BID [facility] Last Admin: 11/21/19 12:04 Dose: 25 mg Documented by: - Objective Vital Signs: Vital Signs Temperature 97.2 F L 11/21/19 08:59 Pulse Rate 88 11/21/19 12:00 Respiratory Rate 11/21/19 12:00 Blood Pressure 150/75 11/21/19 12:00 O2 Sat by Pulse Oximetry (%) 98 11/20/19 21:00 Constitutional: Yes: No Distress, Calm Cardiovascular: Yes: Regular Rate and Rhythm Gastrointestinal: Yes: Normal Bowel Sounds, Soft Extremities: Yes: WNL Neurological: Yes: Alert Labs: CBC, BMP 11/19/19 07:25 11/21/19 07:35 INR, PTT INR 1.09 (0.83-1.09) 11/13/19 14:30 Assessment/Plan Problem List - Problems (1) EDMAR (acute kidney injury) Code(s): N17.9 - ACUTE KIDNEY FAILURE, UNSPECIFIED (2) UTI (urinary tract infection) Code(s): N39.0 - URINARY TRACT INFECTION, SITE NOT SPECIFIED Qualifiers: (3) CAD (coronary artery disease) Code(s): I25.10 - ATHSCL HEART DISEASE OF [place] CORONARY ARTERY W/O ANG PCTRS Qualifiers: Coronary Disease-Associated Artery/Lesion type: [place] artery [place] vs. transplanted heart: [place] heart Associated angina: without angina Qualified Code(s): I25.10 - Atherosclerotic heart disease of [place] coronary artery w ithout angina pectoris (4) Dementia Code(s): F03.90 - UNSPECIFIED DEMENTIA WITHOUT BEHAVIORAL DISTURBANCE (5) Diabetes Code(s): E11.9 - TYPE 2 DIABETES MELLITUS WITHOUT COMPLICATIONS Qualifiers: Diabetes mellitus type: type 1 Diabetes mellitus complication status: with hypoglycemia Diabetes mellitus complication detail: without coma Qualified Code(s): E10.649 - Type 1 diabetes mellit plan nutrition rest as per the team
--- NOTE | 2019-11-21 15:22 | PN ---
Progress Note, Physician History of Present Illness: Pt seen and examined at bedside. She is awake but confused. - Current Medication List Current Medications: Active Medications Heparin Sodium (Porcine) (Heparin -) 5,000 unit SQ BID [facility] Last Admin: 11/21/19 09:01 Dose: 5,000 unit Documented by: Potassium Chloride 20 meq/ (Amino Acids) 1,010 mls @ 75 mls/hr IVPB Q12H [facility] Last Admin: 11/21/19 13:00 Dose: Not Given Documented by: Insulin Aspart (Novolog Vial Sliding Scale -) 1 vial SQ [facility]AC [facility]; Protocol Last Admin: 11/21/19 11:34 Dose: 7 units Documented by: Insulin Detemir (Levemir Vial) 14 units SQ [facility] Metoprolol Tartrate (Lopressor -) 25 mg PO BID [facility] Last Admin: 11/21/19 12:04 Dose: 25 mg Documented by: - Objective Vital Signs: Vital Signs Temperature 97.6 F 11/21/19 13:57 Pulse Rate 90 11/21/19 13:57 Respiratory Rate 20 11/21/19 13:57 Blood Pressure 149/77 11/21/19 13:57 O2 Sat by Pulse Oximetry (%) 98 11/20/19 21:00 Constitutional: Yes: Calm Eyes: Yes: Conjunctiva Clear HENT: Yes: Atraumatic Neck: Yes: Supple Cardiovascular: Yes: S1, S2 Genitourinary: Yes: Incontinence Edema: Yes Neurological: Yes: Confusion Labs: CBC, BMP 11/19/19 07:25 11/21/19 07:35 INR, PTT INR 1.09 (0.83-1.09) 11/13/19 14:30 Problem List - Problems (1) EDMAR (acute kidney injury) Code(s): N17.9 - ACUTE KIDNEY FAILURE, UNSPECIFIED Assessment/Plan Current Medications Generic Name Dose Route Start Last Admin Trade Name Freq PRN Reason Stop Dose Admin Heparin Sodium (Porcine) 5,000 unit 11/13/19 22:00 11/21/19 09:01 Heparin - SQ 5,000 unit BID [facility] Administration Potassium Chloride 20 meq/ 1,010 mls @ 75 mls/hr 11/19/19 13:00 11/21/19 13:00 Amino Acids IVPB Not Given Q12H [facility] Insulin Aspart 1 vial 11/15/19 16:30 11/21/19 11:34 Novolog Vial Sliding Scale - SQ 7 units TIDAC [facility] Administration Protocol Insulin Detemir 14 units 11/21/19 11:26 Levemir Vial SQ [facility] Metoprolol Tartrate 25 mg 11/21/19 12:00 11/21/19 12:04 Lopressor - PO 25 mg BID [facility] Administration Impression 1. EDMAR 2. Lewy Body Dementia 3. sepsis 4. leukocytosis 5. DM 6. htn 7. anemia 8. met acidosis Plan - encourage po intake - decrease rate of fluids - bun may be rising from clinimix - sandwich maker improving - will change fluids
[2019-11-21] MEDS: POTASSIUM CHLORIDE 10 MEQ in SODIUM CHLORIDE 0.45% 1,000 ML IVPB SCH (17:42)
[2019-11-22] MEDS: INSULIN SLIDING SCALE (NOVOLOG) 1 VIAL SQ SCH ×3 (06:47→16:48)
[2019-11-22 09:15] LABS: ALBUMIN 2.2 g/dl (3.4-5.0); BILIRUBIN,TOTAL 0.4 mg/dL (0.2-1); BLOOD UREA NITROGEN 77.6 mg/dL (7-18); CREATININE 3.7 mg/dL (0.55-1.3); TOT PROT 5.1 g/dl (6.4-8.2)
[2019-11-22] MEDS: HEPARIN NA (PORCINE) 5,000 UNITS/ML 1ML VIAL SQ SCH ×2 (09:24→21:21)
[2019-11-22] MEDS: METOPROLOL TARTRATE 25 MG TABLET (FP) PO SCH ×2 (09:24→21:21)
--- NOTE | 2019-11-22 11:28 | PN ---
Progress Note (short form) - Note Progress Note: Pt seen/ examined Comfortable no distress Awake Vital Signs Temp 97.8 F 11/22/19 09:56 Pulse 78 11/22/19 09:56 Resp 20 11/22/19 09:56 BP 159/71 11/22/19 09:56 Pulse Ox 96 11/22/19 09:00 Intake & Output 11/21/19 11/21/19 11/22/19 11:59 23:59 11:59 Intake Total 900 828 504 Output Total 84 400 200 Balance 816 428 304 Intake: IV 900 813 504 1000cc 1/2ns with 10 meq 63 504 kcl at 42 cc/hr clinimix and kcl 20 meq 900 750 at 75 cc/hr Oral 15 Output: Urine 84 400 200 External Catheter 84 400 200 Other: Voiding Method External Catheter External Catheter External Catheter Bowel Movement Yes Yes # Bowel Movements 1 Body Mass Index (BMI) 29.0 Active Medications Heparin Sodium (Porcine) (Heparin -) 5,000 unit SQ BID [facility] Last Admin: 11/22/19 09:24 Dose: 5,000 unit Documented by: Potassium Chloride 10 meq/ (Sodium Chloride) 1,005 mls @ 42 mls/hr IVPB Q24H [facility] Last Admin: 11/21/19 17:42 Dose: 42 mls/hr Documented by: Insulin Aspart (Novolog Vial Sliding Scale -) 1 vial SQ TIDAC [facility]; Protocol Last Admin: 11/22/19 06:47 Dose: Not Given Documented by: Insulin Detemir (Levemir Vial) 12 units SQ [facility] Metoprolol Tartrate (Lopressor -) 25 mg PO BID [facility] Last Admin: 11/22/19 09:24 Dose: 25 mg Documented by: Microbiology 11/13/19 14:30 Blood Culture - Preliminary Blood - Peripheral Venous NO GROWTH OBTAINED AFTER 72 HOURS, INCUBATION TO CONTINUE FOR 2 DAYS. 11/13/19 14:30 Blood Culture - Preliminary Blood - Peripheral Venous NO GROWTH OBTAINED AFTER 72 HOURS, INCUBATION TO CONTINUE FOR 2 DAYS. 11/13/19 14:30 Urine Culture - Final Urine - Urine - Catheterized Escherichia Coli Escherichia Coli#2 CBC, BMP 11/19/19 07:25 11/22/19 08:15 Physical Exam. Constitutional: Yes: No Distress. Eyes: Yes: Conjunctiva Clear Neck: Yes: Supple Cardiovascular: Yes: Regular Rate and Rhythm Respiratory: Yes: CTA Bilaterally Gastrointestinal: Yes: Soft Edema: No Neurological: No: awake . Assessment/Plan Stable Continue present care Mild hydration cr better today Hypoglycemic today- Decrease Levemir to 12 pt is dnr/di will follow. Problem List - Problems (1) EDMAR (acute kidney injury) Code(s): N17.9 - ACUTE KIDNEY FAILURE, UNSPECIFIED (2) UTI (urinary tract infection) Code(s): N39.0 - URINARY TRACT INFECTION, SITE NOT SPECIFIED Qualifiers: (3) CAD (coronary artery disease) Code(s): I25.10 - ATHSCL HEART DISEASE OF [place] CORONARY ARTERY W/O ANG PCTRS Qualifiers: Coronary Disease-Associated Artery/Lesion type: [place] artery [place] vs. transplanted heart: [place] heart Associated angina: without angina Qualified Code(s): I25.10 - Atherosclerotic heart disease of [place] coronary artery without angina pectoris (4) Dementia Code(s): F03.90 - UNSPECIFIED DEMENTIA WITHOUT BEHAVIORAL DISTURBANCE (5) Diabetes Code(s): E11.9 - TYPE 2 DIABETES MELLITUS WITHOUT COMPLICATIONS Qualifiers: Diabetes mellitus type: type 1 Diabetes mellitus complication status: with hypoglycemia Diabetes mellitus complication detail: without coma Qualified Code(s): E10.649 - Type 1 diabetes mellitus with hypoglycemia without coma
--- NOTE | 2019-11-22 13:00 | PN ---
Progress Note, Physician History of Present Illness: Pt alert and responsive. Pleasantly demented, smiling, without distress. Remains afebrile. - Current Medication List Current Medications: Active Medications Heparin Sodium (Porcine) (Heparin -) 5,000 unit SQ BID [facility] Last Admin: 11/22/19 09:24 Dose: 5,000 unit Documented by: Potassium Chloride 10 meq/ (Sodium Chloride) 1,005 mls @ 42 mls/hr IVPB Q24H [facility] Last Admin: 11/21/19 17:42 Dose: 42 mls/hr Documented by: Insulin Aspart (Novolog Vial Sliding Scale -) 1 vial SQ [facility]; Protocol Last Admin: 11/22/19 11:56 Dose: Not Given Documented by: Insulin Detemir (Levemir Vial) 12 units SQ [facility] Metoprolol Tartrate (Lopressor -) 25 mg PO BID [facility] Last Admin: 11/22/19 09:24 Dose: 25 mg Documented by: - Objective Vital Signs: Vital Signs Temperature 97.8 F 11/22/19 09:56 Pulse Rate 78 11/22/19 09:56 Respiratory Rate 11/22/19 09:56 Blood Pressure 159/71 11/22/19 09:56 O2 Sat by Pulse Oximetry (%) 96 11/22/19 09:00 Constitutional: Yes: No Distress, Calm Cardiovascular: Yes: Regular Rate and Rhythm Respiratory: Yes: Regular Gastrointestinal: Yes: Normal Bowel Sounds, Soft Genitourinary: Yes: WNL Extremities: Yes: WNL Integumentary: Yes: WNL Neurological: Yes: Alert Labs: CBC, BMP 11/19/19 07:25 11/22/19 08:15 INR, PTT INR 1.09 (0.83-1.09) 11/13/19 14:30 Problem List - Problems (1) EDMAR (acute kidney injury) Code(s): N17.9 - ACUTE KIDNEY FAILURE, UNSPECIFIED (2) UTI (urinary tract infection) Code(s): N39.0 - URINARY TRACT INFECTION, SITE NOT SPECIFIED Qualifiers: (3) Altered mental status Code(s): R41.82 - ALTERED MENTAL STATUS, UNSPECIFIED Qualifiers: Altered mental status type: unspecified Qualified Code(s): R41.82 - Altered mental status, unspecified (4) Atrial fibrillation Code(s): I48.91 - UNSPECIFIED ATRIAL FIBRILLATION (5) CAD (coronary artery disease) Code(s): I25.10 - ATHSCL HEART DISEASE OF [place] CORONARY ARTERY W/O ANG PCTRS Qualifiers: Coronary Disease-Associated Artery/Lesion type: [place] artery [place] vs. transplanted heart: [place] heart Associated angina: without angina Qualified Code(s): I25.10 - Atherosclerotic heart disease of [place] coronary artery without angina pectoris (6) CVA (cerebral vascular accident) Code(s): I63.9 - CEREBRAL INFARCTION, UNSPECIFIED (7) HTN (hypertension) Code(s): I10 - ESSENTIAL (PRIMARY) HYPERTENSION Assessment/Plan -- s/p course of antibiotics for UTI -- mildly elevated wbc today, repeat cbc in a.m. Pt currently stable
--- NOTE | 2019-11-22 17:07 | PN ---
Progress Note (short form) - Note Progress Note: 1. EDMAR 2. Lewy Body Dementia 3. sepsis 4. leukocytosis 5. DM 6. htn 7. anemia 8. met acidosis Active Medications Heparin Sodium (Porcine) (Heparin -) 5,000 unit SQ BID [facility] Last Admin: 11/22/19 09:24 Dose: 5,000 unit Documented by: Potassium Chloride 10 meq/ (Sodium Chloride) 1,005 mls @ 42 mls/hr IVPB Q24H [facility] Last Admin: 11/21/19 17:42 Dose: 42 mls/hr Documented by: Insulin Aspart (Novolog Vial Sliding Scale -) 1 vial SQ TIDAC [facility]; Protocol Last Admin: 11/22/19 16:48 Dose: 3 units Documented by: Insulin Detemir (Levemir Vial) 12 units SQ [facility] Metoprolol Tartrate (Lopressor -) 25 mg PO BID [facility] Last Admin: 11/22/19 09:24 Dose: 25 mg Documented by: Last Vital Signs Temp Pulse Resp BP Pulse Ox 98.0 F 82 18 127/55 L 96 11/22/19 14:00 11/22/19 14:00 11/22/19 14:00 11/22/19 14:00 11/22/19 09:00 CBC, BMP 11/19/19 07:25 11/22/19 08:15 IMP- EDMAR BETTER PLAN CONTINUE TO MOMITOR TRNAL FUNCTION
[2019-11-22] MEDS: POTASSIUM CHLORIDE 10 MEQ in SODIUM CHLORIDE 0.45% 1,000 ML IVPB SCH (18:36)
[2019-11-22] MEDS ORDERED: INSULIN (LEVEMIR) 100 UNITS/ML UNITS SQ SCH (22:00)
[2019-11-23] MEDS: INSULIN SLIDING SCALE (NOVOLOG) 1 VIAL SQ SCH ×3 (06:15→18:06)
[2019-11-23 08:20] LABS: BASO % 0.8 % (0-2.0); EOS % 1.8 % (0-4.5); HEMATOCRIT 24.5 % (32.4-45.2); HEMOGLOBIN 8.1 GM/dL (10.7-15.3); LYMPH % 16.5 % (8-40); MCH 29.4 pg (25.7-33.7); MCHC 33.1 g/dl (32.0-36.0); MEAN PLT VOLUME 8.8 fl (7.5-11.1); MONO % 4.6 % (3.8-10.2); NEUT % 76.3 % (42.8-82.8); PLATELET COUNT 95 K/MM3 (134-434); RBC 2.75 M/mm3 (3.60-5.2); RDW 13.8 % (11.6-15.6); WHITE BLOOD COUNT 9.2 K/mm3 (4.0-10.0)
[2019-11-23 08:42] LABS: ALBUMIN 2.3 g/dl (3.4-5.0); BILIRUBIN,TOTAL 0.6 mg/dL (0.2-1); BLOOD UREA NITROGEN 74.8 mg/dL (7-18); CREATININE 3.6 mg/dL (0.55-1.3); POTASSIUM 4.1 mmol/L (3.5-5.1); TOT PROT 5.2 g/dl (6.4-8.2)
[2019-11-23] MEDS: METOPROLOL TARTRATE 25 MG TABLET (FP) PO SCH ×2 (09:42→21:38)
[2019-11-23] MEDS: HEPARIN NA (PORCINE) 5,000 UNITS/ML 1ML VIAL SQ SCH ×2 (09:42→21:38)
--- NOTE | 2019-11-23 11:26 | PN ---
Progress Note (short form) - Note Progress Note: Pt seen/ examined Comfortable no distress Awake. No new issues Vital Signs Temp 97.7 F 11/23/19 09:26 Pulse 75 11/23/19 09:26 Resp 20 11/23/19 09:26 BP 161/69 11/23/19 09:26 Pulse Ox 98 11/22/19 21:00 Intake & Output 11/22/19 11/22/19 11/23/19 11:59 23:59 11:59 Intake Total 504 180 500 Output Total 200 1300 250 Balance 304 -1120 250 Intake: IV 504 500 1000cc 1/2ns with 10 meq 504 500 kcl at 42 cc/hr Oral 180 Output: Urine 200 1300 250 External Catheter 200 1300 250 Other: Voiding Method External Catheter External Catheter External Catheter # Unmeasured Voids External Catheter 1 Bowel Movement Yes 0 Yes # Bowel Movements 1 Active Medications Heparin Sodium (Porcine) (Heparin -) 5,000 unit SQ BID [facility] Last Admin: 11/22/19 09:24 Dose: 5,000 unit Documented by: Potassium Chloride 10 meq/ (Sodium Chloride) 1,005 mls @ 42 mls/hr IVPB Q24H [facility] Last Admin: 11/21/19 17:42 Dose: 42 mls/hr Documented by: Insulin Aspart (Novolog Vial Sliding Scale -) 1 vial SQ TIDAC [facility]; Protocol Last Admin: 11/22/19 06:47 Dose: Not Given Documented by: Insulin Detemir (Levemir Vial) 12 units SQ HS [facility] Metoprolol Tartrate (Lopressor -) 25 mg PO BID [facility] Last Admin: 11/22/19 09:24 Dose: 25 mg Documented by: Microbiology 11/13/19 14:30 Blood Culture - Preliminary Blood - Peripheral Venous NO GROWTH OBTAINED AFTER 72 HOURS, INCUBATION TO CONTINUE FOR 2 DAYS. 11/13/19 14:30 Blood Culture - Preliminary Blood - Peripheral Venous NO GROWTH OBTAINED AFTER 72 HOURS, INCUBATION TO CONTINUE FOR 2 DAYS. 11/13/19 14:30 Urine Culture - Final Urine - Urine - Catheterized Escherichia Coli Escherichia Coli#2 CBC, BMP 11/23/19 07:59 11/23/19 07:59 Physical Exam. Constitutional: Yes: No Distress. Eyes: Yes: Conjunctiva Clear Neck: Yes: Supple Cardiovascular: Yes: Regular Rate and Rhythm Respiratory: Yes: CTA Bilaterally Gastrointestinal: Yes: Soft Edema: No Neurological: No: awake . Assessment/Plan Stable Continue present care Mild hydration cr better today Hypoglycemic again today morning - Decrease Levemir to 10 pt is dnr/di will follow. Problem List - Problems (1) EDMAR (acute kidney injury) Code(s): N17.9 - ACUTE KIDNEY FAILURE, UNSPECIFIED (2) UTI (urinary tract infection) Code(s): N39.0 - URINARY TRACT INFECTION, SITE NOT SPECIFIED Qualifiers: (3) CAD (coronary artery disease) Code(s): I25.10 - ATHSCL HEART DISEASE OF [place] CORONARY ARTERY W/O ANG PCTRS Qualifiers: Coronary Disease-Associated Artery/Lesion type: [place] artery [place] vs. transplanted heart: [place] heart Associated angina: without angina Qualified Code(s): I25.10 - Atherosclerotic heart disease of [place] coronary artery without angina pectoris (4) Dementia Code(s): F03.90 - UNSPECIFIED DEMENTIA WITHOUT BEHAVIORAL DISTURBANCE (5) Diabetes Code(s): E11.9 - TYPE 2 DIABETES MELLITUS WITHOUT COMPLICATIONS Qualifiers: Diabetes mellitus type: type 1 Diabetes mellitus complication status: with hypoglycemia Diabetes mellitus complication detail: without coma Qualified Code(s): E10.649 - Type 1 diabetes mellitus with hypoglycemia without coma
[2019-11-23] MEDS ORDERED: INSULIN (LEVEMIR) 100 UNITS/ML UNITS SQ SCH (11:30)
--- NOTE | 2019-11-23 15:08 | PN ---
Progress Note (short form) - Note Progress Note: 1. EDMAR 2. Lewy Body Dementia 3. sepsis 4. leukocytosis 5. DM 6. htn 7. anemia 8. met acidosis Active Medications Heparin Sodium (Porcine) (Heparin -) 5,000 unit SQ BID [facility] Last Admin: 11/23/19 09:42 Dose: 5,000 unit Documented by: Potassium Chloride 10 meq/ (Sodium Chloride) 1,005 mls @ 42 mls/hr IVPB Q24H [facility] Last Admin: 11/22/19 18:36 Dose: 42 mls/hr Documented by: Insulin Aspart (Novolog Vial Sliding Scale -) 1 vial SQ TIDAC [facility]; Protocol Last Admin: 11/23/19 11:35 Dose: Not Given Documented by: Insulin Detemir (Levemir Vial) 10 units SQ [facility] Metoprolol Tartrate (Lopressor -) 25 mg PO BID [facility] Last Admin: 11/23/19 09:42 Dose: 25 mg Documented by: Last Vital Signs Temp Pulse Resp BP Pulse Ox 97.7 F 75 20 161/69 98 11/23/19 09:26 11/23/19 09:26 11/23/19 09:26 11/23/19 09:26 11/23/19 10:05 CBC, BMP 11/23/19 07:59 11/23/19 07:59 CBC, BMP 11/19/19 07:25 11/22/19 08:15 IMP- EDMAR BETTER PLAN CONTINUE TO MOMITOR TRNAL FUNCTION
[2019-11-23] MEDS: POTASSIUM CHLORIDE 10 MEQ in SODIUM CHLORIDE 0.45% 1,000 ML IVPB SCH (15:23)
--- NOTE | 2019-11-23 18:12 | PN ---
Progress Note, Physician History of Present Illness: Pt alert, afebrile, without distress. - Current Medication List Current Medications: Active Medications Heparin Sodium (Porcine) (Heparin -) 5,000 unit SQ BID [facility] Last Admin: 11/23/19 09:42 Dose: 5,000 unit Documented by: Potassium Chloride 10 meq/ (Sodium Chloride) 1,005 mls @ 42 mls/hr IVPB Q24H [facility] Last Admin: 11/23/19 15:23 Dose: 42 mls/hr Documented by: Insulin Aspart (Novolog Vial Sliding Scale -) 1 vial SQ TIDAC [facility]; Protocol Last Admin: 11/23/19 18:06 Dose: 3 units Documented by: Insulin Detemir (Levemir Vial) 10 units SQ [facility] Metoprolol Tartrate (Lopressor -) 25 mg PO BID [facility] Last Admin: 11/23/19 09:42 Dose: 25 mg Documented by: - Objective Vital Signs: Vital Signs Temperature 98.3 F 11/23/19 17:57 Pulse Rate 74 11/23/19 17:57 Respiratory Rate 20 11/23/19 17:57 Blood Pressure 156/73 11/23/19 17:57 O2 Sat by Pulse Oximetry (%) 98 11/23/19 10:05 Constitutional: Yes: No Distress, Calm Cardiovascular: Yes: Regular Rate and Rhythm Respiratory: Yes: Regular (poor inspiratory effort) Gastrointestinal: Yes: Normal Bowel Sounds, Soft Genitourinary: Yes: WNL Integumentary: Yes: WNL Neurological: Yes: Alert Labs: CBC, BMP 11/23/19 07:59 11/23/19 07:59 INR, PTT INR 1.09 (0.83-1.09) 11/13/19 14:30 Microbiology 11/13/19 14:30 Blood - Peripheral Venous Blood Culture - Final NO GROWTH AFTER 5 DAYS INCUBATION 11/13/19 14:30 Blood - Peripheral Venous Blood Culture - Final NO GROWTH AFTER 5 DAYS INCUBATION 11/13/19 14:30 Urine - Urine - Catheterized Urine Culture - Final Escherichia Coli Escherichia Coli#2 Problem List - Problems (1) EDMAR (acute kidney injury) Code(s): N17.9 - ACUTE KIDNEY FAILURE, UNSPECIFIED (2) UTI (urinary tract infection) Code(s): N39.0 - URINARY TRACT INFECTION, SITE NOT SPECIFIED Qualifiers: (3) Altered mental status Code(s): R41.82 - ALTERED MENTAL STATUS, UNSPECIFIED Qualifiers: Altered mental status type: unspecified Qualified Code(s): R41.82 - Altered mental status, unspecified (4) Atrial fibrillation Code(s): I48.91 - UNSPECIFIED ATRIAL FIBRILLATION (5) CAD (coronary artery disease) Code(s): I25.10 - ATHSCL HEART DISEASE OF [place] CORONARY ARTERY W/O ANG PCTRS Qualifiers: Coronary Disease-Associated Artery/Lesion type: [place] artery [place] vs. transplanted heart: [place] heart Associated angina: without angina Qualified Code(s): I25.10 - Atherosclerotic heart disease of [place] coronary artery without angina pectoris (6) CVA (cerebral vascular accident) Code(s): I63.9 - CEREBRAL INFARCTION, UNSPECIFIED (7) HTN (hypertension) Code(s): I10 - ESSENTIAL (PRIMARY) HYPERTENSION Assessment/Plan -- completed antibiotics -- wbc down to normal today -- renal function slowly improving Pt currently stable
[2019-11-23] MEDS: INSULIN (LEVEMIR) 100 UNITS/ML UNITS SQ SCH (21:38)
[2019-11-24] MEDS: INSULIN SLIDING SCALE (NOVOLOG) 1 VIAL SQ SCH ×3 (06:41→17:04)
[2019-11-24] MEDS: METOPROLOL TARTRATE 25 MG TABLET (FP) PO SCH ×2 (09:25→21:19)
[2019-11-24] MEDS: HEPARIN NA (PORCINE) 5,000 UNITS/ML 1ML VIAL SQ SCH ×2 (09:25→21:19)
--- NOTE | 2019-11-24 10:18 | PN ---
Progress Note, Physician History of Present Illness: stable no new issues - Current Medication List Current Medications: Active Medications Heparin Sodium (Porcine) (Heparin -) 5,000 unit SQ BID [facility] Last Admin: 11/24/19 09:25 Dose: 5,000 unit Documented by: Potassium Chloride 10 meq/ (Sodium Chloride) 1,005 mls @ 42 mls/hr IVPB Q24H [facility] Last Admin: 11/23/19 15:23 Dose: 42 mls/hr Documented by: Insulin Aspart (Novolog Vial Sliding Scale -) 1 vial SQ TIDAC [facility]; Protocol Last Admin: 11/24/19 06:41 Dose: Not Given Documented by: Insulin Detemir (Levemir Vial) 10 units SQ HS [facility] Last Admin: 11/23/19 21:38 Dose: 10 units Documented by: Metoprolol Tartrate (Lopressor -) 25 mg PO BID [facility] Last Admin: 11/24/19 09:25 Dose: 25 mg Documented by: - Objective Vital Signs: Vital Signs Temperature 97.8 F 11/24/19 06:00 Pulse Rate 62 11/24/19 09:24 Respiratory Rate 11/24/19 09:24 Blood Pressure 131/60 11/24/19 09:24 O2 Sat by Pulse Oximetry (%) 99 11/23/19 21:00 Constitutional: Yes: No Distress, Calm Cardiovascular: Yes: S1, S2 Respiratory: Yes: Regular, CTA Bilaterally Musculoskeletal: Yes: WNL Neurological: Yes: Alert, Other Psychiatric: Yes: Other Labs: CBC, BMP 11/23/19 07:59 11/23/19 07:59 INR, PTT INR 1.09 (0.83-1.09) 11/13/19 14:30 Assessment/Plan Problem List - Problems (1) EDMAR (acute kidney injury) Code(s): N17.9 - ACUTE KIDNEY FAILURE, UNSPECIFIED (2) UTI (urinary tract infection) Code(s): N39.0 - URINARY TRACT INFECTION, SITE NOT SPECIFIED Qualifiers: (3) CAD (coronary artery disease) Code(s): I25.10 - ATHSCL HEART DISEASE OF [place] CORONARY ARTERY W/O ANG PCTRS Qualifiers: Coronary Disease-Associated Artery/Lesion type: [place] artery [place] vs. transplanted heart: [place] heart Associated angina: without angina Qualified Code(s): I25.10 - Atherosclerotic heart disease of [place] coronary artery without angina pectoris (4) Dementia Code(s): F03.90 - UNSPECIFIED DEMENTIA WITHOUT BEHAVIORAL DISTURBANCE (5) Diabetes Code(s): E11.9 - TYPE 2 DIABETES MELLITUS WITHOUT COMPLICATIONS Qualifiers: Diabetes mellitus type: type 1 Diabetes mellitus complication status: with hypoglycemia Diabetes mellitus complication detail: without coma Qualified Code(s): E10.649 - Type 1 diabetes mellit plan nutrition rest as per the team
[2019-11-24 11:15] LABS: BLOOD UREA NITROGEN 64.8 mg/dL (7-18); CALCIUM 8.2 mg/dL (8.5-10.1); CREATININE 3.4 mg/dL (0.55-1.3); POTASSIUM 4.5 mmol/L (3.5-5.1)
--- NOTE | 2019-11-24 14:04 | PN ---
Progress Note, Physician History of Present Illness: Pt seen and examined at bedside. She is awake but confused. - Current Medication List Current Medications: Active Medications Heparin Sodium (Porcine) (Heparin -) 5,000 unit SQ BID [facility] Last Admin: 11/24/19 09:25 Dose: 5,000 unit Documented by: Potassium Chloride 10 meq/ (Sodium Chloride) 1,005 mls @ 42 mls/hr IVPB Q24H [facility] Last Admin: 11/23/19 15:23 Dose: 42 mls/hr Documented by: Insulin Aspart (Novolog Vial Sliding Scale -) 1 vial SQ TIDAC [facility]; Protocol Last Admin: 11/24/19 11:27 Dose: Not Given Documented by: Insulin Detemir (Levemir Vial) 10 units SQ HS [facility] Last Admin: 11/23/19 21:38 Dose: 10 units Documented by: Metoprolol Tartrate (Lopressor -) 25 mg PO BID [facility] Last Admin: 11/24/19 09:25 Dose: 25 mg Documented by: - Objective Vital Signs: Vital Signs Temperature 97.4 F L 11/24/19 11:26 Pulse Rate 62 11/24/19 09:24 Respiratory Rate 20 11/24/19 09:24 Blood Pressure 131/60 11/24/19 09:24 O2 Sat by Pulse Oximetry (%) 98 11/24/19 10:05 Constitutional: Yes: Calm Eyes: Yes: Conjunctiva Clear HENT: Yes: Atraumatic Neck: Yes: Supple Cardiovascular: Yes: S1, S2 Respiratory: Yes: CTA Bilaterally Gastrointestinal: Yes: Soft Genitourinary: Yes: Incontinence Edema: No Neurological: Yes: Confusion Labs: CBC, BMP 11/23/19 07:59 11/24/19 09:40 INR, PTT INR 1.09 (0.83-1.09) 11/13/19 14:30 Problem List - Problems (1) EDMAR (acute kidney injury) Code(s): N17.9 - ACUTE KIDNEY FAILURE, UNSPECIFIED Assessment/Plan Current Medications Generic Name Dose Route Start Last Admin Trade Name Freq PRN Reason Stop Dose Admin Heparin Sodium (Porcine) 5,000 unit 11/13/19 22:00 11/24/19 09:25 Heparin - SQ 5,000 unit BID [facility] Administration Potassium Chloride 10 meq/ 1,005 mls @ 42 mls/hr 11/21/19 15:30 11/23/19 15:23 Sodium Chloride IVPB 42 mls/hr Q24H [facility] Administration Insulin Aspart 1 vial 11/15/19 16:30 11/24/19 11:27 Novolog Vial Sliding Scale - SQ Not Given TIDAC [facility] Protocol Insulin Detemir 10 units 11/23/19 22:00 11/23/19 21:38 Levemir Vial SQ 10 units HS [facility] Administration Metoprolol Tartrate 25 mg 11/21/19 12:00 11/24/19 09:25 Lopressor - PO 25 mg BID [facility] Administration Impression 1. EDMAR 2. Lewy Body Dementia 3. sepsis 4. leukocytosis 5. DM 6. htn 7. anemia 8. 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
[2019-11-24] MEDS: POTASSIUM CHLORIDE 10 MEQ in SODIUM CHLORIDE 0.45% 1,000 ML IVPB SCH ×2 (15:00→16:58)
--- NOTE | 2019-11-24 16:10 | PN ---
Progress Note (short form) - Note Progress Note: Pt seen/ examined awake no distress making urine cr better eating not much Vital Signs Temp 97.5 F L 11/24/19 14:00 Pulse 68 11/24/19 14:00 Resp 20 11/24/19 14:00 BP 125/74 11/24/19 14:00 Pulse Ox 98 11/24/19 10:05 Intake & Output 11/23/19 11/24/19 11/24/19 23:59 11:59 23:59 Intake Total 554 624 Output Total 600 Balance -46 624 Intake: IV 504 504 1000cc 1/2ns with 10 meq 504 504 kcl at 42 cc/hr Oral 50 120 Output: Urine 600 External Catheter 600 Other: Voiding Method External Catheter External Catheter External Catheter Bowel Movement Yes Yes # Bowel Movements 1 1 Active Medications Heparin Sodium (Porcine) (Heparin -) 5,000 unit SQ BID [facility] Last Admin: 11/24/19 09:25 Dose: 5,000 unit Documented by: Potassium Chloride 10 meq/ (Sodium Chloride) 1,005 mls @ 42 mls/hr IVPB Q24H [facility] Last Admin: 11/23/19 15:23 Dose: 42 mls/hr Documented by: Insulin Aspart (Novolog Vial Sliding Scale -) 1 vial SQ TIDAC [facility]; Protocol Last Admin: 11/24/19 11:27 Dose: Not Given Documented by: Insulin Detemir (Levemir Vial) 10 units SQ HS [facility] Last Admin: 11/23/19 21:38 Dose: 10 units Documented by: Metoprolol Tartrate (Lopressor -) 25 mg PO BID [facility] Last Admin: 11/24/19 09:25 Dose: 25 mg Documented by: CBC, BMP 11/23/19 07:59 11/24/19 09:40 covid - repeat ordered Physical Exam. Constitutional: Yes: No Distress. Eyes: Yes: Conjunctiva Clear Neck: Yes: Supple Cardiovascular: Yes: Regular Rate and Rhythm Respiratory: Yes: CTA Bilaterally Gastrointestinal: Yes: Soft Edema: No Neurological: No: awake . Assessment/Plan Stable Continue present care Mild hydration cr better Monitor for Bgm pt is dnr/di repeat covid If better - d/c to care home tomorrow will follow. Problem List - Problems (1) EDMAR (acute kidney injury) Code(s): N17.9 - ACUTE KIDNEY FAILURE, UNSPECIFIED (2) UTI (urinary tract infection) Code(s): N39.0 - URINARY TRACT INFECTION, SITE NOT SPECIFIED Qualifiers: (3) CAD (coronary artery disease) Code(s): I25.10 - ATHSCL HEART DISEASE OF [place] CORONARY ARTERY W/O ANG PCTRS Qualifiers: Coronary Disease-Associated Artery/Lesion type: [place] artery [place] vs. transplanted heart: [place] heart Associated angina: without angina Qualified Code(s): I25.10 - Atherosclerotic heart disease of [place] coronary artery without angina pectoris (4) Dementia Code(s): F03.90 - UNSPECIFIED DEMENTIA WITHOUT BEHAVIORAL DISTURBANCE (5) Diabetes Code(s): E11.9 - TYPE 2 DIABETES MELLITUS WITHOUT COMPLICATIONS Qualifiers: Diabetes mellitus type: type 1 Diabetes mellitus complication status: with hypoglycemia Diabetes mellitus complication detail: without coma Qualified Code(s): E10.649 - Type 1 diabetes mellitus with hypoglycemia without coma Problem List - Problems (1) EDMAR (acute kidney injury) Code(s): N17.9 - ACUTE KIDNEY FAILURE, UNSPECIFIED (2) UTI (urinary tract infection) Code(s): N39.0 - URINARY TRACT INFECTION, SITE NOT SPECIFIED Qualifiers: (3) CAD (coronary artery disease) Code(s): I25.10 - ATHSCL HEART DISEASE OF [place] CORONARY ARTERY W/O ANG PCTRS Qualifiers: Coronary Disease-Associated Artery/Lesion type: [place] artery [place] vs. transplanted heart: [place] heart Associated angina: without angina Qualified Code(s): I25.10 - Atherosclerotic heart disease of [place] coronary artery wit hout angina pectoris (4) Dementia Code(s): F03.90 - UNSPECIFIED DEMENTIA WITHOUT BEHAVIORAL DISTURBANCE (5) Diabetes Code(s): E11.9 - TYPE 2 DIABETES MELLITUS WITHOUT COMPLICATIONS Qualifiers: Diabetes mellitus type: type 1 Diabetes mellitus complication status: with hypoglycemia Diabetes mellitus complication detail: without coma Qualified Code(s): E10.649 - Type 1 diabetes mellitus with hypoglycemia without coma
[2019-11-25] MEDS: INSULIN (LEVEMIR) 100 UNITS/ML UNITS SQ SCH (00:26)
[2019-11-25] MEDS: INSULIN SLIDING SCALE (NOVOLOG) 1 VIAL SQ SCH ×2 (06:05→11:48)
[2019-11-25] MEDS ORDERED: INSULIN (NOVOLOG) ASPART 100 UNITS/ML 10ML VIAL ONE (06:22)
[2019-11-25] MEDS ORDERED: PT OWN MED DRAWER 7, Y5N ONE (09:11)
[2019-11-25 09:58] LABS: EOS % 1.1 % (0-4.5); HEMATOCRIT 23.3 % (32.4-45.2); HEMOGLOBIN 7.6 GM/dL (10.7-15.3); LYMPH % 15.3 % (8-40); MCH 29.5 pg (25.7-33.7); MCHC 32.8 g/dl (32.0-36.0); MEAN CELL VOLUME 90.2 fl (80-96); MEAN PLT VOLUME 9.6 fl (7.5-11.1); MONO % 5.6 % (3.8-10.2); PLATELET COUNT 102 K/MM3 (134-434); RBC 2.58 M/mm3 (3.60-5.2); RDW 14.4 % (11.6-15.6); WHITE BLOOD COUNT 6.7 K/mm3 (4.0-10.0)
[2019-11-25] MEDS: HEPARIN NA (PORCINE) 5,000 UNITS/ML 1ML VIAL SQ SCH (10:17)
[2019-11-25] MEDS: METOPROLOL TARTRATE 25 MG TABLET (FP) PO SCH (10:17)
[2019-11-25 10:35] LABS: ALBUMIN 2.5 g/dl (3.4-5.0); BLOOD UREA NITROGEN 55.7 mg/dL (7-18); CREATININE 3.4 mg/dL (0.55-1.3); POTASSIUM 4.5 mmol/L (3.5-5.1); TOT PROT 5.4 g/dl (6.4-8.2)
--- NOTE | 2019-11-25 13:20 | PN ---
Progress Note, Physician History of Present Illness: stable no new issues - Current Medication List Current Medications: Active Medications Heparin Sodium (Porcine) (Heparin -) 5,000 unit SQ BID [facility] Last Admin: 11/25/19 10:17 Dose: 5,000 unit Documented by: Potassium Chloride 10 meq/ (Sodium Chloride) 1,005 mls @ 42 mls/hr IVPB Q24H [facility] Last Admin: 11/24/19 16:58 Dose: 42 mls/hr Documented by: Insulin Aspart (Novolog Vial Sliding Scale -) 1 vial SQ TIDAC [facility]; Protocol Last Admin: 11/25/19 11:48 Dose: Not Given Documented by: Insulin Detemir (Levemir Vial) 10 units SQ HS [facility] Last Admin: 11/25/19 00:26 Dose: Not Given Documented by: Metoprolol Tartrate (Lopressor -) 25 mg PO BID [facility] Last Admin: 11/25/19 10:17 Dose: 25 mg Documented by: - Objective Vital Signs: Vital Signs Temperature 98.2 F 11/25/19 10:00 Pulse Rate 70 11/25/19 10:00 Respiratory Rate 23 H 11/25/19 10:00 Blood Pressure 149/61 11/25/19 10:00 O2 Sat by Pulse Oximetry (%) 98 11/25/19 10:00 Constitutional: Yes: No Distress, Calm Cardiovascular: Yes: S1, S2 Respiratory: Yes: Regular, CTA Bilaterally Gastrointestinal: Yes: Normal Bowel Sounds, Soft Musculoskeletal: Yes: WNL Extremities: Yes: WNL Neurological: Yes: Alert Psychiatric: Yes: Alert Labs: CBC, BMP 11/25/19 09:30 11/25/19 09:30 INR, PTT INR 1.09 (0.83-1.09) 11/13/19 14:30 Assessment/Plan Problem List - Problems (1) EDMAR (acute kidney injury) Code(s): N17.9 - ACUTE KIDNEY FAILURE, UNSPECIFIED (2) UTI (urinary tract infection) Code(s): N39.0 - URINARY TRACT INFECTION, SITE NOT SPECIFIED Qualifiers: (3) CAD (coronary artery disease) Code(s): I25.10 - ATHSCL HEART DISEASE OF [place] CORONARY ARTERY W/O ANG PCTRS Qualifiers: Coronary Disease-Associated Artery/Lesion type: [place] artery [place] vs. transplanted heart: [place] heart Associated angina: without angina Qualified Code(s): I25.10 - Atherosclerotic heart disease of [place] coronary artery without angina pectoris (4) Dementia Code(s): F03.90 - UNSPECIFIED DEMENTIA WITHOUT BEHAVIORAL DISTURBANCE (5) Diabetes Code(s): E11.9 - TYPE 2 DIABETES MELLITUS WITHOUT COMPLICATIONS Qualifiers: Diabetes mellitus type: type 1 Diabetes mellitus complication status: with hypoglycemia Diabetes mellitus complication detail: without coma Qualified Code(s): E10.649 - Type 1 diabetes mellit plan nutrition rest as per the team
--- NOTE | 2019-11-25 13:57 | PN ---
Problem List - Problems (1) EDMAR (acute kidney injury) Code(s): N17.9 - ACUTE KIDNEY FAILURE, UNSPECIFIED (2) Abdominal pain Code(s): R10.9 - UNSPECIFIED ABDOMINAL PAIN (3) UTI (urinary tract infection) Code(s): N39.0 - URINARY TRACT INFECTION, SITE NOT SPECIFIED Qualifiers: (4) Altered mental status Code(s): R41.82 - ALTERED MENTAL STATUS, UNSPECIFIED Qualifiers: Qualified Code(s): R41.82 - Altered mental status, unspecified (5) Atrial fibrillation Code(s): I48.91 - UNSPECIFIED ATRIAL FIBRILLATION (6) Sepsis Code(s): A41.9 - SEPSIS, UNSPECIFIED ORGANISM (7) Toxic metabolic encephalopathy Code(s): G92 - TOXIC ENCEPHALOPATHY
--- NOTE | 2019-11-25 13:59 | PN ---
Progress Note, Physician History of Present Illness: Pt seen and examined at bedside. She is awake but confused. - Current Medication List Current Medications: Active Medications Heparin Sodium (Porcine) (Heparin -) 5,000 unit SQ BID [facility] Last Admin: 11/25/19 10:17 Dose: 5,000 unit Documented by: Potassium Chloride 10 meq/ (Sodium Chloride) 1,005 mls @ 42 mls/hr IVPB Q24H [facility] Last Admin: 11/24/19 16:58 Dose: 42 mls/hr Documented by: Insulin Aspart (Novolog Vial Sliding Scale -) 1 vial SQ TIDAC [facility]; Protocol Last Admin: 11/25/19 11:48 Dose: Not Given Documented by: Insulin Detemir (Levemir Vial) 10 units SQ HS [facility] Last Admin: 11/25/19 00:26 Dose: Not Given Documented by: Metoprolol Tartrate (Lopressor -) 25 mg PO BID [facility] Last Admin: 11/25/19 10:17 Dose: 25 mg Documented by: - Objective Vital Signs: Vital Signs Temperature 98.2 F 11/25/19 10:00 Pulse Rate 70 11/25/19 10:00 Respiratory Rate 23 H 11/25/19 10:00 Blood Pressure 149/61 11/25/19 10:00 O2 Sat by Pulse Oximetry (%) 98 11/25/19 10:00 Constitutional: Yes: Calm Eyes: Yes: Conjunctiva Clear HENT: Yes: Atraumatic Neck: Yes: Supple Cardiovascular: Yes: S1, S2 Respiratory: Yes: CTA Bilaterally Gastrointestinal: Yes: Soft Genitourinary: Yes: Incontinence Musculoskeletal: Yes: Muscle Weakness Edema: No Neurological: Yes: Confusion, Pre-Existing Deficit Labs: CBC, BMP 11/25/19 09:30 11/25/19 09:30 INR, PTT INR 1.09 (0.83-1.09) 11/13/19 14:30 Problem List - Problems (1) EDMAR (acute kidney injury) Code(s): N17.9 - ACUTE KIDNEY FAILURE, UNSPECIFIED Assessment/Plan Current Medications Generic Name Dose Route Start Last Admin Trade Name Freq PRN Reason Stop Dose Admin Heparin Sodium (Porcine) 5,000 unit 11/13/19 22:00 11/25/19 10:17 Heparin - SQ 5,000 unit BID [facility] Administration Potassium Chloride 10 meq/ 1,005 mls @ 42 mls/hr 11/21/19 15:30 11/24/19 16:58 Sodium Chloride IVPB 42 mls/hr Q24H [facility] Administration Insulin Aspart 1 vial 11/15/19 16:30 11/25/19 11:48 Novolog Vial Sliding Scale - SQ Not Given TIDAC [facility] Protocol Insulin Detemir 10 units 11/23/19 22:00 11/25/19 00:26 Levemir Vial SQ Not Given [facility] Metoprolol Tartrate 25 mg 11/21/19 12:00 11/25/19 10:17 Lopressor - PO 25 mg BID [facility] Administration Impression 1. EDMAR 2. Lewy Body Dementia 3. sepsis 4. leukocytosis 5. DM 6. htn 7. anemia 8. 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
--- NOTE | 2019-11-25 14:23 | DS ---
Physical Examination Vital Signs: Vital Signs Temperature 98.2 F 11/25/19 10:00 Pulse Rate 70 11/25/19 10:00 Respiratory Rate 23 H 11/25/19 10:00 Blood Pressure 149/61 11/25/19 10:00 O2 Sat by Pulse Oximetry (%) 98 11/25/19 10:00 Constitutional: Yes: No Distress, Calm Cardiovascular: Yes: Regular Rate and Rhythm Respiratory: Yes: Diminished Gastrointestinal: Yes: Normal Bowel Sounds, Soft. No: Tenderness Edema: No Labs: CBC, BMP 11/25/19 09:30 11/25/19 09:30 Discharge Summary Problems reviewed: Yes Reason For Visit: ACUTE KIDNEY INJURY UTI Current Active Problems EDMAR (acute kidney injury) (Acute) Abdominal pain (Acute) Sepsis (Acute) Toxic metabolic encephalopathy (Acute) UTI (urinary tract infection) (Acute) Hospital Course: Patient was admitted for altered mental status and found to have acute on chronic renal disease and UTI Evaluated by ID and Renal Pt is not eating or drinking much She is not taking oral meds She was placed on iv fluids and iv antibiotics She completed antibiotics, renal function better with fluids renal function not baseline patient will not recover her kidney function fully as she is not eating or drinking much Joanne- Sister (HCP)does not want the patient to have feeding tube She understands that dementia is worse COVID 19 -- negative Pt is stable to return to [place] on comfort care-- no lab draws, consider no hospitalization , palliative care Condition: Stable - Instructions Diet, Activity, Other Instructions: DNR/DNI-- spoke with sister-- pt needs to be on palliative care -- no feeding tube, no labs, do not hospitalization should be in order. Referrals: Antonio Ross MD [Primary Care Provider] - - Home Medications Comprehensive Discharge Medication List: Ambulatory Orders LORazepam [Ativan] 0.25 mg PO HS 07/29/18 Levothyroxine [Synthroid -] 25 mcg PO DAILY 07/29/18 Multivit-Min/Iron Fum/Folic AC [Fmyyc-Xokpwab-Rqsvvryy Tablet] 1 tab PO DAILY 07/29/18 Nystatin Cream [Mycostatin Cream -] 1 applic TP BID 07/29/18 Acetaminophen [Tylenol .Regular Strength -] 650 mg PO Q6H tablet 08/05/18 Metoprolol Tartrate [Lopressor -] 25 mg PO BID #30 tablet 11/25/19
[2019-11-25 15:55] VITALS: BP 143/67; PULSE 66; TEMP 97.6
[2019-11-25] MEDS: POTASSIUM CHLORIDE 10 MEQ in SODIUM CHLORIDE 0.45% 1,000 ML IVPB SCH (16:28)
== END 2019-11-25 16:40 | DRG 682 ==
LOC: JER 13:12 → JERBED 16:30 → J6WEST-2 21:09 → J5S 11-17 19:11
PROVIDERS: ADMIT Internal Medicine; ATTEND Internal Medicine
DX: N17.9 Acute kidney failure, unspecified (principal); A41.50 Gram-negative sepsis, unspecified; G93.41 Metabolic encephalopathy; E87.2 Acidosis; N39.0 Urinary tract infection, site not specified; D64.9 Anemia, unspecified; R53.83 Other fatigue; K21.9 Gastro-esophageal reflux disease without esophagitis; R63.4 Abnormal weight loss; Z68.29 Body mass index [BMI] 29.0-29.9, adult; G31.83 Neurocognitive disorder with Lewy bodies; I25.10 Atherosclerotic heart disease of native coronary artery without angina pectoris; B96.20 Unspecified Escherichia coli [E. coli] as the cause of diseases classified elsewhere; E03.9 Hypothyroidism, unspecified; E78.5 Hyperlipidemia, unspecified; I48.91 Unspecified atrial fibrillation; E11.22 Type 2 diabetes mellitus with diabetic chronic kidney disease; I12.9 Hypertensive chronic kidney disease with stage 1 through stage 4 chronic kidney disease, or unspecified chronic kidney disease; N18.9 Chronic kidney disease, unspecified; E11.51 Type 2 diabetes mellitus with diabetic peripheral angiopathy without gangrene; F02.80 Dementia in other diseases classified elsewhere, unspecified severity, without behavioral disturbance, psychotic disturbance, mood disturbance, and anxiety; R41.82 Altered mental status, unspecified; D72.829 Elevated white blood cell count, unspecified; I25.2 Old myocardial infarction; J44.9 Chronic obstructive pulmonary disease, unspecified; E11.65 Type 2 diabetes mellitus with hyperglycemia; Z95.5 Presence of coronary angioplasty implant and graft; Z86.73 Personal history of transient ischemic attack (TIA), and cerebral infarction without residual deficits
CPT/HCPCS: 36415; 71045-TC-FY; 71250-TC; 74176-TC; 80048; 80053; 81003; 82436; 82550; 82565; 82962; 83036; 83605; 83735; 84100; 84133; 84300; 84484; 85025; 85610; 85730; 87040; 87086; 87186; 93005; 93010; 97116-GP; 97161-GP; 99285-25; J1644; U0003

== ENCOUNTER 2019-12-27 00:14 | Inpatient (IN) | payer OTHER ==
--- NOTE | 2019-12-27 01:16 | PDOC ---
Attending Attestation - Resident Resident Name: MirianArnulfo - HPI HPI: 12/27/19 03:46 Pt presents to the ED after sent in from [place] for abnormal blood work. Patient is extremely confused and unable to give history. Labs from [place] show elevated BUN and Cr. As per resident's discussion with sister, they wish the patient to be palliative care and do not want her to have dialysis. They are willing for her to get IVF, however. - Physicial Exam PE: 12/27/19 03:48 Agree with resident exam. Patient is alert and confused, laughing and making noises, but not speaking. She withdraws to pain. Skin is warm and dry with good skin turgor and no rashes. - Medical Decision Making 12/27/19 03:50 Pt presents to the ED after sent in for abnormal labs, including acute renal failure. Family is not willing to have HD and wants patient to be pallative care. UA shows UTI. Will treat with antibiotics. Will give IV hydration and admit to medicine for continued management. Discharge - Discharge Information Problems reviewed: Yes Clinical Impression/Diagnosis: EDMAR (acute kidney injury) - Follow up/Referral - Patient Discharge Instructions - Post Discharge Activity
--- NOTE | 2019-12-27 01:20 | PDOC ---
History of Present Illness - General Chief Complaint: Abnormal Lab Results (Outside) Stated Complaint: ABNORMAL LABS Time Seen by Provider: 12/27/19 00:40 - History of Present Illness Initial Comments: 12/27/19 01:11 74 yo female with pmh of acute renal failure, Lewy body dementia, anemia, hypothyroid, HLD, DM presents to ED for low hemoglobin and hematocrit. Pt is nonverbal at baseline but history was obtained from sister. She explains that sister has had kidney failure that started a month ago because she was not eating. Pt was not a candidate for dialysis so kidney failure got worse. Sister explained had to get [facility] with palliative care to get labs which ended up showing low H&H and inc BUN and Cr so [facility] decided to bring pt in for transfusion. Family does want transfusion and IV hydration. Pt is DNR and DNI. PMH:acute renal failure, Lewy body dementia, anemia, hypothyroid, HLD, DM Meds: novolog, pepcid, tylenol allergies: denies Social: [facility] Past History - Medical History Allergies/Adverse Reactions: Allergies Allergy/AdvReac Type Severity Reaction Status Date / Time No Known Allergies Allergy Verified 12/27/19 00:31 Home Medications: Ambulatory Orders Acidoph/L.bulg/Bif.b/S.thermop [Bacid Caplet] 2 each PO ACBK 12/27/19 Amlodipine Besylate 2.5 mg PO DAILY 12/27/19 Arginine/Ascorbate Sod/Annel AC [Arginaid Powder] 1 each PO BID 12/27/19 Aspirin [ASA -] 81 mg PO DAILY 12/27/19 Famotidine [Pepcid AC] 20 mg PO HS 12/27/19 Insulin (Novolog) [Novolog -] 9 units SQ BID 12/27/19 Insulin Glargine,Hum.rec.anlog [Basaglar Kwikpen U-100] 20 unit SQ HS 12/27/19 Insulin Sliding Scale [Novolog Vial Sliding Scale -] See Protocol SQ ACHS 12/27/19 Levothyroxine Sodium [Levo-T] 75 mcg PO DAILY 12/27/19 Lipase/Protease/Amylase [Ava Akers 6,000 Units Capsule] 1 cap PO TIDCM 12/27/19 Melatonin/Pyridoxine HCl (B6) [Melatonin 3 mg Tablet] 3 mg PO HS 12/27/19 Metoprolol Tartrate 12.5 mg PO BID 12/27/19 Anemia: Yes Asthma: No Cancer: Yes (breast nodule benign, CERVIX) Cardiac Disorders: Yes (RI, STENTS - cardac and LLE) 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) COPD: Yes (COPD , CHRONIC BRONCHITIS) CHF: No Dementia: No Diabetes: Yes GI Disorders: Yes (H/O COLON POLYPS,CHRONIC PANCREATITIS -STONES) Disorders: Yes (H/O UTI) HTN: Yes (DX 2002) Hypercholesterolemia: Yes (DX 2002) Liver Disease: No Seizures: No Thyroid Disease: No - Surgical History Abdominal Surgery: Yes (EXPLORATORY LAP-1970) Appendectomy: Yes ( CHILD) Cardiac Surgery: Yes (STENTS-2007,BALLOON LLE) Cholecystectomy: Yes (1970 DURING EXPLORATORY LAP) Lung Surgery: No Neurologic Surgery: No Orthopedic Surgery: No - Immunization History Immunization Up to Date: No - Psycho-Social/Smoking History Smoking Status: No Smoking History: Never smoked Have you smoked in the past 12 months: No Number of Cigarettes Smoked Daily: 0 Information on smoking cessation initiated: No - Substance Abuse Hx (Audit-C & DAST Scrn) How often the patient has a drink containing alcohol: Never Score: In Men: 4 or > Positive; In Women: 3 or > Positive: 0 Screen Result (Pos requires Nsg. Audit-10AR): Negative In the last yr the pt used illegal drug/Rx for NonMed reason: No Score: Yes response is considered Positive: 0 Screen Result (Positive result requires Nsg. DAST-10): Negative Review of Systems - Review of Systems Able to Perform ROS?: No (Unauditory baseline) *Physical Exam - Vital Signs Last Vital Signs Temp Pulse Resp BP Pulse Ox 98.9 F 97 H 16 153/55 L 100 12/27/19 00:31 12/27/19 00:31 12/27/19 00:31 12/27/19 00:12/27/19 00:31 - Physical Exam 12/27/19 01:20 GENERAL: Awake, alert, and unable to speak at baseline. HEAD: No signs of trauma, normocephalic, atraumatic EYES: PERRLA, EOMI, sclera anicteric, conjunctiva clear ENT: Auricles normal inspection, nares patent, oropharynx clear without exudates. Moist mucosa NECK: Normal ROM, supple, no lymphadenopathy, JVD, or masses LUNGS: clear to auscultation bilaterally HEART: Regular rate and rhythm, normal S1 and S2, no murmurs, rubs or gallops, peripheral pulses normal and equal bilaterally. ABDOMEN: Soft, nontender, normoactive bowel sounds. No guarding, no rebound. EXTREMITIES : Normal inspection, Normal range of motion, no edema. No clubbing or cyanosis. NEUROLOGICAL: Cranial nerves II through XII grossly intact. ED Treatment Course - LABORATORY CBC & Chemistry Diagram: 12/27/19 02:00 12/27/19 03:25 - RADIOLOGY Radiology Studies Ordered: Category Date Time Status CHEST X-RAY PORTABLE* [RAD] Stat Radiology 12/27/19 01:02 Ordered Medical Decision Making - Medical Decision Making 12/27/19 01:23 74 yo female with acute kidney injury, anemia, DM, HLD presents to ED from [facility] for low H&H and blood transfusions. Will get CBC, CMP, UA, EKG, CXR, COVID and admit. Will give fluids based on labs. Sister Joanen Morrison sister (health care proxy [phone]/ [phone])) 12/27/19 01:42 Pt had EDMAR, hyperkalemia, and UTI. Decided to give insulin and D50 for hyperkalemia. Also gave antibiotics. Pt was admitted to inpt team. Pt was also signed out to night team beacuse she was presently in ED. Pt was also put mi ttens and tied down because was taking out IV. Discharge - Discharge Information Problems reviewed: Yes Clinical Impression/Diagnosis: EDMAR (acute kidney injury) Condition: Guarded - Admission Yes - Follow up/Referral - Patient Discharge Instructions - Post Discharge Activity
[2019-12-27 02:27] LABS: BASO % 0.2 % (0-2.0); EOS % 0.3 % (0-4.5); LYMPH % 10.3 % (8-40); MCH 29.9 pg (25.7-33.7); MCHC 33.6 g/dl (32.0-36.0); MEAN PLT VOLUME 8.5 fl (7.5-11.1); MONO % 6.5 % (3.8-10.2); NEUT % 82.7 % (42.8-82.8); PLATELET COUNT 187 K/MM3 (134-434); RBC 2.35 M/mm3 (3.60-5.2); RDW 14.5 % (11.6-15.6)
[2019-12-27 02:56] LABS: EPI CELLS 21 /uL (0-25.1); HYALINE CASTS 10 /uL (0-3.1); PH,URINE 5.5 (5.0-8.0); URINE APPEARANCE TURBID; URINE BACTERIA 8458 /uL (0-1359); URINE BILIRUBIN NEGATIVE (NEGATIVE); URINE COLOR YELLOW; URINE GLUCOSE (UA) NEGATIVE (NEGATIVE); URINE KETONE NEGATIVE (NEGATIVE); URINE LEUK ESTERASE 3+ (NEGATIVE); URINE NITRITE NEGATIVE (NEGATIVE); URINE PROTEIN 2+ (NEGATIVE); URINE RBC 114 /uL (0-23.9); URINE UROBILINOGEN 0.2 mg/dL (0.2-1.0); URINE WBC 12958 /uL (0-25.8)
[2019-12-27] MEDS ORDERED: CEFTRIAXONE 1,000 MG in DEXTROSE 5%-WATER - 50 ML IVPB ONE (04:03)
[2019-12-27 04:11] LABS: ALBUMIN 3.1 g/dl (3.4-5.0); BILIRUBIN,TOTAL 0.3 mg/dL (0.2-1); CALCIUM 8.8 mg/dL (8.5-10.1); POTASSIUM 5.7 mmol/L (3.5-5.1)
[2019-12-27 04:18] LABS: BLOOD UREA NITROGEN 226.7 mg/dL (7-18)
[2019-12-27] MEDS ORDERED: CALCIUM GLUCONATE 10% - 1,000 MG/10 ML VIAL IVPB ONE (04:21)
[2019-12-27] MEDS ORDERED: INSULIN REGULAR HUMAN 100 UNITS/ML *VIAL IVPUSH ONE (04:21)
[2019-12-27] MEDS ORDERED: CEFTRIAXONE 1 GM/50 ML BAG ONE (04:59)
[2019-12-27] MEDS ORDERED: CALCIUM GLUCONATE 10% - 1,000 MG/10 ML VIAL ONE (04:59)
[2019-12-27] MEDS ORDERED: INSULIN REGULAR HUMAN 100 UNITS/ML *VIAL ONE (05:01)
[2019-12-27] MEDS ORDERED: DEXTROSE 50%-WATER - 25 GM/50 ML VIAL IVPUSH ONE (05:03)
[2019-12-27] MEDS ORDERED: DEXTROSE 50%-WATER 25 GM/50 ML DISP.SYRIN ONE (05:10)
[2019-12-27] MEDS ORDERED: SODIUM CHLORIDE 1,000 ML IV SCH (06:15)
--- NOTE | 2019-12-27 06:18 | PN ---
Teaching Attending Note Name of Resident: Sreedhar Porter ATTENDING PHYSICIAN STATEMENT I saw and evaluated the patient. I reviewed the resident's note and discussed the case with the resident. I agree with the resident's findings and plan as documented. SUBJECTIVE: 74 yo female with medical history of CKD Lewy body dementia, anemia, hypothyroid, HLD, DM was sent from [place] due to abnormal labs - Low H&H and increased BUN/CR patient is poor historian unable to provide any history. She is in [facility] with palliative care. DNR/DNI. Daughter agreed for blood transfusion and IV hydration so brought to the ED OBJECTIVE: GENERAL: Awake, alert, Non verbal HEAD: No signs of trauma, normocephalic, atraumatic EYES: PERRLA, EOMI, conjuctival pallor NECK: Normal ROM, supple, no lymphadenopathy, JVD, or masses LUNGS: clear to auscultation bilaterally HEART: Regular rate and rhythm, normal S1 and S2, ABDOMEN: Soft, nontender, normoactive bowel sounds. EXTREMITIES : Normal inspection, Normal range of motion, no edema. NEUROLOGICAL: awake, unable to perform neuro exam, moves All extremities, doesn't follow commands ASSESSMENT AND PLAN: Anemia - likely anemia of chronic disease EDMAR on CKD dehydration Lewy body dementia, anemia, hypothyroid, HLD, DM, CKD Admit to floor IV ceftriaxone 2 gram IV NS 84 ml/hour urine culture UA , urine lytes, renal US check mg, phos, CPK antunez palcement- strict intake output nephrology eval palliative eval Hb is 7 right now will hold off on blood transfusion Treat hyperkalemia get EKG,CXR follow covid test DVT ppx resume home meds
[2019-12-27] MEDS ORDERED: THIAMINE HCL 200 MG/2 ML VIAL IVPB ONE (06:20)
[2019-12-27] MEDS ORDERED: THIAMINE HCL 200 MG/2 ML VIAL ONE (06:32)
--- NOTE | 2019-12-27 06:37 | HP ---
CHIEF COMPLAINT: referred to [facility] by [facility] for abn labs(Hgb 6.7, BUN >150, Cr 8.1, K 6.1, osmolatality 342) PCP: HISTORY OF PRESENT ILLNESS: 74F w/ pmh of Lewy body dementia, chronic anemia, hypothyroidism, HLD, DM, CKD BIBA from [facility] for concern of abnormal lab values(Hgb 6.7, BUN >150, Cr 8.1, K 6.1, osmolatality 342). At baseline, pt is bedbound, noncommunicative, DNR- DNI, getting palliative care at [facility]. ED resident spoke to the pt's sister who consented to IVF, abx, blood transfusions. Pt was recently discharged from [facility] on 11/24, after a hospital course complicated by worsened mental status and worsening of kidney function. Pt was unable to meaningfully participate in the HPI. ER course was notable for: (1) Tmax 98.9F (2) Hbg 7.0(MCV 89) (3) K 5.7, BUN/Cr 226.7/8.0 (4) UA: protein 2+, blood2+, LE 3+, WBC 48671, bact 8458, epith 21 (5) administered ceftriaxone, calcium glucnoate, novolog, D25 (6) EKG w/o peaked T waves Recent Travel: none PAST MEDICAL HISTORY: as above PAST SURGICAL HISTORY: unknown Social History: Smoking: unknown Alcohol: unknown Drugs: unknown Allergies No Known Allergies Allergy (Verified 12/27/19 00:31) HOME MEDICATIONS: Home Medications Medication Instructions Recorded Acidoph/L.bulg/Bif.b/S.thermop 2 each PO ACBK 12/27/19 [Bacid Caplet] Amlodipine Besylate 2.5 mg PO DAILY 12/27/19 Arginine/Ascorbate Sod/Annel AC 1 each PO BID 12/27/19 [Arginaid Powder] Aspirin [ASA -] 81 mg PO DAILY 12/27/19 Famotidine [Pepcid AC] 20 mg PO HS 12/27/19 Insulin (Novolog) [Novolog -] 9 units SQ BID 12/27/19 Insulin Glargine,Hum.rec.anlog 20 unit SQ HS 12/27/19 [Basaglar Kwikpen U-100] Insulin Sliding Scale [Novolog See Protocol SQ ACHS 12/27/19 Vial Sliding Scale -] Levothyroxine Sodium [Levo-T] 75 mcg PO DAILY 12/27/19 Lipase/Protease/Amylase [Ava Akers 1 cap PO TIDCM 12/27/19 6,000 Units Capsule] Melatonin/Pyridoxine HCl (B6) 3 mg PO HS 12/27/19 [Melatonin 3 mg Tablet] Metoprolol Tartrate 12.5 mg PO BID 12/27/19 REVIEW OF SYSTEMS Pt unable to meaningfully participate in history-taking PHYSICAL EXAMINATION Vital Signs - 24 hr 12/27/19 00:31 Temperature 98.9 F Pulse Rate 97 H Respiratory 16 Rate Blood Pressure 153/55 L O2 Sat by Pulse 100 Oximetry (%) GENERAL: thin, cachetic, agitated HEAD: NC, severe temporal wasting EYES: tracking movements spontaneously, pale conjunctiva EARS, NOSE, THROAT: Moist mucous membranes. NECK: neg lymphadenopathy, neg JVD. LUNGS: Breath sounds equal, clear to auscultation bilaterally. No wheezes, and no crackles. No accessory muscle use. HEART: Regular rate and rhythm, normal S1 and S2 without murmur, rub or gallop. ABDOMEN: well-healed old surgical scar in the subcostal region(?chevron incision). Soft, nontender, not distended, no guarding, no rebound, no masses. MUSCULOSKELETAL: Normal range of motion at all joints. No bony deformities or tenderness. Thin extremities UPPER EXTREMITIES: 2+ pulses, warm, well-perfused. No cyanosis. No clubbing. No peripheral edema. LOWER EXTREMITIES: 2+ pulses, warm, well-perfused. No calf tenderness. No peripheral edema. NEUROLOGICAL: moaning sounds. easily agitated Laboratory Results - last 24 hr 12/27/19 12/27/19 12/27/19 02:00 02:00 02:34 WBC 8.0 RBC 2.35 L Hgb 7.0 L Hct 21.0 L MCV 89.0 MCH 29.9 MCHC 33.6 RDW 14.5 Plt Count 187 D MPV 8.5 D Absolute Neuts (auto) 6.6 Neutrophils % 82.7 Lymphocytes % 10.3 D Monocytes % 6.5 Eosinophils % 0.3 Basophils % 0.2 Nucleated RBC % 0 Sodium Potassium Chloride Carbon Dioxide Anion Gap BUN Creatinine Est GFR (CKD-EPI)AfAm Est GFR (CKD-EPI)NonAf POC Glucometer Random Glucose Calcium Total Bilirubin AST ALT Alkaline Phosphatase Total Protein Albumin Urine Color Yellow Urine Appearance Turbid Urine pH 5.5 Ur Specific [place] 1.012 Urine Protein 2+ H Urine Glucose (UA) Negative Urine Ketones Negative Urine Blood 2+ H Urine Nitrite Negative Urine Bilirubin Negative Urine Urobilinogen 0.2 Ur Leukocyte Esterase 3+ H Urine WBC (Auto) 88157 Urine RBC (Auto) 114 Urine Casts (Auto) 10 U Pathogenic Cast Auto None U Epithel Cells (Auto) 21 Urine Bacteria (Auto) 8458 Blood Type O POSITIVE Antibody Screen Negative 12/27/19 12/27/19 03:25 06:27 WBC RBC Hgb Hct MCV MCH MCHC RDW Plt Count MPV Absolute Neuts (auto) Neutrophils % Lymphocytes % Monocytes % Eosinophils % Basophils % Nucleated RBC % Sodium 133 L Potassium 5.7 H Chloride 102 Carbon Dioxide 17 L Anion Gap 15 BUN 226.7 H* Creatinine 8.0 H* Est GFR (CKD-EPI)AfAm 5.17 Est GFR (CKD-EPI)NonAf 4.46 POC Glucometer 252 Random Glucose 170 H Calcium 8.8 Total Bilirubin 0.3 AST 16 ALT 13 Alkaline Phosphatase 85 Total Protein 7.0 Albumin 3.1 L Urine Color Urine Appearance Urine pH Ur Specific [place] Urine Protein Urine Glucose (UA) Urine Ketones Urine Blood Urine Nitrite Urine Bilirubin Urine Urobilinogen Ur Leukocyte Esterase Urine WBC (Auto) Urine RBC (Auto) Urine Casts (Auto) U Pathogenic Cast Auto U Epithel Cells (Auto) Urine Bacteria (Auto) Blood Type Antibody Screen ASSESSMENT/PLAN: 74F w/ pmh of Lewy body dementia, chronic anemia, hypothyroidism, HLD, DM, CKD BIBA from [facility] for concern of abnormal lab values(Hgb 6.7, BUN >150, Cr 8.1, K 6.1, osmolatality 342). At baseline, pt is bedbound, noncommunicative, DNR- DNI, getting palliative care at [facility]. Admitted for abnormal lab values and possible UTI. #UTI > UA: protein 2+, blood2+, LE 3+, WBC 35669, bact 8458, epith 21 - UCX --pending - abx regimen: ceftriaxone #CKD --worsened. Pt's family refused dialysis at previous admission > K 5.7, BUN/Cr 226.7/8.0 - [place] for I/Os - lokelma daily - mIVF - Nephro consult([facility]): --recs pending #chronic anemia --likely 2/2 chronic inflammatory and iron deficiency > Hbg 7.0(MCV 89) - fu iron panel #chronic HTN #chronic hypothyroidism - cw metoprolol, amlodipine - levothyroxine FEN - NPO for now, normally pureed diet - NS @83 DVT PPX - SQH Family Medical History Family History: Unable to Obtain Visit type - Medication Review Med list reviewed for High Risk Meds patients 65 and older: Yes - Emergency Visit Emergency Visit: Yes ED Registration Date: 12/27/19 Care time: The patient presented to the Emergency Department on the above date and was hospitalized for further evaluation of their emergent condition. - New Patient This patient is new to me today: Yes Date on this admission: 12/27/19 - Critical Care Critical Care patient: No ATTENDING PHYSICIAN STATEMENT I saw and evaluated the patient. I reviewed the resident's note and discussed the case with the resident. I agree with the resident's findings and plan as documented. SUBJECTIVE: OBJECTIVE: ASSESSMENT AND PLAN:
[2019-12-27] MEDS ORDERED: HEPARIN NA (PORCINE) 5,000 UNITS/ML 1ML VIAL ONE (06:51)
[2019-12-27] MEDS ORDERED: HEPARIN NA (PORCINE) 5,000 UNITS/ML 1ML VIAL SQ SCH (07:00)
[2019-12-27] MEDS: INSULIN SLIDING SCALE (NOVOLOG) 1 VIAL SQ SCH ×3 (07:01→18:15)
[2019-12-27] MEDS: LACTOBACILLUS ACIDOPHILUS 1 TABLET PO SCH (07:28)
[2019-12-27] MEDS: LEVOTHYROXINE NA 75 MCG TABLET (FP) PO SCH (07:29)
[2019-12-27] MEDS: LIPASE/PROTEASE/AMYLASE 6,000 UNIT CAPSULE PO SCH ×3 (07:29→18:16)
[2019-12-27] MEDS ORDERED: PATIENT'S OWN MEDICATION (NON-FORMULARY) (Arginine/Ascorbate Sod/Vite Ac [Arginaid Powder] PO SCH (10:00)
[2019-12-27] MEDS: METOPROLOL TARTRATE 25 MG TABLET (FP) PO SCH ×2 (11:00→21:24)
[2019-12-27] MEDS: THIAMINE HCL 100 MG TABLET (FP) PO SCH (11:01)
[2019-12-27] MEDS: amLODIPine BESYLATE 2.5 MG TABLET (FP) PO SCH (11:01)
[2019-12-27] MEDS: FOLIC ACID 1 MG TABLET (FP) PO SCH (11:01)
[2019-12-27] MEDS: SODIUM ZIRCONIUM CYCLOSILICATE (LOKELMA) 10 GM PACKET PO SCH (12:13)
[2019-12-27 12:20] LABS: CALCIUM 9.5 mg/dL (8.5-10.1)
[2019-12-27] MEDS ORDERED: PT OWN MED DRAWER 7, Y5N ONE ×2 (12:24→17:45)
--- NOTE | 2019-12-27 12:38 | PN ---
Progress Note (short form) - Note Progress Note: pt known to me from previous admission I spoke to Joanne her sister today and she admitted that it was she who requested labs in the [facility] -- aware that pt is in palliative care-- sister felt that something was wrong with the pt Vital Signs - 24 hr 12/27/19 12/27/19 12/27/19 00:31 07:15 07:19 Temperature 98.9 F Pulse Rate 97 H Pulse Rate [ 87 Apical] Respiratory 16 19 Rate Blood Pressure 153/55 L Blood Pressure 151/85 [Right Arm] O2 Sat by Pulse 100 100 95 Oximetry (%) Current Medications Generic Name Dose Route Start Last Admin Trade Name Freq PRN Reason Stop Dose Admin Amlodipine Besylate 2.5 mg 12/27/19 10:00 12/27/19 11:01 Norvasc - PO 2.5 mg DAILY JENNIFER Administration Famotidine 20 mg 12/27/19 22:00 Pepcid - PO HS JENNIFER Folic Acid 1 mg 12/27/19 10:00 12/27/19 11:01 Folic Acid - PO 1 mg DAILY JENNIFER Administration Heparin Sodium (Porcine) 5,000 unit 12/27/19 07:00 12/27/19 06:54 Heparin - SQ 5,000 unit TID JENNIFER Administration Sodium Chloride 1,000 mls @ 83 mls/hr 12/27/19 06:15 12/27/19 06:48 Normal Saline - IV 83 mls/hr ASDIR JENNIFER Administration Ceftriaxone Sodium 2 gm/ 100 mls @ 200 mls/hr 12/28/19 07:00 Dextrose IVPB 12/28/19 07:29 ONCE ONE Insulin Aspart 1 vial 12/27/19 07:00 12/27/19 11:31 Novolog Vial Sliding Scale - SQ Not Given ACHS [facility] Protocol Insulin Detemir 20 units 12/27/19 22:00 Levemir Vial SQ HS JENNIFER Lactobacillus Acidophilus 2 tab 12/27/19 07:00 12/27/19 07:28 Bacid - PO Not Given ACBK [facility] Levothyroxine Sodium 75 mcg 12/27/19 07:00 12/27/19 07:29 Synthroid - PO Not Given DAILY@0700 [facility] Metoprolol Tartrate 12.5 mg 12/27/19 10:00 12/27/19 11:00 Lopressor - PO 12.5 mg BID JENNIFER Administration Non-Formulary Medication 1 each 12/27/19 10:00 Arginine/Ascorbate Sod/Annel Ac [Arginaid Powder] PO BID JENNIFER Non-Formulary Medication 3 mg 12/27/19 22:00 Melatonin/Pyridoxine Hcl (B6) [Melatonin 3 Mg Tablet] PO [facility] Pancrelipase 1 cap 12/27/19 08:00 12/27/19 12:[address] 6,000 Units Capsule PO Not Given TIDCM [facility] Sodium Zirconium Cyclosilicate 10 gm 12/27/19 10:00 12/27/19 12:13 Lokelma PO 10 gm DAILY JENNIFER Administration Thiamine HCl 100 mg 12/27/19 10:00 12/27/19 11:01 Vitamin B1 - PO 100 mg DAILY JENNIFER Administration Laboratory Results - last 24 hr 12/27/19 12/27/19 12/27/19 02:00 02:00 02:34 WBC 8.0 RBC 2.35 L Hgb 7.0 L Hct 21.0 L MCV 89.0 MCH 29.9 MCHC 33.6 RDW 14.5 Plt Count 187 D MPV 8.5 D Absolute Neuts (auto) 6.6 Neutrophils % 82.7 Lymphocytes % 10.3 D Monocytes % 6.5 Eosinophils % 0.3 Basophils % 0.2 Nucleated RBC % 0 Sodium Potassium Chloride Carbon Dioxide Anion Gap BUN Creatinine Est GFR (CKD-EPI)AfAm Est GFR (CKD-EPI)NonAf POC Glucometer Random Glucose Calcium Total Bilirubin AST ALT Alkaline Phosphatase Total Protein Albumin Urine Color Yellow Urine Appearance Turbid Urine pH 5.5 Ur Specific [place] 1.012 Urine Protein 2+ H Urine Glucose (UA) Negative Urine Ketones Negative Urine Blood 2+ H Urine Nitrite Negative Urine Bilirubin Negative Urine Urobilinogen 0.2 Ur Leukocyte Esterase 3+ H Urine WBC (Auto) 79357 Urine RBC (Auto) 114 Urine Casts (Auto) 10 U Pathogenic Cast Auto None U Epithel Cells (Auto) 21 Urine Bacteria (Auto) 8458 Blood Type O POSITIVE Antibody Screen Negative 12/27/19 12/27/19 12/27/19 03:25 06:27 10:47 WBC RBC Hgb Hct MCV MCH MCHC RDW Plt Count MPV Absolute Neuts (auto) Neutrophils % Lymphocytes % Monocytes % Eosinophils % Basophils % Nucleated RBC % Sodium 133 L 136 Potassium 5.7 H 6.3 H* Chloride 102 104 Carbon Dioxide 17 L 18 L Anion Gap 15 14 BUN 226.7 H* 223.8 H* Creatinine 8.0 H* 7.9 H* Est GFR (CKD-EPI)AfAm 5.17 5.24 Est GFR (CKD-EPI)NonAf 4.46 4.52 POC Glucometer 252 Random Glucose 170 H 69 L Calcium 8.8 9.5 Total Bilirubin 0.3 AST 16 ALT 13 Alkaline Phosphatase 85 Total Protein 7.0 Albumin 3.1 L Urine Color Urine Appearance Urine pH Ur Specific [place] Urine Protein Urine Glucose (UA) Urine Ketones Urine Blood Urine Nitrite Urine Bilirubin Urine Urobilinogen Ur Leukocyte Esterase Urine WBC (Auto) Urine RBC (Auto) Urine Casts (Auto) U Pathogenic Cast Auto U Epithel Cells (Auto) Urine Bacteria (Auto) Blood Type Antibody Screen 12/27/19 11:29 WBC RBC Hgb Hct MCV MCH MCHC RDW Plt Count MPV Absolute Neuts (auto) Neutrophils % Lymphocytes % Monocytes % Eosinophils % Basophils % Nucleated RBC % Sodium Potassium Chloride Carbon Dioxide Anion Gap BUN Creatinine Est GFR (CKD-EPI)AfAm Est GFR (CKD-EPI)NonAf POC Glucometer 113 Random Glucose Calcium Total Bilirubin AST ALT Alkaline Phosphatase Total Protein Albumin Urine Color Urine Appearance Urine pH Ur Specific [place] Urine Protein Urine Glucose (UA) Urine Ketones Urine Blood Urine Nitrite Urine Bilirubin Urine Urobilinogen Ur Leukocyte Esterase Urine WBC (Auto) Urine RBC (Auto) Urine Casts (Auto) U Pathogenic Cast Auto U Epithel Cells (Auto) Urine Bacteria (Auto) Blood Type Antibody Screen laughing labile emotions no sob S1 S2 RRR cachetic Lungs decreased Abd- soft, NT no edema PLAN Antunez has very cloudy urine maintain antunez for now iv antibiotics will transfuse one unit today sister does not want dialysis, intubation pt is DNR/DNI supportive care iv fluids spoke with renal Problem List - Problems (1) EDMAR (acute kidney injury) Code(s): N17.9 - ACUTE KIDNEY FAILURE, UNSPECIFIED (2) Abdominal pain Code(s): R10.9 - UNSPECIFIED ABDOMINAL PAIN (3) Altered mental status Code(s): R41.82 - ALTERED MENTAL STATUS, UNSPECIFIED Qualifiers: Altered mental status type: unspecified Qualified Code(s): R41.82 - Altered mental status, unspecified (4) CAD (coronary artery disease) Code(s): I25.10 - ATHSCL HEART DISEASE OF [place] CORONARY ARTERY W/O ANG PCTRS Qualifiers: Coronary Disease-Associated Artery/Lesion type: [place] artery [place] vs. transplanted heart: [place] heart Associated angina: without angina Qualified Code(s): I25.10 - Atherosclerotic heart disease of [place] coronary artery without angina pectoris (5) Dehydration Code(s): E86.0 - DEHYDRATION (6) Dementia Code(s): F03.90 - UNSPECIFIED DEMENTIA WITHOUT BEHAVIORAL DISTURBANCE (7) Toxic metabolic encephalopathy Code(s): G92 - TOXIC ENCEPHALOPATHY
[2019-12-27 12:41] LABS: BLOOD UREA NITROGEN 223.8 mg/dL (7-18); CREATININE 7.9 mg/dL (0.55-1.3); POTASSIUM 6.3 mmol/L (3.5-5.1)
[2019-12-27] MEDS ORDERED: ACETAMINOPHEN 650 MG/20.3 ML ORAL SOLUTION (CUPS) PO PRN (12:46)
[2019-12-27] MEDS ORDERED: INSULIN SLIDING SCALE (NOVOLOG) 1 VIAL SQ SCH (14:00)
--- NOTE | 2019-12-27 14:48 | CONSULT ---
Consult Consult Specialty:: Nephrology Reason for Consultation:: EDMAR - History of Present Illness Chief Complaint: sent in from [place] History of Present Illness: Pt is a 74 year old female with pmhx of lewy body dementia, anemia, hyothyroidism, hld, dm, ckd, and EDMAR who was sent in from the [place] for worsening renal failure. She is confused and unable to give history. She is DNR/DNI and is to be on comfort with fluids. Family do not want HD. Chart was reviewed and I discussed the care with the medical team. 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, TIA Cardio/Vascular: Yes: CAD (s/p stent), HTN, Hyperlipdemia Pulmonary: Yes: COPD Gastrointestinal: Yes: GERD Renal/: Yes: UTI Endocrine: Yes: Diabetes Mellitus, Hypothyroidism - Past Surgical History Past Surgical History: Yes: Appendectomy, Cholecystectomy - Alcohol/Substance Use Hx Alcohol Use: No - Smoking History Smoking history: Never smoked Have you smoked in the past 12 months: No Aproximately how many cigarettes per day: 0 - Social History Usual Living Arrangement: Retirement ADL: Support Services History of Recent Travel: No Home Medications - Allergies Allergies/Adverse Reactions: Allergies Allergy/AdvReac Type Severity Reaction Status Date / Time No Known Allergies Allergy Verified 12/27/19 00:31 - Home Medications Home Medications: Ambulatory Orders Acidoph/L.bulg/Bif.b/S.thermop [Bacid Caplet] 2 each PO ACBK 12/27/19 Amlodipine Besylate 2.5 mg PO DAILY 12/27/19 Arginine/Ascorbate Sod/Annel AC [Arginaid Powder] 1 each PO BID 12/27/19 Aspirin [ASA -] 81 mg PO DAILY 12/27/19 Famotidine [Pepcid AC] 20 mg PO HS 12/27/19 Insulin (Novolog) [Novolog -] 9 units SQ BID 12/27/19 Insulin Glargine,Hum.rec.anlog [Basaglar Kwikpen U-100] 20 unit SQ HS 12/27/19 Insulin Sliding Scale [Novolog Vial Sliding Scale -] See Protocol SQ ACHS 12/27/19 Levothyroxine Sodium [Levo-T] 75 mcg PO DAILY 12/27/19 Lipase/Protease/Amylase [Ava Akers 6,000 Units Capsule] 1 cap PO TIDCM 12/27/19 Melatonin/Pyridoxine HCl (B6) [Melatonin 3 mg Tablet] 3 mg PO HS 12/27/19 Metoprolol Tartrate 12.5 mg PO BID 12/27/19 Family Medical History Family History: Unable to Obtain Review of Systems Unable to obtain ROS, reason: confused Physical Exam Vital Signs: Vital Signs Temperature 97.5 F L 12/27/19 11:00 Pulse Rate 93 H 12/27/19 11:00 Respiratory Rate 18 12/27/19 11:00 Blood Pressure 130/61 12/27/19 11:00 O2 Sat by Pulse Oximetry (%) 95 12/27/19 11:00 Constitutional: Yes: Calm Eyes: Yes: Conjunctiva Clear HENT: Yes: Atraumatic Neck: Yes: Supple Cardiovascular: Yes: S1, S2 Respiratory: Yes: CTA Bilaterally Gastrointestinal: Yes: Normal Bowel Sounds, Soft Renal/: Yes: Antunez Present Musculoskeletal: Yes: Muscle Weakness Edema: No Neurological: Yes: Confusion, Pre-Existing Deficit Labs: CBC, BMP 12/27/19 02:00 12/27/19 10:47 Imaging - Results Chest X-ray: Report Reviewed Problem List - Problems (1) EDMAR (acute kidney injury) Code(s): N17.9 - ACUTE KIDNEY FAILURE, UNSPECIFIED (2) Abdominal pain Code(s): R10.9 - UNSPECIFIED ABDOMINAL PAIN (3) CAD (coronary artery disease) Code(s): I25.10 - ATHSCL HEART DISEASE OF [place] CORONARY ARTERY W/O ANG PCTRS Qualifiers: Coronary Disease-Associated Artery/Lesion type: [place] artery [place] vs. transplanted heart: [place] heart Associated angina: without angina Qualified Code(s): I25.10 - Atherosclerotic heart disease of [place] coronary artery without angina pectoris Assessment/Plan Current Medications Generic Name Dose Route Start Last Admin Trade Name Freq PRN Reason Stop Dose Admin Acetaminophen 650 mg 12/27/19 12:46 Tylenol Oral Solution - PO Q6H PRN MILD PAIN Amlodipine Besylate 2.5 mg 12/27/19 10:00 12/27/19 11:01 Norvasc - PO 2.5 mg DAILY JENNIFER Administration Famotidine 20 mg 12/27/19 22:00 Pepcid - PO HS JENNIFER Folic Acid 1 mg 12/27/19 10:00 12/27/19 11:01 Folic Acid - PO 1 mg DAILY JENNIFER Administration Heparin Sodium (Porcine) 5,000 unit 12/27/19 22:00 Heparin - SQ BID JENNIFER Hydroxyzine Pamoate 25 mg 12/27/19 12:40 Vistaril - PO Q4H PRN FOR ITCHING Sodium Chloride 1,000 mls @ 83 mls/hr 12/27/19 06:15 12/27/19 06:48 Normal Saline - IV 83 mls/hr ASDIR JENNIFER Administration Ceftriaxone Sodium 2 gm/ 100 mls @ 200 mls/hr 12/28/19 07:00 Dextrose IVPB 12/28/19 07:29 ONCE ONE Insulin Aspart 1 vial 12/27/19 14:00 Novolog Vial Sliding Scale - SQ TIDAC [facility] Protocol Insulin Detemir 20 units 12/27/19 22:00 Levemir Vial SQ HS JENNIFER Lactobacillus Acidophilus 2 tab 12/27/19 07:00 12/27/19 07:28 Bacid - PO Not Given ACBK [facility] Levothyroxine Sodium 75 mcg 12/27/19 07:00 12/27/19 07:29 Synthroid - PO Not Given DAILY@0700 [facility] Metoprolol Tartrate 12.5 mg 12/27/19 10:00 12/27/19 11:00 Lopressor - PO 12.5 mg BID JENNIFER Administration Pancrelipase 1 cap 12/27/19 08:00 12/27/19 12:[address] 6,000 Units Capsule PO Not Given TIDCM [facility] Sodium Zirconium Cyclosilicate 10 gm 12/27/19 10:00 12/27/19 12:13 Lokelma PO 10 gm DAILY JENNIFER Administration Thiamine HCl 100 mg 12/27/19 10:00 12/27/19 11:01 Vitamin B1 - PO 100 mg DAILY JENNIFER Administration Laboratory Tests 12/27/19 12/27/19 12/27/19 02:00 02:00 02:30 Hgb 7.0 L Sodium Potassium Carbon Dioxide BUN Creatinine Urine Protein 2+ H Urine Blood 2+ H COVID-19 (RYAN) Pending 12/27/19 12/27/19 03:25 10:47 Hgb Sodium 133 L 136 Potassium 5.7 H 6.3 H* Carbon Dioxide 18 L BUN 226.7 H* 223.8 H* Creatinine 8.0 H* 7.9 H* Urine Protein Urine Blood COVID-19 (RYAN) Impression 1. EDMAR 2. Lewy Body Dementia 3. failure to thrive 4. hyperkalemia 5. DM 6. htn 7. anemia 8. met acidosis Plan - cont fluids - maintain antunez - cont lokelma - monitor potassium - clarify GOC - family do not want HD therapy
[2019-12-27] MEDS: hydrOXYzine PAMOATE 25 MG CAPSULE (FP) PO PRN (18:19)
[2019-12-27] MEDS ORDERED: INSULIN (NOVOLOG) ASPART 100 UNITS/ML 10ML VIAL ONE (20:11)
[2019-12-27] MEDS: SODIUM CHLORIDE 0.45% 1,000 ML IV SCH (21:23)
[2019-12-27] MEDS: HEPARIN NA (PORCINE) 5,000 UNITS/ML 1ML VIAL SQ SCH (21:24)
[2019-12-27] MEDS ORDERED: PATIENT'S OWN MEDICATION (NON-FORMULARY) (Melatonin/Pyridoxine Hcl (B6) [Melatonin 3 Mg Ta PO SCH (22:00)
[2019-12-27] MEDS ORDERED: INSULIN (LEVEMIR) 100 UNITS/ML UNITS SQ SCH (22:00)
[2019-12-27] MEDS ORDERED: FAMOTIDINE 20 MG TABLET PO SCH (22:00)
[2019-12-28] MEDS ORDERED: DEXTROSE 5%-WATER 100 ML IVPB ONE (05:08)
[2019-12-28] MEDS ORDERED: DEXTROSE 50%-WATER - 25 GM/50 ML VIAL IVPUSH ONE (06:08)
[2019-12-28] MEDS ORDERED: DEXTROSE 50%-WATER 25 GM/50 ML DISP.SYRIN ONE (06:17)
[2019-12-28] MEDS: LACTOBACILLUS ACIDOPHILUS 1 TABLET PO SCH (06:30)
[2019-12-28] MEDS: LEVOTHYROXINE NA 75 MCG TABLET (FP) PO SCH (06:30)
[2019-12-28] MEDS: INSULIN SLIDING SCALE (NOVOLOG) 1 VIAL SQ SCH ×3 (06:30→16:47)
[2019-12-28] MEDS ORDERED: CEFTRIAXONE 2 GM in DEXTROSE 5%-WATER 100 ML IVPB ONE (07:00)
[2019-12-28] MEDS ORDERED: PT OWN MED DRAWER 7, Y5N ONE ×4 (07:49→17:09)
[2019-12-28] MEDS: LIPASE/PROTEASE/AMYLASE 6,000 UNIT CAPSULE PO SCH ×3 (08:10→17:12)
[2019-12-28] MEDS: FOLIC ACID 1 MG TABLET (FP) PO SCH (10:17)
[2019-12-28] MEDS: METOPROLOL TARTRATE 25 MG TABLET (FP) PO SCH ×2 (10:17→21:43)
[2019-12-28] MEDS: amLODIPine BESYLATE 2.5 MG TABLET (FP) PO SCH (10:18)
[2019-12-28] MEDS: HEPARIN NA (PORCINE) 5,000 UNITS/ML 1ML VIAL SQ SCH ×2 (10:18→21:43)
[2019-12-28] MEDS: hydrOXYzine PAMOATE 25 MG CAPSULE (FP) PO PRN ×2 (10:18→21:44)
[2019-12-28] MEDS: SODIUM ZIRCONIUM CYCLOSILICATE (LOKELMA) 10 GM PACKET PO SCH (10:19)
[2019-12-28] MEDS: THIAMINE HCL 100 MG TABLET (FP) PO SCH (10:19)
[2019-12-28 10:26] LABS: BASO % 0.3 % (0-2.0); EOS % 0.6 % (0-4.5); HEMATOCRIT 24.5 % (32.4-45.2); HEMOGLOBIN 8.4 GM/dL (10.7-15.3); LYMPH % 11.5 % (8-40); MCH 30.2 pg (25.7-33.7); MCHC 34.5 g/dl (32.0-36.0); MEAN CELL VOLUME 87.6 fl (80-96); MEAN PLT VOLUME 8.4 fl (7.5-11.1); MONO % 8.6 % (3.8-10.2); PLATELET COUNT 170 K/MM3 (134-434); RBC 2.79 M/mm3 (3.60-5.2); RDW 13.9 % (11.6-15.6); WHITE BLOOD COUNT 7.7 K/mm3 (4.0-10.0)
[2019-12-28 10:55] LABS: ALBUMIN 2.6 g/dl (3.4-5.0); BILIRUBIN,TOTAL 0.3 mg/dL (0.2-1); CALCIUM 8.3 mg/dL (8.5-10.1); CREATININE 7.3 mg/dL (0.55-1.3); MAGNESIUM 3.4 mg/dL (1.8-2.4); PHOSPHOROUS 5.7 mg/dL (2.5-4.9); POTASSIUM 5.3 mmol/L (3.5-5.1); TOT PROT 6.3 g/dl (6.4-8.2)
[2019-12-28 11:17] LABS: BLOOD UREA NITROGEN 186.7 mg/dL (7-18)
--- NOTE | 2019-12-28 12:47 | PN ---
Progress Note (short form) - Note Progress Note: no distress eating puree diet per rn Vital Signs - 24 hr 12/27/19 12/27/19 12/27/19 18:00 21:00 22:00 Temperature 97.9 F 97.5 F L Pulse Rate 76 79 Respiratory 18 17 17 Rate Blood Pressure 149/66 166/66 O2 Sat by Pulse 99 98 98 Oximetry (%) 12/28/19 12/28/19 12/28/19 03:07 06:00 09:00 Temperature 98.5 F 98.3 F 97.9 F Pulse Rate 79 94 H 73 Respiratory 18 18 16 Rate Blood Pressure 148/72 148/58 L 154/68 O2 Sat by Pulse 96 96 100 Oximetry (%) 12/28/19 14:20 Temperature 98.1 F Pulse Rate 67 Respiratory 16 Rate Blood Pressure 140/56 L O2 Sat by Pulse 100 Oximetry (%) Current Medications Generic Name Dose Route Start Last Admin Trade Name Freq PRN Reason Stop Dose Admin Acetaminophen 650 mg 12/27/19 12:46 Tylenol Oral Solution - PO Q6H PRN MILD PAIN Amlodipine Besylate 2.5 mg 12/27/19 10:00 12/28/19 10:18 Norvasc - PO 2.5 mg DAILY JENNIFER Administration Famotidine 20 mg 12/27/19 22:00 Pepcid - PO HS JENNIFER Folic Acid 1 mg 12/27/19 10:00 12/28/19 10:17 Folic Acid - PO 1 mg DAILY JENNIFER Administration Heparin Sodium (Porcine) 5,000 unit 12/27/19 22:00 12/28/19 10:18 Heparin - SQ 5,000 unit BID JENNIFER Administration Hydroxyzine Pamoate 25 mg 12/27/19 12:40 12/28/19 10:18 Vistaril - PO 25 mg Q4H PRN Administration FOR ITCHING Sodium Chloride 1,000 mls @ 100 mls/hr 12/27/19 15:00 12/27/19 21:23 1/2 Normal Saline IV 100 mls/hr ASDIR JENNIFER Administration Insulin Aspart 1 vial 12/27/19 14:00 12/28/19 11:36 Novolog Vial Sliding Scale - SQ Not Given TIDAC [facility] Protocol Lactobacillus Acidophilus 2 tab 12/27/19 07:00 12/28/19 06:30 Bacid - PO 2 tab ACBK JENNIFER Administration Levothyroxine Sodium 75 mcg 12/27/19 07:00 12/28/19 06:30 Synthroid - PO 75 mcg DAILY@0700 JENNIFER Administration Metoprolol Tartrate 12.5 mg 12/27/19 10:00 12/28/19 10:17 Lopressor - PO 12.5 mg BID JENNIFER Administration Pancrelipase 1 cap 12/27/19 08:00 12/28/19 12:[address] 6,000 Units Capsule PO 1 cap TIDCM JENNIFER Administration Sodium Zirconium Cyclosilicate 10 gm 12/27/19 10:00 12/28/19 10:19 Lokelma PO 10 gm DAILY JENNIFER Administration Thiamine HCl 100 mg 12/27/19 10:00 12/28/19 10:19 Vitamin B1 - PO 100 mg DAILY JENNIFER Administration Laboratory Results - last 24 hr 12/27/19 12/27/19 12/27/19 02:30 02:34 10:47 WBC RBC Hgb Hct MCV MCH MCHC RDW Plt Count MPV Absolute Neuts (auto) Neutrophils % Lymphocytes % Monocytes % Eosinophils % Basophils % Nucleated RBC % Sodium Potassium Chloride Carbon Dioxide Anion Gap BUN Creatinine Est GFR (CKD-EPI)AfAm Est GFR (CKD-EPI)NonAf POC Glucometer Random Glucose Calcium Phosphorus Magnesium Iron TIBC Iron Saturation Unsaturated IBC Transferrin 185 L Ferritin Total Bilirubin AST ALT Alkaline Phosphatase Total Protein Albumin Vitamin B12 Serum Folate COVID-19 (RYAN) Not detected Blood Type O POSITIVE Antibody Screen Negative Crossmatch See Detail 12/27/19 12/27/19 12/28/19 18:13 21:27 05:40 WBC RBC Hgb Hct MCV MCH MCHC RDW Plt Count MPV Absolute Neuts (auto) Neutrophils % Lymphocytes % Monocytes % Eosinophils % Basophils % Nucleated RBC % Sodium Potassium Chloride Carbon Dioxide Anion Gap BUN Creatinine Est GFR (CKD-EPI)AfAm Est GFR (CKD-EPI)NonAf POC Glucometer 117 116 41 Random Glucose Calcium Phosphorus Magnesium Iron TIBC Iron Saturation Unsaturated IBC Transferrin Ferritin Total Bilirubin AST ALT Alkaline Phosphatase Total Protein Albumin Vitamin B12 Serum Folate COVID-19 (RYAN) Blood Type Antibody Screen Crossmatch 12/28/19 12/28/19 12/28/19 06:42 08:55 10:00 WBC 7.7 RBC 2.79 L Hgb 8.4 L Hct 24.5 L D MCV 87.6 MCH 30.2 MCHC 34.5 RDW 13.9 Plt Count 170 MPV 8.4 Absolute Neuts (auto) 6.1 Neutrophils % 79.0 Lymphocytes % 11.5 Monocytes % 8.6 Eosinophils % 0.6 D Basophils % 0.3 Nucleated RBC % 0 Sodium Potassium Chloride Carbon Dioxide Anion Gap BUN Creatinine Est GFR (CKD-EPI)AfAm Est GFR (CKD-EPI)NonAf POC Glucometer 204 107 Random Glucose Calcium Phosphorus Magnesium Iron TIBC Iron Saturation Unsaturated IBC Transferrin Ferritin Total Bilirubin AST ALT Alkaline Phosphatase Total Protein Albumin Vitamin B12 Serum Folate COVID-19 (RYAN) Blood Type Antibody Screen Crossmatch 12/28/19 12/28/19 12/28/19 10:00 10:00 10:00 WBC RBC Hgb Hct MCV MCH MCHC RDW Plt Count MPV Absolute Neuts (auto) Neutrophils % Lymphocytes % Monocytes % Eosinophils % Basophils % Nucleated RBC % Sodium 137 Potassium 5.3 H 5.3 H Chloride 110 H Carbon Dioxide 16 L Anion Gap 12 BUN 186.7 H* Creatinine 7.3 H Est GFR (CKD-EPI)AfAm 5.77 Est GFR (CKD-EPI)NonAf 4.98 POC Glucometer Random Glucose 69 L Calcium 8.3 L Phosphorus 5.7 H Magnesium 3.4 H Iron 83 TIBC 183 L Iron Saturation 45 H Unsaturated IBC 100 L Transferrin Ferritin 353.9 Total Bilirubin 0.3 AST 14 L ALT 10 L Alkaline Phosphatase 77 Total Protein 6.3 L Albumin 2.6 L Vitamin B12 1242 H Serum Folate 8 COVID-19 (RYAN) Blood Type Antibody Screen Crossmatch 12/28/19 12/28/19 11:35 12:38 WBC RBC Hgb Hct MCV MCH MCHC RDW Plt Count MPV Absolute Neuts (auto) Neutrophils % Lymphocytes % Monocytes % Eosinophils % Basophils % Nucleated RBC % Sodium Potassium Chloride Carbon Dioxide Anion Gap BUN Creatinine Est GFR (CKD-EPI)AfAm Est GFR (CKD-EPI)NonAf POC Glucometer 40 111 Random Glucose Calcium Phosphorus Magnesium Iron TIBC Iron Saturation Unsaturated IBC Transferrin Ferritin Total Bilirubin AST ALT Alkaline Phosphatase Total Protein Albumin Vitamin B12 Serum Folate COVID-19 (RYAN) Blood Type Antibody Screen Crossmatch labile emotions no sob S1 S2 RRR cachetic Lungs decreased Abd- soft, NT no edema PLAN maintain antunez for now iv antibiotics will transfuse one unit today sister does not want dialysis, intubation pt is DNR/DNI supportive care iv fluids spoke with renal dc levemir as BGM lower side
--- NOTE | 2019-12-28 15:36 | PN ---
Progress Note, Physician History of Present Illness: Pt seen and examined. She is lethargic. - Current Medication List Current Medications: Active Medications Acetaminophen (Tylenol Oral Solution -) 650 mg PO Q6H PRN PRN Reason: MILD PAIN Amlodipine Besylate (Norvasc -) 2.5 mg PO DAILY [facility] Last Admin: 12/28/19 10:18 Dose: 2.5 mg Documented by: Famotidine (Pepcid -) 20 mg PO [facility] Folic Acid (Folic Acid -) 1 mg PO DAILY [facility] Last Admin: 12/28/19 10:17 Dose: 1 mg Documented by: Heparin Sodium (Porcine) (Heparin -) 5,000 unit SQ BID [facility] Last Admin: 12/28/19 10:18 Dose: 5,000 unit Documented by: Hydroxyzine Pamoate (Vistaril -) 25 mg PO Q4H PRN PRN Reason: FOR ITCHING Last Admin: 12/28/19 10:18 Dose: 25 mg Documented by: Sodium Chloride (1/2 Normal Saline) 1,000 mls @ 100 mls/hr IV ASDIR [facility] Last Admin: 12/27/19 21:23 Dose: 100 mls/hr Documented by: Insulin Aspart (Novolog Vial Sliding Scale -) 1 vial SQ TIDAC [facility]; Protocol Last Admin: 12/28/19 11:36 Dose: Not Given Documented by: Lactobacillus Acidophilus (Bacid -) 2 tab PO ACBK [facility] Last Admin: 12/28/19 06:30 Dose: 2 tab Documented by: Levothyroxine Sodium (Synthroid -) 75 mcg PO DAILY@0700 [facility] Last Admin: 12/28/19 06:30 Dose: 75 mcg Documented by: Metoprolol Tartrate (Lopressor -) 12.5 mg PO BID [facility] Last Admin: 12/28/19 10:17 Dose: 12.5 mg Documented by: Pancrelipase (Creon Dr 6,000 Units Capsule) 1 cap PO TIDCM [facility] Last Admin: 12/28/19 12:13 Dose: 1 cap Documented by: Sodium Zirconium Cyclosilicate (Lokelma) 10 gm PO DAILY [facility] Last Admin: 12/28/19 10:19 Dose: 10 gm Documented by: Thiamine HCl (Vitamin B1 -) 100 mg PO DAILY [facility] Last Admin: 12/28/19 10:19 Dose: 100 mg Documented by: - Objective Vital Signs: Vital Signs Temperature 98.1 F 12/28/19 14:20 Pulse Rate 67 12/28/19 14:20 Respiratory Rate 16 12/28/19 14:20 Blood Pressure 140/56 L 12/28/19 14:20 O2 Sat by Pulse Oximetry (%) 100 12/28/19 14:20 Constitutional: Yes: Calm, Cachectic Eyes: Yes: Conjunctiva Clear HENT: Yes: Atraumatic Neck: Yes: Supple Cardiovascular: Yes: S1, S2 Respiratory: Yes: CTA Bilaterally Gastrointestinal: Yes: Soft Genitourinary: Yes: Antunez Present Musculoskeletal: Yes: Muscle Weakness Edema: No Neurological: Yes: Lethargy Labs: CBC, BMP 12/28/19 10:00 12/28/19 10:00 Problem List - Problems (1) EDMAR (acute kidney injury) Code(s): N17.9 - ACUTE KIDNEY FAILURE, UNSPECIFIED (2) Abdominal pain Code(s): R10.9 - UNSPECIFIED ABDOMINAL PAIN (3) CAD (coronary artery disease) Code(s): I25.10 - ATHSCL HEART DISEASE OF [place] CORONARY ARTERY W/O ANG PCTRS Qualifiers: Qualified Code(s): I25.10 - Atherosclerotic heart disease of [place] coronary artery without angina pectoris Assessment/Plan Current Medications Generic Name Dose Route Start Last Admin Trade Name Freq PRN Reason Stop Dose Admin Acetaminophen 650 mg 12/27/19 12:46 Tylenol Oral Solution - PO Q6H PRN MILD PAIN Amlodipine Besylate 2.5 mg 12/27/19 10:00 12/28/19 10:18 Norvasc - PO 2.5 mg DAILY JENNIFER Administration Famotidine 20 mg 12/27/19 22:00 Pepcid - PO HS JENNIFER Folic Acid 1 mg 12/27/19 10:00 12/28/19 10:17 Folic Acid - PO 1 mg DAILY JENNIFER Administration Heparin Sodium (Porcine) 5,000 unit 12/27/19 22:00 12/28/19 10:18 Heparin - SQ 5,000 unit BID JENNIFER Administration Hydroxyzine Pamoate 25 mg 12/27/19 12:40 12/28/19 10:18 Vistaril - PO 25 mg Q4H PRN Administration FOR ITCHING Sodium Chloride 1,000 mls @ 100 mls/hr 12/27/19 15:00 12/27/19 21:23 1/2 Normal Saline IV 100 mls/hr ASDIR JENNIFER Administration Insulin Aspart 1 vial 12/27/19 14:00 12/28/19 11:36 Novolog Vial Sliding Scale - SQ Not Given TIDAC [facility] Protocol Lactobacillus Acidophilus 2 tab 12/27/19 07:00 12/28/19 06:30 Bacid - PO 2 tab ACBK JENNIFER Administration Levothyroxine Sodium 75 mcg 12/27/19 07:00 12/28/19 06:30 Synthroid - PO 75 mcg DAILY@0700 JENNIFER Administration Metoprolol Tartrate 12.5 mg 12/27/19 10:00 12/28/19 10:17 Lopressor - PO 12.5 mg BID JENNIFER Administration Pancrelipase 1 cap 12/27/19 08:00 12/28/19 12:[address] 6,000 Units Capsule PO 1 cap TIDCM JENNIFER Administration Sodium Zirconium Cyclosilicate 10 gm 12/27/19 10:00 12/28/19 10:19 Lokelma PO 10 gm DAILY JENNIFER Administration Thiamine HCl 100 mg 12/27/19 10:00 12/28/19 10:19 Vitamin B1 - PO 100 mg DAILY JENNIFER Administration Impression 1. EDMAR 2. Lewy Body Dementia 3. failure to thrive 4. hyperkalemia 5. DM 6. htn 7. anemia 8. met acidosis Plan - cont fluids - no new labs - jj [facility] - maintain antunez, urine is clearer - family do not want HD therapy
[2019-12-28] MEDS: SODIUM CHLORIDE 0.45% 1,000 ML IV SCH ×2 (17:00→17:13)
--- NOTE | 2019-12-28 17:31 | EKG ---
Test Reason : Blood Pressure : / mmHG Vent. Rate : 099 BPM Atrial Rate : 099 BPM P-R Int : 202 ms QRS Dur : 090 ms QT Int : 346 ms P-R-T Axes : 076 -36 068 degrees QTc Int : 444 ms NORMAL SINUS RHYTHM LEFT AXIS DEVIATION VOLTAGE CRITERIA FOR LEFT VENTRICULAR HYPERTROPHY CANNOT RULE OUT SEPTAL INFARCT , AGE UNDETERMINED ABNORMAL ECG WHEN COMPARED WITH ECG OF 13-NOV-2019 15:26, QRS DURATION HAS INCREASED MINIMAL CRITERIA FOR SEPTAL INFARCT ARE NOW PRESENT T WAVE AMPLITUDE HAS INCREASED IN INFERIOR LEADS T WAVE AMPLITUDE HAS INCREASED IN ANTEROLATERAL LEADS Confirmed by MD Namita, Serafin ([id number]) on 12/28/2019 5:30:51 PM Referred By: Confirmed By:Serafin Breaux MD
[2019-12-29] MEDS: LEVOTHYROXINE NA 75 MCG TABLET (FP) PO SCH (06:41)
[2019-12-29] MEDS: hydrOXYzine PAMOATE 25 MG CAPSULE (FP) PO PRN (06:41)
[2019-12-29] MEDS: LACTOBACILLUS ACIDOPHILUS 1 TABLET PO SCH (06:41)
[2019-12-29] MEDS: INSULIN SLIDING SCALE (NOVOLOG) 1 VIAL SQ SCH ×3 (07:01→17:14)
[2019-12-29] MEDS: FOLIC ACID 1 MG TABLET (FP) PO SCH (09:43)
[2019-12-29] MEDS: HEPARIN NA (PORCINE) 5,000 UNITS/ML 1ML VIAL SQ SCH ×2 (09:43→21:59)
[2019-12-29] MEDS: LIPASE/PROTEASE/AMYLASE 6,000 UNIT CAPSULE PO SCH ×3 (09:44→17:15)
[2019-12-29] MEDS: SODIUM ZIRCONIUM CYCLOSILICATE (LOKELMA) 10 GM PACKET PO SCH (09:44)
[2019-12-29] MEDS: THIAMINE HCL 100 MG TABLET (FP) PO SCH (09:45)
[2019-12-29] MEDS: METOPROLOL TARTRATE 25 MG TABLET (FP) PO SCH ×2 (09:45→21:59)
[2019-12-29] MEDS: amLODIPine BESYLATE 2.5 MG TABLET (FP) PO SCH (09:45)
--- NOTE | 2019-12-29 11:12 | PN ---
Progress Note, Physician History of Present Illness: Pt seen/ examined chart is reviewed drowsy no distress afebrile u/c-- + ve E Coli. Eats with assistance Laughlin + -- Passing urine - Current Medication List Current Medications: Active Medications Acetaminophen (Tylenol Oral Solution -) 650 mg PO Q6H PRN PRN Reason: MILD PAIN Amlodipine Besylate (Norvasc -) 2.5 mg PO DAILY [facility] Last Admin: 12/29/19 09:45 Dose: Not Given Documented by: Famotidine (Pepcid -) 20 mg PO [facility] Folic Acid (Folic Acid -) 1 mg PO DAILY [facility] Last Admin: 12/29/19 09:43 Dose: 1 mg Documented by: Heparin Sodium (Porcine) (Heparin -) 5,000 unit SQ BID [facility] Last Admin: 12/29/19 09:43 Dose: 5,000 unit Documented by: Hydroxyzine Pamoate (Vistaril -) 25 mg PO Q4H PRN PRN Reason: FOR ITCHING Last Admin: 12/29/19 06:41 Dose: 25 mg Documented by: Sodium Chloride (1/2 Normal Saline) 1,000 mls @ 100 mls/hr IV ASDIR [facility] Last Admin: 12/28/19 17:13 Dose: 100 mls/hr Documented by: Insulin Aspart (Novolog Vial Sliding Scale -) 1 vial SQ TIDAC [facility]; Protocol Last Admin: 12/29/19 07:01 Dose: Not Given Documented by: Lactobacillus Acidophilus (Bacid -) 2 tab PO ACBK [facility] Last Admin: 12/29/19 06:41 Dose: 2 tab Documented by: Levothyroxine Sodium (Synthroid -) 75 mcg PO DAILY@0700 [facility] Last Admin: 12/29/19 06:41 Dose: 75 mcg Documented by: Metoprolol Tartrate (Lopressor -) 12.5 mg PO BID [facility] Last Admin: 12/29/19 09:45 Dose: Not Given Documented by: Pancrelipase ([address] Dr 6,000 Units Capsule) 1 cap PO TIDCM [facility] Last Admin: 12/29/19 09:44 Dose: 1 cap Documented by: Sodium Zirconium Cyclosilicate (Lokelma) 10 gm PO DAILY [facility] Last Admin: 12/29/19 09:44 Dose: 10 gm Documented by: Thiamine HCl (Vitamin B1 -) 100 mg PO DAILY [facility] Last Admin: 07/27/20 09:45 Dose: 100 mg Documented by: - Objective Vital Signs: Vital Signs Temperature 97.9 F 12/29/19 09:42 Pulse Rate 70 12/29/19 09:42 Respiratory Rate 18 12/29/19 09:42 Blood Pressure 98/47 L 12/29/19 09:42 O2 Sat by Pulse Oximetry (%) 98 12/29/19 09:42 Constitutional: Yes: No Distress, Calm Neck: Yes: Supple Cardiovascular: Yes: Regular Rate and Rhythm Respiratory: Yes: Diminished Gastrointestinal: Yes: Soft Genitourinary: Yes: Laughlin Present Edema: No Labs: CBC, BMP 12/28/19 10:00 12/28/19 10:00 Problem List - Problems (1) EDMAR (acute kidney injury) Code(s): N17.9 - ACUTE KIDNEY FAILURE, UNSPECIFIED (2) Dementia Code(s): F03.90 - UNSPECIFIED DEMENTIA WITHOUT BEHAVIORAL DISTURBANCE (3) Toxic metabolic encephalopathy Code(s): G92 - TOXIC ENCEPHALOPATHY (4) UTI (urinary tract infection) Code(s): N39.0 - URINARY TRACT INFECTION, SITE NOT SPECIFIED Qualifiers: Assessment/Plan Continue resent care abx fluids monitor lytes Condition poor pt is DNR/DNI will follow
[2019-12-29] MEDS: SODIUM CHLORIDE 0.45% 1,000 ML IV SCH ×3 (13:49→23:30)
[2019-12-29] MEDS ORDERED: INSULIN (NOVOLOG) ASPART 100 UNITS/ML 10ML VIAL ONE (14:11)
[2019-12-29 15:07] VITALS: BMI 20.1
--- NOTE | 2019-12-29 17:19 | CONSULT ---
Consult Consult Specialty:: Palliative care Referred by:: Luis Enrique Cunha Reason for Consultation:: Goals of care - History of Present Illness Chief Complaint: Lewy body dementia, renal failure History of Present Illness: 74 yo female with pmh of Lewy body dementia diagnosed 4 years ago, anemia, hypothyroid, HLD, DM , CAD, recurrent uti who is a resident of [facility] Pt is nonverbal at baseline but history was obtained from sister. As per her sister Joanne, Dasha has had kidney failure that started a month ago because she was not eating. Pt was not a candidate for dialysis so kidney failure got worse. She is a DNR/ DNI, no feeding tube and no HD, [facility] but when she noticed her sister becoming more confused and lethargic she asked the [facility] to get labs which ended up showing low H&H and inc BUN and Cr so [facility] decided to bring pt in for transfusion. Family does want pozo sfusion and IV hydration. Pt is DNR and DNI. - History Source History Provided By: Family Member, Medical Record Limitations to Obtaining History: Dementia - Past Medical History CALKER: Yes: Dementia, TIA Cardio/Vascular: Yes: CAD (s/p stent), HTN, Hyperlipdemia Pulmonary: Yes: COPD Gastrointestinal: Yes: GERD Renal/: Yes: UTI Endocrine: Yes: Diabetes Mellitus, Hypothyroidism - Past Surgical History Past Surgical History: Yes: Appendectomy, Cholecystectomy - Alcohol/Substance Use Hx Alcohol Use: No - Smoking History Smoking history: Never smoked Have you smoked in the past 12 months: No Aproximately how many cigarettes per day: 0 - Social History Usual Living Arrangement: Senior Living ADL: Support Services History of Recent Travel: No Home Medications - Allergies Allergies/Adverse Reactions: Allergies Allergy/AdvReac Type Severity Reaction Status Date / Time No Known Allergies Allergy Verified 12/27/19 00:31 - Home Medications Home Medications: Ambulatory Orders Acidoph/L.bulg/Bif.b/S.thermop [Bacid Caplet] 2 each PO ACBK 12/27/19 Amlodipine Besylate 2.5 mg PO DAILY 12/27/19 Arginine/Ascorbate Sod/Annel AC [Arginaid Powder] 1 each PO BID 12/27/19 Aspirin [ASA -] 81 mg PO DAILY 12/27/19 Famotidine [Pepcid AC] 20 mg PO HS 12/27/19 Insulin (Novolog) [Novolog -] 9 units SQ BID 12/27/19 Insulin Glargine,Hum.rec.anlog [Basaglar Kwikpen U-100] 20 unit SQ HS 12/27/19 Insulin Sliding Scale [Novolog Vial Sliding Scale -] See Protocol SQ ACHS 12/27/19 Levothyroxine Sodium [Levo-T] 75 mcg PO DAILY 12/27/19 Lipase/Protease/Amylase [Ava Akers 6,000 Units Capsule] 1 cap PO TIDCM 12/27/19 Melatonin/Pyridoxine HCl (B6) [Melatonin 3 mg Tablet] 3 mg PO HS 12/27/19 Metoprolol Tartrate 12.5 mg PO BID 12/27/19 Family Medical History Family History: Unable to Obtain Review of Systems Unable to obtain ROS, reason: dementia, non verbal Physical Exam Vital Signs: Vital Signs Temperature 97.6 F 12/29/19 15:00 Pulse Rate 70 12/29/19 15:00 Respiratory Rate 18 12/29/19 15:00 Blood Pressure 159/60 12/29/19 15:00 O2 Sat by Pulse Oximetry (%) 98 12/29/19 15:00 Constitutional: Yes: Thin Eyes: Yes: Conjunctiva Clear, EOM Intact HENT: Yes: Atraumatic, Normocephalic Neck: Yes: Supple Cardiovascular: Yes: Regular Rate and Rhythm Respiratory: Yes: Regular, CTA Bilaterally Gastrointestinal: Yes: Normal Bowel Sounds, Soft Neurological: Yes: Lethargy Labs: CBC, BMP 12/28/19 10:00 12/28/19 10:00 Imaging - Results Chest X-ray: Report Reviewed Cat Scan: Report Reviewed Problem List - Problems (1) EDMAR (acute kidney injury) Code(s): N17.9 - ACUTE KIDNEY FAILURE, UNSPECIFIED (2) Altered mental status Code(s): R41.82 - ALTERED MENTAL STATUS, UNSPECIFIED Qualifiers: Altered mental status type: unspecified Qualified Code(s): R41.82 - Altered mental status, unspecified (3) Dehydration Code(s): E86.0 - DEHYDRATION (4) Dementia Code(s): F03.90 - UNSPECIFIED DEMENTIA WITHOUT BEHAVIORAL DISTURBANCE (5) Diabetes Code(s): E11.9 - TYPE 2 DIABETES MELLITUS WITHOUT COMPLICATIONS Qualifiers: Diabetes mellitus type: type 1 Diabetes mellitus complication status: with hypoglycemia Diabetes mellitus complication detail: without coma Qualified Code(s): E10.649 - Type 1 diabetes mellitus with hypoglycemia without coma (6) UTI (urinary tract infection) Code(s): N39.0 - URINARY TRACT INFECTION, SITE NOT SPECIFIED Qualifiers: Assessment/Plan 74 y/o female with Lewy body dementia, recurrent uti and EDMAR with DM, hypothyroidism, COPD, chr pancreatitis. Patient presented with EDMAR, hyperglycemia and uti- she is receiving treatment and is responding well. Joanne is Dasha's elder sister and her HCP. Dasha is DNR/ DNI, no feeding tube and no HD. She has poor po intake and dehydration and has had recurrent hospitalizations for uti and dehydration with EDMAR in the last 2 months. Pt's sister wants to honor her sister's wishes but is struggling with end of life decisions. Emotional support was provided. Dasha is more alert at baseline but has obviously been failing, unable to maintain adequate po intake with resultant weight loss, dehydration and renal failure. Patient's sister is aware of this but is struggling with the emotional aspect. Dasha has advanced Lewy body dementia, dysphagia, poor appetite, dehydration, weight loss and renal failure. She would be appropriate for hospice. Continue discussions with family. Will follow. [facility] for allowing me to participate in the care of this patient. Esteban Deras MD [phone] Total time for chart review, examination, conference and coordination of care- 70 minutes.
--- NOTE | 2019-12-29 17:20 | PN ---
Progress Note, Physician History of Present Illness: Pt seen and examined at bedside. She remains lethargic. - Current Medication List Current Medications: Active Medications Acetaminophen (Tylenol Oral Solution -) 650 mg PO Q6H PRN PRN Reason: MILD PAIN Amlodipine Besylate (Norvasc -) 2.5 mg PO DAILY [facility] Last Admin: 12/29/19 09:45 Dose: Not Given Documented by: Famotidine (Pepcid -) 20 mg PO [facility] Folic Acid (Folic Acid -) 1 mg PO DAILY [facility] Last Admin: 12/29/19 09:43 Dose: 1 mg Documented by: Heparin Sodium (Porcine) (Heparin -) 5,000 unit SQ BID [facility] Last Admin: 12/29/19 09:43 Dose: 5,000 unit Documented by: Hydroxyzine Pamoate (Vistaril -) 25 mg PO Q4H PRN PRN Reason: FOR ITCHING Last Admin: 12/29/19 06:41 Dose: 25 mg Documented by: Sodium Chloride (1/2 Normal Saline) 1,000 mls @ 100 mls/hr IV ASDIR [facility] Last Admin: 12/29/19 17:13 Dose: Not Given Documented by: Insulin Aspart (Novolog Vial Sliding Scale -) 1 vial SQ TIDAC [facility]; Protocol Last Admin: 12/29/19 17:14 Dose: Not Given Documented by: Lactobacillus Acidophilus (Bacid -) 2 tab PO ACBK [facility] Last Admin: 12/29/19 06:41 Dose: 2 tab Documented by: Levothyroxine Sodium (Synthroid -) 75 mcg PO DAILY@0700 [facility] Last Admin: 12/29/19 06:41 Dose: 75 mcg Documented by: Metoprolol Tartrate (Lopressor -) 12.5 mg PO BID [facility] Last Admin: 12/29/19 09:45 Dose: Not Given Documented by: Pancrelipase (Creon Dr 6,000 Units Capsule) 1 cap PO TIDCM [facility] Last Admin: 12/29/19 17:15 Dose: 1 cap Documented by: Sodium Zirconium Cyclosilicate (Lokelma) 10 gm PO DAILY [facility] Last Admin: 12/29/19 09:44 Dose: 10 gm Documented by: Thiamine HCl (Vitamin B1 -) 100 mg PO DAILY [facility] Last Admin: 12/29/19 09:45 Dose: 100 mg Documented by: - Objective Vital Signs: Vital Signs Temperature 97.6 F 12/29/19 15:00 Pulse Rate 70 12/29/19 15:00 Respiratory Rate 18 12/29/19 15:00 Blood Pressure 159/60 12/29/19 15:00 O2 Sat by Pulse Oximetry (%) 98 12/29/19 15:00 Constitutional: Yes: Calm Eyes: Yes: Conjunctiva Clear HENT: Yes: Atraumatic, Tonsillar Exudate Cardiovascular: Yes: S1, S2 Respiratory: Yes: CTA Bilaterally Gastrointestinal: Yes: Soft Genitourinary: Yes: Antunez Present Edema: No Neurological: Yes: Lethargy Labs: CBC, BMP 12/28/19 10:00 12/28/19 10:00 Problem List - Problems (1) EDMAR (acute kidney injury) Code(s): N17.9 - ACUTE KIDNEY FAILURE, UNSPECIFIED (2) Abdominal pain Code(s): R10.9 - UNSPECIFIED ABDOMINAL PAIN (3) CAD (coronary artery disease) Code(s): I25.10 - ATHSCL HEART DISEASE OF [place] CORONARY ARTERY W/O ANG PCTRS Qualifiers: Coronary Disease-Associated Artery/Lesion type: [place] artery [place] vs. transplanted heart: [place] heart Associated angina: without angina Qualified Code(s): I25.10 - Atherosclerotic heart disease of [place] coronary artery without angina pectoris Assessment/Plan Current Medications Generic Name Dose Route Start Last Admin Trade Name Freq PRN Reason Stop Dose Admin Acetaminophen 650 mg 12/27/19 12:46 Tylenol Oral Solution - PO Q6H PRN MILD PAIN Amlodipine Besylate 2.5 mg 12/27/19 10:00 12/29/19 09:45 Norvasc - PO Not Given DAILY [facility] Famotidine 20 mg 12/27/19 22:00 Pepcid - PO HS [facility] Folic Acid 1 mg 12/27/19 10:00 12/29/19 09:43 Folic Acid - PO 1 mg DAILY [facility] Administration Heparin Sodium (Porcine) 5,000 unit 12/27/19 22:00 12/29/19 09:43 Heparin - SQ 5,000 unit BID [facility] Administration Hydroxyzine Pamoate 25 mg 12/27/19 12:40 12/29/19 06:41 Vistaril - PO 25 mg Q4H PRN Administration FOR ITCHING Sodium Chloride 1,000 mls @ 100 mls/hr 12/27/19 15:00 12/29/19 17:13 1/2 Normal Saline IV Not Given ASDIR [facility]ER Insulin Aspart 1 vial 12/27/19 14:00 12/29/19 17:14 Novolog Vial Sliding Scale - SQ Not Given TIDAC [facility] Protocol Lactobacillus Acidophilus 2 tab 12/27/19 07:00 12/29/19 06:41 Bacid - PO 2 tab ACBK [facility] Administration Levothyroxine Sodium 75 mcg 12/27/19 07:00 12/29/19 06:41 Synthroid - PO 75 mcg DAILY@0700 [facility] Administration Metoprolol Tartrate 12.5 mg 12/27/19 10:00 12/29/19 09:45 Lopressor - PO Not Given BID [facility] Pancrelipase 1 cap 12/27/19 08:00 12/29/19 17:[address] 6,000 Units Capsule PO 1 cap TIDCM [facility] Administration Sodium Zirconium Cyclosilicate 10 gm 12/27/19 10:00 12/29/19 09:44 Lokelma PO 10 gm DAILY [facility] Administration Thiamine HCl 100 mg 12/27/19 10:00 12/29/19 09:45 Vitamin B1 - PO 100 mg DAILY [facility] Administration Impression 1. EDMAR 2. Lewy Body Dementia 3. failure to thrive 4. hyperkalemia 5. DM 6. htn 7. anemia 8. met acidosis Plan - no new labs today - cont fluids - antunez in place - clarify GOC - family do not want HD therapy
[2019-12-30] MEDS ORDERED: INSULIN (NOVOLOG) ASPART 100 UNITS/ML 10ML VIAL ONE (05:55)
[2019-12-30] MEDS: LACTOBACILLUS ACIDOPHILUS 1 TABLET PO SCH (06:13)
[2019-12-30] MEDS: INSULIN SLIDING SCALE (NOVOLOG) 1 VIAL SQ SCH ×3 (06:13→16:58)
[2019-12-30] MEDS: LEVOTHYROXINE NA 75 MCG TABLET (FP) PO SCH (06:13)
--- NOTE | 2019-12-30 09:32 | PN ---
Progress Note (short form) - Note Progress Note: Palliative care f/up 74 yo female with PMHx of Lewy body dementia diagnosed 4 years ago, anemia, hypothyroid, HLD, DM , CAD, recurrent uti who is a resident of [facility] Pt is nonverbal at baseline. As per her sister Joanne, Dasha has had kidney failure that started a month ago because she was not eating. She is a DNR/ DNI, no feeding tube and no HD, on comfort care at the [facility] but when Joanne noticed her sister becoming more confused and lethargic she asked the [facility] to get labs which ended up showing low H&H and inc BUN and Cr so [facility] decided to bring pt in for transfusion. Family does want transfusion and IV hydration. Pt is DNR and DNI. 74 y/o female with Lewy body dementia, recurrent uti and EDMAR with DM, hypothyroidism, COPD, chr pancreatitis. Patient presented with EDMAR, hyperglycemia and uti- she is receiving treatment an d is responding well. afebrile alert, lethargic thin and frail VSS + antunez with clear urine Joanne is Dasha's elder sister and her HCP. Dasha is DNR/ DNI, no feeding tube and no HD. She has poor po intake and dehydration and has had recurrent hospitalizations for uti and dehydration with EDMAR in the last 2 months. Pt's sister wants to honor her sister's wishes but is struggling with end of life decisions. Emotional support was provided. Dasha is more alert at baseline but has obviously been failing, unable to maintain adequate po intake with resultant weight loss, dehydration and renal failure. Dasha has advanced Lewy body dementia, dysphagia, poor appetite, dehydration, weight loss and renal failure. She would be appropriate for hospice. I discussed with pt's sister Joanne today that Dasha is declining due to advanced dementia and inability to sustain herself and it might be in her best interest to continue comfort care/ hospice on discharge and no further lab draws . Sister would like to continue supportive measures but is in agreement for comfort care and not do any more labs there. Problem List - Problems (1) EDMAR (acute kidney injury) Code(s): N17.9 - ACUTE KIDNEY FAILURE, UNSPECIFIED (2) Altered mental status Code(s): R41.82 - ALTERED MENTAL STATUS, UNSPECIFIED Qualifiers: Altered mental status type: unspecified Qualified Code(s): R41.82 - Altered mental status, unspecified (3) Dehydration Code(s): E86.0 - DEHYDRATION (4) Dementia Code(s): F03.90 - UNSPECIFIED DEMENTIA WITHOUT BEHAVIORAL DISTURBANCE (5) Diabetes Code(s): E11.9 - TYPE 2 DIABETES MELLITUS WITHOUT COMPLICATIONS Qualifiers: Diabetes mellitus type: type 1 Diabetes mellitus complication status: with hypoglycemia Diabetes mellitus complication detail: without coma Qualified Code(s): E10.649 - Type 1 diabetes mellitus with hypoglycemia without coma (6) UTI (urinary tract infection) Code(s): N39.0 - URINARY TRACT INFECTION, SITE NOT SPECIFIED Qualifiers:
[2019-12-30] MEDS ORDERED: PT OWN MED DRAWER 7, Y5N ONE (09:37)
[2019-12-30] MEDS: FOLIC ACID 1 MG TABLET (FP) PO SCH (09:46)
[2019-12-30] MEDS: amLODIPine BESYLATE 2.5 MG TABLET (FP) PO SCH (09:46)
[2019-12-30] MEDS: LIPASE/PROTEASE/AMYLASE 6,000 UNIT CAPSULE PO SCH ×3 (09:46→16:56)
[2019-12-30] MEDS: HEPARIN NA (PORCINE) 5,000 UNITS/ML 1ML VIAL SQ SCH ×2 (09:46→22:03)
[2019-12-30] MEDS: METOPROLOL TARTRATE 25 MG TABLET (FP) PO SCH ×2 (09:46→22:03)
[2019-12-30] MEDS: THIAMINE HCL 100 MG TABLET (FP) PO SCH (09:47)
[2019-12-30] MEDS: SODIUM ZIRCONIUM CYCLOSILICATE (LOKELMA) 10 GM PACKET PO SCH ×2 (09:47→10:15)
[2019-12-30] MEDS ORDERED: CEFTRIAXONE 1 GM in DEXTROSE 5%-WATER - 50 ML IVPB SCH (10:00)
[2019-12-30] MEDS ORDERED: cefTRIAXone SODIUM 1 GM VIAL ONE (10:09)
[2019-12-30] MEDS ORDERED: DEXTROSE 5%-WATER - 50 ML IVPB ONE (10:09)
--- NOTE | 2019-12-30 10:44 | PN ---
Progress Note (short form) - Note Progress Note: no distress pulling at IJ line decreased appetite labile emotions Vital Signs - 24 hr 12/29/19 12/29/19 12/29/19 15:00 18:00 21:00 Temperature 97.6 F 97.7 F Pulse Rate 70 72 Respiratory 18 18 16 Rate Blood Pressure 159/60 147/67 O2 Sat by Pulse 98 100 97 Oximetry (%) 12/29/19 12/30/19 12/30/19 22:05 05:47 09:00 Temperature 98 F 98.3 F Pulse Rate 88 73 Respiratory 16 18 18 Rate Blood Pressure 108/60 114/79 O2 Sat by Pulse 97 95 96 Oximetry (%) 12/30/19 09:45 Temperature 97.7 F Pulse Rate 76 Respiratory 18 Rate Blood Pressure 125/70 O2 Sat by Pulse 96 Oximetry (%) Current Medications Generic Name Dose Route Start Last Admin Trade Name Freq PRN Reason Stop Dose Admin Acetaminophen 650 mg 12/27/19 12:46 Tylenol Oral Solution - PO Q6H PRN MILD PAIN Amlodipine Besylate 2.5 mg 12/27/19 10:00 12/30/19 09:46 Norvasc - PO 2.5 mg DAILY [facility] Administration Famotidine 20 mg 12/27/19 22:00 Pepcid - PO HS [facility] Folic Acid 1 mg 12/27/19 10:00 12/30/19 09:46 Folic Acid - PO 1 mg DAILY [facility] Administration Heparin Sodium (Porcine) 5,000 unit 12/27/19 22:00 12/30/19 09:46 Heparin - SQ 5,000 unit BID [facility] Administration Hydroxyzine Pamoate 25 mg 12/27/19 12:40 12/29/19 06:41 Vistaril - PO 25 mg Q4H PRN Administration FOR ITCHING Sodium Chloride 1,000 mls @ 100 mls/hr 12/27/19 15:00 12/29/19 23:30 1/2 Normal Saline IV 100 mls/hr ASDIR [facility]ER Administration Ceftriaxone Sodium 1 gm/ 50 mls @ 100 mls/hr 12/30/19 10:00 12/30/19 10:14 Dextrose IVPB 100 mls/hr DAILY [facility] Administration Insulin Aspart 1 vial 12/27/19 14:00 12/30/19 06:13 Novolog Vial Sliding Scale - SQ Not Given TIDAC [facility] Protocol Lactobacillus Acidophilus 2 tab 07/25/20 07:00 12/30/19 06:13 Bacid - PO 2 tab ACBK [facility] Administration Levothyroxine Sodium 75 mcg 12/27/19 07:00 12/30/19 06:13 Synthroid - PO 75 mcg DAILY@0700 [facility] Administration Metoprolol Tartrate 12.5 mg 12/27/19 10:00 12/30/19 09:46 Lopressor - PO 12.5 mg BID [facility] Administration Pancrelipase 1 cap 12/27/19 08:00 12/30/19 09:[address] 6,000 Units Capsule PO 1 cap TIDCM [facility] Administration Sodium Zirconium Cyclosilicate 10 gm 12/27/19 10:00 12/30/19 10:15 Lokelma PO Not Given DAILY [facility] Thiamine HCl 100 mg 12/27/19 10:00 12/30/19 09:47 Vitamin B1 - PO 100 mg DAILY [facility] Administration Laboratory Results - last 24 hr 12/29/19 12/29/19 12/29/19 11:47 17:10 23:27 POC Glucometer 150 188 217 12/30/19 06:07 POC Glucometer 181 no sob S1 S2 RRR cachetic Lungs decreased Abd- soft, NT no edema PLAN maintain antunez for now iv antibiotics s/p PRBC sister does not want dialysis, intubation pt is DNR/DNI supportive care iv fluids spoke with renal off levemir as BGM lower side
[2019-12-30] MEDS: SODIUM CHLORIDE 0.45% 1,000 ML IV SCH (16:55)
--- NOTE | 2019-12-30 17:13 | PN ---
Progress Note, Physician History of Present Illness: No great change in status. She remains lethargic. - Current Medication List Current Medications: Active Medications Acetaminophen (Tylenol Oral Solution -) 650 mg PO Q6H PRN PRN Reason: MILD PAIN Amlodipine Besylate (Norvasc -) 2.5 mg PO DAILY [facility] Last Admin: 12/30/19 09:46 Dose: 2.5 mg Documented by: Famotidine (Pepcid -) 20 mg PO [facility] Folic Acid (Folic Acid -) 1 mg PO DAILY [facility] Last Admin: 12/30/19 09:46 Dose: 1 mg Documented by: Heparin Sodium (Porcine) (Heparin -) 5,000 unit SQ BID [facility] Last Admin: 12/30/19 09:46 Dose: 5,000 unit Documented by: Hydroxyzine Pamoate (Vistaril -) 25 mg PO Q4H PRN PRN Reason: FOR ITCHING Last Admin: 12/29/19 06:41 Dose: 25 mg Documented by: Sodium Chloride (1/2 Normal Saline) 1,000 mls @ 100 mls/hr IV ASDIR [facility] Last Admin: 12/30/19 16:55 Dose: Not Given Documented by: Ceftriaxone Sodium 1 gm/ (Dextrose) 50 mls @ 100 mls/hr IVPB DAILY [facility] Last Admin: 12/30/19 10:14 Dose: 100 mls/hr Documented by: Insulin Aspart (Novolog Vial Sliding Scale -) 1 vial SQ TIDAC [facility]; Protocol Last Admin: 12/30/19 16:58 Dose: 2 units Documented by: Lactobacillus Acidophilus (Bacid -) 2 tab PO ACBK [facility] Last Admin: 12/30/19 06:13 Dose: 2 tab Documented by: Levothyroxine Sodium (Synthroid -) 75 mcg PO DAILY@0700 [facility] Last Admin: 12/30/19 06:13 Dose: 75 mcg Documented by: Metoprolol Tartrate (Lopressor -) 12.5 mg PO BID [facility] Last Admin: 12/30/19 09:46 Dose: 12.5 mg Documented by: Pancrelipase (Ava Akers 6,000 Units Capsule) 1 cap PO TIDCM [facility] Last Admin: 12/30/19 16:56 Dose: Not Given Documented by: Sodium Zirconium Cyclosilicate (Lokelma) 10 gm PO DAILY [facility] Last Admin: 12/30/19 10:15 Dose: Not Given Documented by: Thiamine HCl (Vitamin B1 -) 100 mg PO DAILY [facility] Last Admin: 12/30/19 09:47 Dose: 100 mg Documented by: - Objective Vital Signs: Vital Signs Temperature 97.6 F 12/30/19 14:26 Pulse Rate 77 12/30/19 14:26 Respiratory Rate 20 12/30/19 14:26 Blood Pressure 137/65 12/30/19 14:26 O2 Sat by Pulse Oximetry (%) 96 12/30/19 14:26 Constitutional: Yes: Calm Eyes: Yes: Conjunctiva Clear HENT: Yes: Atraumatic Neck: Yes: Supple Cardiovascular: Yes: S1, S2 Respiratory: Yes: CTA Bilaterally Gastrointestinal: Yes: Normal Bowel Sounds, Soft Genitourinary: Yes: Incontinence Musculoskeletal: Yes: Muscle Weakness Neurological: Yes: Lethargy Labs: CBC, BMP 12/28/19 10:00 12/28/19 10:00 Problem List - Problems (1) EDMAR (acute kidney injury) Code(s): N17.9 - ACUTE KIDNEY FAILURE, UNSPECIFIED (2) Abdominal pain Code(s): R10.9 - UNSPECIFIED ABDOMINAL PAIN (3) CAD (coronary artery disease) Code(s): I25.10 - ATHSCL HEART DISEASE OF [place] CORONARY ARTERY W/O ANG PCTRS Qualifiers: Coronary Disease-Associated Artery/Lesion type: [place] artery [place] vs. transplanted heart: [place] heart Associated angina: without angina Qualified Code(s): I25.10 - Atherosclerotic heart disease of [place] coronary artery without angina pectoris Assessment/Plan Current Medications Generic Name Dose Route Start Last Admin Trade Name Roger PRN Reason Stop Dose Admin Acetaminophen 650 mg 12/27/19 12:46 Tylenol Oral Solution - PO Q6H PRN MILD PAIN Amlodipine Besylate 2.5 mg 12/27/19 10:00 12/30/19 09:46 Norvasc - PO 2.5 mg DAILY [facility] Administration Famotidine 20 mg 12/27/19 22:00 Pepcid - PO HS JENN[facility]ER Folic Acid 1 mg 12/27/19 10:00 12/30/19 09:46 Folic Acid - PO 1 mg DAILY [facility] Administration Heparin Sodium (Porcine) 5,000 unit 12/27/19 22:00 12/30/19 09:46 Heparin - SQ 5,000 unit BID [facility] Administration Hydroxyzine Pamoate 25 mg 12/27/19 12:40 12/29/19 06:41 Vistaril - PO 25 mg Q4H PRN Administration FOR ITCHING Sodium Chloride 1,000 mls @ 100 mls/hr 12/27/19 15:00 12/30/19 16:55 1/2 Normal Saline IV Not Given ASDIR [facility] Ceftriaxone Sodium 1 gm/ 50 mls @ 100 mls/hr 12/30/19 10:00 12/30/19 10:14 Dextrose IVPB 100 mls/hr DAILY [facility] Administration Insulin Aspart 1 vial 12/27/19 14:00 12/30/19 16:58 Novolog Vial Sliding Scale - SQ 2 units TIDAC [facility] Administration Protocol Lactobacillus Acidophilus 2 tab 12/27/19 07:00 12/30/19 06:13 Bacid - PO 2 tab ACBK [facility] Administration Levothyroxine Sodium 75 mcg 12/27/19 07:00 12/30/19 06:13 Synthroid - PO 75 mcg DAILY@0700 [facility] Administration Metoprolol Tartrate 12.5 mg 12/27/19 10:00 12/30/19 09:46 Lopressor - PO 12.5 mg BID [facility] Administration Pancrelipase 1 cap 12/27/19 08:00 12/30/19 16:[address] 6,000 Units Capsule PO Not Given TIDCM [facility] Sodium Zirconium Cyclosilicate 10 gm 12/27/19 10:00 12/30/19 10:15 Lokelma PO Not Given DAILY [facility] Thiamine HCl 100 mg 12/27/19 10:00 12/30/19 09:47 Vitamin B1 - PO 100 mg DAILY [facility] Administration Impression 1. EDMAR 2. Lewy Body Dementia 3. failure to thrive 4. hyperkalemia 5. DM 6. htn 7. anemia 8. met acidosis Plan - family do not want labs - cont hydration per family wishes - urine is clear - family do not want HD therapy
[2019-12-30] MEDS ORDERED: CEFUROXIME AXETIL 500 MG TABLET PO SCH (22:00)
[2019-12-31] MEDS: LACTOBACILLUS ACIDOPHILUS 1 TABLET PO SCH (06:03)
[2019-12-31] MEDS: INSULIN SLIDING SCALE (NOVOLOG) 1 VIAL SQ SCH ×2 (06:03→12:21)
[2019-12-31] MEDS: LEVOTHYROXINE NA 75 MCG TABLET (FP) PO SCH (06:03)
[2019-12-31] MEDS: amLODIPine BESYLATE 2.5 MG TABLET (FP) PO SCH (09:44)
[2019-12-31] MEDS ORDERED: PT OWN MED DRAWER 7, Y5N ONE (09:47)
[2019-12-31] MEDS: METOPROLOL TARTRATE 25 MG TABLET (FP) PO SCH (09:48)
[2019-12-31] MEDS: THIAMINE HCL 100 MG TABLET (FP) PO SCH (09:48)
[2019-12-31] MEDS: FOLIC ACID 1 MG TABLET (FP) PO SCH (09:48)
[2019-12-31] MEDS: LIPASE/PROTEASE/AMYLASE 6,000 UNIT CAPSULE PO SCH ×2 (09:49→12:58)
[2019-12-31] MEDS: SODIUM ZIRCONIUM CYCLOSILICATE (LOKELMA) 10 GM PACKET PO SCH (09:49)
[2019-12-31] MEDS: HEPARIN NA (PORCINE) 5,000 UNITS/ML 1ML VIAL SQ SCH (09:49)
--- NOTE | 2019-12-31 12:32 | PN ---
Progress Note, Physician History of Present Illness: Pt seen and examined at bedside. She remains lethargic. - Current Medication List Current Medications: Active Medications Acetaminophen (Tylenol Oral Solution -) 650 mg PO Q6H PRN PRN Reason: MILD PAIN Amlodipine Besylate (Norvasc -) 2.5 mg PO DAILY [facility] Last Admin: 12/31/19 09:44 Dose: 2.5 mg Documented by: Cefuroxime Axetil (Ceftin -) 500 mg PO BID [facility] Famotidine (Pepcid -) 20 mg PO HS [facility] Folic Acid (Folic Acid -) 1 mg PO DAILY [facility] Last Admin: 12/31/19 09:48 Dose: 1 mg Documented by: Heparin Sodium (Porcine) (Heparin -) 5,000 unit SQ BID [facility] Last Admin: 12/31/19 09:49 Dose: 5,000 unit Documented by: Hydroxyzine Pamoate (Vistaril -) 25 mg PO Q4H PRN PRN Reason: FOR ITCHING Last Admin: 12/29/19 06:41 Dose: 25 mg Documented by: Insulin Aspart (Novolog Vial Sliding Scale -) 1 vial SQ TIDAC [facility]; Protocol Last Admin: 12/31/19 12:21 Dose: 2 units Documented by: Lactobacillus Acidophilus (Bacid -) 2 tab PO ACBK [facility] Last Admin: 12/31/19 06:03 Dose: 2 tab Documented by: Levothyroxine Sodium (Synthroid -) 75 mcg PO DAILY@0700 [facility] Last Admin: 12/31/19 06:03 Dose: 75 mcg Documented by: Metoprolol Tartrate (Lopressor -) 12.5 mg PO BID [facility] Last Admin: 12/31/19 09:48 Dose: 12.5 mg Documented by: Pancrelipase (Ava Dr 6,000 Units Capsule) 1 cap PO TIDCM [facility] Last Admin: 12/31/19 09:49 Dose: 1 cap Documented by: Sodium Zirconium Cyclosilicate (Lokelma) 10 gm PO DAILY [facility] Last Admin: 12/31/19 09:49 Dose: 10 gm Documented by: Thiamine HCl (Vitamin B1 -) 100 mg PO DAILY [facility] Last Admin: 12/31/19 09:48 Dose: 100 mg Documented by: - Objective Vital Signs: Vital Signs Temperature 97.9 F 12/31/19 10:09 Pulse Rate 74 12/31/19 10:09 Respiratory Rate 18 12/31/19 10:09 Blood Pressure 150/58 L 12/31/19 10:09 O2 Sat by Pulse Oximetry (%) 99 12/31/19 10:09 Constitutional: Yes: Calm Eyes: Yes: Conjunctiva Clear HENT: Yes: Atraumatic Neck: Yes: Supple Cardiovascular: Yes: S1, S2 Respiratory: Yes: CTA Bilaterally Gastrointestinal: Yes: Normal Bowel Sounds, Soft Genitourinary: Yes: [place] Present Musculoskeletal: Yes: Muscle Weakness Neurological: Yes: Lethargy Labs: CBC, BMP 12/28/19 10:00 12/28/19 10:00 Problem List - Problems (1) EDMAR (acute kidney injury) Code(s): N17.9 - ACUTE KIDNEY FAILURE, UNSPECIFIED (2) Abdominal pain Code(s): R10.9 - UNSPECIFIED ABDOMINAL PAIN (3) CAD (coronary artery disease) Code(s): I25.10 - ATHSCL HEART DISEASE OF [place] CORONARY ARTERY W/O ANG PCTRS Qualifiers: Coronary Disease-Associated Artery/Lesion type: [place] artery [place] vs. transplanted heart: [place] heart Associated angina: without angina Qualified Code(s): I25.10 - Atherosclerotic heart disease of [place] coronary artery without angina pectoris Assessment/Plan Current Medications Generic Name Dose Route Start Last Admin Trade Name Freq PRN Reason Stop Dose Admin Acetaminophen 650 mg 12/27/19 12:46 Tylenol Oral Solution - PO Q6H PRN MILD PAIN Amlodipine Besylate 2.5 mg 12/27/19 10:00 12/31/19 09:44 Norvasc - PO 2.5 mg DAILY [facility] Administration Cefuroxime Axetil 500 mg 12/30/19 22:00 Ceftin - PO BID [facility] Famotidine 20 mg 12/27/19 22:00 Pepcid - PO HS JENN[facility]ER Folic Acid 1 mg 12/27/19 10:00 12/31/19 09:48 Folic Acid - PO 1 mg DAILY [facility] Administration Heparin Sodium (Porcine) 5,000 unit 12/27/19 22:00 12/31/19 09:49 Heparin - SQ 5,000 unit BID [facility] Administration Hydroxyzine Pamoate 25 mg 12/27/19 12:40 12/29/19 06:41 Vistaril - PO 25 mg Q4H PRN Administration FOR ITCHING Insulin Aspart 1 vial 12/27/19 14:00 12/31/19 12:21 Novolog Vial Sliding Scale - SQ 2 units TIDAC [facility] Administration Protocol Lactobacillus Acidophilus 2 tab 12/27/19 07:00 12/31/19 06:03 Bacid - PO 2 tab ACBK [facility] Administration Levothyroxine Sodium 75 mcg 12/27/19 07:00 12/31/19 06:03 Synthroid - PO 75 mcg DAILY@0700 [facility] Administration Metoprolol Tartrate 12.5 mg 12/27/19 10:00 12/31/19 09:48 Lopressor - PO 12.5 mg BID [facility] Administration Pancrelipase 1 cap 12/27/19 08:00 12/31/19 09:[address] 6,000 Units Capsule PO 1 cap TIDCM [facility] Administration Sodium Zirconium Cyclosilicate 10 gm 12/27/19 10:00 12/31/19 09:49 Lokelma PO 10 gm DAILY [facility] Administration Thiamine HCl 100 mg 12/27/19 10:00 12/31/19 09:48 Vitamin B1 - PO 100 mg DAILY [facility] Administration Impression 1. EDMAR 2. Lewy Body Dementia 3. failure to thrive 4. hyperkalemia 5. DM 6. htn 7. anemia 8. met acidosis Plan - cont fluid per family request - family do not want labs - urine is clear - family do not want HD therapy
--- NOTE | 2019-12-31 12:45 | DS ---
Physical Examination Vital Signs: Vital Signs Temperature 97.9 F 12/31/19 10:09 Pulse Rate 74 12/31/19 10:09 Respiratory Rate 18 12/31/19 10:09 Blood Pressure 150/58 L 12/31/19 10:09 O2 Sat by Pulse Oximetry (%) 99 12/31/19 10:09 Constitutional: Yes: No Distress, Calm Cardiovascular: Yes: Regular Rate and Rhythm Respiratory: Yes: Diminished Gastrointestinal: Yes: Normal Bowel Sounds, Soft. No: Tenderness Edema: No Labs: CBC, BMP 12/28/19 10:00 12/28/19 10:00 Discharge Summary Problems reviewed: Yes Reason For Visit: URINARY TRACT INFECTION,ACUTE RENAL FAILURE SUPER- Current Active Problems EDMAR (acute kidney injury) (Acute) Hospital Course: Admitted for AMS, found to have anemia, acute on CKD, UTI Pt has Lewy body dementia She has poor appetite received iv fluids, one unit PRBC and iv antibiotics Sister-- who is HCP-- Joanne has spoken to me, renal and palliative RN-- decision made for hospice, DNR/DNI new MOLST form DNR/DNI, no return to hospital, no IVs or feeding tubes filled Condition: Guarded - Instructions Diet, Activity, Other Instructions: new MOLST form DNR/DNI, no return to hospital, no IVs or feeding tubes Disposition: ALF FACILITY - Home Medications Comprehensive Discharge Medication List: Ambulatory Orders Acidoph/L.bulg/Bif.b/S.thermop [Bacid Caplet] 2 each PO ACBK 12/27/19 Amlodipine Besylate 2.5 mg PO DAILY 12/27/19 Arginine/Ascorbate Sod/Annel AC [Arginaid Powder] 1 each PO BID 12/27/19 Aspirin [ASA -] 81 mg PO DAILY 12/27/19 Famotidine [Pepcid AC] 20 mg PO HS 12/27/19 Insulin (Novolog) [Novolog -] 9 units SQ BID 12/27/19 Insulin Glargine,Hum.rec.anlog [Basaglar Kwikpen U-100] 20 unit SQ HS 12/27/19 Insulin Sliding Scale [Novolog Vial Sliding Scale -] See Protocol SQ ACHS 12/27/19 Levothyroxine Sodium [Levo-T] 75 mcg PO DAILY 12/27/19 Lipase/Protease/Amylase [Creon Dr 6,000 Units Capsule] 1 cap PO TIDCM 12/27/19 Melatonin/Pyridoxine HCl (B6) [Melatonin 3 mg Tablet] 3 mg PO HS 12/27/19 Metoprolol Tartrate 12.5 mg PO BID 12/27/19
[2019-12-31 15:29] VITALS: BP 156/63; PULSE 64; TEMP 97.7
== END 2019-12-31 15:48 | DRG 683 ==
LOC: JER 00:14 → JERBED 04:19 → J7W 08:35
PROVIDERS: ADMIT Internal Medicine; ATTEND Internal Medicine
PROC: 30233N1 Transfusion of Nonautologous Red Blood Cells into Peripheral Vein, Percutaneous Approach (ICD-10-PCS; principal; 2019-12-27)
DX: N17.9 Acute kidney failure, unspecified (principal); N39.0 Urinary tract infection, site not specified; E87.2 Acidosis; R64 Cachexia; G31.83 Neurocognitive disorder with Lewy bodies; F02.80 Dementia in other diseases classified elsewhere, unspecified severity, without behavioral disturbance, psychotic disturbance, mood disturbance, and anxiety; D64.9 Anemia, unspecified; E03.9 Hypothyroidism, unspecified; E78.5 Hyperlipidemia, unspecified; D50.9 Iron deficiency anemia, unspecified; R10.9 Unspecified abdominal pain; J44.9 Chronic obstructive pulmonary disease, unspecified; R41.82 Altered mental status, unspecified; E11.65 Type 2 diabetes mellitus with hyperglycemia; K21.9 Gastro-esophageal reflux disease without esophagitis; R13.10 Dysphagia, unspecified; E87.5 Hyperkalemia; I25.10 Atherosclerotic heart disease of native coronary artery without angina pectoris; B96.20 Unspecified Escherichia coli [E. coli] as the cause of diseases classified elsewhere; E86.0 Dehydration; I12.9 Hypertensive chronic kidney disease with stage 1 through stage 4 chronic kidney disease, or unspecified chronic kidney disease; N18.9 Chronic kidney disease, unspecified; D63.1 Anemia in chronic kidney disease; R62.7 Adult failure to thrive; Z68.20 Body mass index [BMI] 20.0-20.9, adult; Z74.01 Bed confinement status; Z66 Do not resuscitate; Z86.73 Personal history of transient ischemic attack (TIA), and cerebral infarction without residual deficits; Z95.5 Presence of coronary angioplasty implant and graft
CPT/HCPCS: 36415; 36430; 71045-TC-FY; 80048; 80053; 81003; 82607; 82728; 82746; 82962; 83540; 83550; 83735; 84100; 84132; 84466; 85025; 86850; 86900; 86901; 86922; 87077; 87081; 87086; 87186; 93005; 93010; 97116-GP; 97161-GP; 99285-25; J1644; P9058; U0003